=== PATIENT | male | born 1965 | race Caucasian/White ===

== ENCOUNTER 2017-08-14 07:24 | Observation (INO) | payer MEDICARE ==
[2017-08-14 08:04] LABS: #Basophils 0.1 thou/uL (0.0-0.2); #Eosinphils 0.3 thou/uL (0.0-0.7); #Lymphocytes 2.8 thou/uL (1.20-3.40); #Monocytes 0.7 thou/uL (0.11-0.59); %Basophils 0.9 % (0.0-1.0); %Eosinophils 3.4 % (0.0-10.0); %Lymphocytes 31.3 % (21.0-51.0); %Monocytes 7.6 % (0.0-10.0); Hematocrit 43.8 % (42.0-52.0); Mean Platelet Volume 7.6 fL (7.4-10.4); Red Blood Cell (RBC) Count 4.37 mill/uL (4.70-6.10); White Blood Cell (WBC) Count 8.8 thou/uL (4.8-10.8)
--- NOTE | 2017-08-14 08:06 | RAD ---
PORTABLE UPRIGHT FRONTAL CHEST RADIOGRAPH: Date: 08-14-17 Comparison: 08-19-16 History: Chest pain. FINDINGS: Cervical spine hardware is present. No pneumothorax, pleural fluid, focal consolidation or alveolar edema. Heart and mediastinal contours are stable. IMPRESSION: No acute findings. POS: [facility]
[2017-08-14 08:22] LABS: Bilirubin Negative (Negative); Blood, Urine Negative (Negative); Glucose, Urine (Dipstick) Negative (Negative); Ketone, Urine Negative (Negative); Nitrite Negative (Negative); Protein, Urine (Dipstick) Negative (Neg-Trace); Urobilinogen 0.2 mg/dL (0.2-1.0)
[2017-08-14 08:24] LABS: ALT (SGPT) 24 U/L (8-55); AST (SGOT) 25 U/L (5-34); Alkaline Phosphatase 119 U/L (40-150); Anion Gap 13 mmol/L (10-20); BUN (Urea Nitrogen) 11 mg/dL (8.4-25.7); Bilirubin, Total 0.5 mg/dL (0.2-1.2); CK (CPK) 165 U/L (30-200); Calc. Creatinine Clearance 0 mL/min (70-130); Calcium 8.9 mg/dL (7.8-10.44); Carbon Dioxide 22 mmol/L (22-29); Chloride 101 mmol/L (98-107); Estimated GFR-MDRD 79; Globulin 3.2 g/dL (2.4-3.5); Lipase 12 U/L (8-78); Protein, Total 6.7 g/dL (6.0-8.3)
[2017-08-14 08:28] LABS: Troponin I Less than 0.010 ng/mL (< 0.028)
[2017-08-14] MEDS ORDERED: Ondansetron HCl/PF 4 MG/2 ML Vial IVP PRN ×2 (10:03→11:33)
[2017-08-14] MEDS ORDERED: Ondansetron ODT 4 MG TAB PO PRN ×2 (10:03→11:33)
[2017-08-14 10:19] VITALS: TEMP 97.7
[2017-08-14 10:20] VITALS: BMI 32.9
[2017-08-14] MEDS ORDERED: Calcium Carbonate 500 MG ChewTAB PO PRN (11:33)
[2017-08-14] MEDS ORDERED: Acetaminophen 325 MG TAB PO PRN (11:33)
[2017-08-14] MEDS ORDERED: Nitroglycerin 0.4 MG TAB (25 Tab Bottle) PO PRN (11:33)
[2017-08-14] MEDS ORDERED: Senokot 8.6 MG TAB PO PRN (11:33)
[2017-08-14] MEDS ORDERED: cloNIDine 0.1 MG TAB PO PRN (11:33)
[2017-08-14] MEDS ORDERED: ALPRAZolam 1 MG TAB PO PRN (11:37)
[2017-08-14] MEDS ORDERED: HYDROcodone/Acetaminophen 10/325 mg Tablet PO PRN (11:37)
[2017-08-14] MEDS ORDERED: busPIRone HCl 10 MG TAB PO SCH (12:00)
[2017-08-14 12:51] VITALS: BP 168/105
[2017-08-14 12:51] LABS: Troponin I Less than 0.010 ng/mL (< 0.028)
[2017-08-14 14:44] LABS: Troponin I Less than 0.010 ng/mL (< 0.028)
[2017-08-14] MEDS ORDERED: cloNIDine 0.1 MG TAB PO SCH (15:00)
--- NOTE | 2017-08-14 17:19 | SS ---
FOLLOWUP: With primary care physician, Dr. Morocho in 1 week. ALLERGIES: The patient is allergic to PENICILLIN. DISCHARGE MEDICATIONS: Are same as admission medication with addition of aspirin 325 mg daily and s ublingual nitroglycerin as needed. Other home medications were resumed including Xanax as needed, Lipitor 10 mg daily, Cymbalta 90 mg d aily, gabapentin 1200 mg at bedtime, [place] as needed, hydrocodone bitartrate 120 mg daily, buspirone 5 mg b.i.d., clonidine 0.1 mg three times daily, and Benadryl as needed. INPATIENT CONSULTANTS: None. CHIEF COMPLAINT: Chest discomfort. HISTORY OF PRESENT ILLNESS: Patient is a 52-year-old male with hypertension, hyperlipidemia, severe anxiety and claustrophobia presented to the hospital with chest discomfort that started at 5:00 a.m . He was awake at that time. The pain was substernal, radiating to his left arm and back. It was pressure-like, burning in nature and moderate in intensity without any aggravating or relieving fact or. He felt lightheaded. However, denies any syncope or palpitations. No recent immobilization or travel. No nausea, vomiting or heartburn. He denies any cough, shortness of breath, orthopnea or leg swelling. In the emergency room, his initial vital signs showed temperature 98.2, respirations 14, pulse 78, a nd blood pressure of 111/90 with O2 saturation 96% on room air. His pain resolved after nitroglycer in. PAST MEDICAL HISTORY: 1. Chronic low back pain. 2. Hypertension. 3. Hyperlipidemia. 4. Anxiety disorder. 5. History of renal calculi. PAST SURGICAL HISTORY: 1. Cholecystectomy. 2. Multiple back surgeries. 3. Cervical C4-C7 fusion. ALLERGIES: PENICILLIN. CURRENT HOME MEDICATION: As discussed above. SOCIAL HISTORY: He is a former smoker. Denies any current use of smoking, alcohol or drug use. 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 FAMILY HISTORY: Positive for father with coronary artery bypass grafting. REVIEW OF SYSTEMS: The following complete review of systems was negative, unless otherwise mentione d in the HPI or below: Constitutional: Weight loss or gain, ability to conduct usual activities. Skin: Rash, itching. Eyes: Double vision, pain. ENT/Mouth: Nose bleeding, neck stiffness, pain, tenderness. Cardiovascular: Palpitations, dyspnea on exertion, orthopnea. Respiratory: Shortness of breath, wheezing, cough, hemoptysis, fever or night sweats. Gastrointestinal: Poor appetite, abdominal pain, heartburn, nausea, vomiting, constipation, or diar yanique. Genitourinary: Urgency, frequency, dysuria, nocturia. Musculoskeletal: Pain, swelling. Neurologic/Psychiatric: Anxiety, depression. Allergy/Immunologic: Skin rash, bleeding tendency. PHYSICAL EXAMINATION: VITAL SIGNS: As discussed above. GENERAL: A 52-year-old male in no apparent distress. Denies any chest discomfort at this time. HEENT: Head, atraumatic, normocephalic. Sclerae are anicteric. Moist mucous membranes. No oral l esion. NECK: Supple, no JVD, no carotid bruit. LUNGS: Clear to auscultation bilaterally. HEART: S1 and S2 present. Regular rate and rhythm. No murmurs, rubs or gallops are appreciated. ABDOMEN: Soft, nontender, bowel sounds present. No rebound or guarding. No costovertebral angle t enderness. EXTREMITIES: No edema or calf tenderness. Homans sign was negative. NEUROLOGIC: Grossly nonfocal, moves all four extremities. PSYCHIATRIC: Alert, awake, and oriented x3. SKIN: Warm and dry. LYMPH NODES: No palpable lymph nodes in the neck. PERIPHERAL VASCULAR: Radial pulses palpable bilaterally. MUSCULOSKELETAL: No joint swelling or tenderness. LABORATORY DATA AND X-RAY FINDINGS: 1. CBC showed WBC 8.8, hemoglobin 14.6, hematocrit 43.8, and platelet of 220. Chemistries showed s odium 131, potassium 4.6, chloride 101, bicarbonate 22, BUN 11, creatinine 1. 2. Cardiac enzymes were normal. Urinalysis was negative for WBC bacteria. 3. Chest x-ray by my review was negative for infiltrate. 4. EKG by my review showed normal sinus rhythm without significant ST-T wave changes IMPRESSION AND PLAN: 1. Chest discomfort. His serial cardiac enzymes were normal. Patient was sent down for the stress test. However, he was not able to complete a stress test due to extreme claustrophobia. He reques chris stress test to be done as outpatient. I called Dr. Potter's office and scheduled appointment in next [address] Jeff Potter. Aspirin along with sublingual nitroglycerin as needed was added to his home regimen. He was advised to come to the emergency room for any new episode of chest pain in the time being. 2. Hyperlipidemia. Statins were continued. 3. Chronic pain syndrome on chronic narcotics. 4. Severe anxiety with claustrophobia. Home medications were resumed. 5. Obesity with a body mass index 32.9. 6. PENICILLIN allergy. 7. Former smoker. 8. Hypertension. 9. Plan of care was discussed with the patient. He stated understanding.
[2017-08-14] MEDS ORDERED: Docusate 100 MG CAP PO SCH (21:00)
[2017-08-14] MEDS ORDERED: Enoxaparin Sodium 40 MG/0.4 ML SYRINGE SC SCH (21:00)
[2017-08-14] MEDS ORDERED: Gabapentin 400 MG CAP PO SCH (21:00)
[2017-08-14] MEDS ORDERED: Famotidine 20 MG TAB PO SCH (21:00)
[2017-08-15] MEDS ORDERED: busPIRone HCl 10 MG TAB PO SCH (09:00)
[2017-08-15] MEDS ORDERED: Atorvastatin Calcium 10 MG TAB PO SCH (09:00)
[2017-08-15] MEDS ORDERED: Aspirin 325 MG TAB PO SCH (09:00)
== END 2017-08-14 16:15 | disposition home or self-care (01) ==
LOC: ERS 07:24 → 2SW 10:13
PROVIDERS: ADMIT Internal Medicine; ATTEND Internal Medicine
DX: R07.2 Precordial pain (principal); E78.5 Hyperlipidemia, unspecified; G89.4 Chronic pain syndrome; F40.240 Claustrophobia; E66.9 Obesity, unspecified; I10 Essential (primary) hypertension; Z79.82 Long term (current) use of aspirin; Z79.891 Long term (current) use of opiate analgesic; Z79.899 Other long term (current) drug therapy; Z68.32 Body mass index [BMI] 32.0-32.9, adult; Z88.0 Allergy status to penicillin; Z98.1 Arthrodesis status; Z90.49 Acquired absence of other specified parts of digestive tract; Z98.890 Other specified postprocedural states; Z87.891 Personal history of nicotine dependence; Z87.442 Personal history of urinary calculi
CPT/HCPCS: 71010; 78452; 80053; 81003; 82550; 82553; 83690; 84484 ×2; 85025; 93005; 94760 ×2; 99285; A9500; 36415; 36416

== ENCOUNTER 2017-09-06 06:03 | Emergency (ER) | payer MEDICARE ==
[2017-09-06 06:47] LABS: #Basophils 0.1 thou/uL (0.0-0.2); #Eosinphils 0.2 thou/uL (0.0-0.7); #Monocytes 0.6 thou/uL (0.11-0.59); #Neutrophils 4.7 thou/uL (1.40-6.50); %Basophils 1.3 % (0.0-1.0); %Eosinophils 2.8 % (0.0-10.0); %Lymphocytes 34.8 % (21.0-51.0); %Monocytes 6.4 % (0.0-10.0); Hematocrit 43.2 % (42.0-52.0); Mean Platelet Volume 7.6 fL (7.4-10.4); Red Blood Cell (RBC) Count 4.17 mill/uL (4.70-6.10); White Blood Cell (WBC) Count 8.6 thou/uL (4.8-10.8)
[2017-09-06 06:56] LABS: ALT (SGPT) 28 U/L (8-55); AST (SGOT) 22 U/L (5-34); Alkaline Phosphatase 125 U/L (40-150); Anion Gap 12 mmol/L (10-20); BUN (Urea Nitrogen) 8 mg/dL (8.4-25.7); Bilirubin, Total 0.4 mg/dL (0.2-1.2); CK (CPK) 97 U/L (30-200); Calc. Creatinine Clearance 0 mL/min (70-130); Calcium 8.8 mg/dL (7.8-10.44); Carbon Dioxide 25 mmol/L (22-29); Chloride 100 mmol/L (98-107); Estimated GFR-MDRD 71; Globulin 2.7 g/dL (2.4-3.5); Lipase 12 U/L (8-78); Protein, Total 6.4 g/dL (6.0-8.3)
[2017-09-06] MEDS ORDERED: Lidocaine 1% (PF) 30 ML VIAL ONE (07:09)
[2017-09-06 07:38] LABS: Bilirubin Negative (Negative); Blood, Urine Negative (Negative); Glucose, Urine (Dipstick) Negative (Negative); Ketone, Urine Negative (Negative); Nitrite Negative (Negative); Protein, Urine (Dipstick) Negative (Neg-Trace); Urobilinogen 0.2 mg/dL (0.2-1.0)
== END 2017-09-06 08:10 | disposition home or self-care (01) ==
LOC: ERS 06:03
DX: L02.211 Cutaneous abscess of abdominal wall (principal); L03.311 Cellulitis of abdominal wall; I10 Essential (primary) hypertension; E78.5 Hyperlipidemia, unspecified; F32.9 Major depressive disorder, single episode, unspecified; F41.9 Anxiety disorder, unspecified; F17.210 Nicotine dependence, cigarettes, uncomplicated; Z79.899 Other long term (current) drug therapy
CPT/HCPCS: 10060; 36415; 80053; 81003; 82550; 83690; 85025; 99406; J2001

== ENCOUNTER 2017-09-07 07:55 | Observation (INO) | payer MEDICARE ==
[2017-09-07 08:49] LABS: #Basophils 0.1 thou/uL (0.0-0.2); #Eosinphils 0.2 thou/uL (0.0-0.7); #Lymphocytes 2.3 thou/uL (1.20-3.40); #Monocytes 0.5 thou/uL (0.11-0.59); #Neutrophils 3.9 thou/uL (1.40-6.50); %Basophils 1.3 % (0.0-1.0); %Eosinophils 3.3 % (0.0-10.0); %Lymphocytes 32.5 % (21.0-51.0); %Monocytes 7.4 % (0.0-10.0); Hematocrit 41.7 % (42.0-52.0); Mean Platelet Volume 7.4 fL (7.4-10.4); Red Blood Cell (RBC) Count 4.05 mill/uL (4.70-6.10); White Blood Cell (WBC) Count 7.1 thou/uL (4.8-10.8)
[2017-09-07 08:54] LABS: PTT 28.2 SEC (22.9-36.1); Prothrombin Time 12.7 SEC (12.0-14.7)
[2017-09-07 09:10] LABS: ALT (SGPT) 36 U/L (8-55); AST (SGOT) 38 U/L (5-34); Alkaline Phosphatase 133 U/L (40-150); Anion Gap 9 mmol/L (10-20); BUN (Urea Nitrogen) 7 mg/dL (8.4-25.7); Bilirubin, Total 0.6 mg/dL (0.2-1.2); CK (CPK) 115 U/L (30-200); Calc. Creatinine Clearance 0 mL/min (70-130); Calcium 8.6 mg/dL (7.8-10.44); Carbon Dioxide 29 mmol/L (22-29); Chloride 98 mmol/L (98-107); Estimated GFR-MDRD 82; Globulin 2.8 g/dL (2.4-3.5); Protein, Total 6.5 g/dL (6.0-8.3)
[2017-09-07 09:15] LABS: Troponin I Less than 0.010 ng/mL (< 0.028)
--- NOTE | 2017-09-07 09:18 | RAD ---
EXAM: ONE VIEW CHEST: HISTORY: Chest pain. COMPARISON: 08/14/17. FINDINGS: Normal cardiac silhouette. Pulmonary vessels and hilum are normal. Costophrenic angles are clear. No consolidation or mass. Lung volumes are diminished likely due to poor inspiratory effort. No pne umothorax or osseous abnormalities. Cervical fusion hardware is noted. IMPRESSION: Diminished lung volumes. No acute cardiopulmonary process. POS: [facility]
--- NOTE | 2017-09-07 12:46 | HP ---
CHIEF COMPLAINT: Chest pain. HISTORY OF PRESENT ILLNESS: This is a 52-year-old pleasant gentleman who came into the hospital yest erday for a small abscess 1 cm x 0.7 cm just on his pubic area, possibly secondary to a Staph infecti on. It was aspirated and sent home with some clindamycin. Today in the morning, he got up at 5:00 a .m. and felt as though there was some more secretions left and he tried to stick himself with a pin t o drain the pus. Because he was unsuccessfully he felt very stressed and then he started experiencin g sharp, heavy retrosternal chest pain which radiated up to the neck. The patient also felt slight s hortness of breath, but denies any diaphoresis. The patient states his pain improved after taking 3 nitroglycerins. He denies any fever, chills, nausea or vomiting. The patient reports headache withi n the last month. The patient has had a stress test which was not able to be completed as the patien t got anxious and Dr. Potter was called from the ER who recommended we admit the patient for observat ion. The patient's chest pain is relieved by nitroglycerin and not worse by anything else. The ovidio ent will be admitted for evaluation and treatment of this. PAST MEDICAL HISTORY: Chronic low back pain, hypertension, hyperlipidemia, anxiety disorder, history of renal calculi. PAST SURGICAL HISTORY: Cholecystectomy, multiple back surgeries, cervical C4-C7 fusion surgery. ALLERGIES: PENICILLIN. CURRENT HOME MEDICATIONS: Please see MAR. SOCIAL HISTORY: He still smokes. Denies any alcohol or recreational drug use. 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 FAMILY HISTORY: Positive for father with coronary artery bypass grafting. REVIEW OF SYSTEMS: Significant for chest pain, otherwise no fever, no chills, no headache, no appeti te changes. No cough, no diarrhea, dysuria or polyuria. No memory or mood changes noted. PHYSICAL EXAMINATION: VITAL SIGNS: Blood pressure 145/95, pulse is 97, respirations 18, temperature 98. GENERAL: The patient is lying in bed in no apparent distress. HEENT: Atraumatic and normocephalic. Pupils equally round, react to light. Extraocular movements i ntact. Mucous membranes moist. NECK: Supple. No JVD. CHEST: Breath sounds. There are no rales or rhonchi. HEART: S1, S2, no murmurs, rubs or gallops. ABDOMEN: Soft, obese. EXTREMITIES: No cyanosis, clubbing, edema. Distal pulses present. NEUROLOGIC: Alert, awake, oriented. No cranial deficits. No sensorimotor deficits. SKIN: The skin over the pubic area shows a small opening with no drainage, no redness is seen as wel l. LABORATORY DATA: WBC count is 7.1, hemoglobin is 14, INR 0.9. BNP is 10. Troponin is negative. Po tassium is 4. Sodium is 132, creatinine is 0.9. ASSESSMENT AND PLAN: 1. Chest pain, rule out acute coronary syndrome. Dr. Potter has been consulted. We will put him on chest pain protocol and do the need for. 2. Hyponatremia. We will give him normal saline at 60 mL an hour. 3. Obesity. He has been counseled. 4. Tobacco use, he has been counseled. 5. Chronic low back pain. We will continue home medications. 6. Hyperlipidemia, stable. 7. Hypertension. We will monitor throughout his hospital stay. 8. A small abdominal wall abscess, status post drainage yesterday on the , we will put him on Ba ctrim-DS p.o. b.i.d. and warm compresses. 9. Sequential compression devices for deep venous thrombosis prophylaxis. I will work with Dr. Potter in further caring for the patient.
[2017-09-07] MEDS ORDERED: Acetaminophen 325 MG TAB PO PRN (12:50)
[2017-09-07] MEDS ORDERED: Sodium Chloride 0.9% 1,000 ML IV SCH (12:57)
[2017-09-07] MEDS ORDERED: Calcium Carbonate 500 MG ChewTAB PO PRN (12:57)
[2017-09-07] MEDS ORDERED: Lorazepam 1 MG TAB PO PRN (12:57)
[2017-09-07] MEDS ORDERED: hydrALAZINE 20 MG/ML VIAL SLOW IVP PRN (12:57)
[2017-09-07] MEDS ORDERED: Nitroglycerin 0.4 MG TAB (25 Tab Bottle) PO PRN (12:57)
[2017-09-07] MEDS ORDERED: HYDROcodone/Acetaminophen 5/325 mg Tablet PO PRN (12:57)
[2017-09-07 13:47] LABS: Troponin I Less than 0.010 ng/mL (< 0.028)
[2017-09-07 13:53] VITALS: BMI 33.0
[2017-09-07 16:03] VITALS: BP 121/71; TEMP 98.4
[2017-09-07 16:36] LABS: Troponin I Less than 0.010 ng/mL (< 0.028)
--- NOTE | 2017-09-07 18:25 | CON ---
DATE OF CONSULTATION: 09/07/2017 INDICATION FOR CONSULTATION: This is a 52-year-old patient with a history of chest pain. This gentleman was on his way to the hospital today where he had abdominal abscesses and some discomfort. He had it drained yesterday, but was having more discomfort. He was on his way to the hospital, (His father was driving him as he does not drive due to anxiety) and on the way to the hospital, he developed chest pain which he describes as being very sharp stabbing type pain with shooting pains up to the neck. After being seen in the emergency room, the cardiac enzymes are negative. He was admitted to the hospital for observation. Since being in the hospital, he has had his third set of cardiac enzymes which are negative. His EKG is unremarkable. He did have one episode of chest pain on the telemetry floor, which he described as 10/10 with shooting pains to the neck. This is a sharp stabbing pain, but there were no EKG changes noted on the monitor and he remains stable at this time. He does state that the pain is relieved by nitroglycerin. Unfortunately, he still continues to smoke and may be having some vasospasm, but there were no EKG changes to confirm that he was having ischemic changes. At this time, he remains relatively stable. He has no pain. He has had no further chest pain since his last episode and was given nitroglycerin for relief. PAST MEDICAL HISTORY: Significant for abnormal stress test in the office. He had a very small area on the inferior wall suggesting possible ischemia which was a low risk finding, this was recently performed by Dr. Potter on 2016. His ejection fraction at that time was unremarkable. PAST MEDICAL HISTORY: Significant for anxiety disorder. He has a history of hypertension, panic attacks, history of gastroesophageal reflux disease. He had a cholecystectomy, he has had lumbar diskectomy, he has had a spinal fusion , he has had a kyphoplasty performed, I believe, in the disk areas. He quit back in 2013 and had severe anxiety attack and saw the psychiatrist, he is continued to smoke as he became apparently suicidal. SOCIAL HISTORY: He continues to smoke. MEDICATIONS: Prior to admission included Hysingla ER 120 mg q.24 hours, atorvastatin 10 mg a day, duloxetine 30 mg daily, gabapentin 600 mg t.i.d., alprazolam 1 mg half tablet to one tablet as needed, Paroxetine ER 37.5 mg daily , hydrocodone/acetaminophen one tablet three times a day as needed, hydroxyzine HCL 25 mg q.p.m., Buspirone 10 mg 3 tablets in the morning and 2 in the evening , clonidine 0.1 mg q.i.d., Lisinopril 5 mg daily. ALLERGIES: He is allergic to PENICILLIN. REVIEW OF SYSTEMS: A 12-point review of systems is essentially unremarkable except what was noted in the history of present illness. PHYSICAL EXAMINATION: GENERAL: Reveals a well-developed, well-nourished gentleman who is in no acute distress. He is alert and oriented. He denies any chest pain at this time. VITAL SIGNS: His blood pressure is 121/71, earlier was 165/98, heart rate is 73 and regular. He is afebrile, respiratory rate is 18. HEENT: Reveals the head to be normocephalic and atraumatic. Carotid pulses are present. There were no bruits. No JVD. The thyroid is not enlarged. Oral mucosa was pink and moist. CHEST: Clear to auscultation, no rales, rhonchi or wheezing. CARDIOVASCULAR: Exam reveals a regular rate and rhythm, normal S1, S2. There is no S3, S4 noted. No significant murmurs, heaves, thrills, bruits or rubs. ABDOMEN: Soft and nontender. Positive bowel sounds are present. EXTREMITIES: He does have a small area which was a small incision where he underwent excision already with what appears to be an infected with hair follicle with small abscess that was drained. It does not appear to be hardened or draining at this time. EXTREMITIES: Show no clubbing, cyanosis or edema. Pedal pulses are present. NEUROLOGIC: He appears to be intact with normal strength and tone. SKIN: Warm and dry. LABORATORY DATA: EKG shows a normal sinus rhythm, no acute changes. Cardiac enzymes are negative. Creatinine 0.97, potassium 4.0. Hemoglobin is 14. IMPRESSION: 1. A 52-year-old gentleman with chest pain with a small area of a recently noted on a stress test. The PET scan at the office which showed a small area of reversible ischemia which was not felt to be significant and he was to be continued his medications. There are no EKG changes and enzymes are negative. His pain was atypical with sharp, stabbing, radiating pain, does not appear to be cardiac at this time. He did not have any associated symptoms with the pain. At this time, he most likely is stable for discharge. He can follow with Dr. Potter next week in the office. If he continues to have episodes of chest discomfort, he may need eventually undergo cardiac catheterization. 2. Anxiety and depression. He will be continued his present medications. 3. Tobacco abuse. At this time, he was advised to at least to try to decrease his tobacco intake and he may be having some vasospasm, but there were no EKG changes to indicate this. 4. Hypertension. This is under reasonable control at this time. 5. History of abdominal wall abscess. He may need further evaluation and treatment. He is on Septra at this time for this abscess. He will continue the antibiotics. From my perspective, at this time, the patient is stable for discharge, at least from a cardiac standpoint. RAMIRO
[2017-09-07] MEDS ORDERED: Docusate 100 MG CAP PO SCH (21:00)
[2017-09-07] MEDS ORDERED: Sulfameth/Trimethoprim DS 800-160mg TAB PO SCH (21:00)
[2017-09-07] MEDS ORDERED: busPIRone HCl 5 MG TAB PO SCH (21:00)
[2017-09-07] MEDS ORDERED: cloNIDine 0.1 MG TAB PO SCH (21:00)
[2017-09-07] MEDS ORDERED: Gabapentin 400 MG CAP PO SCH (21:00)
[2017-09-07] MEDS ORDERED: Metoprolol Tartrate 25 MG TAB PO SCH (21:00)
[2017-09-07] MEDS ORDERED: Famotidine 20 MG TAB PO SCH (21:00)
--- NOTE | 2017-09-07 22:14 | DIS ---
DATE OF ADMISSION: 09/07/2017 DATE OF DISCHARGE: 09/07/2017 DIAGNOSES: Chest pain, possibly secondary to stable angina to be discharged with outpatient followup with Dr. Potter for further workup on sublingual nitro. Hyponatremia, obesity, tobacco use, chronic low back pain, hyperlipidemia, hypertension, small abdominal abscess on the suprapubic area stable t o be discharged on Bactrim. DISCHARGE MEDICATIONS: Include all home medications plus Bactrim 2 tablets p.o. b.i.d. for 10 days. CONSULTANTS ON THE CASE: Leatha Nicholas M.D. BRIEF HOSPITAL COURSE: A 52-year-old pleasant gentleman who was apparently in his usual state of [facility], came into the hospital with chest pain. Please refer to my H and P for further details. The evangelist tipton was evaluated by Dr. Nicholas since the EKG findings were not there and troponins were negative. Aris Nicholas said that he could be discharged with outpatient followup with Dr. Potter. He is right now m edically stable to be discharged with outpatient followup. Total time for this discharge took 35 minutes. He is asked to come back to the emergency room in [place] symptoms recur.
[2017-09-08] MEDS ORDERED: Aspirin 325 MG TAB PO SCH (09:00)
[2017-09-08] MEDS ORDERED: DULoxetine 30 MG CAP PO SCH (09:00)
--- NOTE | 2017-09-29 15:30 | EKG ---
Test Reason : CP INTERMITTENT Blood Pressure : / mmHG Vent. Rate : 087 BPM Atrial Rate : 087 BPM P-R Int : 156 ms QRS Dur : 100 ms QT Int : 382 ms P-R-T Axes : 076 -17 000 degrees QTc Int : 459 ms Normal sinus rhythm Normal ECG Confirmed by TIMUR CHUN D.O. ([id number]), photo editor JESUS AMOR ([id number]) on 09/29/2017 3:30:21 PM Referred By: Confirmed By:TIMUR CHUN D.O.
== END 2017-09-07 17:38 | disposition home or self-care (01) ==
LOC: ERS 07:55 → 2SW 11:53
PROVIDERS: ADMIT Internal Medicine; ATTEND Internal Medicine
DX: R07.9 Chest pain, unspecified (principal); E87.1 Hypo-osmolality and hyponatremia; E66.9 Obesity, unspecified; F17.200 Nicotine dependence, unspecified, uncomplicated; M54.5 Low back pain; G89.29 Other chronic pain; E78.5 Hyperlipidemia, unspecified; I10 Essential (primary) hypertension; K21.9 Gastro-esophageal reflux disease without esophagitis; F41.8 Other specified anxiety disorders; Z68.33 Body mass index [BMI] 33.0-33.9, adult; Z79.2 Long term (current) use of antibiotics; Z79.82 Long term (current) use of aspirin; Z79.899 Other long term (current) drug therapy; Z88.0 Allergy status to penicillin; Z98.1 Arthrodesis status; Z90.49 Acquired absence of other specified parts of digestive tract; Z98.890 Other specified postprocedural states; Z87.442 Personal history of urinary calculi; Z82.49 Family history of ischemic heart disease and other diseases of the circulatory system
CPT/HCPCS: 36415; 71010; 80053; 82550; 82553; 83880; 84484; 85025; 85610; 85730; 93005; 94760; 99406

== ENCOUNTER 2017-09-12 14:52 | Observation (INO) | payer MEDICARE ==
[2017-09-12 15:28] LABS: #Eosinphils 0.1 thou/uL (0.0-0.7); #Monocytes 0.5 thou/uL (0.11-0.59); #Neutrophils 10.3 thou/uL (1.40-6.50); %Basophils 0.3 % (0.0-1.0); %Lymphocytes 8.5 % (21.0-51.0); %Monocytes 4.3 % (0.0-10.0); Hematocrit 50.9 % (42.0-52.0); Mean Platelet Volume 7.2 fL (7.4-10.4); Red Blood Cell (RBC) Count 5.01 mill/uL (4.70-6.10); White Blood Cell (WBC) Count 11.9 thou/uL (4.8-10.8)
[2017-09-12] MEDS ORDERED: Nitroglycerin 2% Ointment 1 INCH/1 GM Packet ONE (15:34)
[2017-09-12] MEDS ORDERED: Morphine 4 MG/ML VIAL ONE (15:34)
--- NOTE | 2017-09-12 15:38 | RAD ---
EXAM: CHEST ONE VIEW 09/12/17 HISTORY: Bodyaches. Nausea, vomiting. Diarrhea. Chest wall pain. COMPARISON: 09/07/17. FINDINGS: Portable upright chest demonstrates a normal cardiac silhouette. Pulmonary vessels and hilum are norm al. No consolidation or mass. No pneumothorax or osseous abnormality. Cervical fusion hardware is not ed. IMPRESSION: No acute cardiopulmonary process. POS: [facility]
[2017-09-12 15:46] LABS: Lactic Acid - Sepsis 2.7 mmol/L (0.5-2.2)
[2017-09-12 15:51] LABS: ALT (SGPT) 54 U/L (8-55); AST (SGOT) 57 U/L (5-34); Alkaline Phosphatase 152 U/L (40-150); Anion Gap 14 mmol/L (10-20); BUN (Urea Nitrogen) 9 mg/dL (8.4-25.7); Bilirubin, Total 0.7 mg/dL (0.2-1.2); CK (CPK) 115 U/L (30-200); Calc. Creatinine Clearance 0 mL/min (70-130); Calcium 9.3 mg/dL (7.8-10.44); Carbon Dioxide 24 mmol/L (22-29); Chloride 98 mmol/L (98-107); Estimated GFR-MDRD 66; Globulin 3.2 g/dL (2.4-3.5); Protein, Total 7.3 g/dL (6.0-8.3)
[2017-09-12 15:54] LABS: Troponin I Less than 0.010 ng/mL (< 0.028)
[2017-09-12] MEDS ORDERED: ISOVUE-370 76%-LOCM 1 ML ONE (16:26)
[2017-09-12 16:39] LABS: Bilirubin Negative (Negative); Blood, Urine Negative (Negative); Glucose, Urine (Dipstick) Negative (Negative); Ketone, Urine Negative (Negative); Nitrite Negative (Negative); Protein, Urine (Dipstick) Negative (Neg-Trace)
--- NOTE | 2017-09-12 16:48 | CT ---
EXAM: CT ANGIOGRAM OF THE CHEST 09/12/17 HISTORY: Nausea. Vomiting. Pain upon inspiration. Chest pain. COMPARISON: None. CORRELATION: Chest CT 08/20/16. TECHNIQUE: CT angiogram of the chest is performed in the axial plane. Oblique and coronal three dimensional refo rmatted images are submitted for interpretation. FINDINGS: There is no mediastinal mass, lymphadenopathy, hematoma. Heart size is within normal limits. No signi ficant pericardial fluid. The thoracic aorta and upper abdominal aorta have a normal caliber. No malachi aortic fat stranding. Trachea and central bronchi are patent. Minimal dependent atelectatic changes. No mass. No consolida tion. No pneumothorax. Limited evaluation of the pulmonary arterial system due to poor timing of cont rast bolus. Centrally, there is no evidence of a filling defect to suggest pulmonary artery embolism. Evaluation of the lobar, segment and subsegmental arteries are limited by timing of bolus. There is atrophy of the visualized pancreas. Mild hypoattenuation of the liver due to hepatic steatos is. Gallbladder is surgically absent. IMPRESSION: 1. Limited evaluation of the pulmonary arterial system due to poor timing of contrast bolus. No evidence of a central pulmonary artery embolism. Evaluation of the lobar, segmental and subsegmental arteries is limited. 2. Mild pancreatic atrophy. 3. Hepatic steatosis of the liver. POS: [facility]
[2017-09-12] MEDS ORDERED: Acetaminophen 500 MG TAB ONE (17:27)
[2017-09-12 19:00] VITALS: BMI 32.4
[2017-09-12 19:05] LABS: Troponin I 0.012 ng/mL (< 0.028)
[2017-09-12] MEDS ORDERED: Ondansetron HCl/PF 4 MG/2 ML Vial IVP PRN (19:37)
[2017-09-12] MEDS ORDERED: Ondansetron ODT 4 MG TAB SL PRN (19:37)
[2017-09-12] MEDS ORDERED: Lorazepam 2 MG/ML VIAL SLOW IVP PRN (19:38)
[2017-09-12 21:51] LABS: Troponin I 0.014 ng/mL (< 0.028)
[2017-09-12] MEDS ORDERED: Sodium Chloride 0.9% 1,000 ML IV SCH (22:46)
[2017-09-12] MEDS ORDERED: Senokot 8.6 MG TAB PO PRN (22:46)
[2017-09-12] MEDS ORDERED: Guaifenesin DM 100-10/5 ML UDCUP PO PRN (22:46)
[2017-09-12] MEDS ORDERED: Acetaminophen 325 MG TAB PO PRN (22:46)
[2017-09-12] MEDS ORDERED: ALPRAZolam 1 MG TAB PO PRN (22:46)
[2017-09-12] MEDS ORDERED: Nitroglycerin 0.4 MG TAB (25 Tab Bottle) PO PRN (22:46)
[2017-09-12] MEDS ORDERED: cloNIDine 0.1 MG TAB PO SCH (23:15)
[2017-09-12] MEDS ORDERED: Famotidine 20 MG TAB PO SCH (23:15)
[2017-09-12] MEDS ORDERED: Gabapentin 400 MG CAP PO SCH (23:15)
[2017-09-12] MEDS ORDERED: Metoprolol Tartrate 25 MG TAB PO SCH (23:15)
[2017-09-12] MEDS ORDERED: clonazePAM 1 MG TAB PO SCH (23:15)
[2017-09-12] MEDS: HYDROcodone/Acetaminophen 10/325 mg Tablet PO PRN (23:15)
[2017-09-12] MEDS ORDERED: busPIRone HCl 10 MG TAB PO SCH (23:15)
--- NOTE | 2017-09-13 | CT ---
CT ABDOMEN AND PELVIS WITHOUT CONTRAST: 09/12/17 Multiple tomograms obtained through the abdomen and pelvis without IV enhancement. HISTORY: Intractable nausea and vomiting. Upper abdominal pain. Patient is post CT angio chest earlier today. FINDINGS: The lung bases are clear. The liver, spleen and pancreas appear unremarkable. The stomach and duodenum unremarkable. Adrenal glands normal. Contrast opacification of the renal collecting structures is noted. There is some contrast opacificat ion of the ureters and contrast opacification of the bladder. There is no evidence of ureteral dilat ation or obstruction. Ureteral calculi cannot be excluded because of the presence of contrast within the ureters; however, there is no secondary evidence of ureteral calculus. Small bowel loops appear n ormal caliber. The appendix appears normal. Colon is unremarkable. Aorta is normal caliber. Some mild mesenteric haziness in the root of the mesentery which is nonspecific. No free fluid in the abdomen or pelvis. Postoperative changes in the lumbar spine. IMPRESSION: No evidence of acute process. POS: [facility]
--- NOTE | 2017-09-13 03:47 | HP ---
REASON FOR ADMISSION: Chest pain. HISTORY OF PRESENT ILLNESS: The patient gives history of having body aches, which started around 4:30 in the morning. He felt sick and thought he was coming down with the flu. Around 10 in the morning, he started to have nauseating feeling and soon started to throw up. He has had bilious vomiting, but no blood in it. He took hydrocodone, thinking that his body aches would go away, but threw up the same. Around 1:00 p.m., he started to have continous vomiting again and developed chest pain, which was retrosternal. He thought that this is related to anxiety, stress, and panic attacks. He tried to take two of nitroglycerin which he threw up again. Currently, has no chest pain. No complaints of palpitations, PND, or orthopnea at present. He is comfortable in his room in 231 at present. No complaints of cough or expectoration. PAST MEDICAL/SURGICAL HISTORY: Hypertension, anxiety disorder, recent stress test done in Dr. Potter's office on the with a PET scan. This was a small area of inferior wall ischemia, but was found to be low risk finding. GERD, cholecystectomy, lumbar diskectomy with fusion, history of renal calculi. CURRENT MEDICATIONS: The patient is on clonidine 0.1 mg 3 times daily, [place] p.r.n. for pain, gabapentin 1200 mg p.o. at bedtime, Hysingla extended release 120 mg daily, duloxetine 90 mg daily, alprazolam 1 mg daily, buspirone 5 mg twice daily, atorvastatin 10 mg daily, lisinopril daily, aspirin 325 mg daily. PERSONAL HISTORY: He continues to smoke one pack a day. Denies alcohol or substance abuse. FAMILY HISTORY: Father has had history of coronary artery disease. Mother at the age of 77 years. REVIEW OF SYSTEMS: The following complete review of systems was negative, unless otherwise mentioned in the HPI or below: Constitutional: Weight loss or gain, ability to conduct usual activities. Skin: Rash, itching. Eyes: Double vision, pain. ENT/Mouth: Nose bleeding, neck stiffness, pain, tenderness. Cardiovascular: Palpitations, dyspnea on exertion, orthopnea. Respiratory: Shortness of breath, wheezing, cough, hemoptysis, fever or night sweats. Gastrointestinal: Poor appetite, abdominal pain, heartburn, nausea, vomiting, constipation, or diarrhea. Genitourinary: Urgency, frequency, dysuria, nocturia. Musculoskeletal: Pain, swelling. Neurologic/Psychiatric: Anxiety, depression. Allergy/Immunologic: Skin rash, bleeding tendency. PHYSICAL EXAMINATION: GENERAL: The patient is a 52-year-old male who is currently not in any acute distress. VITAL SIGNS: Blood pressure 146/84, pulse 100 per minute, respiratory rate 20 per minute, temperature 98.2 degrees Fahrenheit, saturating 94% on room air. NECK: Supple, no elevated JVD. HEENT: Eyes, extraocular muscles intact. Pupils reacting to light. Oral cavity mucous membranes are moist. No exudates or congestion. CARDIOVASCULAR SYSTEM: S1, S2 heard. Irregular rhythm. RESPIRATORY SYSTEM: Air entry 2+ bilateral. No rales or rhonchi. ABDOMEN: Soft, bowel sounds heard. No tenderness, rigidity, or guarding. EXTREMITIES: No peripheral edema or calf tenderness. VASCULAR SYSTEM: Peripheral pulses 2+ bilateral, no ischemic ulcerations or gangrene. CENTRAL NERVOUS SYSTEM: No gross focal deficits seen. The patient is alert, awake, oriented x3. PSYCHIATRIC SYSTEM: The patient's mood is euthymic. No hallucinations or delusions. LABORATORY AND X-RAY FINDINGS: CT of the abdomen and pelvis without contrast done showed no acute process. CT angio chest done showed no evidence of PE in the central pulmonary artery. Mild pancreatic atrophy was incidentally seen with hepatic steatosis. UA is negative for any urinary tract infection. Two sets of troponin are negative. BUN 9, creatinine 1.1, glucose 132, AST 57, ALT 54, alkaline phosphatase 152. White count of 11, H&H 17 and 50, platelet count 240 with 85% neutrophils. EKG done shows sinus tachycardia at 133 beats per minute. CLINICAL IMPRESSION AND PLAN: The patient has had a recent PET scan stress test in Dr. Potter's office and was found to be low risk for coronary artery disease. His two sets of troponin are negative at present. The patient started out his symptoms with nausea, vomiting, and finally ending with chest pain. It is unclear if he had food poisoning or stomach flu. He has had a recent hospitalization here for chest pain. He was evaluated by Dr. Nicholas during his recent observation stay. We will continue all his home medications including anxiety medications. He will be on full dose aspirin for now. The patient can be safely discharged this morning and he will be asked to follow up with Dr. Potter in his office for possible coronary angiogram on an elective basis in view of recurrent episodes of chest pain. We will also gently hydrate him in view of intractable nausea, vomiting, which is clearing up at present. If he is able to keep food down this morning, he can be safely discharged home. Please note I have seen and examined the patient on 09/12/2017. RAMIRO
[2017-09-13] MEDS: HYDROcodone/Acetaminophen 10/325 mg Tablet PO PRN (04:09)
[2017-09-13 04:29] LABS: #Eosinphils 0.1 thou/uL (0.0-0.7); #Lymphocytes 1.4 thou/uL (1.20-3.40); #Monocytes 0.3 thou/uL (0.11-0.59); %Basophils 0.3 % (0.0-1.0); %Eosinophils 0.8 % (0.0-10.0); %Lymphocytes 20.1 % (21.0-51.0); %Monocytes 4.6 % (0.0-10.0); Hematocrit 42.5 % (42.0-52.0); Mean Platelet Volume 7.5 fL (7.4-10.4); Red Blood Cell (RBC) Count 4.16 mill/uL (4.70-6.10); White Blood Cell (WBC) Count 6.7 thou/uL (4.8-10.8)
[2017-09-13 04:48] LABS: Anion Gap 11 mmol/L (10-20); BUN (Urea Nitrogen) 9 mg/dL (8.4-25.7); Calc. Creatinine Clearance 160 mL/min (70-130); Calcium 8.3 mg/dL (7.8-10.44); Carbon Dioxide 22 mmol/L (22-29); Chloride 102 mmol/L (98-107); Estimated GFR-MDRD Greater than 90
[2017-09-13] MEDS ORDERED: clonazePAM 0.5 MG TAB PO SCH (07:30)
[2017-09-13 08:07] VITALS: BP 138/80; TEMP 98.9
[2017-09-13] MEDS ORDERED: busPIRone HCl 10 MG TAB PO SCH (09:00)
[2017-09-13] MEDS ORDERED: Famotidine 20 MG TAB PO SCH (09:00)
[2017-09-13] MEDS ORDERED: cloNIDine 0.1 MG TAB PO SCH (09:00)
[2017-09-13] MEDS ORDERED: [UNRECOGNIZED DRUG - OTHER] PO SCH (09:00)
[2017-09-13] MEDS ORDERED: Aspirin 325 MG TAB PO SCH (09:00)
[2017-09-13] MEDS ORDERED: Enoxaparin Sodium 40 MG/0.4 ML SYRINGE SC SCH (09:00)
[2017-09-13] MEDS ORDERED: Metoprolol Tartrate 25 MG TAB PO SCH (09:00)
[2017-09-13] MEDS ORDERED: Atorvastatin Calcium 10 MG TAB PO SCH (09:00)
--- NOTE | 2017-09-13 13:07 | DIS ---
PRIMARY CARE PHYSICIAN: Dr. Breanne Morocho. PRIMARY BID ANALYST: Dr. Devon Potter. DATE OF ADMISSION: 09/12/2017 DATE OF DISCHARGE: 09/13/2017 DISCHARGE DIAGNOSES: 1. Noncardiac chest pain. 2. Chronic back pain. 3. Hypertension. 4. Hyperlipidemia. 5. Gastroesophageal reflux disease. 6. Anxiety disorder. CONSULTATIONS: None. PROCEDURES: None. HISTORY AND PHYSICAL: Mr. Casas is a 52-year-old gentleman who presented to the emergency depart ment with complaining of chest pain last evening. He is followed by Dr. Devon Potter regularly an d had a recent stress test lately in the office that was unremarkable. He states this was about 2 we eks ago. Due to his history, we inability to keep down nitroglycerin because he kept throwing up. He was admi tted overnight. HOSPITAL COURSE: The patient was seen and examined by Dr. Holt, the patient was placed on tele metry. Given gentle hydration and observed overnight. Serial cardiac biomarkers were done that were negative. Morning labs shows white blood cell count to return to normal. Hemoglobin stable and gigi mistries were normal. The patient was having only back pain at this point. The chest pain resolved. He had no further darnell sea, vomiting was asking to be discharged. PHYSICAL EXAMINATION: The patient was seen and examined on the day of discharge. Discharge plan and disposition were discussed with the patient and his brother [id number] at the bedside. DISCHARGE MEDICATIONS: 1. Xanax 1 mg p.o. daily per history. 2. Aspirin 325 mg daily. 3. Lipitor 10 mg daily. 4. Buspirone 5 mg b.i.d. 5. Klonopin 0.5 mg p.o. before meals and 1 mg p.o. at bedtime. 6. Clonidine 0.1 mg p.o. t.i.d. 7. Diphenhydramine 25 mg as needed. 8. Cymbalta 90 mg daily. 9. Gabapentin 1200 mg p.o. at bedtime. 10. Hysingla 120 mg q.24 once a day. 11. Hydrocodone/acetaminophen per home dosing, it is 10/325. 12. Nitrostat 0.4 mg sublingual p.r.n. chest pain. 13. Bactrim-DS 1 b.i.d. as the patient had been on prior to admission, was then encouraged to comple te whatever course was started. FOLLOWUP APPOINTMENTS: 1. Primary care physician, Dr. Morocho in a week. 2. Dr. Potter per his previous clinic schedule. DISCHARGE DIET: Heart healthy. DISCHARGE ACTIVITY: Per cardiopulmonary limits. The patient was instructed to return to emergency department or call Dr. Potter's office if he has an y further chest pain.
[2017-09-13] MEDS ORDERED: clonazePAM 1 MG TAB PO SCH (21:00)
[2017-09-13] MEDS ORDERED: Gabapentin 400 MG CAP PO SCH (21:00)
== END 2017-09-13 11:03 | disposition home or self-care (01) ==
LOC: ERS 14:52 → 2SW 18:50
PROVIDERS: ADMIT Internal Medicine; ATTEND Internal Medicine
DX: R07.89 Other chest pain (principal); G89.29 Other chronic pain; I10 Essential (primary) hypertension; E78.5 Hyperlipidemia, unspecified; K21.9 Gastro-esophageal reflux disease without esophagitis; F41.9 Anxiety disorder, unspecified; F17.210 Nicotine dependence, cigarettes, uncomplicated; Z88.0 Allergy status to penicillin; Z79.82 Long term (current) use of aspirin; Z79.899 Other long term (current) drug therapy; Z82.49 Family history of ischemic heart disease and other diseases of the circulatory system
CPT/HCPCS: 71010; 71275; 74176; 80048; 80053; 81003; 82550; 82553; 83605; 84484 ×2; 85025 ×2; 87040; 93005; 94760; 96361 ×2; 96374; 99285; G0378; 36415; J2270

== ENCOUNTER 2019-08-05 11:51 | Outpatient (CLI) | payer MEDICARE ==
--- NOTE | 2019-08-05 12:47 | RAD ---
Frontal and lateral imaging of the thoracic spine: 08/05/2019 COMPARISON: 12/26/2016 History: Chronic lumbar spine pain FINDINGS: There is a new mild anterior wedge compression fracture of the T6 vertebral body with appro ximately 30% loss of vertebral body height anteriorly. There is multilevel mild thoracic spine disc space narrowing. There is an incompletely imaged cervical spine anterior discectomy and fusion hardwa re noted. IMPRESSION: New anterior wedge compression fracture of the T6 vertebral body.
== END 2019-08-05 11:52 | disposition home or self-care (01) ==
LOC: BICRAD 11:51
PROVIDERS: ATTEND Internal Medicine
DX: M54.6 Pain in thoracic spine (principal); S22.050A Wedge compression fracture of T5-T6 vertebra, initial encounter for closed fracture
CPT/HCPCS: 72072

== ENCOUNTER 2019-10-25 20:26 | Emergency (ER) | payer MEDICARE ==
[2019-10-25] MEDS ORDERED: HYDROcodone/Acetaminophen 10/325 mg Tablet ONE (20:57)
[2019-10-25] MEDS ORDERED: Adacel (T-DAP) 0.5 ML SYRINGE ONE (20:57)
--- NOTE | 2019-10-25 21:30 | RAD ---
XR Wrist 3 Rt View STANDARD HISTORY: Trauma to wrist. COMPARISON: None. FINDINGS: There are no signs of fracture or dislocation. IMPRESSION: No evidence of fracture.
[2019-10-25] MEDS ORDERED: Lidocaine 1% w/Epinephrine 1:100K 20 ML VIAL ONE (21:32)
[2019-10-25] MEDS ORDERED: Bacitracin 1 PK ONE (22:14)
== END 2019-10-25 22:18 | disposition home or self-care (01) ==
LOC: ERS 20:26
DX: S61.511A Laceration without foreign body of right wrist, initial encounter (principal); E78.5 Hyperlipidemia, unspecified; I10 Essential (primary) hypertension; F41.0 Panic disorder [episodic paroxysmal anxiety]; F17.210 Nicotine dependence, cigarettes, uncomplicated; F32.9 Major depressive disorder, single episode, unspecified; Z23 Encounter for immunization; Z71.6 Tobacco abuse counseling; Z79.82 Long term (current) use of aspirin; Z79.899 Other long term (current) drug therapy; W20.8XXA Other cause of strike by thrown, projected or falling object, initial encounter; Y92.009 Unspecified place in unspecified non-institutional (private) residence as the place of occurrence of the external cause
CPT/HCPCS: 12002; 90471; 90715; 99406

== ENCOUNTER 2020-08-08 09:05 | Inpatient (IN) | payer MEDICARE, OTHER ==
--- NOTE | 2020-08-08 09:57 | CT ---
Exam: Head CT without contrast HISTORY: Slurred speech. Weakness. COMPARISON: none FINDINGS: Hemorrhage: No intraparenchymal hemorrhage or extra-axial hematoma. Brain parenchyma: Cortical lainez-white matter differentiation is preserved. No mass effect or midline shift. Basilar cisterns are patent. Ventricular system: Ventricles and sulci are patent and symmetric. Calvarium: Intact. Sinuses and mastoid air cells: Adequate aeration. IMPRESSION: No acute intracranial process.
[2020-08-08 10:05] LABS: PTT 30.7 sec (22.9-36.1); Prothrombin Time 13.8 sec (12.0-14.7)
[2020-08-08 10:16] LABS: Bilirubin Negative (Negative); Blood, Urine Large (Negative); Glucose, Urine (Dipstick) Negative (Negative); Ketone, Urine Negative (Negative); Leukocyte Negative (Negative); Nitrite Negative (Negative); Protein, Urine (Dipstick) 100 mg/dL (Neg-Trace); Specific Gravity, Urine 1.015 (1.005-1.030); Urobilinogen 0.2 mg/dL (Less than 2)
[2020-08-08 10:19] LABS: Clarity Hazy (Clear)
[2020-08-08 10:21] LABS: Bacteria/HPF None Seen HPF (None Seen); RBC/HPF 0-3 HPF (0-3); Squamous Epithelial None Seen HPF (0-3); WBC/HPF 0-3 HPF (0-3)
[2020-08-08 10:29] LABS: Amphetamine Not Detected (NotDetected); Barbiturates Screen Not Detected (NotDetected); Benzodiazepine Screen Detected (NotDetected); Cocaine Metabolite Screen Not Detected (NotDetected); Medtox Control Line Valid? VALID (VALID); Medtox Reader # READER 1; Methadone Not Detected (NotDetected); Methamphetamine Not Detected (NotDetected); Opiate Screen Not Detected (NotDetected); Oxycodone Screen Not Detected (NotDetected); Phencyclidine (PCP) Not Detected (NotDetected); THC/Cannabinoid Screen Not Detected (NotDetected); Tricyclic Screen Not Detected (NotDetected)
[2020-08-08 10:52] LABS: #Basophils 0.1 thou/uL (0.0-0.2); #Eosinphils 0.9 thou/uL (0.0-0.7); #Monocytes 0.7 thou/uL (0.11-0.59); #Neutrophils 9.8 thou/uL (1.40-6.50); %Basophils 0.7 % (0.0-1.0); %Eosinophils 5.3 % (0.0-10.0); %Lymphocytes 34.2 % (21.0-51.0); %Monocytes 4.2 % (0.0-10.0); %Neutrophils 55.7 % (42.0-75.0); Hemoglobin 12.5 g/dL (14.0-18.0); Mean Corpuscular HGB CONC 36.1 g/dL (32.0-36.0); Mean Corpuscular Hemoglobin 36.8 pg (27.0-31.0); Mean Platelet Volume 8.1 fL (7.4-10.4); Platelet Count 142 thou/uL (130-400); RBC Distribution Width 13.4 % (11.5-14.5); Red Blood Cell (RBC) Count 3.41 mill/uL (4.70-6.10); White Blood Cell (WBC) Count 17.5 thou/uL (4.8-10.8)
[2020-08-08 10:54] LABS: ALT (SGPT) 321 U/L (8-55); AST (SGOT) 767 U/L (5-34); Albumin 2.8 g/dL (3.5-5.0); Alkaline Phosphatase 553 U/L (40-110); Anion Gap 23 mmol/L (10-20); BUN (Urea Nitrogen) 88 mg/dL (8.4-25.7); Bilirubin, Total 0.7 mg/dL (0.2-1.2); Calc. Creatinine Clearance 0 mL/min (70-130); Calcium 7.5 mg/dL (7.8-10.44); Carbon Dioxide 10 mmol/L (22-29); Chloride 94 mmol/L (98-107); Estimated GFR-MDRD 4; Globulin 3.1 g/dL (2.4-3.5); Glucose 86 mg/dL (70-105); Potassium 6.2 mmol/L (3.5-5.1); Protein, Total 5.9 g/dL (6.0-8.3); Sodium 121 mmol/L (136-145)
[2020-08-08 11:00] LABS: Acetaminophen Less than 6.0 mcg/mL (10.0-30.0); Alcohol Less than 10 mg/dL (Less than 10); Salicylate Less than 8.0 mg/dL (15.0-30.0)
[2020-08-08] MEDS ORDERED: INSULIN REGULAR IN 0.9 % NACL 100 UNIT/100 ML BAG ONE (11:54)
[2020-08-08] MEDS ORDERED: Calcium Chloride 1 GM/10 ML Abboject SYRINGE ONE (11:54)
[2020-08-08] MEDS ORDERED: Dextrose 50% Abboject 50 ML SYRINGE ONE (11:54)
[2020-08-08] MEDS ORDERED: Albuterol Sulfate 2.5 mg/0.5 ml Neb ONE (12:20)
[2020-08-08 13:12] LABS: Creatinine, Urine 52.38 mg/dL (63-166); Sodium, Urine 34 mmol/L (Not Available); Urea Nitrogen, Random Urine 186 mg/dl
[2020-08-08] MEDS ORDERED: Sodium Bicarbonate 150 MEQ in Dextrose 5% in Water 1,000 ML IV SCH (13:45)
--- NOTE | 2020-08-08 13:57 | RAD ---
Exam: Chest one view HISTORY:Weakness. Comparison: 09/12/2017 FINDINGS: Cardiac silhouette: Normal Aorta: Unremarkable Pulmonary vessels: Normal Costophrenic angles: Clear LUNGS: No masses or consolidation. Pneumothorax: None Osseous abnormalities: Redemonstration of cervical fusion hardware. No acute osseous abnormalities. IMPRESSION: No acute cardiopulmonary process.
[2020-08-08 14:26] LABS: Anion Gap 18 mmol/L (10-20); BUN (Urea Nitrogen) 84 mg/dL (8.4-25.7); Calc. Creatinine Clearance 0 mL/min (70-130); Calcium 8.2 mg/dL (7.8-10.44); Carbon Dioxide 14 mmol/L (22-29); Chloride 95 mmol/L (98-107); Estimated GFR-MDRD 4; Glucose 75 mg/dL (70-105); Potassium 5.3 mmol/L (3.5-5.1); Sodium 122 mmol/L (136-145)
[2020-08-08 14:48] LABS: HBCM Index 0.06 S/CO (0-0.79); HBSAg Index 0.14 S/CO (0-0.99); Hep A IgM AB Non-Reactive (NonReactive); Hep A IgM S/CO 0.14 S/CO (0-0.79); Hep B Surf Ag Non-Reactive S/CO (NonReactive); Hep C IgG Ab Non-Reactive (NonReactive); Hep C Index 0.14 S/CO (0-0.79); Hepatitis B Core IgM Abs Non-Reactive (NonReactive)
[2020-08-08] MEDS ORDERED: Ondansetron PF 4 MG/2 ML Vial SLOW IVP PRN (16:52)
[2020-08-08] MEDS ORDERED: clonazePAM 0.5 MG TAB PO SCH (17:00)
[2020-08-08] MEDS ORDERED: Sodium Chloride 0.9% 1,000 ML IV SCH (17:00)
[2020-08-08 19:21] LABS: Anion Gap 19 mmol/L (10-20); BUN (Urea Nitrogen) 86 mg/dL (8.4-25.7); Calc. Creatinine Clearance 10 mL/min (70-130); Calcium 7.7 mg/dL (7.8-10.44); Carbon Dioxide 14 mmol/L (22-29); Chloride 95 mmol/L (98-107); Estimated GFR-MDRD 4; Glucose 113 mg/dL (70-105); Sodium 122 mmol/L (136-145)
--- NOTE | 2020-08-08 19:21 | ULT ---
RENAL ULTRASOUND: History: Acute kidney insufficiency. Comparison: None FINDINGS: Bilaterally no hydronephrosis. Left and right kidney have a normal cortical echo texture. Right kidne y measures 11.0 x 5.9 x 6.9 cm. Left kidney measures 9.9 x 5.8 x 6.1 cm. Bladder is not seen. Patient has a Astudillo catheter. IMPRESSION: No hydronephrosis. POS: PPP
[2020-08-08 19:41] LABS: CK (CPK) Greater than 40000 U/L (30-200)
[2020-08-08] MEDS ORDERED: Insulin Regular 300 UNITS/3 ML VIAL IVP SCH (19:44)
[2020-08-08] MEDS ORDERED: Dextrose 50% Abboject 50 ML SYRINGE SLOW IVP SCH (19:44)
[2020-08-08] MEDS ORDERED: Bisacodyl 10 MG SUPP PR SCH (19:45)
[2020-08-08] MEDS ORDERED: Gabapentin 100 MG CAP PO SCH (21:00)
[2020-08-08] MEDS ORDERED: Gabapentin 400 MG CAP PO SCH (21:00)
[2020-08-08] MEDS: Acetaminophen 325 MG TAB PO PRN (21:31)
[2020-08-08] MEDS: cloNIDine 0.1 MG TAB PO SCH (21:31)
[2020-08-08] MEDS: clonazePAM 0.5 MG TAB PO SCH (21:31)
[2020-08-08] MEDS: Sodium Bicarbonate 150 MEQ in Dextrose 5% in Water 1,000 ML IV SCH (22:07)
--- NOTE | 2020-08-08 22:22 | CON ---
DATE OF CONSULTATION: 08/08/2020 SERVICE: Nephrology. REASON FOR CONSULTATION: Acute renal failure and hyperkalemia. REQUESTING PHYSICIAN/PROVIDER: Ashu Choi. CHIEF COMPLAINT: Generalized weakness and extremity twitching. HISTORY OF PRESENT ILLNESS: A 55-year-old male with known history of anxiety and depression, on several psychotropic medications as well as hypertension, brought in due to generalized weakness associated with gait instability, involuntary twitching of the extremities associated with multiple falls. The patient is on several psychotropic medications including BuSpar, Suboxone, Neurontin, Cymbalta, and Crestor. He reportedly developed worsening weakness as well as involuntary twitching of the lower extremities, upper extremities as well as dysarthria and occasional biting of the tongue. Symptoms progressively got worse, such that he has fell about 30 times in the last 3 to 4 weeks. He also grew more weak such that he was unable to get up from lying position. He also reported decreased urine output in the last several days. He was brought in and was found to have elevated creatinine, BUN and potassium, hence Nephrology consult. The patient reportedly was told that his liver numbers were bad about 3 to 4 weeks ago when his saw the primary care doctor and was told the problem was related to prior use of alcohol. There is no history of nausea, vomiting, chest pain, shortness of breath. The patient admitted to intermittent chest pain, but denied fever or chills. He also reported constipation with no bowel movement in the last 1 week. He was treated with IVF for dehydration and rhabdomyolysis, asa well as Dextrose/insulin, calcium gluconate, albuterol nebulizer for hyperkalemia PAST MEDICAL HISTORY: 1. Anxiety with depression. 2. Hypertension. 3. Dyslipidemia. 4. Gastroesophageal reflux disease. 5. Chronic back pain. PAST SURGICAL HISTORY: 1. Cholecystectomy. 2. Chronic back pain. 3. Spine surgery. 4. Cervical fusion and laminectomy. FAMILY HISTORY: Significant for coronary artery disease. SOCIAL HISTORY: The patient lives with brother. He is a current everyday smoker smoking about a pack a day for more than 25 years. The patient also used to drink heavily, but has been sober since about 2000. He denied recreational drug use. ALLERGIES: PENICILLIN. CURRENT HOME MEDICATIONS: Are as follows: 1. Clonidine 0.1 mg b.i.d. 2. Gabapentin 600 mg t.i.d. 3. Cymbalta 120 mg once daily. 4. Xanax 1 mg one daily. 5. Buspirone 5 mg t.i.d. 6. Entresto 24/26 mg once daily in the morning. 7. Levothyroxine 25 mcg p.o. daily. 8. Crestor 40 mg p.o. daily. 9. Lansoprazole 50 mg daily. 10. Buprenorphine 8 mg sublingual tablet daily. 11. Sublingual nitroglycerin p.r.n. REVIEW OF SYSTEMS: A 12-point review of system performed was negative other than pertinent positives and negatives included in the history of present illness. PHYSICAL EXAMINATION: VITAL SIGNS: Current vitals showed temperature 98.3, pulse 106, respiratory rate 20, SpO2 of 97% on room air, blood pressure is 162/87. GENERAL: On presentation to the ER, initial vitals showed temperature of 98.8, pulse 106, respiratory rate 15, blood pressure 155/109, SpO2 99% on room air. GENERAL: Obese, middle-aged male, in no obvious distress. Afebrile. Anicteric. Acyanotic. HEENT: Normocephalic, atraumatic. Oral mucosa is moist. NECK: Supple with no JVD. CARDIOVASCULAR: Regular rhythm and rate, but tachycardic. Normal heart sounds 1 and 2. RESPIRATORY: Good air entry bilaterally with no crackle or rhonchi or use of accessory muscles. GASTROINTESTINAL: Obese, soft, nontender, nondistended with normal bowel sounds. EXTREMITIES: Grossly normal looking. Scattered bruises and abrasions through scripts of the extremities especially both elbows noted. No edema appreciated. NEUROLOGIC: Conscious and alert, oriented x3. Cranial nerves 2 through 12 are grossly intact. Flapping tremor as well as involuntary twitching movement of the extremities especially with intention noted. Dysarthria also is noted. Cranial nerves 2 through 12 are grossly intact. The patient moves all extremities with some intentional tremors or twitching. Gait was not tested. DIAGNOSTIC DATA: CBC showed WBC count of 17.5, hemoglobin of 12.5, MCV of 102.0, platelets of 142. Coagulation panel showed PT 13.8, INR 1.0, PTT 30.7. Chemistry on presentation showed a sodium of 121, potassium 6.2, chloride 94, CO2 10, anion gap 23, BUN 88, creatinine 12.81, calcium 7.5, total bilirubin 0.7, AST 767, ALT 321, alkaline phosphatase 553, total protein 5.9, albumin 2.8. Lactic acid is 0.8. Ammonia level is 36. CK is greater than 40,000 while troponin is less than 0.010. Urinalysis showed yellow hazy urine with pH of 6.0 specific gravity of 1.015, positive protein, negative glucose, ketone, nitrite, bilirubin, and leukocyte esterase. Blood is large, however microscopy showed 0 to 3 rbc and 0 to 3 wbc with 1 amorphous crystal. Urine drug screen was only positive for benzodiazepine. Salicylate was less than 8, acetaminophen less than 6 and plasma alcohol less than 10. Acute hepatitis panel was nonreactive. Review of medical record showed that the patient had creatinine of 1.28 on June 16, 2020. ECG showed sinus tachycardia with no peaked T waves. Chest x-ray showed no acute cardiopulmonary process. Cervical fusion hardware again is noted. CT scan of the brain showed preserved cortical lainez white matter differentiation with no mass effect, midline shift or acute intracranial process. ASSESSMENT: 1. Hyperkalemia. 2. Acute renal failure. 3. Metabolic acidosis. 4. Hyponatremia. 5. Hypocalcemia. 6. Rhabdomyolysis. 7. Presume serotonin syndrome. 8. Involuntary movement/twitching. 9. Gait instability with frequent falls. 10. Physical deconditioning. 11. History of nephrolithiasis. DISCUSSION: The patient on several psychotropic medication for a long time including Cymbalta, buspirone, Neurontin and Suboxone presented with gait instability, twitching, dysarthria, as well as severe rhabdomyolysis and acute renal failure. Serotonin syndrome seems likely given the patient is on the above said medications. Serotonin syndrome, frequent falls and crestor use as well as dehydration all contributed to rhabdomyolysis. This seems to have been going on for some time and patient now has little or no urine output. PLAN: 1. We will treat hyperkalemia with dextrose, albuterol, insulin, and also start the patient on bicarb infusion. I had ordered a dose of Kayexalate while the patient was in the ER, but for unclear reason, this was not given. Repeat BMP 3 hours later showed significant improvement from 6.2 to 5.3. However, repeat BMP at 0018 hours showed the potassium of 6.0. 2. Of note, EKG showed no evidence of cardiac toxicity. We will go ahead and treat the patient further with dextrose and insulin as well as Kayexalate. We will start sodium bicarbonate infusion at 250 mL/hour. 3. We will also give a dose of Dulcolax suppository as the patient is constipated. 4. We will also get urine electrolytes as well as renal ultrasound to rule out obstructive uropathy in view of prior history of nephrolithiasis. We will monitor the patient closely. 5. We will also restart clonidine to prevent rebound hypertension. 6. We will hold all psychotropic medications except Suboxone. 7. We will recheck renal function tests and CK in the morning and if there is no significant improvement, we will consider starting dialytic therapy. 8. Further treatment to follow depending on hospital course. 9. The patient is critically ill with guarded prognosis. Critical care time spent on this patient was more than 65 minutes. Job ID: [id number] MTDD
--- NOTE | 2020-08-08 23:47 | HP ---
CHIEF COMPLAINT ON ADMISSION: Rhabdomyolysis, renal failure, dehydration, and leukocytosis. HISTORY OF PRESENT ILLNESS: The patient is a 55-year-old male, chronically impaired, who for several days has seemed weaker than usual, had not been drinking his fluids and when his weakness became so great, he finally came to the emergency room for further evaluation. Denies chest pain. He has had a cough, but it has been productive of some likely phlegm, but denies fever, chills; just specific overall weakness, and in the emergency room, his BUN was found to be 84, his creatinine was elevated at 12.3, potassium was up to 5.3, his CK was greater than 40,000, and his white count was 17.5. Dr. Reina was contacted for admission. The web methods developer, Dr. Willoughby has already been contacted and has begun to hydrate the patient and follow him from a renal standpoint. PAST MEDICAL HISTORY: Last significant hospitalization 08/2019 for severe sepsis with empyema and acute renal insufficiency. His past medical history includes aforementioned empyema requiring surgical drainage. 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 He has chronic renal failure, sees Dr. Hebert usually for that. He has metabolic encephalopathy in the past. He has been a [id number] diabetic in the past, but this has recently been treated with diet. He has a history of hypertension, hyperlipidemia, and chronic back pain. He is noncompliant with most of his medical care. He has chronic insomnia. He has been switched from narcotics to Suboxone for opioid dependency. PAST SURGICAL HISTORY: Includes the thoracotomy, previous admission for the empyema, back surgery, and hernia repair. SOCIAL HISTORY: Positive for smoking. He continues to smoke. Negative for alcohol or illicit drug use. He lives alone at home with Home Health seeing him, refusing to go into a half-way. ALLERGIES: HE HAS NO KNOWN DRUG ALLERGIES. CURRENT MEDICATIONS: On admission include, 1. Aspirin 325 daily. 2. Plavix 75 daily. 3. Renvela 600 mg t.i.d. 4. Gabapentin 1200 mg at bedtime. 5. Atorvastatin 10 mg at bedtime. 6. Folic acid 1 mg daily. 7. Tamsulosin 0.4 mg daily. 8. Hyoscyamine p.r.n. stomach cramps. 9. He has been taking clonazepam 0.5 mg p.r.n. anxiety. Attempts were made to switch him to Buspar. 10. He is on duloxetine 90 mg daily. REVIEW OF SYSTEMS: CONSTITUTIONAL: Admits to weakness, fatigue, lethargy, and recent cough. HEENT: Denies drainage from eyes, ears, nose, or throat. NECK: Supple. CHEST: Has admitted cough, but no trouble with breathing. CARDIOVASCULAR: Denies chest pain or palpitations. GI: Denies nausea, vomiting, or diarrhea, but he has been anorexic and not drinking much. : Has chronic indwelling catheter, but denies blood in urine or stool. MUSCULOSKELETAL: Has generalized aches and pains in all his major muscle groups and symmetrical wasting is noted. SKIN: Shows poor turgor. No acute rashes or lesions. NEUROLOGIC: The patient is alert, oriented, and lethargic. Cranial nerves are intact. Unable to test gait and cerebellar function at this time. Sensory exam is grossly intact. LABORATORY DATA: The lab work thus far on admission shows WBCs at 17.5, hemoglobin 12.5, hematocrit 37.7 with platelets at 142. The sodium is 122, potassium 5.3, chloride 95, CO2 of 14, BUN 84, creatinine 12.3 with a glucose of 75. CK-MB with greater than 40,000. TSH at 4.39. UA shows large blood, 1+ amorphous crystals with high urine creatinine. Urine drug screen positive for benzodiazepines. Chest x-ray shows no acute disease. CT of the brain shows no acute intracranial process. ASSESSMENT: Thus far, 1. Rhabdomyolysis. 2. Acute renal failure. 3. Dehydration. 4. Hyponatremia. 5. Hyperkalemia. 6. Leukocytosis. Etiology is not yet determined, may be due to margination. PLAN: Plan will be bicarb drip, IV fluid resuscitation, and placement of sodium as well as lowering of his potassium. Also, we will serially re-evaluate him and reassess his BUN and creatinine function after replacement of hydration and subsequently improve such. He will require telemetry for now and close monitoring. Renal consultation has already been obtained with Dr. Willoughby and he will direct Renal Services. We are going to monitor him for the need for antibiotics. We will take blood and urine cultures for now. Job ID: [id number] [facility]
[2020-08-09 04:39] LABS: #Basophils 0.1 thou/uL (0.0-0.2); #Eosinphils 0.5 thou/uL (0.0-0.7); #Lymphocytes 5.9 thou/uL (1.20-3.40); #Neutrophils 10.6 thou/uL (1.40-6.50); %Basophils 0.6 % (0.0-1.0); %Eosinophils 2.8 % (0.0-10.0); %Lymphocytes 32.6 % (21.0-51.0); %Monocytes 5.4 % (0.0-10.0); %Neutrophils 58.7 % (42.0-75.0); Hemoglobin 11.5 g/dL (14.0-18.0); Mean Corpuscular HGB CONC 34.9 g/dL (32.0-36.0); Mean Corpuscular Hemoglobin 35.5 pg (27.0-31.0); Mean Platelet Volume 7.9 fL (7.4-10.4); Platelet Count 158 thou/uL (130-400); RBC Distribution Width 13.5 % (11.5-14.5); Red Blood Cell (RBC) Count 3.25 mill/uL (4.70-6.10)
[2020-08-09 04:46] LABS: Hemoglobin A1c 5.7 % (4.0-6.0)
[2020-08-09] MEDS: Sodium Bicarbonate 150 MEQ in Dextrose 5% in Water 1,000 ML IV SCH ×3 (05:04→23:25)
[2020-08-09 05:05] LABS: Anion Gap 18 mmol/L (10-20); BUN (Urea Nitrogen) 85 mg/dL (8.4-25.7); Calc. Creatinine Clearance 10 mL/min (70-130); Calcium 7.7 mg/dL (7.8-10.44); Carbon Dioxide 18 mmol/L (22-29); Chloride 91 mmol/L (98-107); Estimated GFR-MDRD 4; Glucose 84 mg/dL (70-105); Potassium 5.3 mmol/L (3.5-5.1); Sodium 122 mmol/L (136-145)
[2020-08-09 05:35] LABS: CK (CPK) Greater than 40000 U/L (30-200)
[2020-08-09] MEDS: Levothyroxine Sodium 25 MCG TAB PO SCH (05:38)
[2020-08-09] MEDS ORDERED: cloNIDine 0.2mg/24 Hour PATCH TD SCH (09:00)
[2020-08-09] MEDS ORDERED: DULoxetine 30 MG CAP PO SCH (09:00)
--- NOTE | 2020-08-09 10:01 | RAD ---
Chest one view HISTORY: Hypoxia. COMPARISON: 08/08/2020. FINDINGS: Cardiac silhouette is magnified by projection. Pulmonary vasculature accentuated by shallow inspiration. Mediastinum is midline with postoperative changes of the cervical spine partially visualized. Elevation of the right hemidiaphragm has been present on previous years' exams. No lobar consolidation or evidence of pneumothorax. IMPRESSION : No active cardiopulmonary abnormalities are demonstrated.
[2020-08-09] MEDS: cloNIDine 0.1 MG TAB PO SCH ×3 (10:27→21:50)
[2020-08-09] MEDS: clonazePAM 0.5 MG TAB PO SCH ×2 (10:34→21:50)
[2020-08-09 11:03] LABS: SARS-CoV-2 MS2 Positive; SARS-CoV-2 N Gene Negative; SARS-CoV-2 S Gene Negative; SARS-CoV-2 by NAA Not Detected (NotDetected); SARS-CoV-2 orf1ab Negative
[2020-08-09] MEDS: Buprenorphine 8mg/Naloxone 2mg per 1 FILM SL SCH (12:18)
--- NOTE | 2020-08-09 15:41 | PDOC.NEPPN ---
- Subjective Encounter Date: 08/09/20 Subjective: Seen in follow up for MARGUERITE and hyperkalemia. Still having twitching and gait instabiliy by dysarthria is improved. No nausea or vomiting.Denied SOB or cough. - Objective Vital Signs & Weight: Vital Signs (12 hours) Temp Pulse Resp BP BP BP Pulse Ox 08/09/20 12:12 97.6 F 95 18 158/87 H 99 08/09/20 10:27 142/87 H 08/09/20 07:46 97.8 F 103 H 20 173/100 H 97 08/09/20 04:54 97.9 F 100 174/85 H 92 L Weight Admit Weight 230 lb Weight 230 lb I&O: 08/08/20 08/09/20 08/10/20 06:59 06:59 06:59 Intake Total 3600 360 Output Total 225 Balance 3375 360 Result Diagrams: 08/09/20 04:20 08/09/20 04:20 Nephrology ROS - Medication Medications: Active Medications Generic Name Dose Route Start Last Admin Trade Name Freq PRN Reason Stop Dose Admin Acetaminophen 650 mg 08/08/20 16:51 08/08/20 21:31 Acetaminophen 325 Mg Tab PO 650 mg Q4H PRN Administration Headache/Fever>100 or Pain Buprenorphine/Naloxone 1 film 08/09/20 09:00 08/09/20 12:18 Buprenorphine 8mg/Naloxone 2mg Per 1 Film SL 1 film DAILY WESLEY Administration Clonazepam 0.5 mg 08/08/20 21:00 08/09/20 10:34 Clonazepam 0.5 Mg Tab PO 0.5 mg BID WESLEY Administration Clonidine 0.1 mg 08/08/20 21:00 08/09/20 10:27 Clonidine 0.1 Mg Tab PO 0.1 mg TID WESLEY Administration Clonidine 0.2 mg 08/09/20 09:00 08/09/20 12:18 Clonidine 0.2mg/24 Hour Patch TD 0.2 mg [id number] WESLEY Administration Sodium Bicarbonate 150 meq/ 1,150 mls @ 250 mls/hr 08/08/20 13:45 08/09/20 12:28 Dextrose/Water IV 1,150 mls INF WESLEY Administration Levothyroxine Sodium 25 mcg 08/09/20 06:00 08/09/20 05:38 Levothyroxine Sodium 25 Mcg Tab PO 25 mcg 0600 WESLEY Administration - Exam Eye: anicteric sclera ENT: normocephalic atraumatic, moist mucosa Neck: symmetric, no JVD Respiratory: no wheezes, no rales, no ronchi, normal chest expansion Cardiovascular: RRR Gastrointestinal: soft, non-tender, non-distended, normal bowel sounds Extremities: no edema Neurological: CN's grossly intact, no focal deficits Neurological - other findings: ywiching /flapping tremor noted. Musculoskeletal - other findings: Sctter scrapes, bruises and ecchymoisis noted PSYCH: A&O x 3 Nephrology Results - Labs Result Diagrams: 08/09/20 04:20 08/09/20 04:20 Lab results: WBC 18.0 thou/uL (4.8-10.8) H 08/09/20 04:20 Hgb 11.5 g/dL (14.0-18.0) L 08/09/20 04:20 Hct 33.0 % (42.0-52.0) L 08/09/20 04:20 MCV 102.0 fL (78.0-98.0) H 08/09/20 04:20 Plt Count 158 thou/uL (130-400) 08/09/20 04:20 Neutrophils % 58.7 % (42.0-75.0) 08/09/20 04:20 Sodium 122 mmol/L (136-145) L 08/09/20 04:20 Potassium 5.3 mmol/L (3.5-5.1) H 08/09/20 04:20 Chloride 91 mmol/L (98-107) L 08/09/20 04:20 Carbon Dioxide 18 mmol/L (22-29) L 08/09/20 04:20 BUN 85 mg/dL (8.4-25.7) H 08/09/20 04:20 Creatinine 12.32 mg/dL (0.7-1.3) H 08/09/20 04:20 Glucose 84 mg/dL (70-105) 08/09/20 04:20 Lactic Acid 0.8 mmol/L (0.5-2.2) 08/08/20 11:13 Calcium 7.7 mg/dL (7.8-10.44) L 08/09/20 04:20 Total Bilirubin 0.7 mg/dL (0.2-1.2) 08/08/20 09:39 AST 767 U/L (5-34) H 08/08/20 09:39 ALT 321 U/L (8-55) H 08/08/20 09:39 Alkaline Phosphatase 553 U/L (40-110) H 08/08/20 09:39 Ammonia 36 umol/L (18-72) 08/08/20 09:39 Creatine Kinase Greater than 78172 U/L (30-200) H 08/09/20 04:20 Troponin I Less than 0.010 ng/mL (< 0.028) 08/08/20 09:39 Serum Total Protein 5.9 g/dL (6.0-8.3) L 08/08/20 09:39 Albumin 2.8 g/dL (3.5-5.0) L 08/08/20 09:39 Urine Ketones Negative mg/dL (Negative) 08/08/20 09:55 Urine Blood Large (Negative) A 08/08/20 09:55 Urine Nitrite Negative (Negative) 08/08/20 09:55 Ur Leukocyte Esterase Negative (Negative) 08/08/20 09:55 Urine RBC 0-3 HPF (0-3) 08/08/20 09:55 Urine WBC 0-3 HPF (0-3) 08/08/20 09:55 Ur Squamous Epith Cells None Seen HPF (0-3) 08/08/20 09:55 Urine Bacteria None Seen HPF (None Seen) 08/08/20 09:55 Sodium 122 mmol/L (136-145) L 08/09/20 04:20 Potassium 5.3 mmol/L (3.5-5.1) H 08/09/20 04:20 Chloride 91 mmol/L (98-107) L 08/09/20 04:20 Carbon Dioxide 18 mmol/L (22-29) L 08/09/20 04:20 Anion Gap 18 mmol/L (10-20) 08/09/20 04:20 BUN 85 mg/dL (8.4-25.7) H 08/09/20 04:20 Creatinine 12.32 mg/dL (0.7-1.3) H 08/09/20 04:20 Glucose 84 mg/dL (70-105) 08/09/20 04:20 Calcium 7.7 mg/dL (7.8-10.44) L 08/09/20 04:20 Albumin 2.8 g/dL (3.5-5.0) L 08/08/20 09:39 Nephrology AP PN - Plan ASSESSMENT: Hyperkalemia. Acute renal failure. ATN from severe rhabdomyolysis is a concern. Metabolic acidosis. Hyponatremia. Hypocalcemia. Rhabdomyolysis.CK is still more than [id number] Presumed serotonin syndrome. Dehydration Involuntary movement/twitching. Gait instability with frequent falls. Physical deconditioning. History of nephrolithiasis. HTN PLAN Continue sodium bicarbonate infusion due to persistent acidosis and dehydration. CK also is more than [id number] Repeak kayexalate if repeat K is high. Follow CK and renal function Fall precaution Adjust clonidine to get adequate BP control. Addition of another antihypertensive is contemplated. Continue to hold psychotropc medications. Avoid nephrotoxic agents. Discussed dilaytic therapy with patient and brother. No indication at this point. Monitor intake and output.
[2020-08-09 17:19] LABS: Anion Gap 23 mmol/L (10-20); BUN (Urea Nitrogen) 83 mg/dL (8.4-25.7); Calc. Creatinine Clearance 10 mL/min (70-130); Calcium 7.4 mg/dL (7.8-10.44); Carbon Dioxide 17 mmol/L (22-29); Chloride 90 mmol/L (98-107); Estimated GFR-MDRD 4; Glucose 130 mg/dL (70-105); Potassium 5.5 mmol/L (3.5-5.1); Sodium 124 mmol/L (136-145)
[2020-08-09 18:28] LABS: CK (CPK) Greater than 40000 U/L (30-200)
[2020-08-09] MEDS: Acetaminophen 325 MG TAB PO PRN (21:50)
[2020-08-10] MEDS: Sodium Bicarbonate 150 MEQ in Dextrose 5% in Water 1,000 ML IV SCH (04:44)
[2020-08-10] MEDS: Acetaminophen 325 MG TAB PO PRN (04:53)
[2020-08-10] MEDS: Levothyroxine Sodium 25 MCG TAB PO SCH (04:54)
[2020-08-10 05:00] LABS: Band 2 % (5-11); Eosinophils 3 % (0-10); Hemoglobin 10.9 g/dL (14.0-18.0); Lymphocytes 48 % (21-51); MDiff Complete? YES; Mean Corpuscular HGB CONC 35.4 g/dL (32.0-36.0); Mean Corpuscular Hemoglobin 36.3 pg (27.0-31.0); Mean Platelet Volume 7.7 fL (7.4-10.4); Monocytes 3 % (0-10); Neutrophil 44 % (42-75); Platelet Count 165 thou/uL (130-400); Platelet Morphology Comment Appears Adequate; RBC Distribution Width 13.6 % (11.5-14.5); White Blood Cell (WBC) Count 16.2 thou/uL (4.8-10.8)
[2020-08-10 05:09] LABS: ALT (SGPT) 305 U/L (8-55); AST (SGOT) 656 U/L (5-34); Albumin 2.3 g/dL (3.5-5.0); Alkaline Phosphatase 400 U/L (40-110); Anion Gap 21 mmol/L (10-20); BUN (Urea Nitrogen) 82 mg/dL (8.4-25.7); Bilirubin, Total 0.6 mg/dL (0.2-1.2); Calc. Creatinine Clearance 10 mL/min (70-130); Calcium 7.1 mg/dL (7.8-10.44); Carbon Dioxide 23 mmol/L (22-29); Chloride 84 mmol/L (98-107); Estimated GFR-MDRD 4; Globulin 2.6 g/dL (2.4-3.5); Glucose 130 mg/dL (70-105); Potassium 4.1 mmol/L (3.5-5.1); Protein, Total 4.9 g/dL (6.0-8.3); Sodium 124 mmol/L (136-145)
[2020-08-10 06:05] LABS: CK (CPK) Greater than 40000 U/L (30-200)
[2020-08-10] MEDS: Sodium Bicarbonate 50 MEQ in Sodium Chloride 0.45% 1,000 ML IV SCH ×2 (08:25→21:41)
[2020-08-10] MEDS: cloNIDine 0.1 MG TAB PO SCH ×3 (08:25→21:41)
[2020-08-10] MEDS: clonazePAM 0.5 MG TAB PO SCH (08:25)
[2020-08-10] MEDS ORDERED: Amlodipine 5 MG TAB PO SCH ×2 (09:00→17:15)
[2020-08-10] MEDS: Buprenorphine 8mg/Naloxone 2mg per 1 FILM SL SCH (09:32)
[2020-08-10 10:04] LABS: Iron 48 ug/dL (65-175); Iron Binding Capacity, Total 158 mcg/dL (261-462)
--- NOTE | 2020-08-10 13:03 | ULT ---
EXAM: Vein mapping for dialysis access HISTORY: End-stage renal disease. TECHNIQUE: Multiplanar grayscale and color Doppler images were obtained in a bilateral upper extremit y venous ultrasound. Spectral analysis of the Doppler waveforms of the vessels were performed. FINDINGS: The bilateral internal jugular veins and subclavian veins are patent without evidence of th rombus. Right brachial artery 4.2 mm Right radial artery 2.5 mm Right ulnar artery 1.4 mm Left brachial artery 5.5 mm Left radial artery 2.3 mm Left ulnar artery 2.6 mm RIGHT CEPHALIC VEIN in millimeters Not visualized -- Shoulder Not visualized -- Upper arm Not visualized -- Mid upper arm 1.6-- Just proximal to the elbow 1.3 -- Just distal to the elbow 0.7 -- Forearm 0.3 -- Wrist RIGHT BASILIC VEIN in millimeters 7.2 -- Shoulder 5.5 -- Upper arm 1.7 -- Mid upper arm 1.6 -- Just proximal to the elbow 2.4 -- Just distal to the elbow 0.5 -- Forearm Not visualized -- Wrist LEFT CEPHALIC VEIN in millimeters 2.1 -- Shoulder 1.9 -- Upper arm 1.5 -- Mid upper arm 1.8 -- Just proximal to the elbow 1.2 -- Just distal to the elbow 1.5 -- Forearm 1.3 -- Wrist LEFT BASILIC VEIN in millimeters 4.0 -- Shoulder 3.8 -- Upper arm 2.4 -- Mid upper arm 2.8 -- Just proximal to the elbow 1.1 -- Just distal to the elbow 1.2 -- Forearm 1.1 -- Wrist IMPRESSION: Vein mapping for dialysis access as above
--- NOTE | 2020-08-10 17:14 | PDOC.NEPPN ---
- Subjective Encounter Date: 08/10/20 Subjective: Seen in follow up for acute renal failure and rhabdomyolysis.Still having intermittent twitching though improved. Urine output remained poor. - Objective Vital Signs & Weight: Vital Signs (12 hours) Temp Pulse Resp BP Pulse Ox 08/10/20 15:19 97.9 F 96 18 180/105 H 96 08/10/20 13:01 97.7 F 103 H 18 178/109 H 96 08/10/20 08:20 97.7 F 96 17 185/94 H 97 Weight Admit Weight 230 lb Weight 230 lb I&O: 08/09/20 08/10/20 08/11/20 06:59 06:59 06:59 Intake Total 3600 3245 Output Total 225 300 Balance 3375 2945 Result Diagrams: 08/10/20 04:23 08/10/20 04:23 Additional Labs: Accuchecks 08/10/20 09:22 POC Glucose 118 H Nephrology ROS - Medication Medications: Active Medications Generic Name Dose Route Start Last Admin Trade Name Freq PRN Reason Stop Dose Admin Acetaminophen 650 mg 08/08/20 16:51 08/10/20 04:53 Acetaminophen 325 Mg Tab PO 650 mg Q4H PRN Administration Headache/Fever>100 or Pain Amlodipine Besylate 5 mg 08/10/20 09:00 08/10/20 09:33 Amlodipine 5 Mg Tab PO 5 mg DAILY WESLEY Administration Buprenorphine/Naloxone 1 film 08/09/20 09:00 08/10/20 09:32 Buprenorphine 8mg/Naloxone 2mg Per 1 Film SL Not Given DAILY WESLYE Clonidine 0.1 mg 08/08/20 21:00 08/10/20 15:21 Clonidine 0.1 Mg Tab PO 0.1 mg TID WESLEY Administration Clonidine 0.2 mg 08/09/20 09:00 08/09/20 12:18 Clonidine 0.2mg/24 Hour Patch TD 0.2 mg Q7DAYS WESLEY Administration Sodium Bicarbonate 50 meq/ 1,050 mls @ 250 mls/hr 08/10/20 06:00 08/10/20 08:25 Sodium Chloride IV 1,050 mls INF WESLEY Administration Levothyroxine Sodium 25 mcg 08/09/20 06:00 08/10/20 04:54 Levothyroxine Sodium 25 Mcg Tab PO 25 mcg 0600 WESLEY Administration - Exam General Appearance: awake alert General - other findings: obese Eye: anicteric sclera ENT: normocephalic atraumatic, moist mucosa Neck: symmetric, no JVD Respiratory: CTAB Cardiovascular: RRR Gastrointestinal: soft, non-tender, non-distended, normal bowel sounds Extremities - other findings: trace bilateral leg edema Neurological: CN's grossly intact, no focal deficits Neurological - other findings: flapping tremor noted PSYCH: A&O x 3 Nephrology Results - Labs Result Diagrams: 08/10/20 04:23 08/10/20 04:23 Lab results: WBC 16.2 thou/uL (4.8-10.8) H 08/10/20 04:23 Hgb 10.9 g/dL (14.0-18.0) L 08/10/20 04:23 Hct 30.8 % (42.0-52.0) L 08/10/20 04:23 MCV 103.0 fL (78.0-98.0) H 08/10/20 04:23 Plt Count 165 thou/uL (130-400) 08/10/20 04:23 Neutrophils % 58.7 % (42.0-75.0) 08/09/20 04:20 Band Neuts % (Manual) 2 % (5-11) L 08/10/20 04:23 Sodium 124 mmol/L (136-145) L 08/10/20 04:23 Potassium 4.1 mmol/L (3.5-5.1) 08/10/20 04:23 Chloride 84 mmol/L (98-107) L 08/10/20 04:23 Carbon Dioxide 23 mmol/L (22-29) 08/10/20 04:23 BUN 82 mg/dL (8.4-25.7) H 08/10/20 04:23 Creatinine 12.17 mg/dL (0.7-1.3) H 08/10/20 04:23 Glucose 130 mg/dL (70-105) H 08/10/20 04:23 Lactic Acid 0.8 mmol/L (0.5-2.2) 08/08/20 11:13 Calcium 7.1 mg/dL (7.8-10.44) L 08/10/20 04:23 Total Bilirubin 0.6 mg/dL (0.2-1.2) 08/10/20 04:23 AST 656 U/L (5-34) H 08/10/20 04:23 ALT 305 U/L (8-55) H 08/10/20 04:23 Alkaline Phosphatase 400 U/L (40-110) H 08/10/20 04:23 Ammonia 36 umol/L (18-72) 08/08/20 09:39 Creatine Kinase Greater than 05958 U/L (30-200) H 08/10/20 04:23 Creatine Kinase Greater than 02075 U/L (30-200) H 08/10/20 04:23 Troponin I Less than 0.010 ng/mL (< 0.028) 08/08/20 09:39 Serum Total Protein 4.9 g/dL (6.0-8.3) L 08/10/20 04:23 Albumin 2.3 g/dL (3.5-5.0) L 08/10/20 04:23 Urine Ketones Negative mg/dL (Negative) 08/08/20 09:55 Urine Blood Large (Negative) A 08/08/20 09:55 Urine Nitrite Negative (Negative) 08/08/20 09:55 Ur Leukocyte Esterase Negative (Negative) 08/08/20 09:55 Urine RBC 0-3 HPF (0-3) 08/08/20 09:55 Urine WBC 0-3 HPF (0-3) 08/08/20 09:55 Ur Squamous Epith Cells None Seen HPF (0-3) 08/08/20 09:55 Urine Bacteria None Seen HPF (None Seen) 08/08/20 09:55 Sodium 124 mmol/L (136-145) L 08/10/20 04:23 Potassium 4.1 mmol/L (3.5-5.1) 08/10/20 04:23 Chloride 84 mmol/L (98-107) L 08/10/20 04:23 Carbon Dioxide 23 mmol/L (22-29) 08/10/20 04:23 Anion Gap 21 mmol/L (10-20) H 08/10/20 04:23 BUN 82 mg/dL (8.4-25.7) H 08/10/20 04:23 Creatinine 12.17 mg/dL (0.7-1.3) H 08/10/20 04:23 Glucose 130 mg/dL (70-105) H 08/10/20 04:23 Calcium 7.1 mg/dL (7.8-10.44) L 08/10/20 04:23 Albumin 2.3 g/dL (3.5-5.0) L 08/10/20 04:23 Nephrology AP PN - Plan ASSESSMENT: Acute renal failure. ATN from severe rhabdomyolysis most likely. Hyperkalemia. Resolved Metabolic acidosis. Improved Hyponatremia. Hypocalcemia. Rhabdomyolysis.[place] still more [place] [id number] Presumed serotonin syndrome. Dehydration. Resolved. Involuntary movement/twitching. 2/2 neuromuscular hyperactivity 2/2 serotonin syndrome. Uremic encephalopathy may be contributory. Gait instability with frequent falls. Physical deconditioning. History of nephrolithiasis. HTN PLAN Continue IVF with bicarb containing fluid at 250 cc/hr. Start diuretic therapy to avoid fluid overload. Follow CK and renal function Fall precaution Get HD access. HD to start tomorrow if no significant improvement in renal function and CK level. Add amlodipine to clonidine to get adequate BP control.. Continue to hold psychotropc medications. Avoid nephrotoxic agents. Discussed dilaytic therapy with patient. Patient is in agreement with proceeding with HD if no sign of recovery as yet. Monitor intake and output.
[2020-08-10] MEDS ORDERED: Furosemide 100 MG/10 ML VIAL SLOW IVP SCH (17:15)
[2020-08-10 17:58] LABS: Anion Gap 20 mmol/L (10-20); BUN (Urea Nitrogen) 83 mg/dL (8.4-25.7); Calc. Creatinine Clearance 10 mL/min (70-130); Calcium 7.2 mg/dL (7.8-10.44); Carbon Dioxide 27 mmol/L (22-29); Chloride 81 mmol/L (98-107); Estimated GFR-MDRD 4; Glucose 107 mg/dL (70-105); Potassium 4.1 mmol/L (3.5-5.1); Sodium 124 mmol/L (136-145)
[2020-08-10 18:29] LABS: CK (CPK) Greater than 40000 U/L (30-200)
--- NOTE | 2020-08-10 20:32 | CON ---
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 He has not been able to work and has been on disability for anxiety for a number years. The patient was admitted for rhabdomyolysis with a highly elevated CK-MB. He has acute renal failure, his renal function was normal a few months ago. Dr. Willoughby, Nephrology has asked me to see him regarding placement of hemodialysis catheter. The patient had breakfast this morning. His COVID test is negative on 08/08. Sodium 124, carbon dioxide 23, creatinine 12, BUN 82, GFR 4. Transaminases, elevated alkaline phosphatase, bilirubin is normal. White count 16, hemoglobin 10.9. Creatine kinase greater than 40,000. The patient has IV in his foot. ALLERGIES: PENICILLIN. SOCIAL HISTORY: Tobacco, half pack a day. Alcohol, socially. MEDICATIONS AT HOME: 1. Clonidine. 2. Valsartan. 3. Rosuvastatin. 4. Xanax. 5. Cymbalta. 6. Nitroglycerin. 7. Lansoprazole. The patient is followed by Dr. Rashaun Reina, seen by Dr. Willoughby. PAST SURGICAL HISTORY: Thoracotomy, empyema, back surgery, hernia repair. PAST MEDICAL HISTORY: Anxiety, TIA, prior CVA, mobile in a wheelchair, chronic kidney disease, followed by Dr. Hebert, [id number] diabetes mellitus, hypertension, hyperlipidemia, chronic back pain. MEDICATIONS: 1. Aspirin. 2. Plavix. 3. Renvela. 4. Gabapentin. 5. Atorvastatin. 6. Folic acid. 7. Flomax. 8. Hyoscyamine. 9. Duloxetine. heart rate 103, blood pressure 170/109. HEAD EARS, EYES, NOSE, AND THROAT: Unremarkable. LUNGS: Clear to auscultation. CARDIAC: Regular rate and rhythm without murmur or gallop. ABDOMEN: Obese, soft. No hernias. EXTREMITIES: Unremarkable. ASSESSMENT AND PLAN: 1. Rhabdomyolysis, acute renal failure. Plan placement of a hemodialysis Trialysis catheter, initiate dialysis prior to IV access. Save veins for future fistula . Plan placement of cuffed tunneled hemodialysis catheter, central line later in the week. 2. COVID negative. 3. Anxiety. 4. Diabetes mellitus. 5. Hypertension. 6. Chronic back pain. Job ID: [id number]
[2020-08-11] MEDS: Sodium Bicarbonate 50 MEQ in Sodium Chloride 0.45% 1,000 ML IV SCH (04:42)
[2020-08-11] MEDS: Levothyroxine Sodium 25 MCG TAB PO SCH (05:54)
[2020-08-11] MEDS: Labetalol 100 MG TAB PO SCH ×3 (05:56→21:02)
[2020-08-11] MEDS ORDERED: Sodium Bicarbonate 50 MEQ in Sodium Chloride 0.45% 1,000 ML IV SCH (07:05)
--- NOTE | 2020-08-11 07:07 | PDOC.NEPPN ---
- Subjective Encounter Date: 08/11/20 Encounter Time: 07:07 Subjective: Seen in follow up for acute renal failure and rhabdomyolysis. Pulled out Trialysis catheter. Admitted to some mental fogginess and confusion. No nausea or vomiting. Wants to go home. - Objective Vital Signs & Weight: Vital Signs (12 hours) Temp Pulse Resp BP Pulse Ox 08/11/20 05:56 96 08/11/20 04:00 97.8 F 96 18 181/91 H 96 08/10/20 20:00 97 08/10/20 19:14 98.7 F 97 171/99 H 97 Weight Admit Weight 230 lb Weight 230 lb I&O: 08/10/20 08/11/20 08/12/20 06:59 06:59 06:59 Intake Total 3245 2280 Output Total 300 250 Balance 2945 2030 Result Diagrams: 08/11/20 13:21 08/11/20 13:21 Additional Labs: Accuchecks 08/10/20 09:22 POC Glucose 118 H Nephrology ROS - Medication Medications: Active Medications Generic Name Dose Route Start Last Admin Trade Name Freq PRN Reason Stop Dose Admin Acetaminophen 650 mg 08/08/20 16:51 08/10/20 04:53 Acetaminophen 325 Mg Tab PO 650 mg Q4H PRN Administration Headache/Fever>100 or Pain Buprenorphine/Naloxone 1 film 08/09/20 09:00 08/10/20 09:32 Buprenorphine 8mg/Naloxone 2mg Per 1 Film SL Not Given DAILY WESLEY Clonidine 0.2 mg 08/09/20 09:00 08/09/20 12:18 Clonidine 0.2mg/24 Hour Patch TD 0.2 mg Q7DAYS WESLEY Administration Labetalol HCl 50 mg 08/11/20 06:00 08/11/20 05:56 Labetalol 100 Mg Tab PO 50 mg Q8HR WESLEY Administration Levothyroxine Sodium 25 mcg 08/09/20 06:00 08/11/20 05:54 Levothyroxine Sodium 25 Mcg Tab PO 25 mcg 0600 WESLEY Administration - Exam General Appearance: awake alert Eye: anicteric sclera ENT: normocephalic atraumatic, moist mucosa Neck: symmetric Respiratory - other findings: fair air entry with some transmitted sound Cardiovascular: RRR Gastrointestinal: soft, non-distended, normal bowel sounds Extremities - other findings: edema of the extremities noted Neurological: CN's grossly intact Neurological - other findings: Awake. Oriented x 2 at least. memory lapses noted. Flapping tremor noted Nephrology Results - Labs Result Diagrams: 08/11/20 13:21 08/11/20 13:21 Lab results: WBC 16.2 thou/uL (4.8-10.8) H 08/10/20 04:23 Hgb 10.9 g/dL (14.0-18.0) L 08/10/20 04:23 Hct 30.8 % (42.0-52.0) L 08/10/20 04:23 MCV 103.0 fL (78.0-98.0) H 08/10/20 04:23 Plt Count 165 thou/uL (130-400) 08/10/20 04:23 Neutrophils % 58.7 % (42.0-75.0) 08/09/20 04:20 Band Neuts % (Manual) 2 % (5-11) L 08/10/20 04:23 Sodium 124 mmol/L (136-145) L 08/10/20 17:27 Potassium 4.1 mmol/L (3.5-5.1) 08/10/20 17:27 Chloride 81 mmol/L (98-107) L 08/10/20 17:27 Carbon Dioxide 27 mmol/L (22-29) 08/10/20 17:27 BUN 83 mg/dL (8.4-25.7) H 08/10/20 17:27 Creatinine 11.98 mg/dL (0.7-1.3) H 08/10/20 17:27 Glucose 107 mg/dL (70-105) H 08/10/20 17:27 Lactic Acid 0.8 mmol/L (0.5-2.2) 08/08/20 11:13 Calcium 7.2 mg/dL (7.8-10.44) L 08/10/20 17:27 Total Bilirubin 0.6 mg/dL (0.2-1.2) 08/10/20 04:23 AST 656 U/L (5-34) H 08/10/20 04:23 ALT 305 U/L (8-55) H 08/10/20 04:23 Alkaline Phosphatase 400 U/L (40-110) H 08/10/20 04:23 Ammonia 36 umol/L (18-72) 08/08/20 09:39 Creatine Kinase Greater [place] 21303 U/L (30-200) H 08/10/20 17:27 Troponin I Less than 0.010 ng/mL (< 0.028) 08/08/20 09:39 Serum Total Protein 4.9 g/dL (6.0-8.3) L 08/10/20 04:23 Albumin 2.3 g/dL (3.5-5.0) L 08/10/20 04:23 Urine Ketones Negative mg/dL (Negative) 08/08/20 09:55 Urine Blood Large (Negative) A 08/08/20 09:55 Urine Nitrite Negative (Negative) 08/08/20 09:55 Ur Leukocyte Esterase Negative (Negative) 08/08/20 09:55 Urine RBC 0-3 HPF (0-3) 08/08/20 09:55 Urine WBC 0-3 HPF (0-3) 08/08/20 09:55 Ur Squamous Epith Cells None Seen HPF (0-3) 08/08/20 09:55 Urine Bacteria None Seen HPF (None Seen) 08/08/20 09:55 Sodium 124 mmol/L (136-145) L 08/10/20 17:27 Potassium 4.1 mmol/L (3.5-5.1) 08/10/20 17:27 Chloride 81 mmol/L (98-107) L 08/10/20 17:27 Carbon Dioxide 27 mmol/L (22-29) 08/10/20 17:27 Anion Gap 20 mmol/L (10-20) 08/10/20 17:27 BUN 83 mg/dL (8.4-25.7) H 08/10/20 17:27 Creatinine 11.98 mg/dL (0.7-1.3) H 08/10/20 17:27 Glucose 107 mg/dL (70-105) H 08/10/20 17:27 Calcium 7.2 mg/dL (7.8-10.44) L 08/10/20 17:27 Albumin 2.3 g/dL (3.5-5.0) L 08/10/20 04:23 Nephrology AP PN - Plan ASSESSMENT: Acute renal failure. ATN from severe rhabdomyolysis most likely. No imprvement as yet. Oliguric Acute encephalopathy: Due to serotonin syndrome. Uremic enecephalopathy seem to be contributory Hyperkalemia. Resolved Metabolic acidosis. Improved Hyponatremia. Hypocalcemia. Rhabdomyolysis Presumed serotonin syndrome. Dehydration. Resolved. Involuntary movement/twitching. 2/2 neuromuscular hyperactivity 2/2 serotonin syndrome. Uremic encephalopathy may be contributory. Gait instability with frequent falls. Physical deconditioning. History of nephrolithiasis. Accelerated HTN: Due to crystalloid therapy and volume overload Volume overload. Remained oliguric despite IV lasix dose. Discussed Dialysis with patient. He is in agreement to start. Spoke with patient's brother who also is in agreement PLAN We will start HD once access can be obtained. Will keep patient NPO. Will contact surgery for TDC placement. Decrease IVF from 250 to 50 cc/hr as patient is will be NPO Will stop after TDC placement Follow CK and renal function Fall precaution Substitute amlodipine with nifedipine, Start labetalol 50 q8h. Adjust dose to get adequate BP control Continue to hold psychotropc medications. Avoid nephrotoxic agents. Monitor intake and output.
[2020-08-11] MEDS: NIFEdipine XL 60 MG TAB PO SCH (08:13)
[2020-08-11] MEDS: Acetaminophen 325 MG TAB PO PRN (08:14)
[2020-08-11] MEDS: Buprenorphine 8mg/Naloxone 2mg per 1 FILM SL SCH (09:00)
[2020-08-11] MEDS ORDERED: Heparin 10,000 UNITS/ 10 ML VIAL ONE (09:10)
[2020-08-11] MEDS ORDERED: Bupivacaine HCl 0.5%/Epinephrine 1:200,000/PF 30 ml Vial ONE (09:10)
[2020-08-11] MEDS ORDERED: Sodium Chloride 0.9% 20 ML ONE (09:11)
[2020-08-11] MEDS ORDERED: Lidocaine 2% PF 5 ML VIAL ONE (09:11)
[2020-08-11] MEDS ORDERED: Fentanyl 100 MCG/2 ML VIAL ONE (09:13)
[2020-08-11] MEDS ORDERED: PROPOFOL 40 ML ONE (09:13)
[2020-08-11] MEDS ORDERED: PROPOFOL 200 MG/20 ML VIAL ONE (09:30)
[2020-08-11] MEDS ORDERED: traMADol HCl 50 MG TAB PO PRN ×2 (09:45→12:31)
[2020-08-11] MEDS ORDERED: Midazolam HCl 2 mg/2 ml Vial ONE (09:47)
[2020-08-11] MEDS ORDERED: Promethazine HCl 25 MG/ML VIAL IM PRN (10:25)
[2020-08-11] MEDS ORDERED: Promethazine HCl 25 MG/ML VIAL SLOW IVP PRN (10:25)
[2020-08-11] MEDS ORDERED: Ondansetron HCl/PF 4 MG/2 ML Vial IVP PRN (10:25)
--- NOTE | 2020-08-11 10:51 | OP ---
DATE OF PROCEDURE: 08/11/2020 PREOPERATIVE DIAGNOSES: 1. Acute renal failure. 2. Rhabdomyolysis. POSTOPERATIVE DIAGNOSES: 1. Acute renal failure. 2. Rhabdomyolysis. PROCEDURES PERFORMED: Right IJ cuffed tunneled hemodialysis catheter, precurved AngioDynamics. Left IJ central line. ANESTHESIA: TIVA, local of 0.5% Marcaine with epinephrine 30 mL mixed with 2% Xylocaine. Of note, fluoroscopy and ultrasound used for placement. DESCRIPTION OF PROCEDURE: The patient was taken to the operating room, where under intravenous sedation, neck and chest prepared with ChloraPrep and draped in routine fashion. Local anesthetic was infiltrated into the skin and subcutaneous tissue about the operative site. Both internal jugular veins were cannulated with trocar catheter. J-wire was threaded. Ultrasound was used. Skin site enlarged sharply, stab incision was made over the right chest. Seldinger technique used to place a triple-lumen catheter, left IJ, secured with 2-0 Prolene suture, each port aspirated blood, flushed with saline solution. Precurved AngioDynamics cuffed tunneled hemodialysis catheter placed, tunneled between the 2 incisions, placed the fabric cuff beneath the skin exit site over the right chest and catheter secured with 2 interrupted sutures of 2-0 Prolene. Small and medium size dilators placed over the J-wire into the internal jugular vein. Dilator and Peel-Away sheath placed over the J-wire into the superior vena cava. Dilator and J-wire were removed. Catheter placed with Peel-Away sheath. Peel-Away sheath removed. Platysma was approximated with 4-0 Monocryl, skin with subdermal 4-0 Monocryl, and [place] glue applied. Each port aspirated blood, flushed with saline solution. Heparinized saline solution, 1000 units of heparin per mL, indicating volume of the port. Final fluoroscopic images revealed good line placement. Job ID: [id number]
--- NOTE | 2020-08-11 11:08 | RAD ---
Exam: Chest one view HISTORY:Status post central line placement. Comparison: 08/09/2020 FINDINGS: Cardiac silhouette:Normal Lines and tubes: Interval placement of a right-sided HemoSplit dialysis catheter and left-sided inter nal jugular central venous catheter. Both catheters terminate in the expected region of the right atrium. Aorta: Unremarkable Pulmonary vessels: Normal Costophrenic angles: Clear LUNGS: Diminished lung volumes, likely due to a poor inspiratory effort. There is associated atelecta sis. Definite consolidation or mass is not appreciated. Pneumothorax: None Osseous abnormalities: Redemonstration of a cervical fusion plate. IMPRESSION: 1. Vascular catheters as above. 2. No pneumothorax.
[2020-08-11 13:54] LABS: #Basophils 0.2 thou/uL (0.0-0.2); #Eosinphils 0.1 thou/uL (0.0-0.7); #Lymphocytes 5.7 thou/uL (1.20-3.40); #Monocytes 1.1 thou/uL (0.11-0.59); %Eosinophils 0.5 % (0.0-10.0); %Monocytes 5.6 % (0.0-10.0); %Neutrophils 62.9 % (42.0-75.0); Hemoglobin 10.6 g/dL (14.0-18.0); Mean Corpuscular HGB CONC 34.3 g/dL (32.0-36.0); Mean Corpuscular Hemoglobin 35.5 pg (27.0-31.0); Mean Platelet Volume 7.5 fL (7.4-10.4); Platelet Count 200 thou/uL (130-400); RBC Distribution Width 13.5 % (11.5-14.5); Red Blood Cell (RBC) Count 2.99 mill/uL (4.70-6.10)
[2020-08-11 14:17] LABS: ALT (SGPT) 272 U/L (8-55); AST (SGOT) 492 U/L (5-34); Albumin 2.5 g/dL (3.5-5.0); Alkaline Phosphatase 339 U/L (40-110); Anion Gap 18 mmol/L (10-20); BUN (Urea Nitrogen) 80 mg/dL (8.4-25.7); Bilirubin, Total 0.6 mg/dL (0.2-1.2); Calc. Creatinine Clearance 11 mL/min (70-130); Calcium 6.8 mg/dL (7.8-10.44); Carbon Dioxide 28 mmol/L (22-29); Chloride 82 mmol/L (98-107); Estimated GFR-MDRD 5; Globulin 2.4 g/dL (2.4-3.5); Glucose 108 mg/dL (70-105); Potassium 4.1 mmol/L (3.5-5.1); Protein, Total 4.9 g/dL (6.0-8.3); Sodium 124 mmol/L (136-145)
[2020-08-11 15:37] LABS: CK (CPK) 33833 U/L (30-200)
[2020-08-12 05:32] LABS: Anion Gap 21 mmol/L (10-20); BUN (Urea Nitrogen) 65 mg/dL (8.4-25.7); Calc. Creatinine Clearance 13 mL/min (70-130); Calcium 7.5 mg/dL (7.8-10.44); Carbon Dioxide 26 mmol/L (22-29); Chloride 86 mmol/L (98-107); Estimated GFR-MDRD 6; Glucose 108 mg/dL (70-105); Potassium 3.8 mmol/L (3.5-5.1); Sodium 129 mmol/L (136-145)
[2020-08-12] MEDS: Labetalol 100 MG TAB PO SCH ×3 (05:45→21:04)
[2020-08-12] MEDS: Levothyroxine Sodium 25 MCG TAB PO SCH (05:46)
[2020-08-12 06:19] LABS: Band 7 % (5-11); Hemoglobin 9.9 g/dL (14.0-18.0); Lymphocytes 29 % (21-51); MDiff Complete? YES; Mean Corpuscular HGB CONC 33.9 g/dL (32.0-36.0); Mean Corpuscular Hemoglobin 35.2 pg (27.0-31.0); Mean Platelet Volume 7.1 fL (7.4-10.4); Monocytes 6 % (0-10); Neutrophil 58 % (42-75); Platelet Count 202 thou/uL (130-400); Platelet Morphology Comment Appears Adequate; RBC Distribution Width 13.7 % (11.5-14.5); White Blood Cell (WBC) Count 19.6 thou/uL (4.8-10.8)
[2020-08-12] MEDS: Nicotine 14 MG PATCH TOP SCH (08:57)
--- NOTE | 2020-08-12 09:03 | PDOC.NEPPN ---
- Subjective Encounter Date: 08/12/20 Encounter Time: 09:01 Subjective: Seen in follow up [facility] and rhabdomyolysis associated with encephalopathy and requiring HD. Tolerated HD well yesterday. In restrained this morning to prevent pulling out lines. No nausea or vomiting. - Objective Vital Signs & Weight: Vital Signs (12 hours) Temp Pulse Resp BP BP Pulse Ox 08/12/20 07:20 97.9 F 83 18 132/72 92 L 08/12/20 05:45 90 140/74 08/12/20 03:21 98.3 F 90 18 131/70 96 08/11/20 23:12 85 18 134/76 08/11/20 21:02 86 134/80 Weight Admit Weight 230 lb Weight 251 lb 3.2 oz I&O: 08/11/20 08/12/20 08/13/20 06:59 06:59 06:59 Intake Total 5520 1245 Output Total 600 1750 Balance 4920 -505 Result Diagrams: 08/12/20 05:30 08/12/20 04:50 Nephrology ROS - Medication Medications: Active Medications Generic Name Dose Route Start Last Admin Trade Name Yfn PRN Reason Stop Dose Admin Buprenorphine/Naloxone 1 film 08/09/20 09:00 08/11/20 09:00 Buprenorphine 8mg/Naloxone 2mg Per 1 Film SL 1 film DAILY WESLEY Administration Clonidine 0.2 mg 08/09/20 09:00 08/09/20 12:18 Clonidine 0.2mg/24 Hour Patch TD 0.2 mg Q7DAYS WESLEY Administration Labetalol HCl 50 mg 08/11/20 06:00 08/12/20 05:45 Labetalol 100 Mg Tab PO 50 mg Q8HR WESLEY Administration Levothyroxine Sodium 25 mcg 08/09/20 06:00 08/12/20 05:46 Levothyroxine Sodium 25 Mcg Tab PO 25 mcg 0600 WESLEY Administration Nifedipine 60 mg 08/11/20 09:00 08/11/20 08:13 Nifedipine Xl 60 Mg Tab PO 60 mg DAILY WESLEY Administration - Exam General Appearance: awake alert Eye: anicteric sclera ENT: normocephalic atraumatic, moist mucosa Neck: supple, symmetric, no JVD Respiratory - other findings: fair air entry with some transmitted sound Cardiovascular: RRR Gastrointestinal: soft, non-tender, non-distended, normal bowel sounds Gastrointestinal - other findings: Astudillo catheter in place Extremities - other findings: trace to mild edema of the extremities Neurological: CN's grossly intact, no focal deficits Neurological - other findings: Awake and oriented x3. Some confusion noted. Tremor + Nephrology Results - Labs Result Diagrams: 08/12/20 05:30 08/12/20 04:50 Lab results: WBC 19.6 thou/uL (4.8-10.8) H 08/12/20 05:30 Hgb 9.9 g/dL (14.0-18.0) L 08/12/20 05:30 Hct 29.1 % (42.0-52.0) L 08/12/20 05:30 MCV 104.0 fL (78.0-98.0) H 08/12/20 05:30 Plt Count 202 thou/uL (130-400) 08/12/20 05:30 Neutrophils % 62.9 % (42.0-75.0) 08/11/20 13:21 Band Neuts % (Manual) 7 % (5-11) 08/12/20 05:30 Sodium 129 mmol/L (136-145) L 08/12/20 04:50 Potassium 3.8 mmol/L (3.5-5.1) 08/12/20 04:50 Chloride 86 mmol/L (98-107) L 08/12/20 04:50 Carbon Dioxide 26 mmol/L (22-29) 08/12/20 04:50 BUN 65 mg/dL (8.4-25.7) H 08/12/20 04:50 Creatinine 9.61 mg/dL (0.7-1.3) H 08/12/20 04:50 Glucose 108 mg/dL (70-105) H 08/12/20 04:50 Lactic Acid 0.8 mmol/L (0.5-2.2) 08/08/20 11:13 Calcium 7.5 mg/dL (7.8-10.44) L 08/12/20 04:50 Total Bilirubin 0.6 mg/dL (0.2-1.2) 08/11/20 13:21 AST 492 U/L (5-34) H 08/11/20 13:21 ALT 272 U/L (8-55) H 08/11/20 13:21 Alkaline Phosphatase 339 U/L (40-110) H 08/11/20 13:21 Ammonia 36 umol/L (18-72) 08/08/20 09:39 Creatine Kinase 98194 U/L (30-200) H 08/12/20 04:50 Troponin I Less than 0.010 ng/mL (< 0.028) 08/08/20 09:39 Serum Total Protein 4.9 g/dL (6.0-8.3) L 08/11/20 13:21 Albumin 2.5 g/dL (3.5-5.0) L 08/11/20 13:21 Urine Ketones Negative mg/dL (Negative) 08/08/20 09:55 Urine Blood Large (Negative) A 08/08/20 09:55 Urine Nitrite Negative (Negative) 08/08/20 09:55 Ur Leukocyte Esterase Negative (Negative) 08/08/20 09:55 Urine RBC 0-3 HPF (0-3) 08/08/20 09:55 Urine WBC 0-3 HPF (0-3) 08/08/20 09:55 Ur Squamous Epith Cells None Seen HPF (0-3) 08/08/20 09:55 Urine Bacteria None Seen HPF (None Seen) 08/08/20 09:55 Sodium 129 mmol/L (136-145) L 08/12/20 04:50 Potassium 3.8 mmol/L (3.5-5.1) 08/12/20 04:50 Chloride 86 mmol/L (98-107) L 08/12/20 04:50 Carbon Dioxide 26 mmol/L (22-29) 08/12/20 04:50 Anion Gap 21 mmol/L (10-20) H 08/12/20 04:50 BUN 65 mg/dL (8.4-25.7) H 08/12/20 04:50 Creatinine 9.61 mg/dL (0.7-1.3) H 08/12/20 04:50 Glucose 108 mg/dL (70-105) H 08/12/20 04:50 Calcium 7.5 mg/dL (7.8-10.44) L 08/12/20 04:50 Albumin 2.5 g/dL (3.5-5.0) L 08/11/20 13:21 Nephrology AP PN - Plan ASSESSMENT: Acute renal failure. ATN from severe rhabdomyolysis Acute encephalopathy: Due to serotonin syndrome and or Uremic enecephalopathy. ? Withdrawal effect Hyperkalemia. Resolved Metabolic acidosis. Improved Hyponatremia. Hypocalcemia. Rhabdomyolysis: CK level is trending down Presumed serotonin syndrome. Dehydration. Resolved. Involuntary movement/twitching. 2/2 neuromuscular hyperactivity 2/2 serotonin syndrome. Uremic encephalopathy may be contributory. Gait instability with frequent falls. Physical deconditioning. History of nephrolithiasis. HTN: Due to crystalloid therapy and volume overload. Control is better Volume overload. Improved with HD and discontinuation of IVF Vitamin D deficiency Secondary hyperparathyroidism PLAN For HD today for 3 hrs Continue current antihypertensive Start Vit D supplementation Follow CK and renal function Fall precaution. Use [place] instead Continue to hold psychotropc medications. Avoid nephrotoxic agents. Monitor intake and output.
[2020-08-12] MEDS ORDERED: Ergocalciferol 1.25 MG(50,000 UNITS) CAP PO SCH (09:15)
--- NOTE | 2020-08-12 09:21 | OP ---
DATE OF PROCEDURE: 08/10/2020 PREOPERATIVE DIAGNOSIS: Acute renal failure. POSTOPERATIVE DIAGNOSES: 1. Acute renal failure. 2. Rhabdomyolysis. PROCEDURE PERFORMED: Right femoral vein Trialysis catheter. ANESTHESIA: 1% Xylocaine. DESCRIPTION OF PROCEDURE: With the patient at bedside in his room, his right groin was clipped of hair, prepared with ChloraPrep and draped in routine fashion. 1% Xylocaine was infiltrated in the skin and subcutaneous tissue about the operative site. Trocar catheter cannulated the femoral vein, J-wire threaded, trocar catheter removed, skin enlarged sharply. Small and medium size dilators placed with J-wire into the femoral vein and removed. The distal port of the Trialysis catheter placed with the J-wire into the femoral vein and secured with 3-0 nylon suture. Sterile dressing applied. The J-wire was removed, each port aspirated blood, flushed with heparinized saline solution. Patient tolerated the procedure well. Job ID: [id number]
[2020-08-12] MEDS: NIFEdipine XL 60 MG TAB PO SCH (12:47)
[2020-08-12] MEDS: Buprenorphine 8mg/Naloxone 2mg per 1 FILM SL SCH (12:47)
[2020-08-12] MEDS ORDERED: Heparin 10,000 UNITS/ 10 ML VIAL ONE (14:40)
[2020-08-12] MEDS: Acetaminophen 500 MG TAB PO PRN (21:11)
[2020-08-13] MEDS: Levothyroxine Sodium 25 MCG TAB PO SCH (05:42)
[2020-08-13] MEDS: Labetalol 100 MG TAB PO SCH ×3 (05:42→21:41)
[2020-08-13] MEDS: Buprenorphine 8mg/Naloxone 2mg per 1 FILM SL SCH (08:36)
[2020-08-13] MEDS: Nicotine 14 MG PATCH TOP SCH (08:37)
[2020-08-13 08:45] LABS: Mean Corpuscular HGB CONC 33.2 g/dL (32.0-36.0); Mean Corpuscular Hemoglobin 35.8 pg (27.0-31.0); Mean Platelet Volume 6.8 fL (7.4-10.4); Platelet Count 220 thou/uL (130-400); RBC Distribution Width 13.6 % (11.5-14.5); Red Blood Cell (RBC) Count 2.78 mill/uL (4.70-6.10); White Blood Cell (WBC) Count 21.1 thou/uL (4.8-10.8)
[2020-08-13 08:53] LABS: ALT (SGPT) 241 U/L (8-55); AST (SGOT) 253 U/L (5-34); Albumin 2.7 g/dL (3.5-5.0); Alkaline Phosphatase 325 U/L (40-110); Anion Gap 20 mmol/L (10-20); BUN (Urea Nitrogen) 42 mg/dL (8.4-25.7); Bilirubin, Total 0.8 mg/dL (0.2-1.2); Calc. Creatinine Clearance 19 mL/min (70-130); Carbon Dioxide 23 mmol/L (22-29); Chloride 95 mmol/L (98-107); Estimated GFR-MDRD 8; Globulin 2.4 g/dL (2.4-3.5); Glucose 107 mg/dL (70-105); Potassium 3.7 mmol/L (3.5-5.1); Protein, Total 5.1 g/dL (6.0-8.3); Sodium 134 mmol/L (136-145)
[2020-08-13 08:57] LABS: Phosphorus 4.4 mg/dL (2.3-4.7)
[2020-08-13 09:23] LABS: CK (CPK) 9875 U/L (30-200)
[2020-08-13 10:20] LABS: Band 2 % (5-11); Lymphocytes 29 % (21-51); MDiff Complete? YES; Monocytes 8 % (0-10); Neutrophil 61 % (42-75); Polychromasia SLIGHT = 2-3 cells (100X) (0-2/hpf)
--- NOTE | 2020-08-13 10:22 | PDOC.NEPPN ---
- Subjective Encounter Date: 08/13/20 Encounter Time: 08:32 Subjective: Seen in follow for acute renal failure requiring HD. Still confused and pulling on lines. Pulled out Left IJ TLC. No nausea or vomiting. - Objective Vital Signs & Weight: Vital Signs (12 hours) Temp Pulse Resp BP BP BP Pulse Ox 08/13/20 07:50 98.7 F 85 18 134/76 98 08/13/20 05:42 92 137/73 08/13/20 04:00 97.2 F L 96 15 125/70 99 08/13/20 00:00 98.4 F 75 Weight Admit Weight 230 lb Weight 245 lb 9.519 oz I&O: 08/12/20 08/13/20 08/14/20 06:59 06:59 06:59 Intake Total 1245 360 Output Total 1750 425 Balance -505 -65 Result Diagrams: 08/13/20 08:17 08/13/20 08:17 Nephrology ROS - Medication Medications: Active Medications Generic Name Dose Route Start Last Admin Trade Name Freq PRN Reason Stop Dose Admin Acetaminophen 1,000 mg 08/11/20 09:45 08/12/20 21:11 Acetaminophen 500 Mg Tab PO 1,000 mg Q6H PRN Administration Moderate to Severe Pain (6-10) Buprenorphine/Naloxone 1 film 08/09/20 09:00 08/13/20 08:36 Buprenorphine 8mg/Naloxone 2mg Per 1 Film SL 1 film DAILY WESLEY Administration Labetalol HCl 50 mg 08/11/20 06:00 08/13/20 05:42 Labetalol 100 Mg Tab PO 50 mg Q8HR WESLEY Administration Levothyroxine Sodium 25 mcg 08/09/20 06:00 08/13/20 05:42 Levothyroxine Sodium 25 Mcg Tab PO 25 mcg 0600 WESLEY Administration Nicotine 14 mg 08/12/20 09:00 08/13/20 08:37 Nicotine 14 Mg Patch TOP 14 mg Q24HR WESLEY Administration Nifedipine 60 mg 08/11/20 09:00 08/12/20 12:47 Nifedipine Xl 60 Mg Tab PO 60 mg DAILY WESLEY Administration Sodium Chloride 10 ml 08/12/20 21:00 08/13/20 08:37 Flush - Normal Saline 10 Ml Syringe IVF 10 ml Q12HR WESLEY Administration - Exam General Appearance: awake alert General - other findings: obese ENT: normocephalic atraumatic Neck: symmetric, no JVD Respiratory: no wheezes, no ronchi, normal chest expansion Respiratory - other findings: fair air entry with some transmitted sound Cardiovascular: RRR Gastrointestinal: soft, non-tender, non-distended, normal bowel sounds Extremities - other findings: Edema of the extremities noted Skin - other findings: Left medial erythematous rash with some blisters noted Neurological: CN's grossly intact, no focal deficits Neurological - other findings: Awake and alert. Oriented x 3. Some confusion and memeory lapses noted Nephrology Results - Labs Result Diagrams: 08/13/20 08:17 08/13/20 08:17 Lab results: WBC 21.1 thou/uL (4.8-10.8) H 08/13/20 08:17 Hgb 10.0 g/dL (14.0-18.0) L 08/13/20 08:17 Hct 30.0 % (42.0-52.0) L 08/13/20 08:17 MCV 108.0 fL (78.0-98.0) H 08/13/20 08:17 Plt Count 220 thou/uL (130-400) 08/13/20 08:17 Neutrophils % 62.9 % (42.0-75.0) 08/11/20 13:21 Band Neuts % (Manual) 2 % (5-11) L 08/13/20 08:17 Sodium 134 mmol/L (136-145) L 08/13/20 08:17 Potassium 3.7 mmol/L (3.5-5.1) 08/13/20 08:17 Chloride 95 mmol/L (98-107) L 08/13/20 08:17 Carbon Dioxide 23 mmol/L (22-29) 08/13/20 08:17 BUN 42 mg/dL (8.4-25.7) H 08/13/20 08:17 Creatinine 7.09 mg/dL (0.7-1.3) H 08/13/20 08:17 Glucose 107 mg/dL (70-105) H 08/13/20 08:17 Lactic Acid 0.8 mmol/L (0.5-2.2) 08/08/20 11:13 Calcium 8.0 mg/dL (7.8-10.44) 08/13/20 08:17 Total Bilirubin 0.8 mg/dL (0.2-1.2) 08/13/20 08:17 AST 253 U/L (5-34) H 08/13/20 08:17 ALT 241 U/L (8-55) H 08/13/20 08:17 Alkaline Phosphatase 325 U/L (40-110) H 08/13/20 08:17 Ammonia 36 umol/L (18-72) 08/08/20 09:39 Creatine Kinase 9875 U/L (30-200) H 08/13/20 08:17 Troponin I Less than 0.010 ng/mL (< 0.028) 08/08/20 09:39 Serum Total Protein 5.1 g/dL (6.0-8.3) L 08/13/20 08:17 Albumin 2.7 g/dL (3.5-5.0) L 08/13/20 08:17 Urine Ketones Negative mg/dL (Negative) 08/08/20 09:55 Urine Blood Large (Negative) A 08/08/20 09:55 Urine Nitrite Negative (Negative) 08/08/20 09:55 Ur Leukocyte Esterase Negative (Negative) 08/08/20 09:55 Urine RBC 0-3 HPF (0-3) 08/08/20 09:55 Urine WBC 0-3 HPF (0-3) 08/08/20 09:55 Ur Squamous Epith Cells None Seen HPF (0-3) 08/08/20 09:55 Urine Bacteria None Seen HPF (None Seen) 08/08/20 09:55 Sodium 134 mmol/L (136-145) L 08/13/20 08:17 Potassium 3.7 mmol/L (3.5-5.1) 08/13/20 08:17 Chloride 95 mmol/L (98-107) L 08/13/20 08:17 Carbon Dioxide 23 mmol/L (22-29) 08/13/20 08:17 Anion Gap 20 mmol/L (-20) 08/13/20 08:17 BUN 42 mg/dL (8.4-25.7) H 08/13/20 08:17 Creatinine 7.09 mg/dL (0.7-1.3) H 08/13/20 08:17 Glucose 107 mg/dL (70-105) H 08/13/20 08:17 Calcium 8.0 mg/dL (7.8-10.44) 08/13/20 08:17 Phosphorus 4.4 mg/dL (2.3-4.7) 08/13/20 08:17 Albumin 2.7 g/dL (3.5-5.0) L 08/13/20 08:17 Nephrology AP PN - Plan ASSESSMENT: Acute renal failure. ATN from severe rhabdomyolysis Acute encephalopathy: Due to serotonin syndrome and or Uremic enecephalopathy. insight is improving Hyperkalemia. Resolved Metabolic acidosis. Improved Hyponatremia. Hypocalcemia. Rhabdomyolysis: CK level is trending down Presumed serotonin syndrome. Dehydration. Resolved. Involuntary movement/twitching. 2/2 neuromuscular hyperactivity 2/2 serotonin syndrome. Uremic encephalopathy may be contributory. Gait instability with frequent falls. Physical deconditioning. History of nephrolithiasis. HTN: Due to crystalloid therapy and volume overload. Control is better Volume overload. Improved with HD and discontinuation of IVF Vitamin D deficiency Secondary hyperparathyroidism PLAN For HD today for 4 hrs with UF as tolerated Continue nifedipine and labtalol and dc clonidine patch to prevent hypotension Continue Vit D supplementation Follow CK and renal function Fall precaution. Use Mittens instead Continue to hold psychotropc medications. Avoid nephrotoxic agents. Monitor intake and output.
--- NOTE | 2020-08-13 10:25 | PDOC.BPN ---
- Brief Progress Note Encounter Date: 08/13/20 Encounter Time: 10:22 Seen during Hemodialysis. More appropriate. Still requiring restraints Tolerating HD well. Crit line and hemodynamics evaluated. Still with generalized edema. Will increase UF goal to 3500 with a view to increasing further if suggested by CRIT line Monitor vitals closely
[2020-08-13] MEDS: NIFEdipine XL 60 MG TAB PO SCH (13:50)
[2020-08-13] MEDS ORDERED: Heparin 10,000 UNITS/ 10 ML VIAL ONE (14:32)
[2020-08-13] MEDS: Lorazepam 0.5 MG TAB PO PRN (15:31)
[2020-08-14] MEDS: Lorazepam 0.5 MG TAB PO PRN ×4 (02:47→21:58)
[2020-08-14 05:05] LABS: Anion Gap 19 mmol/L (10-20); BUN (Urea Nitrogen) 26 mg/dL (8.4-25.7); Calc. Creatinine Clearance 27 mL/min (70-130); Calcium 8.4 mg/dL (7.8-10.44); Carbon Dioxide 23 mmol/L (22-29); Chloride 98 mmol/L (98-107); Estimated GFR-MDRD 12; Glucose 105 mg/dL (70-105); Potassium 3.8 mmol/L (3.5-5.1); Sodium 136 mmol/L (136-145)
[2020-08-14 05:12] LABS: Band 4 % (5-11); Hemoglobin 11.2 g/dL (14.0-18.0); Lymphocytes 24 % (21-51); MDiff Complete? YES; Mean Corpuscular HGB CONC 33.2 g/dL (32.0-36.0); Mean Corpuscular Hemoglobin 36.2 pg (27.0-31.0); Mean Platelet Volume 7.3 fL (7.4-10.4); Monocytes 4 % (0-10); Neutrophil 68 % (42-75); Platelet Count 192 thou/uL (130-400); RBC Distribution Width 13.8 % (11.5-14.5); White Blood Cell (WBC) Count 24.6 thou/uL (4.8-10.8)
[2020-08-14 05:18] LABS: CK (CPK) 5848 U/L (30-200)
[2020-08-14] MEDS: Labetalol 100 MG TAB PO SCH ×3 (06:31→21:58)
[2020-08-14] MEDS: Levothyroxine Sodium 25 MCG TAB PO SCH (06:31)
[2020-08-14] MEDS: Buprenorphine 8mg/Naloxone 2mg per 1 FILM SL SCH ×2 (09:58→10:27)
[2020-08-14] MEDS: NIFEdipine XL 60 MG TAB PO SCH (09:58)
[2020-08-14] MEDS: Nicotine 14 MG PATCH TOP SCH (09:59)
--- NOTE | 2020-08-14 10:29 | PDOC.NEPPN ---
- Subjective Encounter Date: 08/14/20 Encounter Time: 10:27 Subjective: Seen in follow up for ARF requiring HD. Last Hd was on 08/13/2020. No new problem. still confused. - Objective Vital Signs & Weight: Vital Signs (12 hours) Temp Pulse Resp BP BP Pulse Ox 08/14/20 09:58 87 128/62 08/14/20 08:00 98.8 F 87 16 128/62 97 08/14/20 04:00 98.3 F 80 18 143/74 H 93 L Weight Admit Weight 230 lb Weight 245 lb 9.519 oz I&O: 08/13/20 08/14/20 08/15/20 06:59 06:59 06:59 Intake Total 360 390 Output Total 425 325 Balance -65 65 Result Diagrams: 08/14/20 04:35 08/14/20 04:35 Nephrology ROS - Medication Medications: Active Medications Generic Name Dose Route Start Last Admin Trade Name Freq PRN Reason Stop Dose Admin Acetaminophen 1,000 mg 08/11/20 09:45 08/12/20 21:11 Acetaminophen 500 Mg Tab PO 1,000 mg Q6H PRN Administration Moderate to Severe Pain (6-10) Buprenorphine/Naloxone 1 film 08/09/20 09:00 08/13/20 08:36 Buprenorphine 8mg/Naloxone 2mg Per 1 Film SL 1 film DAILY WESLEY Administration Labetalol HCl 100 mg 08/13/20 22:00 08/14/20 06:31 Labetalol 100 Mg Tab PO 100 mg Q8HR WESLEY Administration Levothyroxine Sodium 25 mcg 08/09/20 06:00 08/14/20 06:31 Levothyroxine Sodium 25 Mcg Tab PO 25 mcg 0600 WESLEY Administration Lorazepam 0.25 mg 08/12/20 11:51 08/14/20 02:47 Lorazepam 0.5 Mg Tab PO 0.25 mg Q4H PRN Administration Anxiety Nicotine 14 mg 08/12/20 09:00 08/14/20 09:59 Nicotine 14 Mg Patch TOP 14 mg Q24HR WESLEY Administration Nifedipine 60 mg 08/11/20 09:00 08/14/20 09:58 Nifedipine Xl 60 Mg Tab PO 60 mg DAILY WESLEY Administration Sodium Chloride 10 ml 08/12/20 21:00 08/14/20 10:00 Flush - Normal Saline 10 Ml Syringe IVF 10 ml Q12HR WESLEY Administration - Exam General Appearance: awake alert Eye: anicteric sclera ENT: normocephalic atraumatic, moist mucosa Neck: supple, no JVD Respiratory: no ronchi, normal chest expansion Respiratory - other findings: fair air entry bilaterally Cardiovascular: RRR Gastrointestinal: soft, non-tender, non-distended, normal bowel sounds Extremities - other findings: mild edema of the extremities Neurological: CN's grossly intact, no focal deficits Neurological - other findings: Tremor+ alert and oriented at least to person and place. Some confusion. Nephrology Results - Labs Result Diagrams: 08/14/20 04:35 08/14/20 04:35 Lab results: WBC 24.6 thou/uL (4.8-10.8) H 08/14/20 04:35 Hgb 11.2 g/dL (14.0-18.0) L 08/14/20 04:35 Hct 33.7 % (42.0-52.0) L 08/14/20 04:35 MCV 109.0 fL (78.0-98.0) H 08/14/20 04:35 Plt Count 192 thou/uL (130-400) 08/14/20 04:35 Neutrophils % 62.9 % (42.0-75.0) 08/11/20 13:21 Band Neuts % (Manual) 4 % (5-11) L 08/14/20 04:35 Sodium 136 mmol/L (136-145) 08/14/20 04:35 Potassium 3.8 mmol/L (3.5-5.1) 08/14/20 04:35 Chloride 98 mmol/L (98-107) 08/14/20 04:35 Carbon Dioxide 23 mmol/L (22-29) 08/14/20 04:35 BUN 26 mg/dL (8.4-25.7) H 08/14/20 04:35 Creatinine 4.89 mg/dL (0.7-1.3) H 08/14/20 04:35 Glucose 105 mg/dL (70-105) 08/14/20 04:35 Lactic Acid 0.8 mmol/L (0.5-2.2) 08/08/20 11:13 Calcium 8.4 mg/dL (7.8-10.44) 08/14/20 04:35 Total Bilirubin 0.8 mg/dL (0.2-1.2) 08/13/20 08:17 AST 253 U/L (5-34) H 08/13/20 08:17 ALT 241 U/L (8-55) H 08/13/20 08:17 Alkaline Phosphatase 325 U/L (40-110) H 08/13/20 08:17 Ammonia 36 umol/L (18-72) 08/08/20 09:39 Creatine Kinase 5848 U/L (30-200) H 08/14/20 04:35 Troponin I Less than 0.010 ng/mL (< 0.028) 08/08/20 09:39 Serum Total Protein 5.1 g/dL (6.0-8.3) L 08/13/20 08:17 Albumin 2.7 g/dL (3.5-5.0) L 08/13/20 08:17 Urine Ketones Negative mg/dL (Negative) 08/08/20 09:55 Urine Blood Large (Negative) A 08/08/20 09:55 Urine Nitrite Negative (Negative) 08/08/20 09:55 Ur Leukocyte Esterase Negative (Negative) 08/08/20 09:55 Urine RBC 0-3 HPF (0-3) 08/08/20 09:55 Urine WBC 0-3 HPF (0-3) 08/08/20 09:55 Ur Squamous Epith Cells None Seen HPF (0-3) 08/08/20 09:55 Urine Bacteria None Seen HPF (None Seen) 08/08/20 09:55 Sodium 136 mmol/L (136-145) 08/14/20 04:35 Potassium 3.8 mmol/L (3.5-5.1) 08/14/20 04:35 Chloride 98 mmol/L (98-107) 08/14/20 04:35 Carbon Dioxide 23 mmol/L (22-29) 08/14/20 04:35 Anion Gap 19 mmol/L (-20) 08/14/20 04:35 BUN 26 mg/dL (8.4-25.7) H 08/14/20 04:35 Creatinine 4.89 mg/dL (0.7-1.3) H 08/14/20 04:35 Glucose 105 mg/dL (70-105) 08/14/20 04:35 Calcium 8.4 mg/dL (7.8-10.44) 08/14/20 04:35 Phosphorus 4.4 mg/dL (2.3-4.7) 08/13/20 08:17 Albumin 2.7 g/dL (3.5-5.0) L 08/13/20 08:17 Nephrology AP PN - Plan ASSESSMENT: Acute renal failure. ATN from severe rhabdomyolysis Acute encephalopathy: Due to serotonin syndrome/NMS and or Uremic enecephalopathy. insight is improving Hyperkalemia. Resolved Metabolic acidosis. Improved Hyponatremia. Hypocalcemia. Rhabdomyolysis: 2/2 serotonoin syndrome/NMS and recurrent falls. CK level is trending down Presumed serotonin syndrome vs NMS. Dehydration. Resolved. Involuntary movement/twitching. 2/2 neuromuscular hyperactivity 2/2 serotonin syndrome. Uremic encephalopathy may be contributory. Gait instability with frequent falls. Physical deconditioning. History of nephrolithiasis. HTN: Due to crystalloid therapy and volume overload. Control is better Volume overload. Improved with HD and discontinuation of IVF Vitamin D deficiency Secondary hyperparathyroidism PLAN No HD today as volume status and metabolic profile are acceptable. Start cyproheptadine. Continue current antihypertensives Continue Vit D supplementation Follow CK and renal function Fall precaution. Continue to hold psychotropc medications. Avoid nephrotoxic agents. Monitor intake and output. Care plan discussed with patient and brother at the bedside.
[2020-08-14] MEDS ORDERED: Cyproheptadine 4 MG TAB PO SCH (10:30)
[2020-08-14] MEDS ORDERED: BUPRENORPHINE 8 MG SL SCH (11:15)
[2020-08-14] MEDS: Cyproheptadine 4 MG TAB PO SCH ×2 (16:06→21:58)
[2020-08-14] MEDS ORDERED: Labetalol 100 MG TAB PO SCH (16:45)
--- NOTE | 2020-08-14 16:45 | RAD ---
CHEST TWO VIEWS: 08/14/20 HISTORY: Elevated white count. The heart size is within normal limits. A right sided Hemosplit catheter is present. Postop changes o f the cervical spine are seen. Lungs show some mild chronic change. IMPRESSION: No active intrathoracic disease. POS: OFF
[2020-08-15 04:48] LABS: Anion Gap 19 mmol/L (10-20); BUN (Urea Nitrogen) 36 mg/dL (8.4-25.7); CK (CPK) 2895 U/L (30-200); Calc. Creatinine Clearance 22 mL/min (70-130); Calcium 8.2 mg/dL (7.8-10.44); Carbon Dioxide 23 mmol/L (22-29); Chloride 100 mmol/L (98-107); Estimated GFR-MDRD 10; Glucose 98 mg/dL (70-105); Potassium 3.7 mmol/L (3.5-5.1); Sodium 138 mmol/L (136-145)
[2020-08-15] MEDS: Levothyroxine Sodium 25 MCG TAB PO SCH (05:06)
[2020-08-15] MEDS: Cyproheptadine 4 MG TAB PO SCH (05:06)
[2020-08-15] MEDS: Lorazepam 0.5 MG TAB PO PRN (05:06)
[2020-08-15] MEDS: Labetalol 100 MG TAB PO SCH ×3 (05:06→21:18)
[2020-08-15 06:41] LABS: Hemoglobin 10.1 g/dL (14.0-18.0); Mean Corpuscular Hemoglobin 35.2 pg (27.0-31.0); Mean Platelet Volume 6.9 fL (7.4-10.4); Platelet Count 257 thou/uL (130-400); RBC Distribution Width 13.5 % (11.5-14.5); Red Blood Cell (RBC) Count 2.87 mill/uL (4.70-6.10); White Blood Cell (WBC) Count 22.9 thou/uL (4.8-10.8)
[2020-08-15 06:42] LABS: Band 9 % (5-11); Eosinophils 1 % (0-10); Lymphocytes 17 % (21-51); MDiff Complete? YES; Monocytes 6 % (0-10); Neutrophil 67 % (42-75)
[2020-08-15] MEDS: NIFEdipine XL 60 MG TAB PO SCH (09:12)
[2020-08-15] MEDS: Nicotine 14 MG PATCH TOP SCH (09:12)
[2020-08-15] MEDS: BUPRENORPHINE 8 MG SL SCH ×2 (09:13→13:13)
--- NOTE | 2020-08-15 11:50 | PDOC.NEPPN ---
- Subjective Encounter Date: 08/15/20 Encounter Time: 11:49 Subjective: Seen in follow up for ARF requiring HD. Drowsy today. - Objective Vital Signs & Weight: Vital Signs (12 hours) Temp Pulse Resp BP BP BP Pulse Ox 08/15/20 09:12 85 128/71 08/15/20 07:49 97.6 F 85 15 128/71 95 08/15/20 05:06 89 08/15/20 03:55 98.5 F 89 14 119/66 95 Weight Admit Weight 230 lb Weight 238 lb 1.588 oz I&O: 08/14/20 08/15/20 08/16/20 06:59 06:59 06:59 Intake Total 390 690 100 Output Total 325 380 Balance 65 310 100 Result Diagrams: 08/15/20 04:11 08/15/20 04:11 Additional Labs: Accuchecks 08/14/20 20:14 POC Glucose 102 H Nephrology ROS - Medication Medications: Active Medications Generic Name Dose Route Start Last Admin Trade Name Freq PRN Reason Stop Dose Admin Acetaminophen 1,000 mg 08/11/20 09:45 08/12/20 21:11 Acetaminophen 500 Mg Tab PO 1,000 mg Q6H PRN Administration Moderate to Severe Pain (6-10) Cyproheptadine HCl 4 mg 08/14/20 14:00 08/15/20 05:06 Cyproheptadine 4 Mg Tab PO 4 mg Q8HR WESLEY Administration Labetalol HCl 50 mg 08/14/20 22:00 08/15/20 05:06 Labetalol 100 Mg Tab PO 50 mg Q8HR W[facility]LEY Administration Levothyroxine Sodium 25 mcg 08/09/20 06:00 08/15/20 05:06 Levothyroxine Sodium 25 Mcg Tab PO 25 mcg 0600 WESLEY Administration Lorazepam 0.25 mg 08/12/20 11:51 08/15/20 05:06 Lorazepam 0.5 Mg Tab PO 0.25 mg Q4H PRN Administration Anxiety Nicotine 14 mg 08/12/20 09:00 08/15/20 09:12 Nicotine 14 Mg Patch TOP 14 mg Q24HR WESLEY Administration Nifedipine 60 mg 08/11/20 09:00 08/15/20 09:12 Nifedipine Xl 60 Mg Tab PO 60 mg DAILY WESLEY Administration Buprenorphine 8 Mg 0 each 08/15/20 09:00 08/15/20 09:13 Tab SL Not Given DAILY WESLEY Sodium Chloride 10 ml 08/12/20 21:00 08/15/20 09:13 Flush - Normal Saline 10 Ml Syringe IVF 10 ml Q12HR WESLEY Administration - Exam General - other findings: drowsy Eye: anicteric sclera ENT: normocephalic atraumatic, moist mucosa Neck: symmetric, no JVD Respiratory - other findings: fair air entry bilaterally with some transmitted sound Cardiovascular: RRR Gastrointestinal: soft, non-tender, non-distended, normal bowel sounds Extremities: no cyanosis, no clubbing Extremities - other findings: bilateral extremity edema noted Neurological: CN's grossly intact Neurological - other findings: drowsy. oriented x 3. moving all limbs. tremor + Nephrology Results - Labs Result Diagrams: 08/15/20 04:11 08/15/20 04:11 Lab results: WBC 22.9 thou/uL (4.8-10.8) H 08/15/20 04:11 Hgb 10.1 g/dL (14.0-18.0) L 08/15/20 04:11 Hct 30.6 % (42.0-52.0) L 08/15/20 04:11 MCV 106.0 fL (78.0-98.0) H 08/15/20 04:11 Plt Count 257 thou/uL (130-400) 08/15/20 04:11 Neutrophils % 62.9 % (42.0-75.0) 08/11/20 13:21 Band Neuts % (Manual) 9 % (5-11) 08/15/20 04:11 ESR Westergren 78 mm/hr (Less than 20) H 08/15/20 04:11 Sodium 138 mmol/L (136-145) 08/15/20 04:11 Potassium 3.7 mmol/L (3.5-5.1) 08/15/20 04:11 Chloride 100 mmol/L (98-107) 08/15/20 04:11 Carbon Dioxide 23 mmol/L (22-29) 08/15/20 04:11 BUN 36 mg/dL (8.4-25.7) H 08/15/20 04:11 Creatinine 6.04 mg/dL (0.7-1.3) H 08/15/20 04:11 Glucose 98 mg/dL (70-105) 08/15/20 04:11 Lactic Acid 0.8 mmol/L (0.5-2.2) 08/08/20 11:13 Calcium 8.2 mg/dL (7.8-10.44) 08/15/20 04:11 Total Bilirubin 0.8 mg/dL (0.2-1.2) 08/13/20 08:17 AST 253 U/L (5-34) H 08/13/20 08:17 ALT 241 U/L (8-55) H 08/13/20 08:17 Alkaline Phosphatase 325 U/L (40-110) H 08/13/20 08:17 Ammonia 36 umol/L (18-72) 08/08/20 09:39 Creatine Kinase 2895 U/L (30-200) H 08/15/20 04:11 Troponin I Less than 0.010 ng/mL (< 0.028) 08/08/20 09:39 C-Reactive Protein 4.06 mg/dL (= or < 0.5) H 08/15/20 04:11 Serum Total Protein 5.1 g/dL (6.0-8.3) L 08/13/20 08:17 Albumin 2.7 g/dL (3.5-5.0) L 08/13/20 08:17 Urine Ketones Negative mg/dL (Negative) 08/08/20 09:55 Urine Blood Large (Negative) A 08/08/20 09:55 Urine Nitrite Negative (Negative) 08/08/20 09:55 Ur Leukocyte Esterase Negative (Negative) 08/08/20 09:55 Urine RBC 0-3 HPF (0-3) 08/08/20 09:55 Urine WBC 0-3 HPF (0-3) 08/08/20 09:55 Ur Squamous Epith Cells None Seen HPF (0-3) 08/08/20 09:55 Urine Bacteria None Seen HPF (None Seen) 08/08/20 09:55 Sodium 138 mmol/L (136-145) 08/15/20 04:11 Potassium 3.7 mmol/L (3.5-5.1) 08/15/20 04:11 Chloride 100 mmol/L (98-107) 08/15/20 04:11 Carbon Dioxide 23 mmol/L (22-29) 08/15/20 04:11 Anion Gap 19 mmol/L (10-20) 08/15/20 04:11 BUN 36 mg/dL (8.4-25.7) H 08/15/20 04:11 Creatinine 6.04 mg/dL (0.7-1.3) H 08/15/20 04:11 Glucose 98 mg/dL (70-105) 08/15/20 04:11 Calcium 8.2 mg/dL (7.8-10.44) 08/15/20 04:11 Phosphorus 4.4 mg/dL (2.3-4.7) 08/13/20 08:17 Albumin 2.7 g/dL (3.5-5.0) L 08/13/20 08:17 Nephrology AP PN - Plan ASSESSMENT: Acute renal failure. ATN from severe rhabdomyolysis Acute encephalopathy: Due to serotonin syndrome/NMS and or Uremic enecephalopathy. drowsiness most likely due to cyproheptadine and ativan Hyperkalemia. Resolved Metabolic acidosis. Improved Hyponatremia. Hypocalcemia. Rhabdomyolysis: 2/2 serotonoin syndrome/NMS and recurrent falls. CK level is trending down Presumed serotonin syndrome vs NMS. Dehydration. Resolved. Involuntary movement/twitching. 2/2 neuromuscular hyperactivity 2/2 serotonin syndrome. Uremic encephalopathy may be contributory. Gait instability with frequent falls. Physical deconditioning. History of nephrolithiasis. HTN: Due to crystalloid therapy and volume overload. Control is better Volume overload. Improved with HD and discontinuation of IVF Vitamin D deficiency Secondary hyperparathyroidism Leucocytosis: ? occult infection. Acute encephalopathy: Multifactorial. Uremia +/- SS/NMS +/- withdrawal effect of psychotropics +/- ativan/cypropheptadine. ? occult brain pathology or sepsis PLAN Get ESR and CRP. Get urinalysis. Await urine culture and MRI. Hold ativan and cyproheptadine. Agree with decreased dose buprenorphine. For HD tomorrow. Continue current antihypertensives Continue Vit D supplementation Follow CK and renal function Continue to hold psychotropc medications. Avoid nephrotoxic agents. Monitor intake and output. start nepro tid.
[2020-08-15] MEDS ORDERED: Buprenorphine HCl 2 MG SL TAB PO SCH (12:15)
[2020-08-15 15:01] LABS: Bilirubin Negative (Negative); Blood, Urine 3+ (Negative); Clarity Clear (Clear); Glucose, Urine (Dipstick) Normal (Negative); Ketone, Urine 10 mg/dL (Negative); Leukocyte 250 Leu/uL (Negative); Nitrite Negative (Negative); Protein, Urine (Dipstick) 100 mg/dL (Neg-Trace); RBC/HPF 0-3 HPF (0-3); Squamous Epithelial None Seen HPF (0-3); Urobilinogen Normal mg/dL (Less than 2); WBC/HPF 0-3 HPF (0-3)
[2020-08-15 15:02] LABS: Bacteria/HPF 1+ HPF (None Seen)
[2020-08-16 04:21] LABS: #Basophils 0.1 thou/uL (0.0-0.2); #Eosinphils 0.3 thou/uL (0.0-0.7); #Lymphocytes 5.2 thou/uL (1.20-3.40); #Monocytes 1.5 thou/uL (0.11-0.59); #Neutrophils 16.4 thou/uL (1.40-6.50); %Basophils 0.4 % (0.0-1.0); %Eosinophils 1.2 % (0.0-10.0); %Lymphocytes 22.2 % (21.0-51.0); %Monocytes 6.4 % (0.0-10.0); %Neutrophils 69.8 % (42.0-75.0); Hemoglobin 10.8 g/dL (14.0-18.0); Mean Corpuscular HGB CONC 33.4 g/dL (32.0-36.0); Mean Platelet Volume 7.5 fL (7.4-10.4); Platelet Count 252 thou/uL (130-400); RBC Distribution Width 13.6 % (11.5-14.5); White Blood Cell (WBC) Count 23.5 thou/uL (4.8-10.8)
[2020-08-16 04:36] LABS: ALT (SGPT) 145 U/L (8-55); AST (SGOT) 84 U/L (5-34); Albumin 3.1 g/dL (3.5-5.0); Alkaline Phosphatase 281 U/L (40-110); Anion Gap 22 mmol/L (10-20); BUN (Urea Nitrogen) 45 mg/dL (8.4-25.7); Bilirubin, Total 0.8 mg/dL (0.2-1.2); CK (CPK) 1404 U/L (30-200); Calc. Creatinine Clearance 18 mL/min (70-130); Calcium 8.4 mg/dL (7.8-10.44); Carbon Dioxide 21 mmol/L (22-29); Chloride 100 mmol/L (98-107); Estimated GFR-MDRD 8; Globulin 2.5 g/dL (2.4-3.5); Glucose 97 mg/dL (70-105); Potassium 3.8 mmol/L (3.5-5.1); Protein, Total 5.6 g/dL (6.0-8.3); Sodium 139 mmol/L (136-145)
[2020-08-16] MEDS: Levothyroxine Sodium 25 MCG TAB PO SCH (05:22)
[2020-08-16] MEDS: Labetalol 100 MG TAB PO SCH ×3 (05:22→21:04)
[2020-08-16] MEDS: NIFEdipine XL 60 MG TAB PO SCH (09:25)
[2020-08-16] MEDS: Nicotine 14 MG PATCH TOP SCH (09:26)
[2020-08-16] MEDS: BUPRENORPHINE 8 MG SL SCH (10:15)
[2020-08-16] MEDS ORDERED: Cyproheptadine 4 MG TAB PO SCH (10:45)
[2020-08-16] MEDS ORDERED: Lorazepam 2 MG/ML VIAL SLOW IVP SCH ×2 (10:45→18:45)
[2020-08-16] MEDS ORDERED: Lorazepam 0.5 MG TAB PO PRN (10:48)
[2020-08-16] MEDS: Cyproheptadine 4 MG TAB PO SCH ×2 (13:13→21:05)
--- NOTE | 2020-08-16 13:44 | PDOC.NEPPN ---
- Subjective Encounter Date: 08/16/20 Subjective: Seen in follow up for ARF requring HD. Patient had to be returned to his room from dialysis room due to agitation and confusion. Ativan and cyproheptadine were held yesterday due to excessive sleepiness. - Objective Vital Signs & Weight: Vital Signs (12 hours) Temp Pulse Resp BP BP BP Pulse Ox 08/16/20 12:21 97.9 F 91 16 123/80 96 08/16/20 09:25 95 153/85 H 08/16/20 07:48 98.6 F 95 15 153/85 H 97 08/16/20 05:22 89 08/16/20 03:27 98.9 F 89 15 139/84 96 Weight Admit Weight 230 lb Weight 236 lb 5.369 oz I&O: 08/15/20 08/16/20 08/17/20 06:59 06:59 06:59 Intake Total 690 540 Output Total 380 950 Balance 310 -410 Result Diagrams: 08/16/20 04:06 08/16/20 04:06 Nephrology ROS - Medication Medications: Active Medications Generic Name Dose Route Start Last Admin Trade Name Freq PRN Reason Stop Dose Admin Acetaminophen 1,000 mg 08/11/20 09:45 08/12/20 21:11 Acetaminophen 500 Mg Tab PO 1,000 mg Q6H PRN Administration Moderate to Severe Pain (6-10) Cyproheptadine HCl 2 mg 08/16/20 14:00 08/16/20 13:13 Cyproheptadine 4 Mg Tab PO 2 mg Q8HR WESLEY Administration Labetalol HCl 50 mg 08/14/20 22:00 08/16/20 05:22 Labetalol 100 Mg Tab PO 50 mg Q8HR WESLEY Administration Levothyroxine Sodium 25 mcg 08/09/20 06:00 08/16/20 05:22 Levothyroxine Sodium 25 Mcg Tab PO 25 mcg 0600 WESLEY Administration Nicotine 14 mg 08/12/20 09:00 08/16/20 09:26 Nicotine 14 Mg Patch TOP 14 mg Q24HR WESLEY Administration Nifedipine 60 mg 08/11/20 09:00 08/16/20 09:25 Nifedipine Xl 60 Mg Tab PO 60 mg DAILY WESLEY Administration Buprenorphine 8 Mg 0 each 08/15/20 09:00 08/16/20 10:15 Tab SL 1 each DAILY WESLEY Administration Sodium Chloride 10 ml 08/12/20 21:00 08/16/20 10:16 Flush - Normal Saline 10 Ml Syringe IVF 10 ml Q12HR WESLEY Administration - Exam General - other findings: awake but confused Eye: anicteric sclera ENT: normocephalic atraumatic Neck: symmetric, no JVD Respiratory - other findings: fair air entry bilaterally Cardiovascular: RRR Gastrointestinal: soft, non-distended, normal bowel sounds Extremities - other findings: edema of the extremities noted Neurological - other findings: awake but confused. agitated and moving upperlimb randomly Nephrology Results - Labs Result Diagrams: 08/16/20 04:06 08/16/20 04:06 Lab results: WBC 23.5 thou/uL (4.8-10.8) H 08/16/20 04:06 Hgb 10.8 g/dL (14.0-18.0) L 08/16/20 04:06 Hct 32.4 % (42.0-52.0) L 08/16/20 04:06 MCV 108.0 fL (78.0-98.0) H 08/16/20 04:06 Plt Count 252 thou/uL (130-400) 08/16/20 04:06 Neutrophils % 69.8 % (42.0-75.0) 08/16/20 04:06 Band Neuts % (Manual) 9 % (5-11) 08/15/20 04:11 ESR Westergren 68 mm/hr (Less than 20) H 08/16/20 04:06 Sodium 139 mmol/L (136-145) 08/16/20 04:06 Potassium 3.8 mmol/L (3.5-5.1) 08/16/20 04:06 Chloride 100 mmol/L (98-107) 08/16/20 04:06 Carbon Dioxide 21 mmol/L (22-29) L 08/16/20 04:06 BUN 45 mg/dL (8.4-25.7) H 08/16/20 04:06 Creatinine 6.97 mg/dL (0.7-1.3) H 08/16/20 04:06 Glucose 97 mg/dL (70-105) 08/16/20 04:06 Lactic Acid 0.8 mmol/L (0.5-2.2) 08/08/20 11:13 Calcium 8.4 mg/dL (7.8-10.44) 08/16/20 04:06 Total Bilirubin 0.8 mg/dL (0.2-1.2) 08/16/20 04:06 AST 84 U/L (5-34) H 08/16/20 04:06 ALT 145 U/L (8-55) H 08/16/20 04:06 Alkaline Phosphatase 281 U/L (40-110) H 08/16/20 04:06 Ammonia 36 umol/L (18-72) 08/08/20 09:39 Creatine Kinase 1404 U/L (30-200) H 08/16/20 04:06 Troponin I Less than 0.010 ng/mL (< 0.028) 08/08/20 09:39 C-Reactive Protein 4.44 mg/dL (= or < 0.5) H 08/16/20 04:06 Serum Total Protein 5.6 g/dL (6.0-8.3) L 08/16/20 04:06 Albumin 3.1 g/dL (3.5-5.0) L 08/16/20 04:06 Urine Ketones 10 mg/dL (Negative) A 08/14/20 17:55 Urine Blood 3+ (Negative) A 08/14/20 17:55 Urine Nitrite Negative (Negative) 08/14/20 17:55 Ur Leukocyte Esterase 250 Mine/uL (Negative) A 08/14/20 17:55 Urine RBC 0-3 HPF (0-3) 08/14/20 17:55 Urine WBC 0-3 HPF (0-3) 08/14/20 17:55 Ur Squamous Epith Cells None Seen HPF (0-3) 08/14/20 17:55 Urine Bacteria 1+ HPF (None Seen) A 08/14/20 17:55 Sodium 139 mmol/L (136-145) 08/16/20 04:06 Potassium 3.8 mmol/L (3.5-5.1) 08/16/20 04:06 Chloride 100 mmol/L (98-107) 08/16/20 04:06 Carbon Dioxide 21 mmol/L (22-29) L 08/16/20 04:06 Anion Gap 22 mmol/L (10-20) H 08/16/20 04:06 BUN 45 mg/dL (8.4-25.7) H 08/16/20 04:06 Creatinine 6.97 mg/dL (0.7-1.3) H 08/16/20 04:06 Glucose 97 mg/dL (70-105) 08/16/20 04:06 Calcium 8.4 mg/dL (7.8-10.44) 08/16/20 04:06 Phosphorus 4.4 mg/dL (2.3-4.7) 08/13/20 08:17 Albumin 3.1 g/dL (3.5-5.0) L 08/16/20 04:06 Nephrology AP PN - Plan ASSESSMENT: Acute renal failure. ATN from severe rhabdomyolysis. Now on Hd Acute encephalopathy: Multifactorial. Uremia +/- SS/NMS +/- withdrawal effect of psychotropics. ? occult brain pathology or sepsis Hyperkalemia. Resolved Metabolic acidosis. Improved Hyponatremia. Hypocalcemia. Rhabdomyolysis: 2/2 serotonoin syndrome/NMS and recurrent falls. CK level is trending down Presumed serotonin syndrome vs NMS. Dehydration. Resolved. Involuntary movement/twitching. 2/2 neuromuscular hyperactivity 2/2 serotonin syndrome. Uremic encephalopathy may be contributory. Gait instability with frequent falls. Physical deconditioning. History of nephrolithiasis. HTN:. Control is better Volume overload. Improved with HD Vitamin D deficiency Secondary hyperparathyroidism Leucocytosis: ? occult infection. PLAN Give 0.25 mg of ativan IV stat. Restart cyproheptadine at a lower dose of 2 mg tid. Also restart oral prn ativam but less frequently. For Hd once calmer. See HD order. Continue current antihypertensives Continue Vit D supplementation Follow CK and renal function Avoid nephrotoxic agents. Monitor intake and output. Awaiting MRI brain.
[2020-08-16] MEDS: Lorazepam 0.5 MG TAB PO SCH (21:05)
[2020-08-17 04:25] LABS: Anion Gap 21 mmol/L (10-20); BUN (Urea Nitrogen) 26 mg/dL (8.4-25.7); CK (CPK) 632 U/L (30-200); Calc. Creatinine Clearance 29 mL/min (70-130); Calcium 8.8 mg/dL (7.8-10.44); Carbon Dioxide 23 mmol/L (22-29); Chloride 100 mmol/L (98-107); Estimated GFR-MDRD 14; Glucose 81 mg/dL (70-105); Potassium 3.6 mmol/L (3.5-5.1); Sodium 140 mmol/L (136-145)
[2020-08-17] MEDS: Levothyroxine Sodium 25 MCG TAB PO SCH (05:15)
[2020-08-17] MEDS: Cyproheptadine 4 MG TAB PO SCH ×4 (05:15→20:28)
[2020-08-17] MEDS: Labetalol 100 MG TAB PO SCH ×3 (05:15→23:21)
[2020-08-17 05:51] LABS: Band 6 % (5-11); Eosinophils 1 % (0-10); Hemoglobin 10.5 g/dL (14.0-18.0); Lymphocytes 13 % (21-51); MDiff Complete? YES; Mean Corpuscular HGB CONC 32.7 g/dL (32.0-36.0); Mean Platelet Volume 7.6 fL (7.4-10.4); Monocytes 7 % (0-10); Neutrophil 73 % (42-75); Platelet Count 212 thou/uL (130-400); RBC Distribution Width 13.4 % (11.5-14.5); White Blood Cell (WBC) Count 23.1 thou/uL (4.8-10.8)
[2020-08-17] MEDS: Lorazepam 0.5 MG TAB PO SCH ×4 (06:25→20:28)
[2020-08-17] MEDS: Nicotine 14 MG PATCH TOP SCH (08:32)
--- NOTE | 2020-08-17 08:48 | RAD ---
EXAM: Single view of the chest HISTORY: Altered mental status COMPARISON: 08/11/2020 FINDINGS: Single view of the chest shows an enlarged but stable cardiomediastinal silhouette. The di alysis catheter is unchanged in position. There is stable elevation the right hemidiaphragm. There is no evidence of consolidation, mass, or pleural effusion. Hardware is seen in the cervical spine. IMPRESSION: No evidence of acute cardiopulmonary disease
[2020-08-17] MEDS ORDERED: Acetaminophen 650 MG Suppository PR PRN (09:03)
[2020-08-17] MEDS: NIFEdipine XL 60 MG TAB PO SCH (09:08)
[2020-08-17] MEDS: BUPRENORPHINE 8 MG SL SCH (09:09)
[2020-08-17] MEDS: Sodium Chloride 0.9% 1,000 ML IV SCH ×2 (09:19→20:27)
[2020-08-17] MEDS: cefTRIAXone\\ROCEPHIN 2 GM in Sodium Chloride 0.9% 100 ML IVPB SCH (09:20)
--- NOTE | 2020-08-17 09:21 | PDOC.NEPPN ---
- Subjective Encounter Date: 08/17/20 Encounter Time: 09:20 Subjective: Still confused and agitated with intermittent involuntary movements. Last HD was yesterday. - Objective Vital Signs & Weight: Vital Signs (12 hours) Temp Pulse Resp BP Pulse Ox 08/17/20 07:34 99.1 F 87 16 180/96 H 100 08/17/20 05:15 99 08/17/20 04:00 99.7 F H 99 18 167/88 H 96 Weight Admit Weight 230 lb Weight 225 lb 8.526 oz I&O: 08/16/20 08/17/20 08/18/20 06:59 06:59 06:59 Intake Total 540 300 Output Total 950 750 Balance -410 -450 Result Diagrams: 08/17/20 03:22 08/17/20 03:22 Nephrology ROS - Medication Medications: Active Medications Generic Name Dose Route Start Last Admin Trade Name Freq PRN Reason Stop Dose Admin Acetaminophen 1,000 mg 08/11/20 09:45 08/12/20 21:11 Acetaminophen 500 Mg Tab PO 1,000 mg Q6H PRN Administration Moderate to Severe Pain (6-10) Cyproheptadine HCl 2 mg 08/16/20 14:00 08/17/20 05:15 Cyproheptadine 4 Mg Tab PO 2 mg Q8HR WESLEY Administration Labetalol HCl 50 mg 08/14/20 22:00 08/17/20 05:15 Labetalol 100 Mg Tab PO 50 mg Q8HR WESLEY Administration Levothyroxine Sodium 25 mcg 08/09/20 06:00 08/17/20 05:15 Levothyroxine Sodium 25 Mcg Tab PO 25 mcg 0600 WESLEY Administration Lorazepam 0.25 mg 08/16/20 22:00 08/17/20 06:25 Lorazepam 0.5 Mg Tab PO Not Given Q8HR WESLEY Nicotine 14 mg 08/12/20 09:00 08/17/20 08:32 Nicotine 14 Mg Patch TOP Not Given Q24HR WESLEY Nifedipine 60 mg 08/11/20 09:00 08/17/20 09:08 Nifedipine Xl 60 Mg Tab PO 60 mg DAILY WESLEY Administration Buprenorphine 8 Mg 0 each 08/15/20 09:00 08/17/20 09:09 Tab SL 1 each DAILY WESLEY Administration Sodium Chloride 10 ml 08/12/20 21:00 08/17/20 09:09 Flush - Normal Saline 10 Ml Syringe IVF 10 ml Q12HR WESLEY Administration - Exam General - other findings: sleepy but arousable. Eye: anicteric sclera ENT: normocephalic atraumatic Neck: symmetric, no JVD Respiratory - other findings: fair air entry bilaterally Cardiovascular: RRR Gastrointestinal: soft, non-tender, non-distended, normal bowel sounds Extremities: no cyanosis Extremities - other findings: trace to mild edema of the legs Neurological: CN's grossly intact, no focal deficits Neurological - other findings: involuntary movements noted Psychiatric - other findings: Oriented to person alone. confused Nephrology Results - Labs Result Diagrams: 08/17/20 03:22 08/17/20 03:22 Lab results: WBC 23.1 thou/uL (4.8-10.8) H 08/17/20 03:22 Hgb 10.5 g/dL (14.0-18.0) L 08/17/20 03:22 Hct 32.1 % (42.0-52.0) L 08/17/20 03:22 MCV 107.0 fL (78.0-98.0) H 08/17/20 03:22 Plt Count 212 thou/uL (130-400) 08/17/20 03:22 Neutrophils % 69.8 % (42.0-75.0) 08/16/20 04:06 Band Neuts % (Manual) 6 % (5-11) 08/17/20 03:22 ESR Westergren 68 mm/hr (Less than 20) H 08/16/20 04:06 Sodium 140 mmol/L (136-145) 08/17/20 03:22 Potassium 3.6 mmol/L (3.5-5.1) 08/17/20 03:22 Chloride 100 mmol/L (98-107) 08/17/20 03:22 Carbon Dioxide 23 mmol/L (22-29) 08/17/20 03:22 BUN 26 mg/dL (8.4-25.7) H 08/17/20 03:22 Creatinine 4.47 mg/dL (0.7-1.3) H 08/17/20 03:22 Glucose 81 mg/dL (70-105) 08/17/20 03:22 Lactic Acid 0.8 mmol/L (0.5-2.2) 08/08/20 11:13 Calcium 8.8 mg/dL (7.8-10.44) 08/17/20 03:22 Total Bilirubin 0.8 mg/dL (0.2-1.2) 08/16/20 04:06 AST 84 U/L (5-34) H 08/16/20 04:06 ALT 145 U/L (8-55) H 08/16/20 04:06 Alkaline Phosphatase 281 U/L (40-110) H 08/16/20 04:06 Ammonia 36 umol/L (18-72) 08/08/20 09:39 Creatine Kinase 632 U/L (30-200) H 08/17/20 03:22 Troponin I Less than 0.010 ng/mL (< 0.028) 08/08/20 09:39 C-Reactive Protein 4.44 mg/dL (= or < 0.5) H 08/16/20 04:06 Serum Total Protein 5.6 g/dL (6.0-8.3) L 08/16/20 04:06 Albumin 3.1 g/dL (3.5-5.0) L 08/16/20 04:06 Urine Ketones 10 mg/dL (Negative) A 08/14/20 17:55 Urine Blood 3+ (Negative) A 08/14/20 17:55 Urine Nitrite Negative (Negative) 08/14/20 17:55 Ur Leukocyte Esterase 250 Mine/uL (Negative) A 08/14/20 17:55 Urine RBC 0-3 HPF (0-3) 08/14/20 17:55 Urine WBC 0-3 HPF (0-3) 08/14/20 17:55 Ur Squamous Epith Cells None Seen HPF (0-3) 08/14/20 17:55 Urine Bacteria 1+ HPF (None Seen) A 08/14/20 17:55 Sodium 140 mmol/L (136-145) 08/17/20 03:22 Potassium 3.6 mmol/L (3.5-5.1) 08/17/20 03:22 Chloride 100 mmol/L (98-107) 08/17/20 03:22 Carbon Dioxide 23 mmol/L (22-29) 08/17/20 03:22 Anion Gap 21 mmol/L (10-20) H 08/17/20 03:22 BUN 26 mg/dL (8.4-25.7) H 08/17/20 03:22 Creatinine 4.47 mg/dL (0.7-1.3) H 08/17/20 03:22 Glucose 81 mg/dL (70-105) 08/17/20 03:22 Calcium 8.8 mg/dL (7.8-10.44) 08/17/20 03:22 Phosphorus 4.4 mg/dL (2.3-4.7) 08/13/20 08:17 Albumin 3.1 g/dL (3.5-5.0) L 08/16/20 04:06 Nephrology AP PN - Plan ASSESSMENT: Persistent encephalopathy: Etiology inclear. Multifactorial. Uremia +/- SS/NMS +/- withdrawal effect of psychotropics. ? occult brain pathology or sepsis Acute renal failure. ATN from severe rhabdomyolysis. Now on Hd Hyperkalemia. Resolved Metabolic acidosis. Improved Hyponatremia. Hypocalcemia. Rhabdomyolysis: 2/2 serotonoin syndrome/NMS and recurrent falls. CK level is trending down Presumed serotonin syndrome vs NMS. Dehydration. Resolved. Involuntary movement/twitching. 2/2 neuromuscular hyperactivity 2/2 serotonin syndrome. Uremic encephalopathy contribution is unlikely with persistence despite HD and improved metabolic profile.. Gait instability with frequent falls. Physical deconditioning. History of nephrolithiasis. HTN:. Control is better Volume overload. Improved with HD Vitamin D deficiency Secondary hyperparathyroidism Leucocytosis: ? occult infection. PLAN No need for HD today. Will plan on HD tomorrow Continue ativan and cyproheptadine Get MRI as ordered. Get repeat cultures as ordered Continue current antihypertensives Continue Vit D supplementation Follow CK and renal function Avoid nephrotoxic agents. Monitor intake and output.
[2020-08-17] MEDS ORDERED: Vancomycin 1 GM in Premix Bag 1 BAG IVPB SCH (11:00)
[2020-08-17] MEDS: cloNIDine 0.1 MG TAB PO PRN ×2 (11:35→15:37)
[2020-08-17 12:12] LABS: Clarity Turbid (Clear)
[2020-08-17 12:14] LABS: Leukocyte Large (Negative); Nitrite Negative (Negative); Specific Gravity, Urine 1.015 (1.002-1.036); pH, Urine 8.5 (5.0-9.0)
[2020-08-17 12:15] LABS: Bilirubin Negative (Negative); Blood, Urine Large (Negative); Glucose, Urine (Dipstick) Negative (Negative); Ketone, Urine Negative (Negative); Protein, Urine (Dipstick) 300 mg/dL (Neg-Trace); Urobilinogen 0.2 mg/dL (Less than 2)
[2020-08-17 12:16] LABS: Bacteria/HPF 3+ HPF (None Seen); RBC/HPF Greater than 50 HPF (0-3); Squamous Epithelial 0-3 HPF (0-3); WBC/HPF Greater Than 50 HPF (0-3)
[2020-08-17 12:17] LABS: Urine Culture Reflex Yes Yes
--- NOTE | 2020-08-17 13:03 | CON ---
NEUROLOGY CONSULTATION DATE OF CONSULTATION: 08/17/2020 REASON FOR CONSULTATION: Altered mental status. HISTORY OF PRESENT ILLNESS: Mr. Casas is a 55-year-old male with history significant for TIA in May, history of prior CVA with residual weakness. wheelchair bound, chronic renal failure followed by Dr. Hebert, insulin-dependent diabetes mellitus, hypertension, hyperlipidemia, chronic back pain, history of medication noncompliance, opioid dependency.empyema, back surgery, hernia repair, was admitted on 08/10/2020 with rhabdomyolysis, renal failure, dehydration and leukocytosis. Nephrology has been on board since then and Neurology is consulted now for altered mental status. History is obtained from review of the medical records since the patient is extremely altered, is unable to provide the history. REVIEW OF SYSTEMS: Unobtainable due to the patient's mental status. PAST MEDICAL HISTORY: TIA in May, history of prior CVA with residual weakness. He is wheelchair bound. Chronic renal failure followed by Dr. Hebert, insulin-dependent diabetes mellitus, hypertension, hyperlipidemia, chronic back pain, history of medication noncompliance, opioid dependency. PAST SURGICAL HISTORY: Thoracotomy, empyema, back surgery, hernia repair. SOCIAL HISTORY: The patient is a smoker. He denies alcohol or illegal drug use. He lives alone at home with home health. ALLERGIES: NO KNOWN DRUG ALLERGIES. HOME MEDICATIONS: Aspirin, Plavix, Renvela, gabapentin, atorvastatin, folic acid, tamsulosin, hyoscyamine, clonazepam, duloxetine. Vital Signs & Weight: Vital Signs (12 hours) Temp Pulse Resp BP Pulse Ox 08/17/20 07:34 99.1 F 87 16 180/96 H 100 08/17/20 05:15 99 08/17/20 04:00 99.7 F H 99 18 167/88 H 96 Weight Admit Weight 230 lb Weight 225 lb 8.526 oz I&O: 08/16/20 08/17/20 08/18/20 06:59 06:59 06:59 Intake Total 540 300 Output Total 950 750 Balance -410 -450 Active Medications Generic Name Dose Route Start Last Admin Trade Name Freq PRN Reason Stop Dose Admin Acetaminophen 1,000 mg 08/11/20 09:45 08/12/20 21:11 Acetaminophen 500 Mg Tab PO 1,000 mg Q6H PRN Administration Moderate to Severe Pain (6-10) Cyproheptadine HCl 2 mg 08/16/20 14:00 08/17/20 05:15 Cyproheptadine 4 Mg Tab PO 2 mg Q8HR WESLEY Administration Labetalol HCl 50 mg 08/14/20 22:00 08/17/20 05:15 Labetalol 100 Mg Tab PO 50 mg Q8HR WESLEY Administration Levothyroxine Sodium 25 mcg 08/09/20 06:00 08/17/20 05:15 Levothyroxine Sodium 25 Mcg Tab PO 25 mcg 0600 WESLEY Administration Lorazepam 0.25 mg 08/16/20 22:00 08/17/20 06:25 Lorazepam 0.5 Mg Tab PO Not Given Q8HR WESLEY Nicotine 14 mg 08/12/20 09:00 08/17/20 08:32 Nicotine 14 Mg Patch TOP Not Given Q24HR WESLEY Nifedipine 60 mg 08/11/20 09:00 08/17/20 09:08 Nifedipine Xl 60 Mg Tab PO 60 mg DAILY WESLEY Administration Buprenorphine 8 Mg 0 each 08/15/20 09:00 08/17/20 09:09 Tab SL 1 each DAILY WESLEY Administration Sodium Chloride 10 ml 08/12/20 21:00 08/17/20 09:09 Flush - Normal Saline 10 Ml Syringe IVF 10 ml Q12HR WESLEY Administration PHYSICAL EXAMINATION: General - other findings: sleepy but arousable. Eye: anicteric sclera ENT: normocephalic atraumatic Neck: symmetric, no JVD Respiratory - other findings: fair air entry bilaterally Cardiovascular: RRR Gastrointestinal: soft, non-tender, non-distended, normal bowel sounds Extremities: no cyanosis Extremities - other findings: trace to mild edema of the legs Neurological: Mental status; the patient is awake, but is pleasantly confused. He does not follow commands or maintain any eye contact. Motor, muscle tone and bulk are normal. Moving all 4 extremities. He did not cooperate with strength testing. He does have intermittently involuntary movements. Cranial nerves; pupils round and reactive to light. Face symmetric. Tongue midline. Moves neck in both direction. Sensory, withdraws to nailbed pressure bilaterally. Cerebellar, did not cooperate with the testing. Gait deferred due to patient's safety reason. DATA REVIEWED: WBC 23.1 thou/uL (4.8-10.8) H 08/17/20 03:22 Hgb 10.5 g/dL (14.0-18.0) L 08/17/20 03:22 Hct 32.1 % (42.0-52.0) L 08/17/20 03:22 MCV 107.0 fL (78.0-98.0) H 08/17/20 03:22 Plt Count 212 thou/uL (130-400) 08/17/20 03:22 Neutrophils % 69.8 % (42.0-75.0) 08/16/20 04:06 Band Neuts % (Manual) 6 % (5-11) 08/17/20 03:22 ESR Westergren 68 mm/hr (Less than 20) H 08/16/20 04:06 Sodium 140 mmol/L (136-145) 08/17/20 03:22 Potassium 3.6 mmol/L (3.5-5.1) 08/17/20 03:22 Chloride 100 mmol/L (98-107) 08/17/20 03:22 Carbon Dioxide 23 mmol/L (22-29) 08/17/20 03:22 BUN 26 mg/dL (8.4-25.7) H 08/17/20 03:22 Creatinine 4.47 mg/dL (0.7-1.3) H 08/17/20 03:22 Glucose 81 mg/dL (70-105) 08/17/20 03:22 Lactic Acid 0.8 mmol/L (0.5-2.2) 08/08/20 11:13 Calcium 8.8 mg/dL (7.8-10.44) 08/17/20 03:22 Total Bilirubin 0.8 mg/dL (0.2-1.2) 08/16/20 04:06 AST 84 U/L (5-34) H 08/16/20 04:06 ALT 145 U/L (8-55) H 08/16/20 04:06 Alkaline Phosphatase 281 U/L (40-110) H 08/16/20 04:06 Ammonia 36 umol/L (18-72) 08/08/20 09:39 Creatine Kinase 632 U/L (30-200) H 08/17/20 03:22 Troponin I Less than 0.010 ng/mL (< 0.028) 08/08/20 09:39 C-Reactive Protein 4.44 mg/dL (= or < 0.5) H 08/16/20 04:06 Serum Total Protein 5.6 g/dL (6.0-8.3) L 08/16/20 04:06 Albumin 3.1 g/dL (3.5-5.0) L 08/16/20 04:06 Urine Ketones 10 mg/dL (Negative) A 08/14/20 17:55 Urine Blood 3+ (Negative) A 08/14/20 17:55 Urine Nitrite Negative (Negative) 08/14/20 17:55 Ur Leukocyte Esterase 250 Mine/uL (Negative) A 08/14/20 17:55 Urine RBC 0-3 HPF (0-3) 08/14/20 17:55 Urine WBC 0-3 HPF (0-3) 08/14/20 17:55 Ur Squamous Epith Cells None Seen HPF (0-3) 08/14/20 17:55 Urine Bacteria 1+ HPF (None Seen) A 08/14/20 17:55 Sodium 140 mmol/L (136-145) 08/17/20 03:22 Potassium 3.6 mmol/L (3.5-5.1) 08/17/20 03:22 Chloride 100 mmol/L (98-107) 08/17/20 03:22 Carbon Dioxide 23 mmol/L (22-29) 08/17/20 03:22 Anion Gap 21 mmol/L (10-20) H 08/17/20 03:22 BUN 26 mg/dL (8.4-25.7) H 08/17/20 03:22 Creatinine 4.47 mg/dL (0.7-1.3) H 08/17/20 03:22 Glucose 81 mg/dL (70-105) 08/17/20 03:22 Calcium 8.8 mg/dL (7.8-10.44) 08/17/20 03:22 Phosphorus 4.4 mg/dL (2.3-4.7) 08/13/20 08:17 Albumin 3.1 g/dL (3.5-5.0) L 08/16/20 04:06 ASSESSMENT AND PLAN: Mr. Guillermo Astudillo Yessenia is consulted for altered mental status and involuntary movements and twitching. Altered mental status seems to be multifactorial secondary to metabolic etiology versus withdrawal effects from psychotropics versus serotonin syndrome. However, renal myoclonus can also not be excluded. The intracranial pathology seems less likely but still on the differential. MRI of the brain to rule out acute intracranial process. EEG to rule out seizures and cortical irritability is negative for seizure activity. Neuro checks every 2 hours. Continue home medications. Continue medical management per primary team and Nephrology. PT/OT/Speech. We will continue to follow. Thank you for the consult. Job ID: [id number] [facility] CENTERAris
--- NOTE | 2020-08-17 14:05 | PDOC.EEG ---
Neurology EEG Report - Report Report: This EEG was performed using 24 channel [employer] video digital EEG machine with 24 disc electrodes. It was then extended to hours 4 minutes of inpatient video EEG recording digital analysis of the EEG was done for Ney and seizure detection which revealed no abnormalities. Background: The posterior background rhythm is 7-7.5 Hz. Photic stimulation: No response seen with photic stimulation. Hyperventilation: Not performed. Sleep: No stage change was observed. EEG diagnosis: Generalized irregular theta activity seen throughout the recording. Non sustained posterior background rhythm. Clinical interpretation: This EEG is consistent with mild to moderate generalized nonspecific cerebral dysfunction.
--- NOTE | 2020-08-17 15:20 | RAD ---
Exam: Lumbar puncture with fluoroscopic guidance HISTORY: Altered mental status COMPARISON: none FINDINGS: 2 views of lumbar spine demonstrate 5 lumbar type vertebra. There are bilateral transpedicu lar screws at L4, L5 and S1. There does appear to be perihardware lucency involving bilateral S1 screws and the left L4 screw. L4-L5 and L5-S1 disc prosthesis Successful lumbar puncture. Total of 9 cc of clear CSF was collected. TECHNIQUE: Consent obtained to perform a lumbar puncture with fluoroscopic guidance. Patient's back w as evaluated. The L1-L2 level was deemed appropriate. Skin was prepped and draped in a sterile fashion. 1% lidocaine, buffered with sodium bicarbonate was used for local anesthesia. Under fluorosc opic guidance, 22-gauge spinal needles advanced into the CSF space. Prompt flow of clear CSF to the hub of the needle. Via a short tubing catheter, total of 9 cc of clear CSF was collected. No immediat e or postprocedural complications IMPRESSION: Successful lumbar puncture.
[2020-08-17] MEDS ORDERED: Labetalol 100 MG TAB PO SCH (15:45)
[2020-08-17] MEDS ORDERED: Labetalol HCl 100 MG/20 ML VIAL SLOW IVP PRN (15:51)
[2020-08-17 15:52] LABS: CSF, Glucose 65 mg/dl (40-70); CSF, Protein 24 mg/dL (15-40)
[2020-08-17] MEDS ORDERED: Lorazepam 2 MG/ML VIAL SLOW IVP SCH (16:00)
[2020-08-17 16:24] LABS: Color Of CSF Supernatant COLORLESS (Colorless); Unspun CSF Color COLORLESS (Colorless)
[2020-08-17 16:25] LABS: Tube # 1
[2020-08-18 04:52] LABS: Hemoglobin 10.1 g/dL (14.0-18.0); Mean Corpuscular HGB CONC 33.4 g/dL (32.0-36.0); Mean Corpuscular Hemoglobin 35.8 pg (27.0-31.0); Mean Platelet Volume 7.3 fL (7.4-10.4); Platelet Count 200 thou/uL (130-400); RBC Distribution Width 13.3 % (11.5-14.5); Red Blood Cell (RBC) Count 2.81 mill/uL (4.70-6.10); White Blood Cell (WBC) Count 19.5 thou/uL (4.8-10.8)
[2020-08-18 05:22] LABS: ALT (SGPT) 84 U/L (8-55); AST (SGOT) 37 U/L (5-34); Albumin 3.1 g/dL (3.5-5.0); Alkaline Phosphatase 255 U/L (40-110); Anion Gap 19 mmol/L (10-20); BUN (Urea Nitrogen) 41 mg/dL (8.4-25.7); Bilirubin, Total 0.6 mg/dL (0.2-1.2); CK (CPK) 261 U/L (30-200); Calc. Creatinine Clearance 22 mL/min (70-130); Calcium 8.6 mg/dL (7.8-10.44); Carbon Dioxide 21 mmol/L (22-29); Chloride 103 mmol/L (98-107); Estimated GFR-MDRD 10; Globulin 2.6 g/dL (2.4-3.5); Glucose 97 mg/dL (70-105); Potassium 3.4 mmol/L (3.5-5.1); Protein, Total 5.7 g/dL (6.0-8.3); Sodium 140 mmol/L (136-145)
[2020-08-18] MEDS: Cyproheptadine 4 MG TAB PO SCH ×3 (06:16→21:38)
[2020-08-18] MEDS: Levothyroxine Sodium 25 MCG TAB PO SCH (06:16)
[2020-08-18] MEDS: Lorazepam 0.5 MG TAB PO SCH ×3 (06:17→21:38)
[2020-08-18] MEDS: Sodium Chloride 0.9% 1,000 ML IV SCH ×2 (07:20→12:25)
[2020-08-18] MEDS: Labetalol 100 MG TAB PO SCH ×2 (08:00→17:56)
[2020-08-18] MEDS ORDERED: Heparin 10,000 UNITS/ 10 ML VIAL ONE (08:55)
[2020-08-18] MEDS: BUPRENORPHINE 8 MG SL SCH (09:00)
[2020-08-18] MEDS: NIFEdipine XL 60 MG TAB PO SCH (09:00)
[2020-08-18] MEDS ORDERED: Vancomycin HCl 1 GM in Admixture Fee 1 EACH IVPB SCH (10:00)
--- NOTE | 2020-08-18 10:23 | PDOC.NEPPN ---
- Subjective Encounter Date: 08/18/20 Encounter Time: 10:21 Subjective: Seen and examined during hemodialysis. Still disoriented. - Objective Vital Signs & Weight: Vital Signs (12 hours) Temp Pulse Resp BP BP Pulse Ox 08/18/20 07:11 98.7 F 92 16 138/91 H 100 08/18/20 04:00 98.1 F 83 20 137/73 100 08/17/20 23:21 96 08/17/20 23:19 173/89 H Weight Admit Weight 230 lb Weight 227 lb 8.273 oz I&O: 08/17/20 08/18/20 08/19/20 06:59 06:59 06:59 Intake Total 300 500 Output Total 750 925 Balance -450 -425 Result Diagrams: 08/18/20 04:34 08/18/20 04:34 Nephrology ROS - Medication Medications: Active Medications Generic Name Dose Route Start Last Admin Trade Name Freq PRN Reason Stop Dose Admin Acetaminophen 1,000 mg 08/11/20 09:45 08/12/20 21:11 Acetaminophen 500 Mg Tab PO 1,000 mg Q6H PRN Administration Moderate to Severe Pain (6-10) Clonidine 0.1 mg 08/11/20 05:42 08/17/20 11:35 Clonidine 0.1 Mg Tab PO 0.1 mg Q4H PRN Administration Hypertension Cyproheptadine HCl 2 mg 08/16/20 14:00 08/18/20 06:16 Cyproheptadine 4 Mg Tab PO Not Given Q8HR WESLEY Ceftriaxone Sodium 2 gm/ 100 mls @ 200 mls/hr 08/17/20 10:00 08/17/20 09:20 Sodium Chloride IVPB 100 mls Q24HR WESLEY Administration Labetalol HCl 100 mg 08/17/20 23:59 08/17/20 23:21 Labetalol 100 Mg Tab PO Not Given 0800,1600,2359 WESLEY Labetalol HCl 10 mg 08/17/20 15:51 08/17/20 16:20 Labetalol Hcl 100 Mg/20 Ml Vial SLOW IVP 10 mg Q4H PRN Administration SBP Greater Than 180 Levothyroxine Sodium 25 mcg 08/09/20 06:00 08/18/20 06:16 Levothyroxine Sodium 25 Mcg Tab PO Not Given 0600 WESLEY Lorazepam 0.25 mg 08/16/20 22:00 08/18/20 06:17 Lorazepam 0.5 Mg Tab PO Not Given Q8HR WESLEY Nicotine 14 mg 08/12/20 09:00 08/17/20 08:32 Nicotine 14 Mg Patch TOP Not Given Q24HR WESLEY Nifedipine 60 mg 08/11/20 09:00 08/17/20 09:08 Nifedipine Xl 60 Mg Tab PO 60 mg DAILY WESLEY Administration Buprenorphine 8 Mg 0 each 08/15/20 09:00 08/17/20 09:09 Tab SL 1 each DAILY WESLEY Administration Sodium Chloride 10 ml 08/12/20 21:00 08/17/20 20:28 Flush - Normal Saline 10 Ml Syringe IVF 10 ml Q12HR WESLEY Administration - Exam General - other findings: awake. Eye: anicteric sclera ENT: normocephalic atraumatic, moist mucosa Neck: supple, symmetric Respiratory: no rales, no ronchi, normal chest expansion, no tachypnea Cardiovascular: RRR Gastrointestinal: soft, non-tender, non-distended, normal bowel sounds Extremities - other findings: mild edema Neurological: CN's grossly intact, no focal deficits Neurological - other findings: oriented to person at least. talking spontaneously but mostly nonsennse Nephrology Results - Labs Result Diagrams: 08/18/20 04:34 08/18/20 04:34 Lab results: WBC 19.5 thou/uL (4.8-10.8) H 08/18/20 04:34 Hgb 10.1 g/dL (14.0-18.0) L 08/18/20 04:34 Hct 30.2 % (42.0-52.0) L 08/18/20 04:34 MCV 107.0 fL (78.0-98.0) H 08/18/20 04:34 Plt Count 200 thou/uL (130-400) 08/18/20 04:34 Neutrophils % 69.8 % (42.0-75.0) 08/16/20 04:06 Band Neuts % (Manual) 6 % (5-11) 08/17/20 03:22 ESR Westergren 68 mm/hr (Less than 20) H 08/16/20 04:06 Sodium 140 mmol/L (136-145) 08/18/20 04:34 Potassium 3.4 mmol/L (3.5-5.1) L 08/18/20 04:34 Chloride 103 mmol/L (98-107) 08/18/20 04:34 Carbon Dioxide 21 mmol/L (22-29) L 08/18/20 04:34 BUN 41 mg/dL (8.4-25.7) H 08/18/20 04:34 Creatinine 5.72 mg/dL (0.7-1.3) H 08/18/20 04:34 Glucose 97 mg/dL (70-105) 08/18/20 04:34 Lactic Acid 0.8 mmol/L (0.5-2.2) 08/08/20 11:13 Calcium 8.6 mg/dL (7.8-10.44) 08/18/20 04:34 Total Bilirubin 0.6 mg/dL (0.2-1.2) 08/18/20 04:34 AST 37 U/L (5-34) H 08/18/20 04:34 ALT 84 U/L (8-55) H 08/18/20 04:34 Alkaline Phosphatase 255 U/L (40-110) H 08/18/20 04:34 Ammonia 36 umol/L (18-72) 08/08/20 09:39 Creatine Kinase 261 U/L (30-200) H 08/18/20 04:34 Troponin I Less than 0.010 ng/mL (< 0.028) 08/08/20 09:39 C-Reactive Protein 4.44 mg/dL (= or < 0.5) H 08/16/20 04:06 Serum Total Protein 5.7 g/dL (6.0-8.3) L 08/18/20 04:34 Albumin 3.1 g/dL (3.5-5.0) L 08/18/20 04:34 Urine Ketones Negative mg/dL (Negative) 08/17/20 11:30 Urine Blood Large (Negative) A 08/17/20 11:30 Urine Nitrite Negative (Negative) 08/17/20 11:30 Ur Leukocyte Esterase Large (Negative) H 08/17/20 11:30 Urine RBC Greater than 50 HPF (0-3) A 08/17/20 11:30 Urine WBC Greater Than 50 HPF (0-3) A 08/17/20 11:30 Ur Squamous Epith Cells 0-3 HPF (0-3) 08/17/20 11:30 Urine Bacteria 3+ HPF (None Seen) A 08/17/20 11:30 Sodium 140 mmol/L (136-145) 08/18/20 04:34 Potassium 3.4 mmol/L (3.5-5.1) L 08/18/20 04:34 Chloride 103 mmol/L (98-107) 08/18/20 04:34 Carbon Dioxide 21 mmol/L (22-29) L 08/18/20 04:34 Anion Gap 19 mmol/L (-20) 08/18/20 04:34 BUN 41 mg/dL (8.4-25.7) H 08/18/20 04:34 Creatinine 5.72 mg/dL (0.7-1.3) H 08/18/20 04:34 Glucose 97 mg/dL (70-105) 08/18/20 04:34 Calcium 8.6 mg/dL (7.8-10.44) 08/18/20 04:34 Phosphorus 4.4 mg/dL (2.3-4.7) 08/13/20 08:17 Albumin 3.1 g/dL (3.5-5.0) L 08/18/20 04:34 Nephrology AP PN - Plan ASSESSMENT: Persistent encephalopathy: Etiology inclear. Multifactorial. Uremia +/- SS/NMS +/- withdrawal effect of psychotropics +/- UTI. ? occult brain pathology Acute renal failure. ATN from severe rhabdomyolysis. Now on Hd Hyperkalemia. Resolved Metabolic acidosis. Improved Hyponatremia. Hypocalcemia. Rhabdomyolysis: 2/2 serotonoin syndrome/NMS and recurrent falls. CK level is trending down Presumed serotonin syndrome vs NMS. Dehydration. Resolved. Involuntary movement/twitching. 2/2 neuromuscular hyperactivity 2/2 serotonin syndrome. Uremic encephalopathy contribution is unlikely with persistence despite HD and improved metabolic profile.. Gait instability with frequent falls. Physical deconditioning. History of nephrolithiasis. HTN:. Control is better Volume overload. Improved with HD Vitamin D deficiency Secondary hyperparathyroidism Leucocytosis: ? UTI. trending with antibiotic. Presumed sepsis. Now on antibiotics PLAN Continue HD MWF for now with UF as tolerated. Continue ativan and cyproheptadine DC buprenorphine Still awaiting MRI as ordered. Continue current antihypertensives Continue Vit D supplementation Follow CK and renal function Avoid nephrotoxic agents. Monitor intake and output. Antibiotics as per primary attending. Renally dose all.
[2020-08-18] MEDS: cefTRIAXone\\ROCEPHIN 2 GM in Sodium Chloride 0.9% 100 ML IVPB SCH (12:24)
[2020-08-18] MEDS: Nicotine 14 MG PATCH TOP SCH (12:25)
[2020-08-18 14:17] LABS: Vancomycin, Trough 9.1 ug/mL
[2020-08-18] MEDS ORDERED: Vancomycin HCl 1.25 GM in Sodium Chloride 0.9% 250 ML 250 ML IVPB SCH (14:30)
[2020-08-18] MEDS ORDERED: HOLD VANCOMYCIN FOR LEVEL >20 FS SCH (14:30)
[2020-08-18] MEDS ORDERED: Vancomycin 1 GM in Premix Bag 1 BAG IVPB SCH (14:30)
[2020-08-18] MEDS ORDERED: Vancomycin HCl 1.5 GM in Sodium Chloride 0.9% 250 ML 300 ML IVPB SCH (14:30)
[2020-08-18] MEDS ORDERED: Vancomycin HCl 750 MG in Sodium Chloride 0.9% 250 ML 250 ML IVPB SCH (14:30)
[2020-08-18] MEDS ORDERED: Lorazepam 2 MG/ML VIAL ONE (16:19)
[2020-08-18] MEDS ORDERED: Lorazepam 2 MG/ML VIAL SLOW IVP SCH (16:30)
--- NOTE | 2020-08-18 16:55 | MRI ---
Exam: Brain MRI without contrast HISTORY: Altered mental status. COMPARISON: None Correlation: Noncontrast head CT 08/08/2020 FINDINGS: Calvarial marrow signal intensity: Appropriate T1 signal Gradient echo sequence: There do appear to be age indeterminate bilateral subdural hematomas along th e frontal convexities which have developed since the previous head CT from 08/08/2020. The right-sided subdural measures 0.5 cm. The left-sided subdural measures 0.6 cm. Mild mass effect upon the underlying cerebrum. No midline shift. Basilar are patent. Additionally, there are linear FLAIR hyperintensities along the left and right occipital parietal convexity suggesting small amounts of ac picayune subdural fluid/blood. Brain parenchyma: No mass, mass effect or midline shift. Brain volume, age-appropriate. Cortical lainez-white matter differentiation: Preserved Restricted diffusion: Central arterial flow voids are maintained. Absent restricted diffusion White matter signal intensities:No significant T2 or FLAIR white matter hyperintensities. Sinuses: Adequate aeration of the paranasal sinuses and mastoid air cells. IMPRESSION: 1. Mixed signal extra-axial hematomas. The left and right frontal subdural hematomas are age-indeterm inate. While the small amount of extra-axial blood along the bilateral occipital parietal convexities may be acute. 2. Short-term follow-up head CT and neurosurgical consultation are recommended. Results of study discussed with Dr. Rashaun Reina 08/10/2020 4:51 PM Code CR
[2020-08-19] MEDS: Labetalol 100 MG TAB PO SCH ×4 (00:22→15:03)
[2020-08-19] MEDS ORDERED: Lorazepam 0.5 MG TAB PO SCH (01:00)
[2020-08-19] MEDS: Levothyroxine Sodium 25 MCG TAB PO SCH (05:39)
[2020-08-19] MEDS: Lorazepam 0.5 MG TAB PO SCH (05:39)
[2020-08-19] MEDS: Acetaminophen 500 MG TAB PO PRN (05:39)
[2020-08-19] MEDS: Cyproheptadine 4 MG TAB PO SCH ×3 (05:39→21:11)
[2020-08-19 06:05] LABS: Anion Gap 20 mmol/L (10-20); BUN (Urea Nitrogen) 27 mg/dL (8.4-25.7); Calc. Creatinine Clearance 29 mL/min (70-130); Calcium 8.8 mg/dL (7.8-10.44); Carbon Dioxide 21 mmol/L (22-29); Chloride 104 mmol/L (98-107); Estimated GFR-MDRD 16; Glucose 90 mg/dL (70-105); Potassium 3.5 mmol/L (3.5-5.1); Sodium 141 mmol/L (136-145)
[2020-08-19 07:43] LABS: Band 1 % (5-11); Eosinophils 2 % (0-10); Hemoglobin 9.7 g/dL (14.0-18.0); Lymphocytes 17 % (21-51); MDiff Complete? YES; Macrocytosis SLIGHT = 6-15 cells (100X) (0-5/hpf); Mean Corpuscular HGB CONC 32.3 g/dL (32.0-36.0); Mean Platelet Volume 8.1 fL (7.4-10.4); Monocytes 12 % (0-10); Neutrophil 67 % (42-75); Platelet Count 200 thou/uL (130-400); Platelet Morphology Comment Appears Adequate; RBC Distribution Width 13.3 % (11.5-14.5); Red Blood Cell (RBC) Count 2.76 mill/uL (4.70-6.10); White Blood Cell (WBC) Count 20.2 thou/uL (4.8-10.8)
[2020-08-19] MEDS: Sodium Chloride 0.9% 1,000 ML IV SCH (08:30)
[2020-08-19] MEDS: NIFEdipine XL 60 MG TAB PO SCH ×2 (08:30→11:24)
[2020-08-19] MEDS: Nicotine 14 MG PATCH TOP SCH (08:32)
[2020-08-19] MEDS: Ergocalciferol 1.25 MG(50,000 UNITS) CAP PO SCH (11:24)
[2020-08-19] MEDS: BUPRENORPHINE 8 MG SL SCH (11:25)
[2020-08-19] MEDS: cefTRIAXone\\ROCEPHIN 2 GM in Sodium Chloride 0.9% 100 ML IVPB SCH (11:39)
--- NOTE | 2020-08-19 12:43 | CT ---
Exam: Head CT without contrast HISTORY: Evaluate for hemorrhage. Worsening altered mental status. COMPARISON: 08/08/2020 Correlation: Brain MRI 08/18/2020 FINDINGS: Hemorrhage: Previously identified subdural collection along the left and right occipital parietal con vexities are difficult to appreciate on the current study. There appears to be hypodensity along the left and right frontal subdural space compatible with a is identified indeterminate subdural jeniffer shakila. Brain parenchyma: Cortical lainez-white matter differentiation is preserved. No mass effect or midline shift. Basilar cisterns are patent. Ventricular system: Ventricles and sulci are patent and symmetric. Calvarium: Intact. Sinuses and mastoid air cells: Adequate aeration. IMPRESSION: 1. Redemonstration of previous identified age indeterminate bilateral frontal temporal subdural hemat omas. 2. Previously noted small bilateral occipital parietal acute subdural hematomas are not evident. No e vidence of new intracranial hemorrhage.
--- NOTE | 2020-08-19 14:39 | PDOC.NEUPN ---
- Subjective Encounter Date: 08/19/20 Subjective: Patient is extremely confused and talking constantly her speech does not make sense. Brother at bedside. Follow-up EEG did not reveal any seizure activity. MRI brain reviewed and follow-up head CT which was consistent with bilateral frontal subdural hematoma. - Objective Vital Signs & Weight: Vital Signs (12 hours) Temp Pulse Resp BP BP Pulse Ox 08/19/20 11:24 108 H 08/19/20 08:00 100 08/19/20 07:23 97.9 F 108 H 16 154/91 H 100 08/19/20 05:39 99.7 F H 08/19/20 05:31 99.7 F H 73 16 157/82 H 99 Weight Admit Weight 230 lb Weight 219 lb 5.759 oz I&O: 08/18/20 08/19/20 08/20/20 06:59 06:59 06:59 Intake Total 500 610 Output Total 925 300 Balance -425 310 Result Diagrams: 08/19/20 05:28 08/19/20 05:28 Radiology Reviewed by me: Yes EKG Reviewed by me: Yes ROS - Review of Systems ROS unobtainable: due to mental status - Medication Medications: Active Medications Generic Name Dose Route Start Last Admin Trade Name Freq PRN Reason Stop Dose Admin Acetaminophen 1,000 mg 08/11/20 09:45 08/19/20 05:39 Acetaminophen 500 Mg Tab PO 1,000 mg Q6H PRN Administration Moderate to Severe Pain (6-10) Clonidine 0.1 mg 08/11/20 05:42 08/17/20 11:35 Clonidine 0.1 Mg Tab PO 0.1 mg Q4H PRN Administration Hypertension Cyproheptadine HCl 2 mg 08/16/20 14:00 08/19/20 05:39 Cyproheptadine 4 Mg Tab PO 2 mg Q8HR WESLEY Administration Ergocalciferol 1.25 mg 08/19/20 09:00 08/19/20 11:24 Ergocalciferol 1.25 Mg(50,000 Units) Cap PO Not Given Q7DAYS WESLEY Ceftriaxone Sodium 2 gm/ 100 mls @ 200 mls/hr 08/17/20 10:00 08/19/20 11:39 Sodium Chloride IVPB 100 mls Q24HR WESLEY Administration Sodium Chloride 1,000 mls @ 20 mls/hr 08/18/20 07:20 08/19/20 08:30 Normal Saline 0.9% IV Not Given .Q24H WESLEY Labetalol HCl 100 mg 08/17/20 23:59 08/19/20 11:24 Labetalol 100 Mg Tab PO Not Given 0800,1600,2359 WESLEY Labetalol HCl 10 mg 08/17/20 15:51 08/17/20 16:20 Labetalol Hcl 100 Mg/20 Ml Vial SLOW IVP 10 mg Q4H PRN Administration SBP Greater Than 180 Levothyroxine Sodium 25 mcg 08/09/20 06:00 08/19/20 05:39 Levothyroxine Sodium 25 Mcg Tab PO 25 mcg 0600 WESLEY Administration Nicotine 14 mg 08/12/20 09:00 08/19/20 08:32 Nicotine 14 Mg Patch TOP 14 mg Q24HR WESLEY Administration Nifedipine 60 mg 08/11/20 09:00 08/19/20 11:24 Nifedipine Xl 60 Mg Tab PO Not Given DAILY [facility] Buprenorphine 8 Mg 0 each 08/15/20 09:00 08/19/20 11:25 Tab SL Not Given DAILY [facility] Sodium Chloride 10 ml 08/12/20 21:00 08/19/20 08:31 Flush - Normal Saline 10 Ml Syringe IVF Not Given Q12HR WESLEY - Exam General Appearance: ill appearing Eye: PERRL ENT: normocephalic atraumatic Neck: supple Respiratory: CTAB Cardiovascular: RRR Gastrointestinal: soft Extremities: no cyanosis Skin: normal turgor Neurological: no focal deficits, no new deficit Musculoskeletal: no muscle wasting PSYCH: not oriented Results - Labs Result Diagrams: 08/19/20 05:28 08/19/20 05:28 Lab results: WBC 20.2 thou/uL (4.8-10.8) H 08/19/20 05:28 Hgb 9.7 g/dL (14.0-18.0) L 08/19/20 05:28 Hct 29.9 % (42.0-52.0) L 08/19/20 05:28 MCV 108.0 fL (78.0-98.0) H 08/19/20 05:28 Plt Count 200 thou/uL (130-400) 08/19/20 05:28 Neutrophils % 69.8 % (42.0-75.0) 08/16/20 04:06 Band Neuts % (Manual) 1 % (5-11) L 08/19/20 05:28 ESR Westergren 68 mm/hr (Less than 20) H 08/16/20 04:06 Sodium 141 mmol/L (136-145) 08/19/20 05:28 Potassium 3.5 mmol/L (3.5-5.1) 08/19/20 05:28 Chloride 104 mmol/L (98-107) 08/19/20 05:28 Carbon Dioxide 21 mmol/L (22-29) L 08/19/20 05:28 BUN 27 mg/dL (8.4-25.7) H 08/19/20 05:28 Creatinine 4.05 mg/dL (0.7-1.3) H 08/19/20 05:28 Glucose 90 mg/dL (70-105) 08/19/20 05:28 Lactic Acid 0.8 mmol/L (0.5-2.2) 08/08/20 11:13 Calcium 8.8 mg/dL (7.8-10.44) 08/19/20 05:28 Total Bilirubin 0.6 mg/dL (0.2-1.2) 08/18/20 04:34 AST 37 U/L (5-34) H 08/18/20 04:34 ALT 84 U/L (8-55) H 08/18/20 04:34 Alkaline Phosphatase 255 U/L (40-110) H 08/18/20 04:34 Ammonia 36 umol/L (18-72) 08/08/20 09:39 Creatine Kinase 261 U/L (30-200) H 08/18/20 04:34 Troponin I Less than 0.010 ng/mL (< 0.028) 08/08/20 09:39 C-Reactive Protein 4.44 mg/dL (= or < 0.5) H 08/16/20 04:06 Serum Total Protein 5.7 g/dL (6.0-8.3) L 08/18/20 04:34 Albumin 3.1 g/dL (3.5-5.0) L 08/18/20 04:34 Urine Ketones Negative mg/dL (Negative) 08/17/20 11:30 Urine Blood Large (Negative) A 08/17/20 11:30 Urine Nitrite Negative (Negative) 08/17/20 11:30 Ur Leukocyte Esterase Large (Negative) H 08/17/20 11:30 Urine RBC Greater than 50 HPF (0-3) A 08/17/20 11:30 Urine WBC Greater Than 50 HPF (0-3) A 08/17/20 11:30 Ur Squamous Epith Cells 0-3 HPF (0-3) 08/17/20 11:30 Urine Bacteria 3+ HPF (None Seen) A 08/17/20 11:30 - Radiology Interpretation MRI - head Status: image reviewed by me, report reviewed by me Additional Comment: MRI brain showed left and right frontal subdural hematomas which are age- indeterminate and also acute blood in the occipital and parietal convexities. Head CT reviewed which showed stable changes as described above PN A/P - Plan Daily Plan: plan discussed w/ family, PT/OT, speech therapy, DVT proph w/SCDs Mr. Mccauley is a 55-year-old male with history significant for end-stage renal disease on hemodialysis presented with altered mental status. Altered mental status seems to be multifactorial secondary to infectious and metabolic etiology. Intracranial process is also likely in the setting of age- indeterminate left and right subdural hematomas and evidence of acute hematoma in the occipital and parietal region which can cause confusion and increase likelihood of seizures. MRI of the brain reviewed which was consistent with acute and chronic intracranial process. Subdural hematomas. Consider neurosurgery input. EEG reviewed which was consistent with moderate slowing but no seizure activity. The patient is at increased risk of seizures secondary to subdural hematoma so consider starting Keppra 500 mg IV every 12 Observe seizure precautions. Ativan 2 mg IV for seizure greater than 2 minutes. Neurochecks every 4 hours. Avoid antiplatelets and anticoagulants due to recent bleed. n.p.o. till cleared by speech. Continue medical management per primary team , nephrology and surgery PT/OT when stable. DVT prophylaxis. Plan discussed in detail with the patient family member and also with the nursing staff.
--- NOTE | 2020-08-19 14:46 | PDOC.EEG ---
Neurology EEG Report - Report Report: This EEG was performed using 24 channel [employer] video digital EEG machine with 24 disc electrodes. It was then extended to 2 hours 4 minutes of inpatient video EEG recording digital analysis of the EEG was done for Ney and seizure detection which revealed no abnormalities. Background: The posterior background rhythm is 6.5 to 7.5 Hz. Minimal reactivity seen with eye opening and closure Photic stimulation: No response seen with photic stimulation. Hyperventilation: Not performed. Sleep: No stage change was observed. EEG diagnosis: Generalized irregular theta activity seen throughout the recording. Non sustained posterior background rhythm. Clinical interpretation: This EEG is consistent with mild to moderate generalized nonspecific cerebral dysfunction.
--- NOTE | 2020-08-19 19:19 | CON ---
DATE OF CONSULTATION: 08/19/2020 REASON FOR CONSULTATION: Bilateral subdural hematomas noted on MRI of the brain. HISTORY OF PRESENT ILLNESS: This is a 55-year-old gentleman, brought in by EMS for evaluation of generalized weakness on August 08. It is also reported that he had lower extremity weakness affecting his gait, making him unstable and unable to ambulate. There is a prior history of alcoholism and opiate dependency. When I visited him, his brother was at bedside. The patient was extremely confused and talking constantly, but not making sense. He was moving all extremities and was in no apparent distress. Brain MRI report indicated bilateral subdural hematomas. He also received a lumbar puncture 2 days prior to the brain CT. REVIEW OF SYSTEMS: Noncontributory due to altered mental status. MEDICATIONS: 1. Acetaminophen 1000 mg. 2. Clonidine 0.1 mg. 3. Cyproheptadine 2 mg. 4. Ergocalciferol 1.25 mg. 5. Ceftriaxone. 6. Labetalol. 7. Levothyroxine 25 mcg. 8. Nicotine 14 mg patch. 9. . 10. Nifedipine 60 mg. 11. Buprenorphine 8 mg. 12. Gabapentin 300 mg. 13. Duloxetine 30 mg. 14. Alprazolam 1 mg. 15. Buspirone 10 mg. 16. Entresto 24/26 mg. 17. Rosuvastatin 40 mg. 18. Lansoprazole 15 mg. ALLERGIES: PENICILLIN. PAST MEDICAL HISTORY: 1. Hypertension. 2. Chronic back pain. 3. Hyperlipidemia. PAST SURGICAL HISTORY: 1. Lower back surgery with spinal fusion. 2. Cholecystectomy. 3. Cervical fusion with cervical laminectomy. PSYCHIATRIC HISTORY: 1. Depression. 2. Anxiety. 3. Panic attacks. 4. Opiate dependency. 5. Alcohol dependency. The patient is currently being treated as outpatient. SOCIAL HISTORY: Smokes cigarettes, 1 pack since the age of 20. Alcohol use per brother drinks 3 Wine Coolers a day. Denies illicit drug use. FAMILY HISTORY: Cardiac disease, coronary artery disease with both his mother and father. VITAL SIGNS: BP , pulse 98, temperature 98.9. PHYSICAL EXAMINATION: HEENT: Pupils are equal. Extraocular movements are intact. NECK: Soft, supple. No masses are noted. Range of motion is intact and nonpainful. NEUROLOGICAL: Confused. Cranial nerves grossly intact. EXTREMITIES: Free active range of motion on all extremities. No focal motor weakness. No new deficits. PSYCH: Not oriented. IMAGING DATA: CT of the brain showed partial resolution of the bilateral frontal temporal subdural hematomas. ASSESSMENT: 1. Bilateral frontal temporal subdural hematomas. 2. Altered mental status. 3. Ataxia PLAN: Question if lumbar puncture caused the subdural hematomas. Repeat CT of brain tomorrow morning. If scan shows improvement or no change, then we will transfer care to Medicine Service. Supportive care. No intracranial surgery at this time. We will have him follow up in 3 to 4 weeks in our clinic and repeat scan prior to the visit. Job ID: [id number] MTDD
--- NOTE | 2020-08-19 20:32 | RAD ---
PORTABLE CHEST: 08/19/20 HISTORY: Assess NG tube placement. FINDINGS/IMPRESSION: NG tube appears to pass through the EG junction with tip overlying the left upper quadrant. Central line is unchanged. Lungs are poorly evaluated due to poor inspiration but show no significant change from 08/17/20. POS: AGW
[2020-08-19] MEDS ORDERED: Non-Formulary Item 1 EACH (Alprazolam [Xanax Xr] 0.5 MG Tab.Er.24h) PO SCH (21:00)
[2020-08-19] MEDS ORDERED: ALPRAZolam 0.5 MG TAB PO PRN (21:27)
[2020-08-19] MEDS: ALPRAZolam 0.5 MG TAB PO SCH (21:48)
[2020-08-20] MEDS: Labetalol 100 MG TAB PO SCH ×4 (01:00→23:49)
[2020-08-20] MEDS: Cyproheptadine 4 MG TAB PO SCH ×3 (05:36→20:33)
[2020-08-20] MEDS: Levothyroxine Sodium 25 MCG TAB PO SCH (05:36)
[2020-08-20 06:17] LABS: #Basophils 0.2 thou/uL (0.0-0.2); #Eosinphils 0.2 thou/uL (0.0-0.7); #Lymphocytes 5.2 thou/uL (1.20-3.40); #Monocytes 1.4 thou/uL (0.11-0.59); #Neutrophils 11.7 thou/uL (1.40-6.50); %Basophils 0.9 % (0.0-1.0); %Eosinophils 1.1 % (0.0-10.0); %Lymphocytes 27.6 % (21.0-51.0); %Monocytes 7.7 % (0.0-10.0); %Neutrophils 62.7 % (42.0-75.0); Hemoglobin 9.5 g/dL (14.0-18.0); Mean Corpuscular HGB CONC 32.9 g/dL (32.0-36.0); Mean Corpuscular Hemoglobin 35.4 pg (27.0-31.0); Mean Platelet Volume 8.2 fL (7.4-10.4); Platelet Count 193 thou/uL (130-400); RBC Distribution Width 13.2 % (11.5-14.5); Red Blood Cell (RBC) Count 2.68 mill/uL (4.70-6.10); White Blood Cell (WBC) Count 18.6 thou/uL (4.8-10.8)
[2020-08-20 06:42] LABS: Anion Gap 21 mmol/L (10-20); BUN (Urea Nitrogen) 38 mg/dL (8.4-25.7); Calc. Creatinine Clearance 10 mL/min (70-130); Calcium 8.7 mg/dL (7.8-10.44); Carbon Dioxide 21 mmol/L (22-29); Chloride 105 mmol/L (98-107); Estimated GFR-MDRD 11; Glucose 84 mg/dL (70-105); Potassium 3.3 mmol/L (3.5-5.1); Sodium 144 mmol/L (136-145)
--- NOTE | 2020-08-20 06:57 | PRG ---
DATE OF SERVICE: I personally interviewed and examined the patient, agreed with documentation of [place] Ramirez PA-C dated 08/19/2020. Briefly, Guillermo Casas is a 55-year-old gentleman, who has been in the hospital since the of this month with rhabdomyolysis, renal failure, dehydration, leukocytosis, and altered mental status. During his workup, aspirin and Plavix have been stopped. However, he has been put on dialysis and dialysis involves the use of heparin. It also affects the platelet function. It is with this history that he was sent for a lumbar puncture earlier in the week. The day following lumbar puncture, an MRI scan of the brain showed bilateral subdural hematomas from brain sag related to the lumbar puncture, most likely. Follow up CT scans showed slightly less prominent subdural blood on one has been done this morning as well. No events have been reported overnight. Among the electronically recorded vital signs, the maximum temperature I see is 99.7 degrees Fahrenheit. Blood pressures are elevated in the 150s to 170s. On examination, Mr. Casas opens his eyes to voice. He is intermittently following commands. He has difficulty keeping his gaze in one direction as it slowly lowers and then resets. This looks like upward nystagmus. All four extremities are moving purposefully. I have reviewed this morning CT head. There is still some subdural space over the frontal lobes, it is less over the occipital lobes. Some of the spaces filled with a mixture of CSF and blood products, but is quite thin. The amount of blood is very low. It seems improved from yesterday. I do not plan any neurosurgical intervention during this hospitalization. The brain sagging related to the lumbar puncture is a common phenomenon. At this time, it involves a small amount of bleeding that seems to be resolving on its own. A followup scan can be obtained in about a month and we can call with the results. Job ID: [id number] [facility]
--- NOTE | 2020-08-20 08:18 | CT ---
PRELIMINARY REPORT/[facility]/EMERGENCY AFTER HOURS PROCEDURE: EXAM: CT Head Without Intravenous Contrast. CLINICAL HISTORY: F/U SDH; PT ALSO FELL FROM BED (UNWITNESSED) TECHNIQUE: Axial computed tomography images of the head/brain without intravenous contrast. COMPARISON: CT\SR - CT BRAIN WO CON - 08/19/2020 12:24 PM CDT FINDINGS: BRAIN: Bilateral intermediate density subdural fluid collections along bilateral superior frontal con vexities measuring up to 4 mm in thickness and not significantly changed from exam one day prior. The re is no mass-effect, or midline shift. VENTRICLES: No hydrocephalus. ORBITS: The orbits are unremarkable. SINUSES AND MASTOIDS: The paranasal sinuses and mastoid air cells are clear. SOFT TISSUES: No significant facial or scalp soft tissue swelling evident. No radiopaque foreign body is seen. BONES: No acute skull fracture. MISCELLANEOUS: A nasopharyngeal catheter is seen. IMPRESSION: Unchanged bilateral subdural hematomas with subacute appearance. No significant mass-eff ect and no herniation. No new or increased intracranial hemorrhage. ELECTRONICALLY SIGNED BY: Isidro Ospina M.D. Aug 20, 2020 3:50:54 AM CDT FINAL REPORT EMERGENT AFTER HOURS CT OF THE BRAIN WITHOUT CONTRAST: COMPARISON: 08/19/20 and MRI of brain 08/18/2020. HISTORY: Followup subdural hematomas. FINDINGS/IMPRESSION: I agree with the findings and impression given in the preliminary report per [facility] physici an. There are stable bilateral extraaxial subdural fluid collections in the bilateral frontal convex ities. POS: EAA
[2020-08-20] MEDS: Sodium Chloride 0.9% 1,000 ML IV SCH (08:50)
[2020-08-20] MEDS: NIFEdipine XL 60 MG TAB PO SCH (08:52)
[2020-08-20] MEDS: Nicotine 14 MG PATCH TOP SCH (08:52)
[2020-08-20] MEDS: BUPRENORPHINE 8 MG SL SCH (10:54)
[2020-08-20] MEDS: Bisoprolol Fumarate/HCTZ 10 mg/6.25 mg Tablet PER TUBE SCH (10:54)
[2020-08-20] MEDS: cefTRIAXone\\ROCEPHIN 2 GM in Sodium Chloride 0.9% 100 ML IVPB SCH (10:54)
--- NOTE | 2020-08-20 13:23 | PRG ---
DATE OF SERVICE: 08/19/2020 SUBJECTIVE: The patient is seen and examined today. Seems to be very sleepy, but arousable and according to the family member in the room, seems to be . Otherwise, noted with following vital signs. OBJECTIVE: VITAL SIGNS: Afebrile, temperature 99.4, pulse 101, respiratory rate of 16, O2 saturations of 99%, blood pressure 172/93. HEENT: Unremarkable. CARDIOVASCULAR: First and second heart sounds were heard. RESPIRATORY: Clear to auscultation. DIGESTIVE: Benign abdomen with positive bowel sounds. EXTREMITIES: No peripheral edema. SKIN: No new gross rash. LYMPHATICS: No peripheral lymphadenopathy. LABORATORY INVESTIGATION: Showed a white count of 20,000, hemoglobin 9.7. Chemistry showed a BUN of 27 with a creatinine of 4.05, potassium 3.5. IMPRESSION: 1. Some malaise/encephalopathy possibly multifactorial including, but not limited to medications and metabolic encephalopathy. 2. Acute kidney injury in the context of rhabdomyolysis. 3. Hypokalemia, seems to have resolved. 4. Rhabdomyolysis. PLAN: 1. The patient to continue with current schedule of dialysis on Sunday, Sunday, Sunday. 2. Discontinue daytime anxiolytic medication and revert Xanax back to at bedtime. 3. Renally dose all medications. 4. Further management to be dependent on the clinical course. Job ID: [id number]
--- NOTE | 2020-08-20 18:04 | PRG ---
DATE OF SERVICE: 08/20/2020 SUBJECTIVE: The patient was seen and examined with no new complaint. Noted with the following vital signs. OBJECTIVE: VITAL SIGNS: Afebrile, temperature 99.1, pulse 98, respiratory rate 16, O2 saturations of 96%, blood pressure 137/78. HEENT: Unremarkable. CARDIOVASCULAR SYSTEM: First and second heart sounds were heard. RESPIRATORY SYSTEM: Clear to auscultation. DIGESTIVE SYSTEM: Revealed a benign abdomen. Positive bowel sounds. EXTREMITIES: No peripheral edema. SKIN: No new gross rash. ASSESSMENT: 1. Acute kidney injury in the context of rhabdomyolysis. 2. Mental status change. PLAN: 1. In accordance with the patient's schedule of Sunday, Sunday, and Sunday, the patient will be dialyzed today. 2. Further management to be dependent on the clinical course. Job ID: [id number]
[2020-08-20] MEDS: ALPRAZolam 0.5 MG TAB PO SCH (20:34)
[2020-08-20] MEDS: Acetaminophen 500 MG TAB PO PRN (21:13)
[2020-08-21] MEDS: Cyproheptadine 4 MG TAB PO SCH ×3 (05:49→21:19)
[2020-08-21] MEDS: Sodium Chloride 0.9% 1,000 ML IV SCH (05:49)
[2020-08-21] MEDS: Levothyroxine Sodium 25 MCG TAB PO SCH (05:49)
[2020-08-21] MEDS: Acetaminophen 500 MG TAB PO PRN (05:51)
[2020-08-21 06:54] LABS: Band 6 % (5-11); Eosinophils 1 % (0-10); Hemoglobin 10.5 g/dL (14.0-18.0); Lymphocytes 24 % (21-51); MDiff Complete? YES; Mean Corpuscular Hemoglobin 34.8 pg (27.0-31.0); Mean Platelet Volume 8.6 fL (7.4-10.4); Monocytes 7 % (0-10); Neutrophil 61 % (42-75); Platelet Count 185 thou/uL (130-400); Platelet Morphology Comment Appears Adequate; RBC Distribution Width 13.2 % (11.5-14.5); Reactive Lymphocytes 1 % (0-10); Red Blood Cell (RBC) Count 3.01 mill/uL (4.70-6.10); White Blood Cell (WBC) Count 20.2 thou/uL (4.8-10.8)
[2020-08-21 07:14] LABS: Anion Gap 17 mmol/L (10-20); BUN (Urea Nitrogen) 26 mg/dL (8.4-25.7); Calc. Creatinine Clearance 29 mL/min (70-130); Calcium 9.3 mg/dL (7.8-10.44); Carbon Dioxide 27 mmol/L (22-29); Chloride 101 mmol/L (98-107); Estimated GFR-MDRD 16; Glucose 123 mg/dL (70-105); Sodium 142 mmol/L (136-145)
[2020-08-21 07:28] LABS: Potassium 2.8 mmol/L (3.5-5.1)
[2020-08-21] MEDS: Labetalol 100 MG TAB PO SCH ×3 (09:37→23:34)
[2020-08-21] MEDS: Bisoprolol Fumarate/HCTZ 10 mg/6.25 mg Tablet PER TUBE SCH (09:38)
[2020-08-21] MEDS: NIFEdipine XL 60 MG TAB PO SCH (09:39)
[2020-08-21] MEDS: cefTRIAXone\\ROCEPHIN 2 GM in Sodium Chloride 0.9% 100 ML IVPB SCH (09:43)
[2020-08-21] MEDS: Nicotine 14 MG PATCH TOP SCH (09:43)
[2020-08-21] MEDS: BUPRENORPHINE 8 MG SL SCH ×2 (09:44→10:50)
[2020-08-21] MEDS: cloNIDine 0.1 MG TAB PO PRN (09:51)
[2020-08-21] MEDS ORDERED: Sodium Bicarbonate Tab 325 MG TAB PER TUBE PRN (11:00)
[2020-08-21] MEDS ORDERED: Pancrelipase DR 12,000 1 CAP FS PRN (11:00)
[2020-08-21] MEDS: cloNIDine 0.2mg/24 Hour PATCH TD SCH (13:03)
[2020-08-21] MEDS: ALPRAZolam 0.5 MG TAB PO SCH (20:42)
[2020-08-22] MEDS: Levothyroxine Sodium 25 MCG TAB PO SCH (06:33)
[2020-08-22] MEDS: Cyproheptadine 4 MG TAB PO SCH ×3 (06:33→23:44)
[2020-08-22 06:46] LABS: #Basophils 0.2 thou/uL (0.0-0.2); #Eosinphils 0.2 thou/uL (0.0-0.7); #Lymphocytes 5.4 thou/uL (1.20-3.40); #Monocytes 1.5 thou/uL (0.11-0.59); #Neutrophils 12.8 thou/uL (1.40-6.50); %Lymphocytes 26.7 % (21.0-51.0); %Monocytes 7.3 % (0.0-10.0); %Neutrophils 63.9 % (42.0-75.0); Mean Corpuscular HGB CONC 32.7 g/dL (32.0-36.0); Mean Corpuscular Hemoglobin 35.3 pg (27.0-31.0); Mean Platelet Volume 9.1 fL (7.4-10.4); Platelet Count 192 thou/uL (130-400); RBC Distribution Width 13.3 % (11.5-14.5); Red Blood Cell (RBC) Count 2.83 mill/uL (4.70-6.10)
[2020-08-22 07:12] LABS: Anion Gap 18 mmol/L (10-20); BUN (Urea Nitrogen) 39 mg/dL (8.4-25.7); Calc. Creatinine Clearance 22 mL/min (70-130); Calcium 9.3 mg/dL (7.8-10.44); Carbon Dioxide 23 mmol/L (22-29); Chloride 105 mmol/L (98-107); Estimated GFR-MDRD 11; Glucose 108 mg/dL (70-105); Potassium 3.3 mmol/L (3.5-5.1); Sodium 143 mmol/L (136-145)
--- NOTE | 2020-08-22 11:00 | PDOC.NEPPN ---
- Subjective Encounter Date: 08/22/20 Subjective: Seen in follow up for ARF requiring HD. Still altered. Last HD was on 07/21/2020. - Objective Vital Signs & Weight: Vital Signs (12 hours) Temp Pulse Resp BP Pulse Ox 08/22/20 07:37 98.6 F 75 20 159/90 H 98 08/22/20 00:00 97.6 F 74 18 108/79 96 Weight Admit Weight 230 lb Weight 211 lb 10.3 oz I&O: 08/21/20 08/22/20 08/23/20 07:59 06:59 06:59 Intake Total Output Total Balance Result Diagrams: 08/22/20 05:51 08/22/20 05:51 Nephrology ROS - Medication Medications: Active Medications Generic Name Dose Route Start Last Admin Trade Name Freq PRN Reason Stop Dose Admin Acetaminophen 1,000 mg 08/11/20 09:45 08/21/20 05:51 Acetaminophen 500 Mg Tab PO 1,000 mg Q6H PRN Administration Moderate to Severe Pain (6-10) Alprazolam 0.5 mg 08/19/20 21:00 08/21/20 20:42 Alprazolam 0.5 Mg Tab PO 0.5 mg HS WESLEY Administration Clonidine 0.1 mg 08/11/20 05:42 08/21/20 09:51 Clonidine 0.1 Mg Tab PO 0.1 mg Q4H PRN Administration Hypertension Clonidine 0.2 mg 08/21/20 12:00 08/21/20 13:03 Clonidine 0.2mg/24 Hour Patch TD 0.2 mg Q7D WESLEY Administration Cyproheptadine HCl 2 mg 08/16/20 14:00 08/22/20 06:33 Cyproheptadine 4 Mg Tab PO Not Given Q8HR WESLEY Ergocalciferol 1.25 mg 08/19/20 09:00 08/19/20 11:24 Ergocalciferol 1.25 Mg(50,000 Units) Cap PO Not Given Q7DAYS WESLEY Ceftriaxone Sodium 2 gm/ 100 mls @ 200 mls/hr 08/17/20 10:00 08/21/20 09:43 Sodium Chloride IVPB 100 mls Q24HR WESLEY Administration Sodium Chloride 1,000 mls @ 20 mls/hr 08/18/20 07:20 08/21/20 05:49 Normal Saline 0.9% IV 1,000 mls .Q24H WESLEY Administration Levetiracetam 500 mg/ Device 100 mls @ 200 mls/hr 08/20/20 17:00 08/22/20 05:35 IVPB 100 mls 0500,1700 WESLEY Administration Labetalol HCl 100 mg 08/17/20 23:59 08/21/20 23:34 Labetalol 100 Mg Tab PO Not Given 0800,1600,2359 WESLEY Labetalol HCl 10 mg 08/17/20 15:51 08/17/20 16:20 Labetalol Hcl 100 Mg/20 Ml Vial SLOW IVP 10 mg Q4H PRN Administration SBP Greater Than 180 Levothyroxine Sodium 25 mcg 08/09/20 06:00 08/22/20 06:33 Levothyroxine Sodium 25 Mcg Tab PO Not Given 0600 WESLEY Nicotine 14 mg 08/12/20 09:00 08/21/20 09:43 Nicotine 14 Mg Patch TOP 14 mg Q24HR WESLEY Administration Potassium Chloride 20 meq 08/21/20 09:00 08/21/20 20:42 Potassium Chloride 20 Meq Packet PER TUBE 20 meq TID WESLEY Administration Sodium Chloride 10 ml 08/12/20 21:00 08/21/20 20:43 Flush - Normal Saline 10 Ml Syringe IVF Not Given Q12HR WESLEY - Exam General - other findings: Awake. No distress Eye: anicteric sclera ENT: normocephalic atraumatic ENT - other findings: NG tube in place Respiratory: no wheezes, no ronchi, normal chest expansion, no tachypnea Cardiovascular: RRR Gastrointestinal: soft, non-distended, normal bowel sounds Extremities: no cyanosis, no edema Neurological: CN's grossly intact, no focal deficits Neurological - other findings: Awake but confused Nephrology Results - Labs Result Diagrams: 08/22/20 05:51 08/22/20 05:51 Lab results: WBC 20.0 thou/uL (4.8-10.8) H 08/22/20 05:51 Hgb 10.0 g/dL (14.0-18.0) L 08/22/20 05:51 Hct 30.5 % (42.0-52.0) L 08/22/20 05:51 MCV 108.0 fL (78.0-98.0) H 08/22/20 05:51 Plt Count 192 thou/uL (130-400) 08/22/20 05:51 Neutrophils % 63.9 % (42.0-75.0) 08/22/20 05:51 Band Neuts % (Manual) 6 % (5-11) 08/21/20 05:57 ESR Westergren 68 mm/hr (Less than 20) H 08/16/20 04:06 Sodium 143 mmol/L (136-145) 08/22/20 05:51 Potassium 3.3 mmol/L (3.5-5.1) L 08/22/20 05:51 Chloride 105 mmol/L (98-107) 08/22/20 05:51 Carbon Dioxide 23 mmol/L (22-29) 08/22/20 05:51 BUN 39 mg/dL (8.4-25.7) H 08/22/20 05:51 Creatinine 5.31 mg/dL (0.7-1.3) H 08/22/20 05:51 Glucose 108 mg/dL (70-105) H 08/22/20 05:51 Lactic Acid 0.8 mmol/L (0.5-2.2) 08/08/20 11:13 Calcium 9.3 mg/dL (7.8-10.44) 08/22/20 05:51 Total Bilirubin 0.6 mg/dL (0.2-1.2) 08/18/20 04:34 AST 37 U/L (5-34) H 08/18/20 04:34 ALT 84 U/L (8-55) H 08/18/20 04:34 Alkaline Phosphatase 255 U/L (40-110) H 08/18/20 04:34 Ammonia 36 umol/L (18-72) 08/08/20 09:39 Creatine Kinase 261 U/L (30-200) H 08/18/20 04:34 Troponin I Less than 0.010 ng/mL (< 0.028) 08/08/20 09:39 C-Reactive Protein 4.44 mg/dL (= or < 0.5) H 08/16/20 04:06 Serum Total Protein 5.7 g/dL (6.0-8.3) L 08/18/20 04:34 Albumin 3.1 g/dL (3.5-5.0) L 08/18/20 04:34 Urine Ketones Negative mg/dL (Negative) 08/17/20 11:30 Urine Blood Large (Negative) A 08/17/20 11:30 Urine Nitrite Negative (Negative) 08/17/20 11:30 Ur Leukocyte Esterase Large (Negative) H 08/17/20 11:30 Urine RBC Greater than 50 HPF (0-3) A 08/17/20 11:30 Urine WBC Greater Than 50 HPF (0-3) A 08/17/20 11:30 Ur Squamous Epith Cells 0-3 HPF (0-3) 08/17/20 11:30 Urine Bacteria 3+ HPF (None Seen) A 08/17/20 11:30 Sodium 143 mmol/L (136-145) 08/22/20 05:51 Potassium 3.3 mmol/L (3.5-5.1) L 08/22/20 05:51 Chloride 105 mmol/L (98-107) 08/22/20 05:51 Carbon Dioxide 23 mmol/L (22-29) 08/22/20 05:51 Anion Gap 18 mmol/L (-) 08/22/20 05:51 BUN 39 mg/dL (8.4-25.7) H 08/22/20 05:51 Creatinine 5.31 mg/dL (0.7-1.3) H 08/22/20 05:51 Glucose 108 mg/dL (70-105) H 08/22/20 05:51 Calcium 9.3 mg/dL (7.8-10.44) 08/22/20 05:51 Phosphorus 4.4 mg/dL (2.3-4.7) 08/13/20 08:17 Albumin 3.1 g/dL (3.5-5.0) L 08/18/20 04:34 Nephrology AP PN - Plan ASSESSMENT: Persistent encephalopathy: Etiology inclear. Acute renal failure. ATN from severe rhabdomyolysis. Now on Hd Last HD on 08/20/2020 Hyperkalemia. Resolved. Now hypokalemic Metabolic acidosis. Improved Hyponatremia. Resolved Hypocalcemia. 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 Resolved. Presumed serotonin syndrome vs NMS. Dehydration. Resolved. Involuntary movement/twitching. 2/2 neuromuscular hyperactivity 2/2 serotonin syndrome. Gait instability with frequent falls. Physical deconditioning. History of nephrolithiasis. HTN:. Control is better. Volume overload. Improved with HD Vitamin D deficiency Secondary hyperparathyroidism PLAN Continue HD MWF For HD tomorrow. Continue potassium supplementation. Get serum magnesium and phosporus. DC nifedipine as BP is soft and patient now also is on tube feeding. Will change to amlodipine if BP appreciates. Continue labetalol and clonidine. Continue cyproheptadine Avoid nephrotoxic agents. Monitor intake and output.
--- NOTE | 2020-08-22 11:17 | RAD ---
KUB: 08/22/2020 COMPARISON: None HISTORY: Evaluate nasogastric tube placement FINDINGS: The pelvis is not imaged on this exam. The lack of upright imaging limits assessment for fr ee intraperitoneal air and small bowel obstruction. A nasogastric tube extends into the left upper quadrant. Motion artifact limits assessment of the abdomen. Clips in the right upper quadrant suggest prior cholecystectomy. IMPRESSION: Technically limited exam demonstrating a nasogastric tube extending into the left upper q uadrant, likely within the gastric body.
[2020-08-22] MEDS: Labetalol 100 MG TAB PO SCH ×3 (12:01→23:44)
[2020-08-22] MEDS: Nicotine 14 MG PATCH TOP SCH (12:03)
[2020-08-22] MEDS: cefTRIAXone\\ROCEPHIN 2 GM in Sodium Chloride 0.9% 100 ML IVPB SCH (12:03)
[2020-08-22] MEDS: BUPRENORPHINE 8 MG SL SCH (12:35)
[2020-08-22] MEDS: Bisoprolol Fumarate/HCTZ 10 mg/6.25 mg Tablet PER TUBE SCH (12:36)
--- NOTE | 2020-08-22 13:51 | RAD ---
PORTABLE CHEST: Date: 08-22-2020 PROVIDED CLINICAL HISTORY: Evidence for aspiration Comparison: 08-19-2020 FINDINGS: The lungs are hypoinflated, limiting evaluation. Right IJ dialysis catheter and enteric catheter are again seen in similar positions. No focal consolidation, pleural fluid or pneumothorax apparent. IMPRESSION: No evidence for acute cardiopulmonary process. POS: DEEPA
[2020-08-22] MEDS: Sodium Chloride 0.9% 1,000 ML IV SCH (18:05)
[2020-08-22] MEDS: ALPRAZolam 0.5 MG TAB PO SCH (20:04)
[2020-08-23] MEDS: Levothyroxine Sodium 25 MCG TAB PO SCH (06:05)
[2020-08-23] MEDS: Cyproheptadine 4 MG TAB PO SCH ×3 (06:05→21:27)
[2020-08-23 06:09] LABS: #Basophils 0.2 thou/uL (0.0-0.2); #Eosinphils 0.2 thou/uL (0.0-0.7); #Lymphocytes 5.6 thou/uL (1.20-3.40); #Monocytes 1.2 thou/uL (0.11-0.59); %Eosinophils 1.1 % (0.0-10.0); %Lymphocytes 32.6 % (21.0-51.0); %Monocytes 7.2 % (0.0-10.0); %Neutrophils 58.1 % (42.0-75.0); Hemoglobin 9.5 g/dL (14.0-18.0); Mean Corpuscular HGB CONC 32.9 g/dL (32.0-36.0); Mean Corpuscular Hemoglobin 35.1 pg (27.0-31.0); Mean Platelet Volume 9.4 fL (7.4-10.4); Platelet Count 184 thou/uL (130-400); RBC Distribution Width 13.3 % (11.5-14.5); White Blood Cell (WBC) Count 17.2 thou/uL (4.8-10.8)
[2020-08-23 06:29] LABS: Albumin 3.3 g/dL (3.5-5.0); Anion Gap 18 mmol/L (10-20); BUN (Urea Nitrogen) 48 mg/dL (8.4-25.7); BUN/Creatinine Ratio 7.99; Calc. Creatinine Clearance 19 mL/min (70-130); Calcium 8.9 mg/dL (7.8-10.44); Carbon Dioxide 22 mmol/L (22-29); Chloride 106 mmol/L (98-107); Estimated GFR-MDRD 10; Glucose 105 mg/dL (70-105); Phosphorus 4.4 mg/dL (2.3-4.7); Potassium 3.7 mmol/L (3.5-5.1); Sodium 142 mmol/L (136-145)
[2020-08-23] MEDS: Sodium Chloride 0.9% 1,000 ML IV SCH (07:30)
[2020-08-23] MEDS ORDERED: Lorazepam 2 MG/ML VIAL SLOW IVP SCH (10:00)
[2020-08-23] MEDS ORDERED: Heparin 10,000 UNITS/ 10 ML VIAL ONE (11:41)
--- NOTE | 2020-08-23 13:21 | CT ---
Exam: Sinus CT without contrast HISTORY: Patient is altered. Altered mental status. Comparison none FINDINGS: There is adequate aeration of the paranasal sinuses and mastoid air cells. Note is made of a nasogast avery tube via the right nasal passage. Zygomatic arches are intact. Visualized upper cervical spine is intact. Visualized maxilla and mandib le are also intact. 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 Narrowing of the right ostiomeatal complex. How ever, bilateral ostiomeatal complexes are patent. Intact nasal septum is midline. Incidental osteoma involving the left superior ethmoid air cells. Visualized aerodigestive tract is patent. IMPRESSION: No significant sinus opacification.
--- NOTE | 2020-08-23 13:23 | CT ---
Exam: Head CT without contrast HISTORY: Altered mental status. Follow-up subdural hematoma. COMPARISON: 08/20/2020 FINDINGS: Hemorrhage: No intraparenchymal hemorrhage or new extra-axial hematoma. Resolving bifrontal subdural hematomas. Brain parenchyma: Cortical lainez-white matter differentiation is preserved. No mass effect or midline shift. Basilar cisterns are patent. Ventricular system: Ventricles and sulci are patent and symmetric. Calvarium: Intact. Sinuses and mastoid air cells: Adequate aeration. IMPRESSION: 1. Resolving subdural hematomas. 2. No significant interval change. No acute intracranial process.
[2020-08-23] MEDS: Labetalol 100 MG TAB PO SCH ×3 (13:38→23:17)
[2020-08-23] MEDS: Nicotine 14 MG PATCH TOP SCH (13:38)
[2020-08-23] MEDS: cefTRIAXone\\ROCEPHIN 2 GM in Sodium Chloride 0.9% 100 ML IVPB SCH (13:39)
[2020-08-23 15:12] VITALS: BMI 29.5
--- NOTE | 2020-08-23 15:57 | PDOC.NEPPN ---
- Subjective Encounter Date: 08/23/20 Subjective: Seen in follow up for ARF requiring HD. No new problem. For HD today. Still with some confusion. - Objective Vital Signs & Weight: Vital Signs (12 hours) Temp Pulse Resp BP Pulse Ox 08/23/20 13:25 98.5 F 79 18 150/100 H 93 L 08/23/20 07:26 100 08/23/20 07:10 98.2 F 87 18 142/90 H 100 Weight Admit Weight 230 lb Weight 211 lb 10.3 oz I&O: 08/22/20 08/23/20 08/24/20 06:59 06:59 06:59 Intake Total 1540 Output Total 1185 Balance 355 Result Diagrams: 08/23/20 05:18 08/23/20 05:18 Nephrology ROS - Medication Medications: Active Medications Generic Name Dose Route Start Last Admin Trade Name Freq PRN Reason Stop Dose Admin Acetaminophen 1,000 mg 08/11/20 09:45 08/21/20 05:51 Acetaminophen 500 Mg Tab PO 1,000 mg Q6H PRN Administration Moderate to Severe Pain (6-10) Alprazolam 0.5 mg 08/19/20 21:00 08/22/20 20:04 Alprazolam 0.5 Mg Tab PO 0.5 mg HS WESLEY Administration Clonidine 0.1 mg 08/11/20 05:42 08/21/20 09:51 Clonidine 0.1 Mg Tab PO 0.1 mg Q4H PRN Administration Hypertension Clonidine 0.2 mg 08/21/20 12:00 08/21/20 13:03 Clonidine 0.2mg/24 Hour Patch TD 0.2 mg Q7D W[facility] Administration Cyproheptadine HCl 2 mg 08/16/20 14:00 08/23/20 13:39 Cyproheptadine 4 Mg Tab PO 2 mg Q8HR W[facility]LEY Administration Ergocalciferol 1.25 mg 08/19/20 09:00 08/19/20 11:24 Ergocalciferol 1.25 Mg(50,000 Units) Cap PO Not Given Q7DAYS W[facility] Ceftriaxone Sodium 2 gm/ 100 mls @ 200 mls/hr 08/17/20 10:00 08/23/20 13:39 Sodium Chloride IVPB 100 mls Q24HR W[facility] Administration Sodium Chloride 1,000 mls @ 20 mls/hr 08/18/20 07:20 08/23/20 07:30 Normal Saline 0.9% IV Not Given .Q24H W[facility] Levetiracetam 500 mg/ Device 100 mls @ 200 mls/hr 08/20/20 17:00 08/23/20 05:00 IVPB 100 mls 0500,1700 W[facility] Administration Labetalol HCl 100 mg 08/17/20 23:59 08/23/20 13:38 Labetalol 100 Mg Tab PO 100 mg 0800,1600,2359 W[facility] Administration Labetalol HCl 10 mg 08/17/20 15:51 08/17/20 16:20 Labetalol Hcl 100 Mg/20 Ml Vial SLOW IVP 10 mg Q4H PRN Administration SBP Greater Than 180 Levothyroxine Sodium 25 mcg 08/09/20 06:00 08/23/20 06:05 Levothyroxine Sodium 25 Mcg Tab PO 25 mcg 0600 W[facility] Administration Nicotine 14 mg 08/12/20 09:00 08/23/20 13:38 Nicotine 14 Mg Patch TOP 14 mg Q24HR W[facility] Administration Buprenorphine 8 Mg 0.25 each 08/22/20 09:00 08/22/20 12:35 Tab SL Not Given DAILY W[facility] Potassium Chloride 20 meq 08/21/20 09:00 08/23/20 13:38 Potassium Chloride 20 Meq Packet PER TUBE 20 meq TID W[facility] Administration Sodium Chloride 10 ml 08/12/20 21:00 08/23/20 13:39 Flush - Normal Saline 10 Ml Syringe IVF 10 ml Q12HR [facility] Administration - Exam General Appearance: awake alert Eye: anicteric sclera ENT: normocephalic atraumatic ENT - other findings: NG tube in place Respiratory - other findings: fair air entry bilaterally Cardiovascular: RRR Gastrointestinal: soft, non-tender, non-distended, normal bowel sounds Extremities: no cyanosis, no edema Neurological: CN's grossly intact Neurological - other findings: moving all limbs. Restraints noted. Awake. Oriented x 2 at least. Nephrology Results - Labs Result Diagrams: 08/23/20 05:18 08/23/20 05:18 Lab results: WBC 17.2 thou/uL (4.8-10.8) H 08/23/20 05:18 Hgb 9.5 g/dL (14.0-18.0) L 08/23/20 05:18 Hct 28.7 % (42.0-52.0) L 08/23/20 05:18 MCV 107.0 fL (78.0-98.0) H 08/23/20 05:18 Plt Count 184 thou/uL (130-400) 08/23/20 05:18 Neutrophils % 58.1 % (42.0-75.0) 08/23/20 05:18 Band Neuts % (Manual) 6 % (5-11) 08/21/20 05:57 ESR Westergren 68 mm/hr (Less than 20) H 08/16/20 04:06 Sodium 142 mmol/L (136-145) 08/23/20 05:18 Potassium 3.7 mmol/L (3.5-5.1) 08/23/20 05:18 Chloride 106 mmol/L (98-107) 08/23/20 05:18 Carbon Dioxide 22 mmol/L (22-29) 08/23/20 05:18 BUN 48 mg/dL (8.4-25.7) H 08/23/20 05:18 Creatinine 6.01 mg/dL (0.7-1.3) H 08/23/20 05:18 Glucose 105 mg/dL (70-105) 08/23/20 05:18 Lactic Acid 0.8 mmol/L (0.5-2.2) 08/08/20 11:13 Calcium 8.9 mg/dL (7.8-10.44) 08/23/20 05:18 Total Bilirubin 0.6 mg/dL (0.2-1.2) 08/18/20 04:34 AST 37 U/L (5-34) H 08/18/20 04:34 ALT 84 U/L (8-55) H 08/18/20 04:34 Alkaline Phosphatase 255 U/L (40-110) H 08/18/20 04:34 Ammonia 36 umol/L (18-72) 08/08/20 09:39 Creatine Kinase 261 U/L (30-200) H 08/18/20 04:34 Troponin I Less than 0.010 ng/mL (< 0.028) 08/08/20 09:39 C-Reactive Protein 4.44 mg/dL (= or < 0.5) H 08/16/20 04:06 Serum Total Protein 5.7 g/dL (6.0-8.3) L 08/18/20 04:34 Albumin 3.3 g/dL (3.5-5.0) L 08/23/20 05:18 Urine Ketones Negative mg/dL (Negative) 08/17/20 11:30 Urine Blood Large (Negative) A 08/17/20 11:30 Urine Nitrite Negative (Negative) 08/17/20 11:30 Ur Leukocyte Esterase Large (Negative) H 08/17/20 11:30 Urine RBC Greater than 50 HPF (0-3) A 08/17/20 11:30 Urine WBC Greater Than 50 HPF (0-3) A 08/17/20 11:30 Ur Squamous Epith Cells 0-3 HPF (0-3) 08/17/20 11:30 Urine Bacteria 3+ HPF (None Seen) A 08/17/20 11:30 Sodium 142 mmol/L (136-145) 08/23/20 05:18 Potassium 3.7 mmol/L (3.5-5.1) 08/23/20 05:18 Chloride 106 mmol/L (98-107) 08/23/20 05:18 Carbon Dioxide 22 mmol/L (22-29) 08/23/20 05:18 Anion Gap 18 mmol/L (-) 08/23/20 05:18 BUN 48 mg/dL (8.4-25.7) H 08/23/20 05:18 Creatinine 6.01 mg/dL (0.7-1.3) H 08/23/20 05:18 Glucose 105 mg/dL (70-105) 08/23/20 05:18 Calcium 8.9 mg/dL (7.8-10.44) 08/23/20 05:18 Phosphorus 4.4 mg/dL (2.3-4.7) 08/23/20 05:18 Magnesium 2.0 mg/dL (1.6-2.6) 08/23/20 05:18 Albumin 3.3 g/dL (3.5-5.0) L 08/23/20 05:18 Nephrology AP PN - Plan Daily Plan: old records reviewed/req ASSESSMENT: Persistent encephalopathy: Etiology inclear. Seem to be multifactorial. Acute renal failure. ATN from severe rhabdomyolysis. Now on Hd Last HD on 08/20/2020 Hyperkalemia. Resolved. Now hypokalemic Metabolic acidosis. Improved Hyponatremia. Resolved Hypocalcemia. 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 Resolved. Presumed serotonin syndrome vs NMS. Dehydration. Resolved. Involuntary movement/twitching. 2/2 neuromuscular hyperactivity 2/2 serotonin syndrome. Gait instability with frequent falls. Physical deconditioning. History of nephrolithiasis. HTN:. Control is acceptable Volume overload. Improved with HD Vitamin D deficiency Secondary hyperparathyroidism E coli UTi Subural hemorrhage PLAN For HD today in line with MWF schedule while awaiting renal recovery. Continue labetalol and clonidine. Continue cyproheptadine Avoid nephrotoxic agents. Monitor intake and output.
[2020-08-23] MEDS: BUPRENORPHINE 8 MG SL SCH (17:39)
[2020-08-23] MEDS: ALPRAZolam 0.5 MG TAB PO SCH (21:26)
[2020-08-24 05:41] LABS: #Basophils 0.2 thou/uL (0.0-0.2); #Eosinphils 0.3 thou/uL (0.0-0.7); #Lymphocytes 5.3 thou/uL (1.20-3.40); #Monocytes 1.4 thou/uL (0.11-0.59); #Neutrophils 9.3 thou/uL (1.40-6.50); %Basophils 1.2 % (0.0-1.0); %Eosinophils 1.8 % (0.0-10.0); %Monocytes 8.7 % (0.0-10.0); %Neutrophils 56.3 % (42.0-75.0); Hemoglobin 9.5 g/dL (14.0-18.0); Mean Corpuscular HGB CONC 32.4 g/dL (32.0-36.0); Mean Corpuscular Hemoglobin 34.7 pg (27.0-31.0); Mean Platelet Volume 8.9 fL (7.4-10.4); Platelet Count 185 thou/uL (130-400); RBC Distribution Width 13.2 % (11.5-14.5); Red Blood Cell (RBC) Count 2.74 mill/uL (4.70-6.10); White Blood Cell (WBC) Count 16.5 thou/uL (4.8-10.8)
[2020-08-24 05:55] LABS: Anion Gap 18 mmol/L (10-20); BUN (Urea Nitrogen) 27 mg/dL (8.4-25.7); Calc. Creatinine Clearance 31 mL/min (70-130); Calcium 8.9 mg/dL (7.8-10.44); Carbon Dioxide 24 mmol/L (22-29); Chloride 103 mmol/L (98-107); Estimated GFR-MDRD 17; Glucose 105 mg/dL (70-105); Potassium 3.6 mmol/L (3.5-5.1); Sodium 141 mmol/L (136-145)
[2020-08-24] MEDS: Cyproheptadine 4 MG TAB PO SCH (06:03)
[2020-08-24] MEDS: Levothyroxine Sodium 25 MCG TAB PO SCH (06:03)
[2020-08-24] MEDS: Sodium Chloride 0.9% 1,000 ML IV SCH (06:03)
[2020-08-24] MEDS: Labetalol 100 MG TAB PO SCH ×2 (09:25→16:11)
[2020-08-24] MEDS: BUPRENORPHINE 8 MG SL SCH (09:44)
[2020-08-24] MEDS: cefTRIAXone\\ROCEPHIN 2 GM in Sodium Chloride 0.9% 100 ML IVPB SCH (10:55)
[2020-08-24] MEDS: Nicotine 14 MG PATCH TOP SCH (10:55)
--- NOTE | 2020-08-24 12:14 | PDOC.NEPPN ---
- Subjective Encounter Date: 08/24/20 Subjective: Seen in follow up for ARF requiring HD. Still rambling but answers some questions appropriately. - Objective Vital Signs & Weight: Vital Signs (12 hours) Temp Pulse Resp BP BP Pulse Ox 08/24/20 08:00 97.9 F 84 18 132/87 100 08/24/20 04:00 98.3 F 93 20 120/81 98 Weight Admit Weight 230 lb Weight 211 lb 10.3 oz I&O: 08/23/20 08/24/20 08/25/20 06:59 06:59 06:59 Intake Total 1540 1260 Output Total 1185 350 Balance 355 910 Result Diagrams: 08/24/20 05:17 08/24/20 05:17 Nephrology ROS - Medication Medications: Active Medications Generic Name Dose Route Start Last Admin Trade Name Freq PRN Reason Stop Dose Admin Acetaminophen 1,000 mg 08/11/20 09:45 08/21/20 05:51 Acetaminophen 500 Mg Tab PO 1,000 mg Q6H PRN Administration Moderate to Severe Pain (6-10) Alprazolam 0.5 mg 08/19/20 21:00 08/23/20 21:26 Alprazolam 0.5 Mg Tab PO 0.5 mg HS W[facility] Administration Clonidine 0.1 mg 08/11/20 05:42 08/21/20 09:51 Clonidine 0.1 Mg Tab PO 0.1 mg Q4H PRN Administration Hypertension Clonidine 0.2 mg 08/21/20 12:00 08/21/20 13:03 Clonidine 0.2mg/24 Hour Patch TD 0.2 mg Q7D [facility] Administration Ergocalciferol 1.25 mg 08/19/20 09:00 08/19/20 11:24 Ergocalciferol 1.25 Mg(50,000 Units) Cap PO Not Given Q7DAYS [facility] Ceftriaxone Sodium 2 gm/ 100 mls @ 200 mls/hr 08/17/20 10:00 08/24/20 10:55 Sodium Chloride IVPB 100 mls Q24HR [facility] Administration Sodium Chloride 1,000 mls @ 20 mls/hr 08/18/20 07:20 08/24/20 06:03 Normal Saline 0.9% IV 1,000 mls .Q24H [facility] Administration Levetiracetam 500 mg/ Device 100 mls @ 200 mls/hr 10/30/20 17:00 08/24/20 06:00 IVPB 100 mls 0500,1700 W[facility] Administration Labetalol HCl 100 mg 08/17/20 23:59 08/24/20 09:25 Labetalol 100 Mg Tab PO 100 mg 0800,1600,2359 W[facility] Administration Labetalol HCl 10 mg 08/17/20 15:51 08/17/20 16:20 Labetalol Hcl 100 Mg/20 Ml Vial SLOW IVP 10 mg Q4H PRN Administration SBP Greater Than 180 Levothyroxine Sodium 25 mcg 08/09/20 06:00 08/24/20 06:03 Levothyroxine Sodium 25 Mcg Tab PO 25 mcg 0600 [facility] Administration Nicotine 14 mg 08/12/20 09:00 08/24/20 10:55 Nicotine 14 Mg Patch TOP 14 mg Q24HR [facility] Administration Buprenorphine 8 Mg 0.25 each 08/22/20 09:00 08/24/20 09:44 Tab SL 0.25 each DAILY [facility] Administration Potassium Chloride 20 meq 08/21/20 09:00 08/24/20 09:20 Potassium Chloride 20 Meq Packet PER TUBE 20 meq TID [facility] Administration Sodium Chloride 10 ml 08/12/20 21:00 08/24/20 09:26 Flush - Normal Saline 10 Ml Syringe IVF 10 ml Q12HR [facility] Administration - Exam General Appearance: awake alert Eye: anicteric sclera ENT: normocephalic atraumatic, moist mucosa Neck: symmetric, no JVD Respiratory: no wheezes, no rales, no ronchi, normal chest expansion, no tachypnea Cardiovascular: RRR Gastrointestinal: soft, non-tender, non-distended, normal bowel sounds Extremities: no cyanosis, no edema Extremities - other findings: restraints noted Neurological: CN's grossly intact, no focal deficits Neurological - other findings: alert and oriented x 2 at least. answeres some questions appropriately. Nephrology Results - Labs Result Diagrams: 08/24/20 05:17 08/24/20 05:17 Lab results: WBC 16.5 thou/uL (4.8-10.8) H 08/24/20 05:17 Hgb 9.5 g/dL (14.0-18.0) L 08/24/20 05:17 Hct 29.4 % (42.0-52.0) L 08/24/20 05:17 MCV 107.0 fL (78.0-98.0) H 08/24/20 05:17 Plt Count 185 thou/uL (130-400) 08/24/20 05:17 Neutrophils % 56.3 % (42.0-75.0) 08/24/20 05:17 Band Neuts % (Manual) 6 % (5-11) 08/21/20 05:57 ESR Westergren 68 mm/hr (Less than 20) H 08/16/20 04:06 Sodium 141 mmol/L (136-145) 08/24/20 05:17 Potassium 3.6 mmol/L (3.5-5.1) 08/24/20 05:17 Chloride 103 mmol/L (98-107) 08/24/20 05:17 Carbon Dioxide 24 mmol/L (22-29) 08/24/20 05:17 BUN 27 mg/dL (8.4-25.7) H 08/24/20 05:17 Creatinine 3.75 mg/dL (0.7-1.3) H 08/24/20 05:17 Glucose 105 mg/dL (70-105) 08/24/20 05:17 Lactic Acid 0.8 mmol/L (0.5-2.2) 08/08/20 11:13 Calcium 8.9 mg/dL (7.8-10.44) 08/24/20 05:17 Total Bilirubin 0.6 mg/dL (0.2-1.2) 08/18/20 04:34 AST 37 U/L (5-34) H 08/18/20 04:34 ALT 84 U/L (8-55) H 08/18/20 04:34 Alkaline Phosphatase 255 U/L (40-110) H 08/18/20 04:34 Ammonia 36 umol/L (18-72) 08/08/20 09:39 Creatine Kinase 261 U/L (30-200) H 08/18/20 04:34 Troponin I Less than 0.010 ng/mL (< 0.028) 08/08/20 09:39 C-Reactive Protein 4.44 mg/dL (= or < 0.5) H 08/16/20 04:06 Serum Total Protein 5.7 g/dL (6.0-8.3) L 08/18/20 04:34 Albumin 3.3 g/dL (3.5-5.0) L 08/23/20 05:18 Urine Ketones Negative mg/dL (Negative) 08/17/20 11:30 Urine Blood Large (Negative) A 08/17/20 11:30 Urine Nitrite Negative (Negative) 08/17/20 11:30 Ur Leukocyte Esterase Large (Negative) H 08/17/20 11:30 Urine RBC Greater than 50 HPF (0-3) A 08/17/20 11:30 Urine WBC Greater Than 50 HPF (0-3) A 08/17/20 11:30 Ur Squamous Epith Cells 0-3 HPF (0-3) 08/17/20 11:30 Urine Bacteria 3+ HPF (None Seen) A 08/17/20 11:30 Sodium 141 mmol/L (136-145) 08/24/20 05:17 Potassium 3.6 mmol/L (3.5-5.1) 08/24/20 05:17 Chloride 103 mmol/L (98-107) 08/24/20 05:17 Carbon Dioxide 24 mmol/L (22-29) 08/24/20 05:17 Anion Gap 18 mmol/L (-) 08/24/20 05:17 BUN 27 mg/dL (8.4-25.7) H 08/24/20 05:17 Creatinine 3.75 mg/dL (0.7-1.3) H 08/24/20 05:17 Glucose 105 mg/dL (70-105) 08/24/20 05:17 Calcium 8.9 mg/dL (7.8-10.44) 08/24/20 05:17 Phosphorus 4.4 mg/dL (2.3-4.7) 08/23/20 05:18 Magnesium 2.0 mg/dL (1.6-2.6) 08/23/20 05:18 Albumin 3.3 g/dL (3.5-5.0) L 08/23/20 05:18 Nephrology AP PN - Plan ASSESSMENT: Persistent encephalopathy: Etiology inclear. Seem to be multifactorial. toxic/metabolic and subdural hemorrhage. Acute renal failure. ATN from severe rhabdomyolysis. Now on Hd Last HD on 08/22/2020 Hyperkalemia. Resolved. Metabolic acidosis. Improved Hyponatremia. Resolved Hypocalcemia. 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 Resolved. Presumed serotonin syndrome. Dehydration. Resolved. Involuntary movement/twitching. 2/2 neuromuscular hyperactivity 2/2 serotonin syndrome. Gait instability with frequent falls. Physical deconditioning. History of nephrolithiasis. HTN:. Control is acceptable Volume overload. Improved with HD Vitamin D deficiency Secondary hyperparathyroidism E coli UTi Subural hemorrhage PLAN Dc cyproheptadine. Consider seroquel. HD according to MWF schedule Monitor renal function and urine output. Continue labetalol and clonidine. Avoid nephrotoxic agents. Monitor intake and output.
[2020-08-24] MEDS: ALPRAZolam 0.5 MG TAB PO SCH (21:17)
[2020-08-25] MEDS: Labetalol 100 MG TAB PO SCH ×3 (00:38→18:02)
[2020-08-25] MEDS: Levothyroxine Sodium 25 MCG TAB PO SCH (05:59)
[2020-08-25] MEDS: Sodium Chloride 0.9% 1,000 ML IV SCH (06:09)
[2020-08-25 06:14] LABS: Anion Gap 17 mmol/L (10-20); BUN (Urea Nitrogen) 38 mg/dL (8.4-25.7); Calc. Creatinine Clearance 24 mL/min (70-130); Calcium 9.3 mg/dL (7.8-10.44); Carbon Dioxide 24 mmol/L (22-29); Chloride 104 mmol/L (98-107); Estimated GFR-MDRD 13; Glucose 95 mg/dL (70-105); Potassium 3.8 mmol/L (3.5-5.1); Sodium 141 mmol/L (136-145)
[2020-08-25 06:22] LABS: Band 1 % (5-11); Eosinophils 4 % (0-10); Hemoglobin 9.5 g/dL (14.0-18.0); Lymphocytes 32 % (21-51); MDiff Complete? YES; Mean Corpuscular HGB CONC 32.9 g/dL (32.0-36.0); Mean Corpuscular Hemoglobin 35.4 pg (27.0-31.0); Mean Platelet Volume 9.4 fL (7.4-10.4); Monocytes 6 % (0-10); Neutrophil 57 % (42-75); Platelet Count 200 thou/uL (130-400); Platelet Morphology Comment Appears Adequate; RBC Distribution Width 12.9 % (11.5-14.5); Red Blood Cell (RBC) Count 2.67 mill/uL (4.70-6.10); White Blood Cell (WBC) Count 15.3 thou/uL (4.8-10.8)
[2020-08-25] MEDS ORDERED: Heparin 10,000 UNITS/ 10 ML VIAL ONE (10:16)
--- NOTE | 2020-08-25 13:50 | PDOC.NEPPN ---
- Subjective Encounter Date: 08/25/20 Subjective: Seen in follow follow up for ARF requiring HD. No new problem. Still rambling. - Objective Vital Signs & Weight: Vital Signs (12 hours) Temp Pulse Resp BP Pulse Ox 08/25/20 13:05 89 08/25/20 12:00 98.2 F 75 16 136/74 97 08/25/20 08:00 98.1 F 89 16 125/74 96 08/25/20 04:54 97.7 F 87 20 151/89 H 100 Weight Admit Weight 230 lb Weight 211 lb 10.3 oz I&O: 08/24/20 08/25/20 08/26/20 06:59 06:59 06:59 Intake Total 1260 1600 Output Total 350 200 Balance 910 1400 Result Diagrams: 08/25/20 05:06 08/25/20 05:06 Nephrology ROS - Medication Medications: Active Medications Generic Name Dose Route Start Last Admin Trade Name Freq PRN Reason Stop Dose Admin Acetaminophen 1,000 mg 08/11/20 09:45 08/21/20 05:51 Acetaminophen 500 Mg Tab PO 1,000 mg Q6H PRN Administration Moderate to Severe Pain (6-10) Alprazolam 0.5 mg 08/19/20 21:00 08/24/20 21:17 Alprazolam 0.5 Mg Tab PO 0.5 mg HS [facility] Administration Clonidine 0.1 mg 08/11/20 05:42 08/21/20 09:51 Clonidine 0.1 Mg Tab PO 0.1 mg Q4H PRN Administration Hypertension Clonidine 0.2 mg 08/21/20 12:00 08/21/20 13:03 Clonidine 0.2mg/24 Hour Patch TD 0.2 mg Q7D [facility] Administration Ergocalciferol 1.25 mg 08/19/20 09:00 08/19/20 11:24 Ergocalciferol 1.25 Mg(50,000 Units) Cap PO Not Given Q7DAYS [facility] Ceftriaxone Sodium 2 gm/ 100 mls @ 200 mls/hr 08/17/20 10:00 08/24/20 10:55 Sodium Chloride IVPB 100 mls Q24HR [facility] Administration Sodium Chloride 1,000 mls @ 20 mls/hr 08/18/20 07:20 08/25/20 06:09 Normal Saline 0.9% IV 1,000 mls .Q24H [facility] Administration Levetiracetam 500 mg/ Device 100 mls @ 200 mls/hr 08/20/20 17:00 08/25/20 05:58 IVPB 100 mls 0500,1700 [facility] Administration Labetalol HCl 100 mg 08/17/20 23:59 08/25/20 13:05 Labetalol 100 Mg Tab PO Not Given 0800,1600,2359 [facility] Labetalol HCl 10 mg 08/17/20 15:51 08/17/20 16:20 Labetalol Hcl 100 Mg/20 Ml Vial SLOW IVP 10 mg Q4H PRN Administration SBP Greater Than 180 Levothyroxine Sodium 25 mcg 08/09/20 06:00 08/25/20 05:59 Levothyroxine Sodium 25 Mcg Tab PO 25 mcg 0600 [facility] Administration Nicotine 14 mg 08/12/20 09:00 08/24/20 10:55 Nicotine 14 Mg Patch TOP 14 mg Q24HR [facility] Administration Buprenorphine 8 Mg 0.25 each 08/22/20 09:00 08/24/20 09:44 Tab SL 0.25 each DAILY [facility] Administration Potassium Chloride 20 meq 08/21/20 09:00 08/25/20 13:05 Potassium Chloride 20 Meq Packet PER TUBE Not Given TID W[facility] Sodium Chloride 10 ml 08/12/20 21:00 08/25/20 13:05 Flush - Normal Saline 10 Ml Syringe IVF Not Given Q12HR [facility] - Exam General Appearance: awake alert Eye: anicteric sclera ENT: normocephalic atraumatic Respiratory: no wheezes, no rales, no ronchi, normal chest expansion Cardiovascular: RRR Gastrointestinal: soft, non-tender, non-distended, normal bowel sounds Extremities: no cyanosis, no edema Neurological: CN's grossly intact, no focal deficits Neurological - other findings: Awake. oriented x2. Nephrology Results - Labs Result Diagrams: 08/25/20 05:06 08/25/20 05:06 Lab results: WBC 15.3 thou/uL (4.8-10.8) H 08/25/20 05:06 Hgb 9.5 g/dL (14.0-18.0) L 08/25/20 05:06 Hct 28.7 % (42.0-52.0) L 08/25/20 05:06 MCV 107.0 fL (78.0-98.0) H 08/25/20 05:06 Plt Count 200 thou/uL (130-400) 08/25/20 05:06 Neutrophils % 56.3 % (42.0-75.0) 08/24/20 05:17 Band Neuts % (Manual) 1 % (5-11) L 08/25/20 05:06 ESR Westergren 68 mm/hr (Less than 20) H 08/16/20 04:06 Sodium 141 mmol/L (136-145) 08/25/20 05:06 Potassium 3.8 mmol/L (3.5-5.1) 08/25/20 05:06 Chloride 104 mmol/L (98-107) 08/25/20 05:06 Carbon Dioxide 24 mmol/L (22-29) 08/25/20 05:06 BUN 38 mg/dL (8.4-25.7) H 08/25/20 05:06 Creatinine 4.79 mg/dL (0.7-1.3) H 08/25/20 05:06 Glucose 95 mg/dL (70-105) 08/25/20 05:06 Lactic Acid 0.8 mmol/L (0.5-2.2) 08/08/20 11:13 Calcium 9.3 mg/dL (7.8-10.44) 08/25/20 05:06 Total Bilirubin 0.6 mg/dL (0.2-1.2) 08/18/20 04:34 AST 37 U/L (5-34) H 08/18/20 04:34 ALT 84 U/L (8-55) H 08/18/20 04:34 Alkaline Phosphatase 255 U/L (40-110) H 08/18/20 04:34 Ammonia 36 umol/L (18-72) 08/08/20 09:39 Creatine Kinase 261 U/L (30-200) H 08/18/20 04:34 Troponin I Less than 0.010 ng/mL (< 0.028) 08/08/20 09:39 C-Reactive Protein 4.44 mg/dL (= or < 0.5) H 08/16/20 04:06 Serum Total Protein 5.7 g/dL (6.0-8.3) L 08/18/20 04:34 Albumin 3.3 g/dL (3.5-5.0) L 08/23/20 05:18 Urine Ketones Negative mg/dL (Negative) 08/17/20 11:30 Urine Blood Large (Negative) A 08/17/20 11:30 Urine Nitrite Negative (Negative) 08/17/20 11:30 Ur Leukocyte Esterase Large (Negative) H 08/17/20 11:30 Urine RBC Greater than 50 HPF (0-3) A 08/17/20 11:30 Urine WBC Greater Than 50 HPF (0-3) A 08/17/20 11:30 Ur Squamous Epith Cells 0-3 HPF (0-3) 08/17/20 11:30 Urine Bacteria 3+ HPF (None Seen) A 08/17/20 11:30 Sodium 141 mmol/L (136-145) 08/25/20 05:06 Potassium 3.8 mmol/L (3.5-5.1) 08/25/20 05:06 Chloride 104 mmol/L (98-107) 08/25/20 05:06 Carbon Dioxide 24 mmol/L (22-29) 08/25/20 05:06 Anion Gap 17 mmol/L (-) 08/25/20 05:06 BUN 38 mg/dL (8.4-25.7) H 08/25/20 05:06 Creatinine 4.79 mg/dL (0.7-1.3) H 08/25/20 05:06 Glucose 95 mg/dL (70-105) 08/25/20 05:06 Calcium 9.3 mg/dL (7.8-10.44) 08/25/20 05:06 Phosphorus 4.4 mg/dL (2.3-4.7) 08/23/20 05:18 Magnesium 2.0 mg/dL (1.6-2.6) 08/23/20 05:18 Albumin 3.3 g/dL (3.5-5.0) L 08/23/20 05:18 Nephrology AP PN - Plan ASSESSMENT: Persistent encephalopathy: Etiology inclear. Seem to be multifactorial. toxic/metabolic and subdural hemorrhage. Acute renal failure. ATN from severe rhabdomyolysis. Now on Hd Last HD on 08/22/2020 Hyperkalemia. Resolved. Metabolic acidosis. Improved Hyponatremia. Resolved Hypocalcemia. 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 Resolved. Presumed serotonin syndrome. Dehydration. Resolved. Involuntary movement/twitching. 2/2 neuromuscular hyperactivity 2/2 serotonin syndrome. Improved. Physical deconditioning. History of nephrolithiasis. HTN:. Control is acceptable Volume overload. Resolved. Vitamin D deficiency Secondary hyperparathyroidism E coli UTi Subural hemorrhage PLAN HD today. See EMR for order Agree with seroquel. Monitor renal function and urine output. Continue labetalol and clonidine. Avoid nephrotoxic agents. Monitor intake and output.
[2020-08-25] MEDS: BUPRENORPHINE 8 MG SL SCH (14:25)
[2020-08-25] MEDS: cefTRIAXone\\ROCEPHIN 2 GM in Sodium Chloride 0.9% 100 ML IVPB SCH (14:26)
[2020-08-25] MEDS: Nicotine 14 MG PATCH TOP SCH (14:27)
[2020-08-25] MEDS: ALPRAZolam 0.5 MG TAB PO SCH (20:12)
[2020-08-26] MEDS: Labetalol 100 MG TAB PO SCH ×4 (00:18→23:08)
[2020-08-26] MEDS: Levothyroxine Sodium 25 MCG TAB PO SCH (04:37)
[2020-08-26] MEDS: Sodium Chloride 0.9% 1,000 ML IV SCH (04:40)
[2020-08-26 05:52] LABS: Anion Gap 23 mmol/L (10-20); BUN (Urea Nitrogen) 25 mg/dL (8.4-25.7); Calc. Creatinine Clearance 32 mL/min (70-130); Calcium 9.1 mg/dL (7.8-10.44); Carbon Dioxide 15 mmol/L (22-29); Chloride 105 mmol/L (98-107); Estimated GFR-MDRD 18; Glucose 86 mg/dL (70-105); Potassium 4.7 mmol/L (3.5-5.1); Sodium 138 mmol/L (136-145)
[2020-08-26 06:05] LABS: Eosinophils 2 % (0-10); Hemoglobin 10.5 g/dL (14.0-18.0); Hypochromia SLIGHT = 6-15 cells (100X) (0-5/hpf); Lymphocytes 13 % (21-51); MDiff Complete? YES; Macrocytosis SLIGHT = 6-15 cells (100X) (0-5/hpf); Mean Corpuscular HGB CONC 30.6 g/dL (32.0-36.0); Mean Corpuscular Hemoglobin 33.8 pg (27.0-31.0); Mean Platelet Volume 10.1 fL (7.4-10.4); Monocytes 11 % (0-10); Neutrophil 74 % (42-75); Platelet Count 128 thou/uL (130-400); Platelet Morphology Comment Appears Decreased; RBC Distribution Width 13.1 % (11.5-14.5); Red Blood Cell (RBC) Count 3.11 mill/uL (4.70-6.10); White Blood Cell (WBC) Count 17.8 thou/uL (4.8-10.8)
[2020-08-26] MEDS: Ergocalciferol 1.25 MG(50,000 UNITS) CAP PO SCH (08:51)
[2020-08-26] MEDS: Nicotine 14 MG PATCH TOP SCH (08:54)
[2020-08-26] MEDS: BUPRENORPHINE 8 MG SL SCH (08:54)
[2020-08-26] MEDS: cefTRIAXone\\ROCEPHIN 2 GM in Sodium Chloride 0.9% 100 ML IVPB SCH (09:00)
--- NOTE | 2020-08-26 13:32 | PDOC.NEPPN ---
- Subjective Encounter Date: 08/26/20 Subjective: No new problem. Calmer but still rambling. - Objective Vital Signs & Weight: Vital Signs (12 hours) Temp Pulse Resp BP Pulse Ox 08/26/20 08:47 101 H 08/26/20 08:13 98.7 F 101 H 20 147/89 H 96 08/26/20 08:00 98.7 F 101 H 16 147/89 H 97 Weight Admit Weight 230 lb Weight 211 lb 10.3 oz I&O: 08/25/20 08/26/20 08/27/20 06:59 06:59 06:59 Intake Total 1600 750 Output Total 200 Balance 1400 750 Result Diagrams: 08/26/20 05:19 08/26/20 05:19 Nephrology ROS - Medication Medications: Active Medications Generic Name Dose Route Start Last Admin Trade Name Freq PRN Reason Stop Dose Admin Acetaminophen 1,000 mg 08/11/20 09:45 08/21/20 05:51 Acetaminophen 500 Mg Tab PO 1,000 mg Q6H PRN Administration Moderate to Severe Pain (6-10) Alprazolam 0.5 mg 08/19/20 21:00 08/25/20 20:12 Alprazolam 0.5 Mg Tab PO 0.5 mg HS WESLEY Administration Clonidine 0.1 mg 08/11/20 05:42 08/21/20 09:51 Clonidine 0.1 Mg Tab PO 0.1 mg Q4H PRN Administration Hypertension Clonidine 0.2 mg 08/21/20 12:00 08/21/20 13:03 Clonidine 0.2mg/24 Hour Patch TD 0.2 mg Q7D W[facility]LEY Administration Ergocalciferol 1.25 mg 08/19/20 09:00 08/26/20 08:51 Ergocalciferol 1.25 Mg(50,000 Units) Cap PO 1.25 mg Q7DAYS W[facility]LEY Administration Ceftriaxone Sodium 2 gm/ 100 mls @ 200 mls/hr 08/17/20 10:00 08/26/20 09:00 Sodium Chloride IVPB 100 mls Q24HR W[facility]LEY Administration Sodium Chloride 1,000 mls @ 20 mls/hr 08/18/20 07:20 08/26/20 04:40 Normal Saline 0.9% IV Not Given .Q24H W[facility]LEY Levetiracetam 500 mg/ Device 100 mls @ 200 mls/hr 10/30/20 17:00 08/26/20 04:36 IVPB 100 mls 0500,1700 WESLEY Administration Labetalol HCl 100 mg 08/17/20 23:59 08/26/20 08:47 Labetalol 100 Mg Tab PO 100 mg 0800,1600,2359 WESLEY Administration Labetalol HCl 10 mg 08/17/20 15:51 08/17/20 16:20 Labetalol Hcl 100 Mg/20 Ml Vial SLOW IVP 10 mg Q4H PRN Administration SBP Greater Than 180 Levothyroxine Sodium 25 mcg 08/09/20 06:00 08/26/20 04:37 Levothyroxine Sodium 25 Mcg Tab PO 25 mcg 0600 WESLEY Administration Nicotine 14 mg 08/12/20 09:00 08/26/20 08:54 Nicotine 14 Mg Patch TOP 14 mg Q24HR W[facility]LEY Administration Buprenorphine 8 Mg 0.25 each 08/22/20 09:00 08/26/20 08:54 Tab SL 0.25 each DAILY W[facility]LEY Administration Sodium Chloride 10 ml 08/12/20 21:00 08/26/20 08:58 Flush - Normal Saline 10 Ml Syringe IVF Not Given Q12HR WESLEY - Exam General Appearance: awake alert Eye: anicteric sclera ENT: normocephalic atraumatic, moist mucosa Neck: supple, symmetric, no JVD Respiratory: no wheezes, no rales, no ronchi, normal chest expansion Cardiovascular: RRR Gastrointestinal: soft, non-tender, non-distended, normal bowel sounds Extremities: no cyanosis, no edema Neurological: CN's grossly intact, no focal deficits Neurological - other findings: oriented x2 at least Nephrology Results - Labs Result Diagrams: 08/26/20 05:19 08/26/20 05:19 Lab results: WBC 17.8 thou/uL (4.8-10.8) H 08/26/20 05:19 Hgb 10.5 g/dL (14.0-18.0) L 08/26/20 05:19 Hct 34.3 % (42.0-52.0) L 08/26/20 05:19 MCV 110.0 fL (78.0-98.0) H 08/26/20 05:19 Plt Count 128 thou/uL (130-400) L 08/26/20 05:19 Neutrophils % 56.3 % (42.0-75.0) 08/24/20 05:17 Band Neuts % (Manual) 1 % (5-11) L 08/25/20 05:06 ESR Westergren 68 mm/hr (Less than 20) H 08/16/20 04:06 Sodium 138 mmol/L (136-145) 08/26/20 05:19 Potassium 4.7 mmol/L (3.5-5.1) 08/26/20 05:19 Chloride 105 mmol/L (98-107) 08/26/20 05:19 Carbon Dioxide 15 mmol/L (22-29) L 08/26/20 05:19 BUN 25 mg/dL (8.4-25.7) 08/26/20 05:19 Creatinine 3.63 mg/dL (0.7-1.3) H 08/26/20 05:19 Glucose 86 mg/dL (70-105) 08/26/20 05:19 Lactic Acid 0.8 mmol/L (0.5-2.2) 08/08/20 11:13 Calcium 9.1 mg/dL (7.8-10.44) 08/26/20 05:19 Total Bilirubin 0.6 mg/dL (0.2-1.2) 08/18/20 04:34 AST 37 U/L (5-34) H 08/18/20 04:34 ALT 84 U/L (8-55) H 08/18/20 04:34 Alkaline Phosphatase 255 U/L (40-110) H 08/18/20 04:34 Ammonia 36 umol/L (18-72) 08/08/20 09:39 Creatine Kinase 261 U/L (30-200) H 08/18/20 04:34 Troponin I Less than 0.010 ng/mL (< 0.028) 08/08/20 09:39 C-Reactive Protein 4.44 mg/dL (= or < 0.5) H 08/16/20 04:06 Serum Total Protein 5.7 g/dL (6.0-8.3) L 08/18/20 04:34 Albumin 3.3 g/dL (3.5-5.0) L 08/23/20 05:18 Urine Ketones Negative mg/dL (Negative) 08/17/20 11:30 Urine Blood Large (Negative) A 08/17/20 11:30 Urine Nitrite Negative (Negative) 08/17/20 11:30 Ur Leukocyte Esterase Large (Negative) H 08/17/20 11:30 Urine RBC Greater than 50 HPF (0-3) A 08/17/20 11:30 Urine WBC Greater Than 50 HPF (0-3) A 08/17/20 11:30 Ur Squamous Epith Cells 0-3 HPF (0-3) 08/17/20 11:30 Urine Bacteria 3+ HPF (None Seen) A 08/17/20 11:30 Sodium 138 mmol/L (136-145) 08/26/20 05:19 Potassium 4.7 mmol/L (3.5-5.1) 08/26/20 05:19 Chloride 105 mmol/L (98-107) 08/26/20 05:19 Carbon Dioxide 15 mmol/L (22-29) L 08/26/20 05:19 Anion Gap 23 mmol/L (10-20) H 08/26/20 05:19 BUN 25 mg/dL (8.4-25.7) 08/26/20 05:19 Creatinine 3.63 mg/dL (0.7-1.3) H 08/26/20 05:19 Glucose 86 mg/dL (70-105) 08/26/20 05:19 Calcium 9.1 mg/dL (7.8-10.44) 08/26/20 05:19 Phosphorus 4.4 mg/dL (2.3-4.7) 08/23/20 05:18 Magnesium 2.0 mg/dL (1.6-2.6) 08/23/20 05:18 Albumin 3.3 g/dL (3.5-5.0) L 08/23/20 05:18 Nephrology AP PN - Plan ASSESSMENT: Persistent encephalopathy: Etiology inclear. Seem to be multifactorial. toxic/ metabolic and subdural hemorrhage. Acute renal failure. ATN from severe rhabdomyolysis. Now on Hd Last HD on 08/25/2020 Hyperkalemia. Resolved. Hypokalemia. Requiring supplementation. Metabolic acidosis. Improved Hyponatremia. Resolved Hypocalcemia. 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 Resolved. Presumed serotonin syndrome. Involuntary movement/twitching. 2/2 neuromuscular hyperactivity 2/2 serotonin syndrome. Improved. Physical deconditioning. History of nephrolithiasis. HTN:. Control is acceptable Volume overload. Resolved. Vitamin D deficiency Secondary hyperparathyroidism Subural hemorrhage PLAN Stop potassium supplementation. HD MWF Monitor renal function and urine output. Continue labetalol and clonidine. Avoid nephrotoxic agents. Monitor intake and output.
[2020-08-26] MEDS: ALPRAZolam 0.5 MG TAB PO SCH (21:11)
[2020-08-27] MEDS: Levothyroxine Sodium 25 MCG TAB PO SCH (04:55)
[2020-08-27 07:07] LABS: Hemoglobin 9.5 g/dL (14.0-18.0); Mean Corpuscular HGB CONC 33.5 g/dL (32.0-36.0); Mean Corpuscular Hemoglobin 35.4 pg (27.0-31.0); Mean Platelet Volume 9.6 fL (7.4-10.4); Platelet Count 184 thou/uL (130-400); RBC Distribution Width 12.9 % (11.5-14.5); Red Blood Cell (RBC) Count 2.67 mill/uL (4.70-6.10); White Blood Cell (WBC) Count 16.2 thou/uL (4.8-10.8)
[2020-08-27 07:18] LABS: Anion Gap 19 mmol/L (10-20); BUN (Urea Nitrogen) 34 mg/dL (8.4-25.7); Calc. Creatinine Clearance 24 mL/min (70-130); Calcium 9.2 mg/dL (7.8-10.44); Carbon Dioxide 20 mmol/L (22-29); Chloride 103 mmol/L (98-107); Estimated GFR-MDRD 13; Glucose 90 mg/dL (70-105); Potassium 3.7 mmol/L (3.5-5.1); Sodium 138 mmol/L (136-145)
[2020-08-27] MEDS: Labetalol 100 MG TAB PO SCH ×3 (08:29→20:49)
[2020-08-27] MEDS: Sodium Chloride 0.9% 1,000 ML IV SCH (08:30)
[2020-08-27] MEDS: BUPRENORPHINE 8 MG SL SCH (08:31)
[2020-08-27] MEDS: Nicotine 14 MG PATCH TOP SCH (08:33)
[2020-08-27] MEDS: cefTRIAXone\\ROCEPHIN 2 GM in Sodium Chloride 0.9% 100 ML IVPB SCH (08:33)
[2020-08-27 10:03] LABS: Eosinophils 3 % (0-10); Hypochromia SLIGHT = 6-15 cells (100X) (0-5/hpf); Lymphocytes 26 % (21-51); MDiff Complete? YES; Metamyelocyte 1 % (0-0); Monocytes 4 % (0-10); Neutrophil 66 % (42-75); Platelet Morphology Comment Appears Adequate
--- NOTE | 2020-08-27 10:26 | CT ---
CT HEAD WITHOUT CONTRAST: Date: 08/27/2020 INDICATION: Follow-up subdural hematoma. Comparison made to prior head CT of 08/23/2020, 08/19/2020, and MRI of brain dated 08/18/2020. FINDINGS: The subdural extra-axial hematoma previously described continues to show resolution. There continues to be some very mild mixed density extra-axial fluid along the left frontal lobe, although this is le ss than on 08/23/2020 exam. Minimal extra-axial fluid seen along the right frontal lobe today. No merritt dence of acute hemorrhage. No mass or infarct. IMPRESSION: Continued resolution of the previously described subdural collections. POS: AH
[2020-08-27] MEDS: Acetaminophen 500 MG TAB PO PRN (10:40)
[2020-08-27] MEDS ORDERED: Heparin 10,000 UNITS/ 10 ML VIAL ONE (13:00)
[2020-08-27] MEDS ORDERED: Sterile Water 10 ML VIAL IVP SCH (13:00)
[2020-08-27] MEDS ORDERED: Activase 2 MG VIAL CATH SCH ×3 (13:00→17:00)
--- NOTE | 2020-08-27 14:45 | PDOC.NEPPN ---
- Subjective Encounter Date: 08/27/20 Subjective: Seen in follow for ARF requiring HD. Seen during hemodialysis. - Objective Vital Signs & Weight: Vital Signs (12 hours) Temp Pulse Resp BP BP Pulse Ox 08/27/20 08:29 96 135/88 08/27/20 08:00 95 08/27/20 07:40 98.4 F 96 22 H 135/88 95 Weight Admit Weight 230 lb Weight 211 lb 10.3 oz I&O: 08/26/20 08/27/20 08/28/20 06:59 06:59 06:59 Intake Total 750 740 Balance 750 740 Result Diagrams: 08/27/20 05:56 08/27/20 05:56 Nephrology ROS - Medication Medications: Active Medications Generic Name Dose Route Start Last Admin Trade Name Freq PRN Reason Stop Dose Admin Acetaminophen 1,000 mg 08/11/20 09:45 08/27/20 10:40 Acetaminophen 500 Mg Tab PO 1,000 mg Q6H PRN Administration Moderate to Severe Pain (6-10) Alprazolam 0.5 mg 08/19/20 21:00 08/26/20 21:11 Alprazolam 0.5 Mg Tab PO 0.5 mg HS WESLEY Administration Clonidine 0.1 mg 08/11/20 05:42 08/21/20 09:51 Clonidine 0.1 Mg Tab PO 0.1 mg Q4H PRN Administration Hypertension Clonidine 0.2 mg 08/21/20 12:00 08/21/20 13:03 Clonidine 0.2mg/24 Hour Patch TD 0.2 mg Q7D W[facility] Administration Ergocalciferol 1.25 mg 08/19/20 09:00 08/26/20 08:51 Ergocalciferol 1.25 Mg(50,000 Units) Cap PO 1.25 mg Q7DAYS W[facility] Administration Ceftriaxone Sodium 2 gm/ 100 mls @ 200 mls/hr 08/17/20 10:00 08/27/20 08:33 Sodium Chloride IVPB 100 mls Q24HR W[facility] Administration Sodium Chloride 1,000 mls @ 20 mls/hr 08/18/20 07:20 08/27/20 08:30 Normal Saline 0.9% IV 1,000 mls .Q24H W[facility] Administration Levetiracetam 500 mg/ Device 100 mls @ 200 mls/hr 08/20/20 17:00 08/27/20 04:55 IVPB 100 mls 0500,1700 W[facility] Administration Labetalol HCl 100 mg 08/17/20 23:59 08/27/20 08:29 Labetalol 100 Mg Tab PO 100 mg 0800,1600,2359 W[facility] Administration Labetalol HCl 10 mg 08/17/20 15:51 08/17/20 16:20 Labetalol Hcl 100 Mg/20 Ml Vial SLOW IVP 10 mg Q4H PRN Administration SBP Greater Than 180 Levothyroxine Sodium 25 mcg 08/09/20 06:00 08/27/20 04:55 Levothyroxine Sodium 25 Mcg Tab PO 25 mcg 0600 W[facility] Administration Nicotine 14 mg 08/12/20 09:00 08/27/20 08:33 Nicotine 14 Mg Patch TOP 14 mg Q24HR W[facility] Administration Buprenorphine 8 Mg 0.25 each 08/22/20 09:00 08/27/20 08:31 Tab SL Not Given DAILY W[facility] Quetiapine Fumarate 50 mg 08/26/20 20:00 08/26/20 21:11 Quetiapine Fumarate 100 Mg Tab PO 50 mg 2000 W[facility] Administration Sodium Chloride 10 ml 08/12/20 21:00 08/27/20 08:32 Flush - Normal Saline 10 Ml Syringe IVF Not Given Q12HR [facility] - Exam General Appearance: awake alert Eye: anicteric sclera ENT: normocephalic atraumatic Neck: supple, symmetric, no JVD Respiratory: CTAB Cardiovascular: RRR Gastrointestinal: soft, non-tender, non-distended, normal bowel sounds Extremities: no cyanosis, no edema Neurological: CN's grossly intact, no focal deficits Neurological - other findings: Awake. oriented x 2 at least. Nephrology Results - Labs Result Diagrams: 08/27/20 05:56 08/27/20 05:56 Lab results: WBC 16.2 thou/uL (4.8-10.8) H 08/27/20 05:56 Hgb 9.5 g/dL (14.0-18.0) L 08/27/20 05:56 Hct 28.3 % (42.0-52.0) L 08/27/20 05:56 MCV 106.0 fL (78.0-98.0) H 08/27/20 05:56 Plt Count 184 thou/uL (130-400) 08/27/20 05:56 Neutrophils % 56.3 % (42.0-75.0) 08/24/20 05:17 Band Neuts % (Manual) 1 % (5-11) L 08/25/20 05:06 ESR Westergren 68 mm/hr (Less than 20) H 08/16/20 04:06 Sodium 138 mmol/L (136-145) 08/27/20 05:56 Potassium 3.7 mmol/L (3.5-5.1) 08/27/20 05:56 Chloride 103 mmol/L (98-107) 08/27/20 05:56 Carbon Dioxide 20 mmol/L (22-29) L 08/27/20 05:56 BUN 34 mg/dL (8.4-25.7) H 08/27/20 05:56 Creatinine 4.69 mg/dL (0.7-1.3) H 08/27/20 05:56 Glucose 90 mg/dL (70-105) 08/27/20 05:56 Lactic Acid 0.8 mmol/L (0.5-2.2) 08/08/20 11:13 Calcium 9.2 mg/dL (7.8-10.44) 08/27/20 05:56 Total Bilirubin 0.6 mg/dL (0.2-1.2) 08/18/20 04:34 AST 37 U/L (5-34) H 08/18/20 04:34 ALT 84 U/L (8-55) H 08/18/20 04:34 Alkaline Phosphatase 255 U/L (40-110) H 08/18/20 04:34 Ammonia 36 umol/L (18-72) 08/08/20 09:39 Creatine Kinase 261 U/L (30-200) H 08/18/20 04:34 Troponin I Less than 0.010 ng/mL (< 0.028) 08/08/20 09:39 C-Reactive Protein 4.44 mg/dL (= or < 0.5) H 08/16/20 04:06 Serum Total Protein 5.7 g/dL (6.0-8.3) L 08/18/20 04:34 Albumin 3.3 g/dL (3.5-5.0) L 08/23/20 05:18 Urine Ketones Negative mg/dL (Negative) 08/17/20 11:30 Urine Blood Large (Negative) A 08/17/20 11:30 Urine Nitrite Negative (Negative) 08/17/20 11:30 Ur Leukocyte Esterase Large (Negative) H 08/17/20 11:30 Urine RBC Greater than 50 HPF (0-3) A 08/17/20 11:30 Urine WBC Greater Than 50 HPF (0-3) A 08/17/20 11:30 Ur Squamous Epith Cells 0-3 HPF (0-3) 08/17/20 11:30 Urine Bacteria 3+ HPF (None Seen) A 08/17/20 11:30 Sodium 138 mmol/L (136-145) 08/27/20 05:56 Potassium 3.7 mmol/L (3.5-5.1) 08/27/20 05:56 Chloride 103 mmol/L (98-107) 08/27/20 05:56 Carbon Dioxide 20 mmol/L (22-29) L 08/27/20 05:56 Anion Gap 19 mmol/L (-) 08/27/20 05:56 BUN 34 mg/dL (8.4-25.7) H 08/27/20 05:56 Creatinine 4.69 mg/dL (0.7-1.3) H 08/27/20 05:56 Glucose 90 mg/dL (70-105) 08/27/20 05:56 Calcium 9.2 mg/dL (7.8-10.44) 08/27/20 05:56 Phosphorus 4.4 mg/dL (2.3-4.7) 08/23/20 05:18 Magnesium 2.0 mg/dL (1.6-2.6) 08/23/20 05:18 Albumin 3.3 g/dL (3.5-5.0) L 08/23/20 05:18 Nephrology AP PN - Plan ASSESSMENT: Persistent encephalopathy: Etiology inclear. Seem to be multifactorial. toxic/metabolic and subdural hemorrhage. Less agitated today. Acute renal failure. ATN from severe rhabdomyolysis. Reduced flow noted during HD today suggestive of access malfunction. Hyperkalemia. Resolved. Hypokalemia. Requiring supplementation. Metabolic acidosis. Improved Hyponatremia. Resolved Hypocalcemia. 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 Resolved. Presumed serotonin syndrome. Involuntary movement/twitching. 2/2 neuromuscular hyperactivity 2/2 serotonin syndrome. Improved. Physical deconditioning. History of nephrolithiasis. HTN:. Control is acceptable Volume overload. Resolved. Vitamin D deficiency Secondary hyperparathyroidism Subural hemorrhage PLAN Will do alteplase to TDC overnight Continue HD MWF Monitor renal function and urine output. Continue labetalol and clonidine. Avoid nephrotoxic agents. Monitor intake and output.
[2020-08-27] MEDS: ALPRAZolam 0.5 MG TAB PO SCH (20:08)
[2020-08-28] MEDS: Levothyroxine Sodium 25 MCG TAB PO SCH (04:42)
[2020-08-28 05:59] LABS: Anion Gap 19 mmol/L (10-20); BUN (Urea Nitrogen) 22 mg/dL (8.4-25.7); Calc. Creatinine Clearance 31 mL/min (70-130); Calcium 9.3 mg/dL (7.8-10.44); Carbon Dioxide 22 mmol/L (22-29); Chloride 100 mmol/L (98-107); Estimated GFR-MDRD 17; Glucose 79 mg/dL (70-105); Potassium 3.4 mmol/L (3.5-5.1); Sodium 138 mmol/L (136-145)
[2020-08-28 06:07] LABS: Band 4 % (5-11); Eosinophils 3 % (0-10); Hemoglobin 10.6 g/dL (14.0-18.0); Lymphocytes 32 % (21-51); MDiff Complete? YES; Mean Corpuscular HGB CONC 32.9 g/dL (32.0-36.0); Mean Corpuscular Hemoglobin 35.6 pg (27.0-31.0); Mean Platelet Volume 9.9 fL (7.4-10.4); Monocytes 4 % (0-10); Neutrophil 57 % (42-75); Platelet Count 187 thou/uL (130-400); RBC Distribution Width 13.1 % (11.5-14.5); Red Blood Cell (RBC) Count 2.98 mill/uL (4.70-6.10); White Blood Cell (WBC) Count 18.6 thou/uL (4.8-10.8)
[2020-08-28] MEDS: Lactated Ringer's 1,000 ML IV SCH ×2 (08:14→16:23)
[2020-08-28] MEDS: Nicotine 14 MG PATCH TOP SCH (08:15)
[2020-08-28] MEDS: Labetalol 100 MG TAB PO SCH ×2 (08:15→16:24)
[2020-08-28] MEDS: BUPRENORPHINE 8 MG SL SCH (08:15)
--- NOTE | 2020-08-28 09:42 | PDOC.NEPPN ---
- Subjective Encounter Date: 08/28/20 Subjective: Seen in follow up for ARF requiring HD. Rambling has subsided but still confused and with hallucinations. Last HD yesterday 08/27/2020. - Objective Vital Signs & Weight: Vital Signs (12 hours) Temp Pulse Resp BP Pulse Ox 08/28/20 08:15 101 H 08/28/20 07:26 98.3 F 101 H 20 130/88 99 Weight Admit Weight 230 lb Weight 211 lb 10.3 oz I&O: 08/27/20 08/28/20 08/29/20 06:59 06:59 06:59 Intake Total 740 540 Output Total 3000 Balance 740 -2460 Result Diagrams: 08/28/20 05:09 08/28/20 05:09 Nephrology ROS - Medication Medications: Active Medications Generic Name Dose Route Start Last Admin Trade Name Freq PRN Reason Stop Dose Admin Acetaminophen 1,000 mg 08/11/20 09:45 08/27/20 10:40 Acetaminophen 500 Mg Tab PO 1,000 mg Q6H PRN Administration Moderate to Severe Pain (6-10) Alprazolam 0.5 mg 08/19/20 21:00 08/27/20 20:08 Alprazolam 0.5 Mg Tab PO 0.5 mg HS W[facility]LEY Administration Clonidine 0.1 mg 08/11/20 05:42 08/21/20 09:51 Clonidine 0.1 Mg Tab PO 0.1 mg Q4H PRN Administration Hypertension Clonidine 0.2 mg 08/21/20 12:00 08/21/20 13:03 Clonidine 0.2mg/24 Hour Patch TD 0.2 mg Q7D W[facility] Administration Ergocalciferol 1.25 mg 08/19/20 09:00 08/26/20 08:51 Ergocalciferol 1.25 Mg(50,000 Units) Cap PO 1.25 mg Q7DAYS W[facility] Administration Levetiracetam 500 mg/ Device 100 mls @ 200 mls/hr 08/20/20 17:00 08/28/20 04:42 IVPB 100 mls 0500,1700 W[facility] Administration Lactated Ringer's 1,000 mls @ 100 mls/hr 08/28/20 07:00 08/28/20 08:14 Lactated Ringer's IV 1,000 mls .Q10H W[facility] Administration Labetalol HCl 100 mg 08/17/20 23:59 08/28/20 08:15 Labetalol 100 Mg Tab PO Not Given 0800,1600,2359 W[facility] Labetalol HCl 10 mg 08/17/20 15:51 08/17/20 16:20 Labetalol Hcl 100 Mg/20 Ml Vial SLOW IVP 10 mg Q4H PRN Administration SBP Greater Than 180 Levothyroxine Sodium 25 mcg 08/09/20 06:00 08/28/20 04:42 Levothyroxine Sodium 25 Mcg Tab PO 25 mcg 0600 W[facility] Administration Nicotine 14 mg 08/12/20 09:00 08/28/20 08:15 Nicotine 14 Mg Patch TOP 14 mg Q24HR [facility] Administration Buprenorphine 8 Mg 0.25 each 08/22/20 09:00 08/28/20 08:15 Tab SL Not Given DAILY [facility] Quetiapine Fumarate 50 mg 08/26/20 20:00 08/27/20 20:08 Quetiapine Fumarate 100 Mg Tab PO 50 mg 2000 W[facility] Administration Sodium Chloride 10 ml 08/12/20 21:00 08/28/20 08:16 Flush - Normal Saline 10 Ml Syringe IVF 10 ml Q12HR [facility] Administration - Exam General Appearance: awake alert Eye: PERRL, anicteric sclera ENT: normocephalic atraumatic, dry oral mucosa Neck: supple, symmetric, no JVD Respiratory: no wheezes, no rales, no ronchi, normal chest expansion, no tachypnea Cardiovascular: RRR Heart - other findings: tachycardia Gastrointestinal: soft, non-tender, non-distended, normal bowel sounds Extremities: no cyanosis, no edema Neurological: CN's grossly intact, no focal deficits Neurological - other findings: oriented to person and person. confusion and some hallucinations persists. Nephrology Results - Labs Result Diagrams: 08/28/20 05:09 08/28/20 05:09 Lab results: WBC 18.6 thou/uL (4.8-10.8) H 08/28/20 05:09 Hgb 10.6 g/dL (14.0-18.0) L 08/28/20 05:09 Hct 32.3 % (42.0-52.0) L 08/28/20 05:09 MCV 108.0 fL (78.0-98.0) H 08/28/20 05:09 Plt Count 187 thou/uL (130-400) 08/28/20 05:09 Neutrophils % 56.3 % (42.0-75.0) 08/24/20 05:17 Band Neuts % (Manual) 4 % (5-11) L 08/28/20 05:09 ESR Westergren 68 mm/hr (Less than 20) H 08/16/20 04:06 Sodium 138 mmol/L (136-145) 08/28/20 05:09 Potassium 3.4 mmol/L (3.5-5.1) L 08/28/20 05:09 Chloride 100 mmol/L (98-107) 08/28/20 05:09 Carbon Dioxide 22 mmol/L (22-29) 08/28/20 05:09 BUN 22 mg/dL (8.4-25.7) 08/28/20 05:09 Creatinine 3.66 mg/dL (0.7-1.3) H 08/28/20 05:09 Glucose 79 mg/dL (70-105) 08/28/20 05:09 Lactic Acid 0.8 mmol/L (0.5-2.2) 08/08/20 11:13 Calcium 9.3 mg/dL (7.8-10.44) 08/28/20 05:09 Total Bilirubin 0.6 mg/dL (0.2-1.2) 08/18/20 04:34 AST 37 U/L (5-34) H 08/18/20 04:34 ALT 84 U/L (8-55) H 08/18/20 04:34 Alkaline Phosphatase 255 U/L (40-110) H 08/18/20 04:34 Ammonia 36 umol/L (18-72) 08/08/20 09:39 Creatine Kinase 261 U/L (30-200) H 08/18/20 04:34 Troponin I Less than 0.010 ng/mL (< 0.028) 08/08/20 09:39 C-Reactive Protein 4.44 mg/dL (= or < 0.5) H 08/16/20 04:06 Serum Total Protein 5.7 g/dL (6.0-8.3) L 08/18/20 04:34 Albumin 3.3 g/dL (3.5-5.0) L 08/23/20 05:18 Urine Ketones Negative mg/dL (Negative) 08/17/20 11:30 Urine Blood Large (Negative) A 08/17/20 11:30 Urine Nitrite Negative (Negative) 08/17/20 11:30 Ur Leukocyte Esterase Large (Negative) H 08/17/20 11:30 Urine RBC Greater than 50 HPF (0-3) A 08/17/20 11:30 Urine WBC Greater Than 50 HPF (0-3) A 08/17/20 11:30 Ur Squamous Epith Cells 0-3 HPF (0-3) 08/17/20 11:30 Urine Bacteria 3+ HPF (None Seen) A 08/17/20 11:30 Sodium 138 mmol/L (136-145) 08/28/20 05:09 Potassium 3.4 mmol/L (3.5-5.1) L 08/28/20 05:09 Chloride 100 mmol/L (98-107) 08/28/20 05:09 Carbon Dioxide 22 mmol/L (22-29) 08/28/20 05:09 Anion Gap 19 mmol/L (10-20) 08/28/20 05:09 BUN 22 mg/dL (8.4-25.7) 08/28/20 05:09 Creatinine 3.66 mg/dL (0.7-1.3) H 08/28/20 05:09 Glucose 79 mg/dL (70-105) 08/28/20 05:09 Calcium 9.3 mg/dL (7.8-10.44) 08/28/20 05:09 Phosphorus 4.4 mg/dL (2.3-4.7) 08/23/20 05:18 Magnesium 2.0 mg/dL (1.6-2.6) 08/23/20 05:18 Albumin 3.3 g/dL (3.5-5.0) L 08/23/20 05:18 Nephrology AP PN - Plan ASSESSMENT: Volume depletion Hypokalemia Persistent encephalopathy: Etiology inclear. Seem to be multifactorial. toxic/metabolic and subdural hemorrhage. Acute renal failure. ATN from severe rhabdomyolysis. Reduced flow noted during HD today suggestive of access malfunction. Hyperkalemia. Resolved. Hypokalemia. Requiring supplementation. Metabolic acidosis. Improved Hyponatremia. Resolved Hypocalcemia. 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 Resolved. Presumed serotonin syndrome. Involuntary movement/twitching. 2/2 neuromuscular hyperactivity 2/2 serotonin syndrome. Improved. Physical deconditioning. History of nephrolithiasis. HTN:. Control is acceptable Volume overload. Resolved. Vitamin D deficiency Secondary hyperparathyroidism Subural hemorrhage. Anemia PLAN Start LR at 100 cc/hr No need for HD today. Continue HD MWF Monitor renal function and urine output. Continue labetalol and clonidine. Hold for low BP Avoid nephrotoxic agents. Monitor intake and output. Re evaluate need for restraints and discontinue if not needed Get iron chjemistry
[2020-08-28] MEDS ORDERED: Heparin 10,000 UNITS/ 10 ML VIAL ONE (12:58)
[2020-08-28] MEDS: Nicotine 7 MG PATCH TOP SCH (13:03)
[2020-08-28] MEDS: cloNIDine 0.2mg/24 Hour PATCH TD SCH (13:03)
--- NOTE | 2020-08-28 14:22 | EKG ---
Test Reason : Blood Pressure : / mmHG Vent. Rate : 105 BPM Atrial Rate : 105 BPM P-R Int : 176 ms QRS Dur : 106 ms QT Int : 330 ms P-R-T Axes : 041 -13 021 degrees QTc Int : 436 ms Sinus tachycardia Otherwise normal ECG Confirmed by TIUMR CHUN DO ([id number]), photo editor SHINE KIRKPATRICK ([id number]) on 08/28/2020 2:22:00 PM Referred By: Confirmed By:TIMUR CHUN DO
[2020-08-28] MEDS: busPIRone HCl 10 MG TAB PO SCH (20:13)
[2020-08-29] MEDS: Lactated Ringer's 1,000 ML IV SCH ×2 (00:42→15:48)
[2020-08-29] MEDS: Labetalol 100 MG TAB PO SCH ×3 (00:42→15:57)
[2020-08-29] MEDS: Acetaminophen 500 MG TAB PO PRN ×2 (03:58→21:30)
[2020-08-29] MEDS: Levothyroxine Sodium 25 MCG TAB PO SCH (05:51)
[2020-08-29 06:15] LABS: Albumin 3.4 g/dL (3.5-5.0); Anion Gap 18 mmol/L (10-20); BUN (Urea Nitrogen) 31 mg/dL (8.4-25.7); BUN/Creatinine Ratio 6.57; Calc. Creatinine Clearance 24 mL/min (70-130); Carbon Dioxide 22 mmol/L (22-29); Chloride 102 mmol/L (98-107); Estimated GFR-MDRD 13; Glucose 108 mg/dL (70-105); Phosphorus 4.6 mg/dL (2.3-4.7); Potassium 3.3 mmol/L (3.5-5.1); Sodium 139 mmol/L (136-145)
[2020-08-29 06:17] LABS: Iron 59 ug/dL (65-175); Iron Binding Capacity, Total 191 mcg/dL (261-462)
[2020-08-29] MEDS: busPIRone HCl 10 MG TAB PO SCH ×2 (07:53→21:28)
--- NOTE | 2020-08-29 13:15 | PDOC.NEPPN ---
- Subjective Encounter Date: 08/29/20 Subjective: Seen in [facility] up for ARF requiring HD. Calmer and more appropriate today. Still having loose stools. Oral intake still suboptimal. No fever. - Objective Vital Signs & Weight: Vital Signs (12 hours) Temp Pulse Resp BP BP BP Pulse Ox 08/29/20 08:00 97 08/29/20 07:53 81 132/79 08/29/20 07:25 98.3 F 81 18 132/79 97 08/29/20 03:44 97.8 F 84 18 152/83 H 98 Weight Admit Weight 230 lb Weight 211 lb 10.3 oz I&O: 08/28/20 08/29/20 08/30/20 06:59 06:59 06:59 Intake Total 540 1560 Output Total 3000 Balance -2460 1560 Result Diagrams: 08/28/20 05:09 08/29/20 05:08 Nephrology ROS - Medication Medications: Active Medications Generic Name Dose Route Start Last Admin Trade Name Freq PRN Reason Stop Dose Admin Acetaminophen 1,000 mg 08/11/20 09:45 08/29/20 03:58 Acetaminophen 500 Mg Tab PO 1,000 mg Q6H PRN Administration Moderate to Severe Pain (6-10) Buspirone HCl 10 mg 08/28/20 21:00 08/29/20 07:53 Buspirone Hcl 10 Mg Tab PO 10 mg BID WESLEY Administration Clonidine 0.1 mg 08/11/20 05:42 08/21/20 09:51 Clonidine 0.1 Mg Tab PO 0.1 mg Q4H PRN Administration Hypertension Clonidine 0.2 mg 08/21/20 12:00 08/28/20 13:03 Clonidine 0.2mg/24 Hour Patch TD 0.2 mg Q7D WESLEY Administration Ergocalciferol 1.25 mg 08/19/20 09:00 08/26/20 08:51 Ergocalciferol 1.25 Mg(50,000 Units) Cap PO 1.25 mg Q7DAYS WESLEY Administration Levetiracetam 500 mg/ Device 100 mls @ 200 mls/hr 08/20/20 17:00 08/29/20 05:51 IVPB 100 mls 0500,1700 WESLEY Administration Lactated Ringer's 1,000 mls @ 100 mls/hr 08/28/20 07:00 08/29/20 00:42 Lactated Ringer's IV 1,000 mls .Q10H WESLEY Administration Labetalol HCl 100 mg 08/17/20 23:59 08/29/20 07:53 Labetalol 100 Mg Tab PO 100 mg 0800,1600,2359 WESLEY Administration Labetalol HCl 10 mg 08/17/20 15:51 08/17/20 16:20 Labetalol Hcl 100 Mg/20 Ml Vial SLOW IVP 10 mg Q4H PRN Administration SBP Greater Than 180 Levothyroxine Sodium 25 mcg 08/09/20 06:00 08/29/20 05:51 Levothyroxine Sodium 25 Mcg Tab PO 25 mcg 0600 WESLEY Administration Nicotine 7 mg 08/28/20 12:00 08/28/20 13:03 Nicotine 7 Mg Patch TOP 7 mg Q24HR WESLEY Administration Quetiapine Fumarate 200 mg 08/29/20 09:00 08/29/20 07:53 Quetiapine Fumarate 200 Mg Tab PO 200 mg QAM WESLEY Administration Quetiapine Fumarate 50 mg 08/28/20 21:00 08/28/20 20:13 Quetiapine Fumarate 25 Mg Tab PO 50 mg HS WESLEY Administration Sodium Chloride 10 ml 08/12/20 21:00 08/29/20 07:54 Flush - Normal Saline 10 Ml Syringe IVF Not Given Q12HR WESLEY - Exam General Appearance: awake alert Eye: anicteric sclera ENT: normocephalic atraumatic Neck: supple, symmetric, no JVD Respiratory: CTAB Cardiovascular: RRR Gastrointestinal: soft, non-tender, non-distended, normal bowel sounds Extremities: no cyanosis, no edema Neurological: CN's grossly intact, no focal deficits Neurological - other findings: Awake. oriented x3. some memeory lapses and confusion. Nephrology Results - Labs Result Diagrams: 08/28/20 05:09 08/29/20 05:08 Lab results: WBC 18.6 thou/uL (4.8-10.8) H 08/28/20 05:09 Hgb 10.6 g/dL (14.0-18.0) L 08/28/20 05:09 Hct 32.3 % (42.0-52.0) L 08/28/20 05:09 MCV 108.0 fL (78.0-98.0) H 08/28/20 05:09 Plt Count 187 thou/uL (130-400) 08/28/20 05:09 Neutrophils % 56.3 % (42.0-75.0) 08/24/20 05:17 Band Neuts % (Manual) 4 % (5-11) L 08/28/20 05:09 ESR Westergren 68 mm/hr (Less than 20) H 08/16/20 04:06 Sodium 139 mmol/L (136-145) 08/29/20 05:08 Potassium 3.3 mmol/L (3.5-5.1) L 08/29/20 05:08 Chloride 102 mmol/L (98-107) 08/29/20 05:08 Carbon Dioxide 22 mmol/L (22-29) 08/29/20 05:08 BUN 31 mg/dL (8.4-25.7) H 08/29/20 05:08 Creatinine 4.72 mg/dL (0.7-1.3) H 08/29/20 05:08 Glucose 108 mg/dL (70-105) H 08/29/20 05:08 Lactic Acid 0.8 mmol/L (0.5-2.2) 08/08/20 11:13 Calcium 9.0 mg/dL (7.8-10.44) 08/29/20 05:08 Total Bilirubin 0.6 mg/dL (0.2-1.2) 08/18/20 04:34 AST 37 U/L (5-34) H 08/18/20 04:34 ALT 84 U/L (8-55) H 08/18/20 04:34 Alkaline Phosphatase 255 U/L (40-110) H 08/18/20 04:34 Ammonia 36 umol/L (18-72) 08/08/20 09:39 Creatine Kinase 261 U/L (30-200) H 08/18/20 04:34 Troponin I Less than 0.010 ng/mL (< 0.028) 08/08/20 09:39 C-Reactive Protein 4.44 mg/dL (= or < 0.5) H 08/16/20 04:06 Serum Total Protein 5.7 g/dL (6.0-8.3) L 08/18/20 04:34 Albumin 3.4 g/dL (3.5-5.0) L 08/29/20 05:08 Urine Ketones Negative mg/dL (Negative) 08/17/20 11:30 Urine Blood Large (Negative) A 08/17/20 11:30 Urine Nitrite Negative (Negative) 08/17/20 11:30 Ur Leukocyte Esterase Large (Negative) H 08/17/20 11:30 Urine RBC Greater than 50 HPF (0-3) A 08/17/20 11:30 Urine WBC Greater Than 50 HPF (0-3) A 08/17/20 11:30 Ur Squamous Epith Cells 0-3 HPF (0-3) 08/17/20 11:30 Urine Bacteria 3+ HPF (None Seen) A 08/17/20 11:30 Sodium 139 mmol/L (136-145) 08/29/20 05:08 Potassium 3.3 mmol/L (3.5-5.1) L 08/29/20 05:08 Chloride 102 mmol/L (98-107) 08/29/20 05:08 Carbon Dioxide 22 mmol/L (22-29) 08/29/20 05:08 Anion Gap 18 mmol/L (-) 08/29/20 05:08 BUN 31 mg/dL (8.4-25.7) H 08/29/20 05:08 Creatinine 4.72 mg/dL (0.7-1.3) H 08/29/20 05:08 Glucose 108 mg/dL (70-105) H 08/29/20 05:08 Calcium 9.0 mg/dL (7.8-10.44) 08/29/20 05:08 Phosphorus 4.6 mg/dL (2.3-4.7) 08/29/20 05:08 Magnesium 2.0 mg/dL (1.6-2.6) 08/23/20 05:18 Albumin 3.4 g/dL (3.5-5.0) L 08/29/20 05:08 Nephrology AP PN - Plan ASSESSMENT: Volume depletion. Due to increased GI losses and poor oral intake Hypokalemia Persistent encephalopathy: Etiology inclear. Seem to be multifactorial. toxic/metabolic and subdural hemorrhage. Improving Acute renal failure. ATN from severe rhabdomyolysis. On HD MWF Metabolic acidosis. Improved Hyponatremia. Resolved Hypocalcemia. 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 Resolved. Presumed serotonin syndrome. Involuntary movement/twitching. 2/2 neuromuscular hyperactivity 2/2 serotonin syndrome. Improved. Physical deconditioning. History of nephrolithiasis. HTN:. Control is acceptable Volume overload. Resolved. Vitamin D deficiency Secondary hyperparathyroidism Subural hemorrhage. Anemia Loose stools. Abx associated vs C dif PLAN Continue LR at 100 cc/hr Get C dif toxin assay No need for HD today. Continue HD MWF Continue labetalol and clonidine. Hold for low BP Avoid nephrotoxic agents. Monitor intake and output.
[2020-08-29] MEDS: Nicotine 7 MG PATCH TOP SCH (15:49)
--- NOTE | 2020-08-29 17:32 | CON ---
DATE OF CONSULTATION: 08/29/2020 IMPRESSION: The patient's encephalopathy appears to have cleared. PLAN: Continue supportive measures. HISTORY OF PRESENT ILLNESS: Mr. Casas is a 55-year-old man, who was admitted and found to be in acute renal failure. He was seen by Neurology last week. He had EEG done during his encephalopathy, which showed some diffuse slowing. He has been persistently azotemic and has been receiving dialysis. His vital signs have been fairly stable. He has not run any fever. Urinalysis has been repeated several times since admission and continues to show opaque turbid urine with a large amount of blood, large amount of leukocytes, too numerous to count. His white blood cell count has been persistently elevated between 15,000 and 18,000. At this point, he is without any complaints of headache, nausea, vomiting, dizziness, lateralized weakness or numbness. PHYSICAL EXAMINATION: VITAL SIGNS: Blood pressure 132/79, pulse 80, respirations 18, and temperature 98.3. HEENT: Pupils equal and reactive. Conjunctivae clear. Oropharynx clear. NECK: Supple. EXTREMITIES: No cyanosis. NEUROLOGIC: He was alert and cooperative. His speech was fluent and clear. He was oriented to person, place, and time. There was no focal deficits. He did not have asterixis. Gait was not tested. SUMMARY: This gentleman apparently was encephalopathic, but appears to be doing much better now. I do not have anything to add, it appears that was a toxic metabolic encephalopathy. Job ID: [id number]
[2020-08-30] MEDS: Labetalol 100 MG TAB PO SCH ×4 (00:14→23:09)
[2020-08-30] MEDS: Levothyroxine Sodium 25 MCG TAB PO SCH (05:08)
[2020-08-30] MEDS: Lactated Ringer's 1,000 ML IV SCH ×2 (05:09→08:29)
[2020-08-30 06:26] LABS: Hemoglobin 8.3 g/dL (14.0-18.0); Mean Corpuscular HGB CONC 33.3 g/dL (32.0-36.0); Mean Corpuscular Hemoglobin 35.1 pg (27.0-31.0); Mean Platelet Volume 9.7 fL (7.4-10.4); Platelet Count 198 thou/uL (130-400); RBC Distribution Width 12.8 % (11.5-14.5); Red Blood Cell (RBC) Count 2.37 mill/uL (4.70-6.10); White Blood Cell (WBC) Count 13.2 thou/uL (4.8-10.8)
[2020-08-30 07:26] LABS: Albumin 3.4 g/dL (3.5-5.0); Anion Gap 18 mmol/L (10-20); BUN (Urea Nitrogen) 32 mg/dL (8.4-25.7); BUN/Creatinine Ratio 6.26; Calc. Creatinine Clearance 22 mL/min (70-130); Calcium 8.6 mg/dL (7.8-10.44); Carbon Dioxide 22 mmol/L (22-29); Chloride 105 mmol/L (98-107); Estimated GFR-MDRD 12; Glucose 107 mg/dL (70-105); Phosphorus 4.8 mg/dL (2.3-4.7); Potassium 3.3 mmol/L (3.5-5.1); Sodium 142 mmol/L (136-145)
[2020-08-30] MEDS: busPIRone HCl 10 MG TAB PO SCH ×2 (08:03→20:51)
--- NOTE | 2020-08-30 10:28 | PDOC.NEPPN ---
- Subjective Encounter Date: 08/30/20 Subjective: Seen during HD. Calmer and cooperative. Tolerating treatment well. - Objective Vital Signs & Weight: Vital Signs (12 hours) Temp Pulse Resp BP BP Pulse Ox 08/30/20 08:03 82 142/89 H 08/30/20 07:17 98.5 F 80 20 142/74 H 97 08/30/20 04:00 97.9 F 82 18 142/87 H 99 08/30/20 00:00 97.7 F 82 18 167/89 H 98 Weight Admit Weight 230 lb Weight 211 lb 10.3 oz I&O: 08/29/20 08/30/20 08/31/20 06:59 06:59 06:59 Intake Total 1560 2880 Output Total 150 Balance 1560 2730 Result Diagrams: 08/30/20 05:35 08/30/20 06:41 Nephrology ROS - Medication Medications: Active Medications Generic Name Dose Route Start Last Admin Trade Name Freq PRN Reason Stop Dose Admin Acetaminophen 1,000 mg 08/11/20 09:45 08/29/20 21:30 Acetaminophen 500 Mg Tab PO 1,000 mg Q6H PRN Administration Moderate to Severe Pain (6-10) Buspirone HCl 10 mg 08/28/20 21:00 08/30/20 08:03 Buspirone Hcl 10 Mg Tab PO 10 mg BID WESLEY Administration Clonidine 0.1 mg 08/11/20 05:42 08/21/20 09:51 Clonidine 0.1 Mg Tab PO 0.1 mg Q4H PRN Administration Hypertension Clonidine 0.2 mg 08/21/20 12:00 08/28/20 13:03 Clonidine 0.2mg/24 Hour Patch TD 0.2 mg Q7D WESLEY Administration Ergocalciferol 1.25 mg 08/19/20 09:00 08/26/20 08:51 Ergocalciferol 1.25 Mg(50,000 Units) Cap PO 1.25 mg Q7DAYS WESLEY Administration Levetiracetam 500 mg/ Device 100 mls @ 200 mls/hr 08/20/20 17:00 08/30/20 05:08 IVPB 100 mls 0500,1700 WESLEY Administration Labetalol HCl 100 mg 08/17/20 23:59 08/30/20 08:03 Labetalol 100 Mg Tab PO 100 mg 0800,1600,2359 WESLEY Administration Labetalol HCl 10 mg 08/17/20 15:51 08/17/20 16:20 Labetalol Hcl 100 Mg/20 Ml Vial SLOW IVP 10 mg Q4H PRN Administration SBP Greater Than 180 Levothyroxine Sodium 25 mcg 08/09/20 06:00 08/30/20 05:08 Levothyroxine Sodium 25 Mcg Tab PO 25 mcg 0600 WESLEY Administration Nicotine 7 mg 08/28/20 12:00 08/29/20 15:49 Nicotine 7 Mg Patch TOP 7 mg Q24HR WESLEY Administration Quetiapine Fumarate 200 mg 08/29/20 09:00 08/30/20 08:35 Quetiapine Fumarate 200 Mg Tab PO 200 mg QAM WESLEY Administration Quetiapine Fumarate 50 mg 08/28/20 21:00 08/29/20 21:28 Quetiapine Fumarate 25 Mg Tab PO 50 mg HS WESLEY Administration Sodium Chloride 10 ml 08/12/20 21:00 08/30/20 08:35 Flush - Normal Saline 10 Ml Syringe IVF 10 ml Q12HR WESLEY Administration - Exam General Appearance: awake alert Eye: anicteric sclera ENT: normocephalic atraumatic, moist mucosa Neck: supple, symmetric, no JVD Respiratory: CTAB Cardiovascular: RRR Gastrointestinal: soft, non-tender, non-distended, normal bowel sounds Extremities: no edema Neurological: CN's grossly intact, no focal deficits Neurological - other findings: mild confusion persists Musculoskeletal: generalized weakness PSYCH: A&O x 3 Nephrology Results - Labs Result Diagrams: 08/30/20 05:35 08/30/20 06:41 Lab results: WBC 13.2 thou/uL (4.8-10.8) H 08/30/20 05:35 Hgb 8.3 g/dL (14.0-18.0) L 08/30/20 05:35 Hct 25.0 % (42.0-52.0) L 08/30/20 05:35 MCV 105.0 fL (78.0-98.0) H 08/30/20 05:35 Plt Count 198 thou/uL (130-400) 08/30/20 05:35 Neutrophils % 56.3 % (42.0-75.0) 08/24/20 05:17 Band Neuts % (Manual) 4 % (5-11) L 08/28/20 05:09 ESR Westergren 68 mm/hr (Less than 20) H 08/16/20 04:06 Sodium 142 mmol/L (136-145) 08/30/20 06:41 Potassium 3.3 mmol/L (3.5-5.1) L 08/30/20 06:41 Chloride 105 mmol/L (98-107) 08/30/20 06:41 Carbon Dioxide 22 mmol/L (22-29) 08/30/20 06:41 BUN 32 mg/dL (8.4-25.7) H 08/30/20 06:41 Creatinine 5.11 mg/dL (0.7-1.3) H 08/30/20 06:41 Glucose 107 mg/dL (70-105) H 08/30/20 06:41 Lactic Acid 0.8 mmol/L (0.5-2.2) 08/08/20 11:13 Calcium 8.6 mg/dL (7.8-10.44) 08/30/20 06:41 Total Bilirubin 0.6 mg/dL (0.2-1.2) 08/18/20 04:34 AST 37 U/L (5-34) H 08/18/20 04:34 ALT 84 U/L (8-55) H 08/18/20 04:34 Alkaline Phosphatase 255 U/L (40-110) H 08/18/20 04:34 Ammonia 36 umol/L (18-72) 08/08/20 09:39 Creatine Kinase 261 U/L (30-200) H 08/18/20 04:34 Troponin I Less than 0.010 ng/mL (< 0.028) 08/08/20 09:39 C-Reactive Protein 4.44 mg/dL (= or < 0.5) H 08/16/20 04:06 Serum Total Protein 5.7 g/dL (6.0-8.3) L 08/18/20 04:34 Albumin 3.4 g/dL (3.5-5.0) L 08/30/20 06:41 Urine Ketones Negative mg/dL (Negative) 08/17/20 11:30 Urine Blood Large (Negative) A 08/17/20 11:30 Urine Nitrite Negative (Negative) 08/17/20 11:30 Ur Leukocyte Esterase Large (Negative) H 08/17/20 11:30 Urine RBC Greater than 50 HPF (0-3) A 08/17/20 11:30 Urine WBC Greater Than 50 HPF (0-3) A 08/17/20 11:30 Ur Squamous Epith Cells 0-3 HPF (0-3) 08/17/20 11:30 Urine Bacteria 3+ HPF (None Seen) A 08/17/20 11:30 Sodium 142 mmol/L (136-145) 08/30/20 06:41 Potassium 3.3 mmol/L (3.5-5.1) L 08/30/20 06:41 Chloride 105 mmol/L (98-107) 08/30/20 06:41 Carbon Dioxide 22 mmol/L (22-29) 08/30/20 06:41 Anion Gap 18 mmol/L (-) 08/30/20 06:41 BUN 32 mg/dL (8.4-25.7) H 08/30/20 06:41 Creatinine 5.11 mg/dL (0.7-1.3) H 08/30/20 06:41 Glucose 107 mg/dL (70-105) H 08/30/20 06:41 Calcium 8.6 mg/dL (7.8-10.44) 08/30/20 06:41 Phosphorus 4.8 mg/dL (2.3-4.7) H 08/30/20 06:41 Magnesium 2.0 mg/dL (1.6-2.6) 08/23/20 05:18 Albumin 3.4 g/dL (3.5-5.0) L 08/30/20 06:41 Nephrology AP PN - Plan ASSESSMENT: Volume depletion. Due to increased GI losses and poor oral intake. Improved with IVF Hypokalemia Persistent encephalopathy: Etiology inclear. Seem to be multifactorial. toxic/metabolic and subdural hemorrhage. Improving Acute renal failure. ATN from severe rhabdomyolysis. On HD MWF Metabolic acidosis. Improved Hyponatremia. Resolved Hypocalcemia. 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 Resolved. Presumed serotonin syndrome. Involuntary movement/twitching. 2/2 neuromuscular hyperactivity 2/2 serotonin syndrome. Improved. Physical deconditioning. History of nephrolithiasis. HTN:. Control is acceptable Volume overload. Resolved. Vitamin D deficiency Secondary hyperparathyroidism Subural hemorrhage. Anemia Loose stools. Abx associated vs C dif PLAN Start IV Iron and AMNA Give 20 meq potassium chloride DC LR at 100 cc/hr with improving oral intake Continue HD MWF Continue labetalol and clonidine. Avoid nephrotoxic agents. Monitor intake and output.
[2020-08-30] MEDS ORDERED: Iron Sucrose Complex 200 MG in Sodium Chloride 0.9% 100 ML IVPB SCH (10:30)
[2020-08-30] MEDS ORDERED: Potassium Chloride 20 MEQ TAB PO SCH (10:30)
[2020-08-30] MEDS ORDERED: Epoetin (ESRD) 20,000 UNITS/ML SC SCH (10:30)
[2020-08-30] MEDS ORDERED: Iron, Sodium Ferric Gluconate 250 MG in Sodium Chloride 0.9% 100 ML IVPB SCH (11:00)
[2020-08-30 11:51] LABS: Eosinophils 4 % (0-10); Lymphocytes 25 % (21-51); MDiff Complete? YES; Monocytes 1 % (0-10); Neutrophil 70 % (42-75); Platelet Morphology Comment Appears Adequate; RBC Morphology Normal
[2020-08-30] MEDS: Nicotine 7 MG PATCH TOP SCH (14:34)
[2020-08-30] MEDS: EPOETIN ALFA-EPBX (ESRD) 3,000 UNIT/ML VIAL SC SCH (14:40)
[2020-08-30] MEDS: Acetaminophen 500 MG TAB PO PRN ×2 (14:44→20:54)
--- NOTE | 2020-08-30 17:15 | PDOC.FMACP ---
Advance Care Planning - Problem (1) Palliative care encounter Status: Acute Code(s): Z51.5 - ENCOUNTER FOR PALLIATIVE CARE (2) Chronic kidney disease requiring chronic dialysis Status: Acute Code(s): N18.6 - END STAGE RENAL DISEASE; Z99.2 - DEPENDENCE ON RENAL DIALYSIS (3) Hypertension Status: Acute Code(s): I10 - ESSENTIAL (PRIMARY) HYPERTENSION (4) Anemia in chronic illness Status: Acute Code(s): D63.8 - ANEMIA IN OTHER CHRONIC DISEASES CLASSIFIED ELSEWHERE - Note Participants: patient, palliative care Summary: Palliative Care has introduced Advanced Care Planning. The diagnosis, prognosis and goals of care were discussed with patient brother. Appropriate forms and documentation to accomplish the goals of care were discussed. All questions were answered. Confirmed DNAR status, elected to complete OOHDNAR. [facility] Palliative care addressed. Original and copy given to family, copy placed on chart for medical records. Will follow up to readdress MPOA and Directives if patient cognition continues to improve and he wishes to complete document. Time Spent (mins): 15
[2020-08-30] MEDS: ALPRAZolam 0.5 MG TAB PO PRN (23:09)
[2020-08-31] MEDS: Levothyroxine Sodium 25 MCG TAB PO SCH (05:00)
[2020-08-31 06:17] LABS: #Basophils 0.2 thou/uL (0.0-0.2); #Eosinphils 0.2 thou/uL (0.0-0.7); #Lymphocytes 5.1 thou/uL (1.20-3.40); #Monocytes 0.9 thou/uL (0.11-0.59); #Neutrophils 7.8 thou/uL (1.40-6.50); %Basophils 1.2 % (0.0-1.0); %Eosinophils 1.7 % (0.0-10.0); %Monocytes 6.2 % (0.0-10.0); %Neutrophils 54.8 % (42.0-75.0); Hemoglobin 9.1 g/dL (14.0-18.0); Mean Corpuscular HGB CONC 32.8 g/dL (32.0-36.0); Mean Corpuscular Hemoglobin 34.1 pg (27.0-31.0); Mean Platelet Volume 10.5 fL (7.4-10.4); Platelet Count 185 thou/uL (130-400); RBC Distribution Width 13.1 % (11.5-14.5); Red Blood Cell (RBC) Count 2.68 mill/uL (4.70-6.10); White Blood Cell (WBC) Count 14.2 thou/uL (4.8-10.8)
[2020-08-31 06:44] LABS: Anion Gap 16 mmol/L (10-20); BUN (Urea Nitrogen) 16 mg/dL (8.4-25.7); Calc. Creatinine Clearance 35 mL/min (70-130); Calcium 8.5 mg/dL (7.8-10.44); Carbon Dioxide 23 mmol/L (22-29); Chloride 104 mmol/L (98-107); Estimated GFR-MDRD 20; Glucose 103 mg/dL (70-105); Potassium 3.3 mmol/L (3.5-5.1); Sodium 140 mmol/L (136-145)
[2020-08-31] MEDS ORDERED: Potassium Chloride 20 MEQ TAB PO SCH (07:45)
[2020-08-31] MEDS: busPIRone HCl 10 MG TAB PO SCH ×2 (08:40→20:48)
[2020-08-31] MEDS: Labetalol 100 MG TAB PO SCH ×2 (08:40→16:30)
--- NOTE | 2020-08-31 13:18 | PDOC.NEPPN ---
- Subjective Encounter Date: 08/31/20 Subjective: Nonew probem. More cooperative. Had HD yesterday. Oral intake is improving. - Objective Vital Signs & Weight: Vital Signs (12 hours) Temp Pulse Resp BP BP Pulse Ox 08/31/20 07:59 98.7 F 97 18 146/88 H 97 08/31/20 04:00 98.2 F 85 20 117/80 99 Weight Admit Weight 230 lb Weight 211 lb 10.3 oz I&O: 08/30/20 08/31/20 09/01/20 06:59 06:59 06:59 Intake Total 2880 1410 Output Total 150 Balance 2730 1410 Result Diagrams: 08/31/20 05:25 08/31/20 05:25 Nephrology ROS - Medication Medications: Active Medications Generic Name Dose Route Start Last Admin Trade Name Freq PRN Reason Stop Dose Admin Acetaminophen 1,000 mg 08/11/20 09:45 08/30/20 20:54 Acetaminophen 500 Mg Tab PO 1,000 mg Q6H PRN Administration Moderate to Severe Pain (6-10) Alprazolam 0.5 mg 08/30/20 22:22 08/30/20 23:09 Alprazolam 0.5 Mg Tab PO 0.5 mg HSPRN PRN Administration Anxiety Buspirone HCl 10 mg 08/28/20 21:00 08/31/20 08:40 Buspirone Hcl 10 Mg Tab PO 10 mg BID WESLEY Administration Clonidine 0.1 mg 08/11/20 05:42 08/21/20 09:51 Clonidine 0.1 Mg Tab PO 0.1 mg Q4H PRN Administration Hypertension Clonidine 0.2 mg 08/21/20 12:00 08/28/20 13:03 Clonidine 0.2mg/24 Hour Patch TD 0.2 mg Q7D WESLEY Administration Epoetin Tashi-epbx 5,000 unit 08/30/20 12:00 08/30/20 14:40 Epoetin Tashi-Epbx (Esrd) 3,000 Unit/Ml Vial SC 5,000 unit MoWeFr WESLEY Administration Ergocalciferol 1.25 mg 08/19/20 09:00 08/26/20 08:51 Ergocalciferol 1.25 Mg(50,000 Units) Cap PO 1.25 mg Q7DAYS WESLEY Administration Levetiracetam 500 mg/ Device 100 mls @ 200 mls/hr 08/20/20 17:00 08/31/20 05:00 IVPB 100 mls 0500,1700 WESLEY Administration Labetalol HCl 100 mg 08/17/20 23:59 08/31/20 08:40 Labetalol 100 Mg Tab PO 100 mg 0800,1600,2359 WESLEY Administration Labetalol HCl 10 mg 08/17/20 15:51 08/17/20 16:20 Labetalol Hcl 100 Mg/20 Ml Vial SLOW IVP 10 mg Q4H PRN Administration SBP Greater Than 180 Levothyroxine Sodium 25 mcg 08/09/20 06:00 08/31/20 05:00 Levothyroxine Sodium 25 Mcg Tab PO 25 mcg 0600 WESLEY Administration Nicotine 7 mg 08/28/20 12:00 08/30/20 14:34 Nicotine 7 Mg Patch TOP 7 mg Q24HR WESLEY Administration Quetiapine Fumarate 200 mg 08/29/20 09:00 08/31/20 08:40 Quetiapine Fumarate 200 Mg Tab PO 200 mg QAM WESLEY Administration Quetiapine Fumarate 50 mg 08/28/20 21:00 08/30/20 20:51 Quetiapine Fumarate 25 Mg Tab PO 50 mg HS WESLEY Administration Sodium Chloride 10 ml 08/12/20 21:00 08/31/20 08:40 Flush - Normal Saline 10 Ml Syringe IVF 10 ml Q12HR WESLEY Administration - Exam General Appearance: awake alert Eye: anicteric sclera ENT: normocephalic atraumatic, moist mucosa Neck: symmetric, no JVD Respiratory: CTAB Cardiovascular: RRR Gastrointestinal: soft, non-tender, non-distended, normal bowel sounds Extremities: no cyanosis, no edema Neurological: CN's grossly intact, no focal deficits Neurological - other findings: awake and oriented . some confusion and oc casional tangential speech Musculoskeletal: generalized weakness Nephrology Results - Labs Result Diagrams: 08/31/20 05:25 08/31/20 05:25 Lab results: WBC 14.2 thou/uL (4.8-10.8) H 08/31/20 05:25 Hgb 9.1 g/dL (14.0-18.0) L 08/31/20 05:25 Hct 27.9 % (42.0-52.0) L 08/31/20 05:25 MCV 104.0 fL (78.0-98.0) H 08/31/20 05:25 Plt Count 185 thou/uL (130-400) 08/31/20 05:25 Neutrophils % 54.8 % (42.0-75.0) 08/31/20 05:25 Band Neuts % (Manual) 4 % (5-11) L 08/28/20 05:09 ESR Westergren 68 mm/hr (Less than 20) H 08/16/20 04:06 Sodium 140 mmol/L (136-145) 08/31/20 05:25 Potassium 3.3 mmol/L (3.5-5.1) L 08/31/20 05:25 Chloride 104 mmol/L (98-107) 08/31/20 05:25 Carbon Dioxide 23 mmol/L (22-29) 08/31/20 05:25 BUN 16 mg/dL (8.4-25.7) 08/31/20 05:25 Creatinine 3.31 mg/dL (0.7-1.3) H 08/31/20 05:25 Glucose 103 mg/dL (70-105) 08/31/20 05:25 Lactic Acid 0.8 mmol/L (0.5-2.2) 08/08/20 11:13 Calcium 8.5 mg/dL (7.8-10.44) 08/31/20 05:25 Total Bilirubin 0.6 mg/dL (0.2-1.2) 08/18/20 04:34 AST 37 U/L (5-34) H 08/18/20 04:34 ALT 84 U/L (8-55) H 08/18/20 04:34 Alkaline Phosphatase 255 U/L (40-110) H 08/18/20 04:34 Ammonia 36 umol/L (18-72) 08/08/20 09:39 Creatine Kinase 261 U/L (30-200) H 08/18/20 04:34 Troponin I Less than 0.010 ng/mL (< 0.028) 08/08/20 09:39 C-Reactive Protein 4.44 mg/dL (= or < 0.5) H 08/16/20 04:06 Serum Total Protein 5.7 g/dL (6.0-8.3) L 08/18/20 04:34 Albumin 3.4 g/dL (3.5-5.0) L 08/30/20 06:41 Urine Ketones Negative mg/dL (Negative) 08/17/20 11:30 Urine Blood Large (Negative) A 08/17/20 11:30 Urine Nitrite Negative (Negative) 08/17/20 11:30 Ur Leukocyte Esterase Large (Negative) H 08/17/20 11:30 Urine RBC Greater than 50 HPF (0-3) A 08/17/20 11:30 Urine WBC Greater Than 50 HPF (0-3) A 08/17/20 11:30 Ur Squamous Epith Cells 0-3 HPF (0-3) 08/17/20 11:30 Urine Bacteria 3+ HPF (None Seen) A 08/17/20 11:30 Sodium 140 mmol/L (136-145) 08/31/20 05:25 Potassium 3.3 mmol/L (3.5-5.1) L 08/31/20 05:25 Chloride 104 mmol/L (98-107) 08/31/20 05:25 Carbon Dioxide 23 mmol/L (22-29) 08/31/20 05:25 Anion Gap 16 mmol/L (-20) 08/31/20 05:25 BUN 16 mg/dL (8.4-25.7) 08/31/20 05:25 Creatinine 3.31 mg/dL (0.7-1.3) H 08/31/20 05:25 Glucose 103 mg/dL (70-105) 08/31/20 05:25 Calcium 8.5 mg/dL (7.8-10.44) 08/31/20 05:25 Phosphorus 4.8 mg/dL (2.3-4.7) H 08/30/20 06:41 Magnesium 2.0 mg/dL (1.6-2.6) 08/23/20 05:18 Albumin 3.4 g/dL (3.5-5.0) L 08/30/20 06:41 Nephrology AP PN - Plan ASSESSMENT: Hypokalemia Persistent encephalopathy: Multifactorial. toxic/metabolic and subdural hemorrhage. Improving. Off restarints Acute renal failure. ATN from severe rhabdomyolysis. On HD MWF. No evidence of renal recovery as yet Metabolic acidosis. Improved Hyponatremia. Resolved Hypocalcemia. 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 Resolved. Presumed serotonin syndrome. Involuntary movement/twitching. 2/2 neuromuscular hyperactivity 2/2 serotonin syndrome. Improved. Physical deconditioning. History of nephrolithiasis. HTN:. Control is acceptable Volume overload. Resolved. Vitamin D deficiency Secondary hyperparathyroidism Subural hemorrhage. Anemia Loose stools. Abx associated vs C dif PLAN Replete serum potassium. Continue AMNA Continue HD MWF Continue labetalol and clonidine. Avoid nephrotoxic agents. Monitor intake and output. Will need outpatient HD placement in view of no significant renal recovery
[2020-08-31] MEDS: Nicotine 7 MG PATCH TOP SCH (15:45)
[2020-09-01] MEDS: Labetalol 100 MG TAB PO SCH ×3 (00:49→15:45)
[2020-09-01] MEDS: ALPRAZolam 0.5 MG TAB PO PRN (00:49)
[2020-09-01] MEDS: Levothyroxine Sodium 25 MCG TAB PO SCH (06:20)
[2020-09-01] MEDS: levETIRAcetam 500 MG TAB PO SCH ×2 (06:20→15:44)
[2020-09-01] MEDS: busPIRone HCl 10 MG TAB PO SCH (08:54)
[2020-09-01] MEDS ORDERED: Epoetin (ESRD) 20,000 UNITS/ML SC SCH (09:00)
--- NOTE | 2020-09-01 10:05 | PDOC.NEPPN ---
- Subjective Encounter Date: 09/01/20 Subjective: No new problem. Clinically improved. Discharge to acute rehab planned. - Objective Vital Signs & Weight: Vital Signs (12 hours) Temp Pulse Resp BP BP Pulse Ox 09/01/20 08:30 98 09/01/20 07:56 98.3 F 95 18 131/86 98 09/01/20 00:49 96 123/81 Weight Admit Weight 230 lb Weight 211 lb 10.3 oz I&O: 08/31/20 09/01/20 09/02/20 06:59 06:59 06:59 Intake Total 1410 1500 Output Total 550 Balance 1410 950 Result Diagrams: 08/31/20 05:25 08/31/20 05:25 Nephrology ROS - Medication Medications: Active Medications Generic Name Dose Route Start Last Admin Trade Name Freq PRN Reason Stop Dose Admin Acetaminophen 1,000 mg 08/11/20 09:45 08/30/20 20:54 Acetaminophen 500 Mg Tab PO 1,000 mg Q6H PRN Administration Moderate to Severe Pain (6-10) Alprazolam 0.5 mg 08/30/20 22:22 09/01/20 00:49 Alprazolam 0.5 Mg Tab PO 0.5 mg HSPRN PRN Administration Anxiety Buspirone HCl 10 mg 08/28/20 21:00 09/01/20 08:54 Buspirone Hcl 10 Mg Tab PO 10 mg BID WESLEY Administration Clonidine 0.1 mg 08/11/20 05:42 08/21/20 09:51 Clonidine 0.1 Mg Tab PO 0.1 mg Q4H PRN Administration Hypertension Clonidine 0.2 mg 08/21/20 12:00 08/28/20 13:03 Clonidine 0.2mg/24 Hour Patch TD 0.2 mg Q7D WESLEY Administration Epoetin Tashi-epbx 5,000 unit 08/30/20 12:00 08/30/20 14:40 Epoetin Tashi-Epbx (Esrd) 3,000 Unit/Ml Vial SC 5,000 unit MoWeFr WESLEY Administration Ergocalciferol 1.25 mg 08/19/20 09:00 08/26/20 08:51 Ergocalciferol 1.25 Mg(50,000 Units) Cap PO 1.25 mg Q7DAYS WESLEY Administration Labetalol HCl 100 mg 08/17/20 23:59 09/01/20 00:49 Labetalol 100 Mg Tab PO 100 mg 0800,1600,2359 WESLEY Administration Labetalol HCl 10 mg 08/17/20 15:51 08/17/20 16:20 Labetalol Hcl 100 Mg/20 Ml Vial SLOW IVP 10 mg Q4H PRN Administration SBP Greater Than 180 Levetiracetam 500 mg 09/01/20 05:00 09/01/20 06:20 Levetiracetam 500 Mg Tab PO 500 mg 0500,1700 WESLEY Administration Levothyroxine Sodium 25 mcg 08/09/20 06:00 09/01/20 06:20 Levothyroxine Sodium 25 Mcg Tab PO 25 mcg 0600 WESLEY Administration Nicotine 7 mg 08/28/20 12:00 08/31/20 15:45 Nicotine 7 Mg Patch TOP Not Given Q24HR WESLEY Quetiapine Fumarate 200 mg 08/29/20 09:00 09/01/20 08:54 Quetiapine Fumarate 200 Mg Tab PO 200 mg QAM WESLEY Administration Quetiapine Fumarate 50 mg 08/28/20 21:00 08/31/20 20:48 Quetiapine Fumarate 25 Mg Tab PO 50 mg HS WESLEY Administration Sodium Chloride 10 ml 08/12/20 21:00 09/01/20 08:55 Flush - Normal Saline 10 Ml Syringe IVF Not Given Q12HR WESLEY - Exam General Appearance: awake alert Eye: anicteric sclera ENT: normocephalic atraumatic Neck: supple, no JVD Respiratory: CTAB Cardiovascular: RRR Gastrointestinal: soft, non-tender, non-distended, normal bowel sounds Extremities: no cyanosis, no edema Neurological: CN's grossly intact, no focal deficits PSYCH: A&O x 3 Nephrology Results - Labs Result Diagrams: 08/31/20 05:25 08/31/20 05:25 Lab results: WBC 14.2 thou/uL (4.8-10.8) H 08/31/20 05:25 Hgb 9.1 g/dL (14.0-18.0) L 08/31/20 05:25 Hct 27.9 % (42.0-52.0) L 08/31/20 05:25 MCV 104.0 fL (78.0-98.0) H 08/31/20 05:25 Plt Count 185 thou/uL (130-400) 08/31/20 05:25 Neutrophils % 54.8 % (42.0-75.0) 08/31/20 05:25 Band Neuts % (Manual) 4 % (5-11) L 08/28/20 05:09 ESR Westergren 68 mm/hr (Less than 20) H 08/16/20 04:06 Sodium 140 mmol/L (136-145) 08/31/20 05:25 Potassium 3.3 mmol/L (3.5-5.1) L 08/31/20 05:25 Chloride 104 mmol/L (98-107) 08/31/20 05:25 Carbon Dioxide 23 mmol/L (22-29) 08/31/20 05:25 BUN 16 mg/dL (8.4-25.7) 08/31/20 05:25 Creatinine 3.31 mg/dL (0.7-1.3) H 08/31/20 05:25 Glucose 103 mg/dL (70-105) 08/31/20 05:25 Lactic Acid 0.8 mmol/L (0.5-2.2) 08/08/20 11:13 Calcium 8.5 mg/dL (7.8-10.44) 08/31/20 05:25 Total Bilirubin 0.6 mg/dL (0.2-1.2) 08/18/20 04:34 AST 37 U/L (5-34) H 08/18/20 04:34 ALT 84 U/L (8-55) H 08/18/20 04:34 Alkaline Phosphatase 255 U/L (40-110) H 08/18/20 04:34 Ammonia 36 umol/L (18-72) 08/08/20 09:39 Creatine Kinase 261 U/L (30-200) H 08/18/20 04:34 Troponin I Less than 0.010 ng/mL (< 0.028) 08/08/20 09:39 C-Reactive Protein 4.44 mg/dL (= or < 0.5) H 08/16/20 04:06 Serum Total Protein 5.7 g/dL (6.0-8.3) L 08/18/20 04:34 Albumin 3.4 g/dL (3.5-5.0) L 08/30/20 06:41 Urine Ketones Negative mg/dL (Negative) 08/17/20 11:30 Urine Blood Large (Negative) A 08/17/20 11:30 Urine Nitrite Negative (Negative) 08/17/20 11:30 Ur Leukocyte Esterase Large (Negative) H 08/17/20 11:30 Urine RBC Greater than 50 HPF (0-3) A 08/17/20 11:30 Urine WBC Greater Than 50 HPF (0-3) A 08/17/20 11:30 Ur Squamous Epith Cells 0-3 HPF (0-3) 08/17/20 11:30 Urine Bacteria 3+ HPF (None Seen) A 08/17/20 11:30 Sodium 140 mmol/L (136-145) 08/31/20 05:25 Potassium 3.3 mmol/L (3.5-5.1) L 08/31/20 05:25 Chloride 104 mmol/L (98-107) 08/31/20 05:25 Carbon Dioxide 23 mmol/L (22-29) 08/31/20 05:25 Anion Gap 16 mmol/L (-20) 08/31/20 05:25 BUN 16 mg/dL (8.4-25.7) 08/31/20 05:25 Creatinine 3.31 mg/dL (0.7-1.3) H 08/31/20 05:25 Glucose 103 mg/dL (70-105) 08/31/20 05:25 Calcium 8.5 mg/dL (7.8-10.44) 08/31/20 05:25 Phosphorus 4.8 mg/dL (2.3-4.7) H 08/30/20 06:41 Magnesium 2.0 mg/dL (1.6-2.6) 08/23/20 05:18 Albumin 3.4 g/dL (3.5-5.0) L 08/30/20 06:41 Nephrology AP PN - Plan ASSESSMENT: Acute renal failure. ATN from severe rhabdomyolysis. On HD MWF. No evidence of renal recovery as yet Metabolic acidosis. Improved Hyponatremia. Resolved Hypocalcemia. 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 Resolved. Hypokalemia Presumed serotonin syndrome. Involuntary movement/twitching. 2/2 neuromuscular hyperactivity 2/2 serotonin syndrome. Improved. Physical deconditioning. History of nephrolithiasis. HTN:. Control is acceptable Volume overload. Resolved. Vitamin D deficiency Secondary hyperparathyroidism Acute encephalopathy: Multifactorial. toxic/metabolic and subdural hemorrhage. Improved Subural hemorrhage. Anemia PLAN For HD today. see EMR for HD order Continue AMNA Continue HD MWF Continue labetalol and clonidine. Will consider transitioning patient off clonidine patch now he can take by mouth. Avoid nephrotoxic agents. Monitor intake and output.
[2020-09-01] MEDS ORDERED: Heparin 10,000 UNITS/ 10 ML VIAL ONE (10:32)
[2020-09-01 14:56] VITALS: BP 116/82; TEMP 97.6
[2020-09-01] MEDS: EPOETIN ALFA-EPBX (ESRD) 3,000 UNIT/ML VIAL SC SCH (15:42)
[2020-09-01] MEDS: Nicotine 7 MG PATCH TOP SCH (15:48)
== END 2020-09-01 17:28 | DRG 673 ==
LOC: ERS 09:05 → 2NO 16:54 → T4-B 08-18 19:15
PROVIDERS: ADMIT Specialist; ATTEND Specialist
PROC: 06HY33Z Insertion of Infusion Device into Lower Vein, Percutaneous Approach (ICD-10-PCS; 2020-08-10)
PROC: 5A1D70Z Performance of Urinary Filtration, Intermittent, Less than 6 Hours Per Day (ICD-10-PCS; principal; 2020-08-11)
PROC: 0JH60XZ Insertion of Tunneled Vascular Access Device into Chest Subcutaneous Tissue and Fascia, Open Approach (ICD-10-PCS; 2020-08-11)
PROC: 02HV33Z Insertion of Infusion Device into Superior Vena Cava, Percutaneous Approach (ICD-10-PCS; 2020-08-11)
PROC: 02HV33Z Insertion of Infusion Device into Superior Vena Cava, Percutaneous Approach (ICD-10-PCS; 2020-08-11)
PROC: B518ZZA Fluoroscopy of Superior Vena Cava, Guidance (ICD-10-PCS; 2020-08-11)
PROC: B548ZZA Ultrasonography of Superior Vena Cava, Guidance (ICD-10-PCS; 2020-08-11)
PROC: 009U3ZX Drainage of Spinal Canal, Percutaneous Approach, Diagnostic (ICD-10-PCS; 2020-08-17)
PROC: B01BZZZ Fluoroscopy of Spinal Cord (ICD-10-PCS; 2020-08-17)
PROC: 8E0ZXY6 Isolation (ICD-10-PCS; 2020-08-29)
DX: N17.0 Acute kidney failure with tubular necrosis (principal); I62.01 Nontraumatic acute subdural hemorrhage; G92 Toxic encephalopathy; E87.2 Acidosis; E87.1 Hypo-osmolality and hyponatremia; M62.82 Rhabdomyolysis; N39.0 Urinary tract infection, site not specified; I12.0 Hypertensive chronic kidney disease with stage 5 chronic kidney disease or end stage renal disease; Z51.5 Encounter for palliative care; Z66 Do not resuscitate; Z20.828 Contact with and (suspected) exposure to other viral communicable diseases; N18.6 End stage renal disease; N25.81 Secondary hyperparathyroidism of renal origin; G89.29 Other chronic pain; M54.9 Dorsalgia, unspecified; E78.5 Hyperlipidemia, unspecified; E87.5 Hyperkalemia; F41.9 Anxiety disorder, unspecified; F32.9 Major depressive disorder, single episode, unspecified; K21.9 Gastro-esophageal reflux disease without esophagitis; F17.210 Nicotine dependence, cigarettes, uncomplicated; G25.79 Other drug induced movement disorders; T50.995A Adverse effect of other drugs, medicaments and biological substances, initial encounter; G25.89 Other specified extrapyramidal and movement disorders; R29.6 Repeated falls; E86.0 Dehydration; E87.70 Fluid overload, unspecified; E55.9 Vitamin D deficiency, unspecified; D63.1 Anemia in chronic kidney disease; E11.22 Type 2 diabetes mellitus with diabetic chronic kidney disease; R27.0 Ataxia, unspecified; B96.20 Unspecified Escherichia coli [E. coli] as the cause of diseases classified elsewhere; Z99.3 Dependence on wheelchair; Z88.0 Allergy status to penicillin; Z87.442 Personal history of urinary calculi; Z79.82 Long term (current) use of aspirin; Z79.02 Long term (current) use of antithrombotics/antiplatelets; Z86.73 Personal history of transient ischemic attack (TIA), and cerebral infarction without residual deficits; Z98.1 Arthrodesis status; Z90.49 Acquired absence of other specified parts of digestive tract; Z79.899 Other long term (current) drug therapy; Z79.890 Hormone replacement therapy; Z78.1 Physical restraint status
CPT/HCPCS: 36415; 36416; 51702; 62270; 70450; 70551; 71045; 71046; 74018; 76770; 80048; 80053; 80069; 80074; 80202; 80306; 80307; 81001; 81003; 81015; 82140; 82306; 82550; 82570; 82728; 82945; 83036; 83540; 83550; 83605; 83735; 83930; 83935; 83970; 84100; 84156; 84157; 84300; 84443; 84484; 84540; 85025; 85027; 85610; 85652; 85730; 86140; 86592; 87040; 87070; 87077; 87086; 87149; 87186; 87205; 87324; 87449; 87635; 90935; 93005; 93970; 95712; 95819; 95957; 96365; 96375; C1752; G0257; J0696; J1642; J1644; J1815; J1940; J1953; J2001; J2060; J2250; J2704; J2916; J2997; J3010; J3370; J3490; J7070; J7611; Q5105; U0003

== ENCOUNTER 2020-09-08 12:45 | Inpatient (IN) | payer MEDICARE ==
[2020-09-08 14:44] LABS: Hemoglobin 9.2 g/dL (14.0-18.0); Mean Corpuscular HGB CONC 32.5 g/dL (32.0-36.0); Mean Corpuscular Hemoglobin 33.3 pg (27.0-31.0); Mean Platelet Volume 8.8 fL (7.4-10.4); Platelet Count 124 thou/uL (130-400); RBC Distribution Width 13.3 % (11.5-14.5); Red Blood Cell (RBC) Count 2.77 mill/uL (4.70-6.10); White Blood Cell (WBC) Count 20.3 thou/uL (4.8-10.8)
[2020-09-08 14:58] LABS: Band 2 % (5-11); Eosinophils 3 % (0-10); Lymphocytes 46 % (21-51); MDiff Complete? YES; Monocytes 2 % (0-10); Neutrophil 46 % (42-75); Platelet Morphology Comment Appears Decreased; Polychromasia SLIGHT = 2-3 cells (100X) (0-2/hpf); Reactive Lymphocytes 1 % (0-10)
[2020-09-08 15:02] LABS: ALT (SGPT) 290 U/L (8-55); AST (SGOT) 432 U/L (5-34); Albumin 3.7 g/dL (3.5-5.0); Alkaline Phosphatase 641 U/L (40-110); Anion Gap 21 mmol/L (10-20); BUN (Urea Nitrogen) 31 mg/dL (8.4-25.7); Bilirubin, Total 0.6 mg/dL (0.2-1.2); Calc. Creatinine Clearance 0 mL/min (70-130); Calcium 8.4 mg/dL (7.8-10.44); Carbon Dioxide 21 mmol/L (22-29); Chloride 99 mmol/L (98-107); Estimated GFR-MDRD 8; Globulin 2.3 g/dL (2.4-3.5); Glucose 85 mg/dL (70-105); Potassium 3.8 mmol/L (3.5-5.1); Sodium 137 mmol/L (136-145)
--- NOTE | 2020-09-08 15:04 | RAD ---
CHEST ONE VIEW: 09/08/20 HISTORY: Chest pain. Emergency exam. COMPARISON: Radiograph 08/22/20. FINDINGS: The dialysis catheter projects in the right atrium. No pneumothorax. No effusion. Mild perihilar scar ring. No acute osseous abnormality. IMPRESSION: No acute intrathoracic abnormality. POS: [facility]
[2020-09-08 15:30] LABS: CKMB 8.7 ng/mL (0-6.6)
[2020-09-08] MEDS ORDERED: Acetaminophen 500 MG TAB ONE (17:18)
--- NOTE | 2020-09-08 18:36 | CON ---
DATE OF CONSULTATION: 09/08/2020 SERVICE: Nephrology. REASON FOR CONSULTATION: Renal failure management. REQUESTING PHYSICIAN: Dr. Hugh Mcclain. CHIEF COMPLAINT: Generalized weakness and gait instability. HISTORY OF PRESENT ILLNESS: A 55-year-old male, well known to me from prior hospitalization, presenting with generalized weakness, gait instability, and ill feeling. The patient left inpatient rehab against medical advice on September 05, and subsequently went in, started hospice care, which he revoked earlier today, preferring to proceed with further treatment. The patient was admitted at this hospital for greater part of July and early August due to mental status change, encephalopathy as well as acute renal failure requiring dialysis. He was subsequently discharged to inpatient rehab, from where he left against medical advice. The patient reportedly has been taking his prior to hospital medications since being at home and these included Entresto, Cymbalta, and others. He denied abdominal pain, fever, or headache, but admitted to dizziness and generalized weakness. He also denied nausea or vomiting. He thinks that his appetite is good and is eating well. He however admitted to little or no urine output since going home. He also reported that his blood pressures were low at earlier this morning in 70s systolic when the home health nurse presented to the house. In the ER, blood pressures were soft, ranging from upper 90s and low 100s systolic. PHYSICAL EXAMINATION: GENERAL: Middle-age male, in no obvious distress. Afebrile, anicteric, acyanotic. HEENT: Normocephalic, atraumatic. Oral mucosa is mildly dry. NECK: Supple with no obvious JVD. CARDIOVASCULAR: Regular rhythm and rate with normal heart sounds 1 and 2. RESPIRATORY: Fair air entry bilaterally with no obvious crackle or rhonchi or use of accessory muscles. GI: Full, soft, nontender, nondistended with normal bowel sounds. EXTREMITIES: Grossly normal looking, atraumatic with no obvious edema or erythema. Distal pulses are palpable. PRODUCTION CONTROL ANALYST: Conscious and alert and oriented x3. Cranial nerves 2 through 12 are grossly intact. The patient moves all extremities. PSYCHIATRIC: Has good insight. Still with occasional tangential thought and speech. DIAGNOSTIC DATA: CBC today showed WBC count of 20.3, hemoglobin of 9.2, MCV of 102.0, platelets of 124. CMP showed sodium of 137, potassium 3.8, chloride 99, CO2 of 21, BUN 31, creatinine 7.21, glucose 85, calcium 8.4, total bilirubin 0.4, AST 432, ALT 290, alkaline phosphatase 641, total protein 6.0, albumin 3.7. Cardiac markers showed troponin 0.085, CK-MB 6.7, CK 169. BNP is 17.7. Chest x-ray showed dialysis catheter projecting into the right atrium with no pneumothorax, effusion, or osseous abnormality. ASSESSMENT: 1. Acute renal failure: This is due to rhabdomyolysis. Some contribution from volume contraction cannot be ruled out. The patient has been on dialysis with last treatment being on September 03, 2020, before he subsequently left inpatient rehab against medical advice. The patient is currently anuric. 2. History of hypertension: Blood pressure is currently soft. 3. Leukocytosis: The patient recently was treated with urinary tract infection. Etiology remained unclear. 4. Presumed volume contraction. 5. Bipolar disorder with possible psychosis. 6. Anemia in renal insufficiency. 7. Abnormal liver function test with transaminitis: Etiology is unclear. Most likely related to psychotropic medications and volume depletion. PLAN: 1. We will start IV fluid therapy with normal saline. We will also get a bladder scan to rule out urinary retention and confirm anuria. We will also get urinalysis if possible. 2. We will plan on dialyzing the patient tomorrow morning. We will also consult the social services manager and Case Management to help with outpatient dialysis set up. Avoid nephrotoxic agents including HAMLET eusebia. Hold all antihypertensive therapy at this point. Further treatment to follow depending on hospital course and review of other diagnostic tests. Job ID: [id number]
[2020-09-08] MEDS ORDERED: Acetaminophen 325 MG TAB PO PRN (20:00)
[2020-09-08] MEDS ORDERED: Ondansetron PF 4 MG/2 ML Vial IVP PRN (20:00)
[2020-09-08] MEDS ORDERED: Ondansetron ODT 4 MG TAB SL PRN (20:00)
[2020-09-08] MEDS ORDERED: ALPRAZolam 0.5 MG TAB PO PRN (20:15)
[2020-09-08] MEDS: Rosuvastatin 20 MG TAB PO SCH (20:20)
[2020-09-08] MEDS: busPIRone HCl 10 MG TAB PO SCH (20:20)
[2020-09-08] MEDS: Sodium Chloride 0.9% 1,000 ML IV SCH (20:24)
[2020-09-08] MEDS ORDERED: Gabapentin 300 MG CAP PO SCH (21:00)
[2020-09-08] MEDS: Lacosamide 50 mg Tablet PO SCH (21:14)
[2020-09-08] MEDS: Nicotine 7 MG PATCH TD SCH (21:45)
[2020-09-08 22:15] VITALS: BMI 29.4
[2020-09-09] MEDS: Levothyroxine Sodium 25 MCG TAB PO SCH (05:27)
[2020-09-09] MEDS: Sodium Chloride 0.9% 1,000 ML IV SCH ×3 (05:32→22:30)
[2020-09-09 06:11] LABS: Albumin 2.8 g/dL (3.5-5.0); Anion Gap 17 mmol/L (10-20); BUN (Urea Nitrogen) 31 mg/dL (8.4-25.7); Calc. Creatinine Clearance 16 mL/min (70-130); Calcium 7.7 mg/dL (7.8-10.44); Carbon Dioxide 20 mmol/L (22-29); Chloride 106 mmol/L (98-107); Estimated GFR-MDRD 8; Glucose 94 mg/dL (70-105); Phosphorus 6.1 mg/dL (2.3-4.7); Potassium 3.9 mmol/L (3.5-5.1); Sodium 139 mmol/L (136-145)
--- NOTE | 2020-09-09 07:14 | HP ---
CHIEF COMPLAINT: For observation with acute kidney injury. HISTORY OF PRESENT ILLNESS: The patient is a 55-year-old male, who had recently been hospitalized and discharged to a rehab facility, at which point, he left AMA and did that on the basis of going to [facility]. He then decided he wanted to live and canceled his hospice, but had no arrangements made for dialysis. Therefore, he came to the emergency room, needed to be dialyzed. PAST MEDICAL HISTORY: Most recent hospitalization less than 1 month ago on 08/08/2020, and he was admitted for acute renal failure due to rhabdomyolysis with dehydration. The patient had a prolonged hospital course. His other medical problems include recurrent sepsis with empyema, multiple episodes of acute renal insufficiency, TIAs/CVA as reason for him to be wheelchair bound, but he is now getting up and ambulating, metabolic encephalopathy, [id number] diabetes, mainly controlled with diet, hypertension, hyperlipidemia, chronic back pain. He has since been weaned off his pain medicines. He is noncompliant with most of his medical care. He has chronic insomnia and has been on an outpatient treatment program with Suboxone for opioid dependency, but he got weaned off that on his last hospitalization. PAST SURGICAL HISTORY: Includes thoracotomy for empyema, back surgery, and hernia repair. SOCIAL HISTORY: Positive for smoking and continues to smoke. Negative for illicit drug use. ALLERGIES: HE HAS NO KNOWN DRUG ALLERGIES. MEDICATIONS: On admission include; 1. Daily aspirin. 2. Plavix 75 a day. 3. Renvela 600 t.i.d. 4. Atorvastatin 10 mg at bedtime. 5. Tamsulosin 0.4 mg daily. 6. Seroquel 50 mg at bedtime, 200 q.a.m. 7. BuSpar 15 mg t.i.d. REVIEW OF SYSTEMS: CONSTITUTIONAL: The patient is more mentally responsive this morning. Denies fever, aches, chills, or pain. HEENT: Denies drainage from eyes, ears, nose, or throat. NECK: Has not caused him any trouble. CHEST: Denies cough or shortness of breath. CARDIOVASCULAR: Denies pain or palpitations. GASTROINTESTINAL: Denies nausea, vomiting, or diarrhea. GENITOURINARY: Denies any blood in his catheter or in stool. MUSCULOSKELETAL: He has been generally weak, but has been getting better with physical therapy. SKIN: No new rashes or lesions. NEUROLOGIC: He became confused when gabapentin was reinstituted by mistake and since that has been discontinued and he got Seroquel last night. He is much more mentally intact this morning. PHYSICAL EXAMINATION: VITAL SIGNS: Blood pressure is 104/66, pulse 87, respirations 18, O2 saturation 98%, and temperature 97.9. His weight 205. GENERAL: Large 55-year-old male, who appears his stated age. Alert, responsive, and cooperative at the time of this evaluation. HEENT: Normocephalic, atraumatic. Pupils are equal, round, and reactive to light. Extraocular muscles are intact. TMs, nares, and pharynx clear. NECK: Supple. Trachea midline. CHEST: Clear to auscultation. HEART: Regular rate and rhythm without murmur. ABDOMEN: Soft, nontender without organomegaly. EXTREMITIES: Without clubbing, cyanosis, or edema. SKIN: No new rashes or lesions. NEUROLOGIC: Cranial nerves appear intact and sensory exam is intact. Mental status is slowed, but appropriate. He is unable to test gait and cerebral function at this time. We will get Physical Therapy to see him. LABORATORY DATA: Lab work thus far showed WBCs 20.3, hemoglobin 9.2, hematocrit 28.4 with platelets of 124. Sodium 139, potassium 3.9, chloride 106, CO2 of 20, BUN 31, and creatinine 7.0 with glucose of 94. CK-MB elevated at 8.7, but denies any chest pain. His Keppra level was 4.4. TSH 2.5. Liver functions are slightly elevated. ASSESSMENT: 1. Acute kidney injury in need of dialysis. 2. Altered mental status associated with medication. PLAN: Will be to discontinue the medicine contributing to his confusion. Dr. Willoughby has been consulted and we will arrange for outpatient dialysis. Currently, he will get inpatient dialysis. We are going to start him on a new seizure medicine since the Keppra can cause confusion and agitation and we will serially reassess him. We will get Physical Therapy go in and try to get him stronger. Face to face time 40 min. Job ID: [id number] MTDD
[2020-09-09] MEDS ORDERED: Heparin 10,000 UNITS/ 10 ML VIAL ONE (08:42)
[2020-09-09] MEDS ORDERED: DULoxetine 60 MG CAP PO SCH (09:00)
[2020-09-09] MEDS ORDERED: ALPRAZolam 0.5 MG TAB PO SCH (09:00)
[2020-09-09 09:10] LABS: HBSAg Index 0.16 S/CO (0-0.99); Hep B Core Total Ab Non-Reactive (NonReactive); Hep B Core Total Index 0.07 S/CO (0-0.79); Hep B Surf Ag Non-Reactive S/CO (NonReactive); Hep C IgG Ab Non-Reactive (NonReactive); Hep C Index 0.15 S/CO (0-0.79)
[2020-09-09 09:16] LABS: HBSAB Concentration 102.41 mIU/mL; Hep B Surf AB Reactive (NonReactive)
[2020-09-09] MEDS: traMADol HCl 50 MG TAB PO PRN ×2 (09:34→17:14)
[2020-09-09] MEDS: ALPRAZolam 0.5 MG TAB PO PRN ×2 (09:34→19:54)
[2020-09-09 09:37] LABS: SARS-CoV-2 MS2 Positive; SARS-CoV-2 N Gene Negative; SARS-CoV-2 S Gene Negative; SARS-CoV-2 by NAA Not Detected (NotDetected); SARS-CoV-2 orf1ab Negative
[2020-09-09] MEDS: busPIRone HCl 10 MG TAB PO SCH ×3 (09:48→19:53)
[2020-09-09 10:15] LABS: Band 1 % (5-11); Eosinophils 9 % (0-10); Lymphocytes 38 % (21-51); MDiff Complete? YES; Mean Corpuscular HGB CONC 31.7 g/dL (32.0-36.0); Mean Corpuscular Hemoglobin 32.5 pg (27.0-31.0); Metamyelocyte 1 % (0-0); Monocytes 2 % (0-10); Neutrophil 49 % (42-75); Platelet Count 111 thou/uL (130-400); Platelet Morphology Comment Appears Decreased; Polychromasia SLIGHT = 2-3 cells (100X) (0-2/hpf); Red Blood Cell (RBC) Count 2.45 mill/uL (4.70-6.10)
--- NOTE | 2020-09-09 13:34 | PDOC.NEPPN ---
- Subjective Encounter Date: 09/09/20 Subjective: Seen in follow up for ARF requiring hemodialysis. No new problem. Passed urine this morning but quantity is unknown. - Objective Vital Signs & Weight: Vital Signs (12 hours) Temp Pulse Resp BP Pulse Ox 09/09/20 08:00 98 09/09/20 07:16 98.2 F 86 16 94/59 L 98 09/09/20 04:41 97.9 F 87 18 104/66 98 Weight Weight 205 lb 0.478 oz I&O: 09/08/20 09/09/20 09/10/20 06:59 06:59 06:59 Intake Total 2412 Balance 2412 Result Diagrams: 09/09/20 05:24 09/09/20 05:24 Nephrology ROS - Medication Medications: Active Medications Generic Name Dose Route Start Last Admin Trade Name Freq PRN Reason Stop Dose Admin Alprazolam 0.5 mg 09/09/20 09:30 09/09/20 09:34 Alprazolam 0.5 Mg Tab PO 0.5 mg Q6H PRN Administration Anxiety Buspirone HCl 15 mg 09/08/20 21:00 09/09/20 09:48 Buspirone Hcl 10 Mg Tab PO Not Given TID WESLEY Sodium Chloride 1,000 mls @ 100 mls/hr 09/08/20 18:15 09/09/20 05:32 Normal Saline 0.9% IV 1,000 mls .Q10H WESLEY Administration Lacosamide 50 mg 09/08/20 21:00 09/08/20 21:14 Lacosamide 50 Mg Tablet PO 50 mg BID WESLEY Administration Levothyroxine Sodium 25 mcg 09/09/20 06:00 09/09/20 05:27 Levothyroxine Sodium 25 Mcg Tab PO 25 mcg 0600 WESLEY Administration Nicotine 7 mg 09/08/20 21:00 09/08/20 21:45 Nicotine 7 Mg Patch TD 7 mg Q24HR WESLEY Administration Quetiapine Fumarate 50 mg 09/08/20 21:00 09/08/20 21:12 Quetiapine Fumarate 25 Mg Tab PO 50 mg HS WESLEY Administration Rosuvastatin Calcium 40 mg 09/08/20 21:00 09/08/20 20:20 Rosuvastatin 20 Mg Tab PO 40 mg HS WESLEY Administration Sodium Chloride 10 ml 09/09/20 09:00 09/09/20 09:49 Flush - Normal Saline 10 Ml Syringe IVF Not Given Q12HR WESLEY Tramadol HCl 50 mg 09/09/20 09:30 09/09/20 09:34 Tramadol Hcl 50 Mg Tab PO 50 mg Q6H PRN Administration Pain - Exam General Appearance: awake alert Eye: anicteric sclera ENT: normocephalic atraumatic Neck: symmetric, no JVD Respiratory: CTAB Cardiovascular: RRR Gastrointestinal: soft, non-tender, non-distended, normal bowel sounds Extremities: no edema Neurological: CN's grossly intact, no focal deficits PSYCH: A&O x 3 Nephrology Results - Labs Result Diagrams: 09/09/20 05:24 09/09/20 05:24 Lab results: WBC 14.0 thou/uL (4.8-10.8) H 09/09/20 05:24 Hgb 8.0 g/dL (14.0-18.0) L 09/09/20 05:24 Hct 25.1 % (42.0-52.0) L 09/09/20 05:24 MCV 102.0 fL (78.0-98.0) H 09/09/20 05:24 Plt Count 111 thou/uL (130-400) L 09/09/20 05:24 Band Neuts % (Manual) 1 % (5-11) L 09/09/20 05:24 Sodium 139 mmol/L (136-145) 09/09/20 05:24 Potassium 3.9 mmol/L (3.5-5.1) 09/09/20 05:24 Chloride 106 mmol/L (98-107) 09/09/20 05:24 Carbon Dioxide 20 mmol/L (22-29) L 09/09/20 05:24 BUN 31 mg/dL (8.4-25.7) H 09/09/20 05:24 Creatinine 7.04 mg/dL (0.7-1.3) H 09/09/20 05:24 Glucose 94 mg/dL (70-105) 09/09/20 05:24 Calcium 7.7 mg/dL (7.8-10.44) L 09/09/20 05:24 Total Bilirubin 0.6 mg/dL (0.2-1.2) 09/08/20 14:31 AST 432 U/L (5-34) H 09/08/20 14:31 ALT 290 U/L (8-55) H 09/08/20 14:31 Alkaline Phosphatase 641 U/L (40-110) H 09/08/20 14:31 Creatine Kinase 169 U/L (30-200) 09/08/20 14:31 CK-MB (CK-2) 8.7 ng/mL (0-6.6) H* 09/08/20 14:31 Troponin I 0.085 ng/mL (< 0.028) H 09/08/20 14:31 B-Natriuretic Peptide 17.7 pg/mL (0-100) 09/08/20 14:31 Serum Total Protein 6.0 g/dL (6.0-8.3) 09/08/20 14:31 Albumin 2.8 g/dL (3.5-5.0) L 09/09/20 05:24 Sodium 139 mmol/L (136-145) 09/09/20 05:24 Potassium 3.9 mmol/L (3.5-5.1) 09/09/20 05:24 Chloride 106 mmol/L (98-107) 09/09/20 05:24 Carbon Dioxide 20 mmol/L (22-29) L 09/09/20 05:24 Anion Gap 17 mmol/L (10-20) 09/09/20 05:24 BUN 31 mg/dL (8.4-25.7) H 09/09/20 05:24 Creatinine 7.04 mg/dL (0.7-1.3) H 09/09/20 05:24 Glucose 94 mg/dL (70-105) 09/09/20 05:24 Calcium 7.7 mg/dL (7.8-10.44) L 09/09/20 05:24 Phosphorus 6.1 mg/dL (2.3-4.7) H 09/09/20 05:24 Albumin 2.8 g/dL (3.5-5.0) L 09/09/20 05:24 Nephrology AP PN - Plan ARF requiring HD.Last HD was on 09/03/2020. Hx of Hypertension. BP is soft currently. Volume depletion. Anemia in renal failure. Bipolar with possible psychosis Plan. Will dialyze patient today with No UF in view of volume contraction and soft BP. Hold antihypertensives. Start oral iron supplementation and AMNA. For discharge once outpatient dialysis is set up. Discussed with patient and case mgt.
[2020-09-09] MEDS: Lacosamide 50 mg Tablet PO SCH ×2 (15:07→19:54)
[2020-09-09] MEDS: Ferrous Sulfate 325 MG TAB PO SCH (16:28)
[2020-09-09] MEDS: Rosuvastatin 20 MG TAB PO SCH (19:54)
[2020-09-09] MEDS: Nicotine 7 MG PATCH TD SCH (21:11)
[2020-09-10] MEDS: Levothyroxine Sodium 25 MCG TAB PO SCH (04:58)
[2020-09-10 08:14] LABS: ALT (SGPT) 124 U/L (8-55); AST (SGOT) 66 U/L (5-34); Albumin 2.7 g/dL (3.5-5.0); Alkaline Phosphatase 405 U/L (40-110); Anion Gap 12 mmol/L (10-20); BUN (Urea Nitrogen) 13 mg/dL (8.4-25.7); Bilirubin, Total 0.4 mg/dL (0.2-1.2); Calc. Creatinine Clearance 29 mL/min (70-130); Calcium 7.8 mg/dL (7.8-10.44); Carbon Dioxide 27 mmol/L (22-29); Chloride 104 mmol/L (98-107); Estimated GFR-MDRD 17; Glucose 89 mg/dL (70-105); Potassium 3.8 mmol/L (3.5-5.1); Protein, Total 4.7 g/dL (6.0-8.3); Sodium 139 mmol/L (136-145)
[2020-09-10] MEDS: Ferrous Sulfate 325 MG TAB PO SCH ×2 (08:33→17:16)
[2020-09-10] MEDS: busPIRone HCl 10 MG TAB PO SCH ×3 (08:33→21:21)
[2020-09-10] MEDS: Lacosamide 50 mg Tablet PO SCH ×2 (08:34→21:32)
[2020-09-10] MEDS ORDERED: Epoetin (ESRD) 20,000 UNITS/ML SC SCH (09:00)
[2020-09-10] MEDS ORDERED: EPOETIN ALFA-EPBX (ESRD) 3,000 UNIT/ML VIAL SC SCH (09:00)
[2020-09-10] MEDS ORDERED: EPOETIN ALFA-EPBX (ESRD) 2,000 UNIT/ML VIAL SC SCH (09:00)
[2020-09-10] MEDS: ALPRAZolam 0.5 MG TAB PO PRN ×2 (13:00→19:59)
--- NOTE | 2020-09-10 15:01 | PDOC.NEPPN ---
- Subjective Encounter Date: 09/10/20 Subjective: Feeling better. Had HD yesterday. Oral intake is improving. No nausea or vomiting. - Objective Vital Signs & Weight: Vital Signs (12 hours) Temp Pulse Resp BP Pulse Ox 09/10/20 11:24 98.5 F 117 H 20 112/75 97 09/10/20 08:00 96 09/10/20 07:54 98.1 F 109 H 20 105/69 96 09/10/20 05:00 98.0 F 88 18 100/66 98 Weight Weight 205 lb 0.478 oz I&O: 09/09/20 09/10/20 09/11/20 06:59 06:59 06:59 Intake Total 2412 2360 Output Total 1100 Balance 2412 1260 Result Diagrams: 09/09/20 05:24 09/10/20 07:23 Nephrology ROS - Medication Medications: Active Medications Generic Name Dose Route Start Last Admin Trade Name Freq PRN Reason Stop Dose Admin Alprazolam 0.5 mg 09/09/20 09:30 09/10/20 13:00 Alprazolam 0.5 Mg Tab PO 0.5 mg Q6H PRN Administration Anxiety Buspirone HCl 15 mg 09/08/20 21:00 09/10/20 08:33 Buspirone Hcl 10 Mg Tab PO 15 mg TID WESLEY Administration Epoetin Tashi-epbx 2,000 unit 09/10/20 09:00 09/10/20 12:55 Epoetin Tashi-Epbx (Esrd) 2,000 Unit/Ml Vial SC 2,000 unit [id number] WESLEY Administration Epoetin Tashi-epbx 3,000 unit 09/10/20 09:00 09/10/20 12:54 Epoetin Tashi-Epbx (Esrd) 3,000 Unit/Ml Vial SC 3,000 unit [id number] WESLEY Administration Ferrous Sulfate 325 mg 09/09/20 17:00 09/10/20 08:33 Ferrous Sulfate 325 Mg Tab PO 325 mg BID-WM WESLEY Administration Lacosamide 50 mg 09/08/20 21:00 09/10/20 08:34 Lacosamide 50 Mg Tablet PO 50 mg BID WESLEY Administration Levothyroxine Sodium 25 mcg 09/09/20 06:00 11/20/20 04:58 Levothyroxine Sodium 25 Mcg Tab PO 25 mcg 0600 WESLEY Administration Nicotine 7 mg 09/08/20 21:00 09/09/20 21:11 Nicotine 7 Mg Patch TD 7 mg Q24HR WESLEY Administration Quetiapine Fumarate 50 mg 09/08/20 21:00 09/09/20 19:53 Quetiapine Fumarate 25 Mg Tab PO 50 mg HS WESLEY Administration Quetiapine Fumarate 100 mg 09/09/20 09:00 09/10/20 08:32 Quetiapine Fumarate 100 Mg Tab PO 100 mg QAM WESLEY Administration Rosuvastatin Calcium 40 mg 09/08/20 21:00 09/09/20 19:54 Rosuvastatin 20 Mg Tab PO 40 mg HS WESLEY Administration Sodium Chloride 10 ml 09/09/20 09:00 09/10/20 12:19 Flush - Normal Saline 10 Ml Syringe IVF Not Given Q12HR WESLEY Tramadol HCl 50 mg 09/09/20 09:30 09/09/20 17:14 Tramadol Hcl 50 Mg Tab PO 50 mg Q6H PRN Administration Pain - Exam General Appearance: awake alert Eye: anicteric sclera ENT: normocephalic atraumatic, moist mucosa Neck: supple, symmetric, no JVD Respiratory: CTAB Cardiovascular: RRR Gastrointestinal: soft, non-tender, non-distended, normal bowel sounds Extremities: no cyanosis, no edema Neurological: CN's grossly intact, no focal deficits Musculoskeletal: generalized weakness PSYCH: A&O x 3 Nephrology Results - Labs Result Diagrams: 09/09/20 05:24 09/10/20 07:23 Lab results: WBC 14.0 thou/uL (4.8-10.8) H 09/09/20 05:24 Hgb 8.0 g/dL (14.0-18.0) L 09/09/20 05:24 Hct 25.1 % (42.0-52.0) L 09/09/20 05:24 MCV 102.0 fL (78.0-98.0) H 09/09/20 05:24 Plt Count 111 thou/uL (130-400) L 09/09/20 05:24 Band Neuts % (Manual) 1 % (5-11) L 09/09/20 05:24 Sodium 139 mmol/L (136-145) 09/10/20 07:23 Potassium 3.8 mmol/L (3.5-5.1) 09/10/20 07:23 Chloride 104 mmol/L (98-107) 09/10/20 07:23 Carbon Dioxide 27 mmol/L (22-29) 09/10/20 07:23 BUN 13 mg/dL (8.4-25.7) 09/10/20 07:23 Creatinine 3.83 mg/dL (0.7-1.3) H 09/10/20 07:23 Glucose 89 mg/dL (70-105) 09/10/20 07:23 Calcium 7.8 mg/dL (7.8-10.44) 09/10/20 07:23 Total Bilirubin 0.4 mg/dL (0.2-1.2) 09/10/20 07:23 AST 66 U/L (5-34) H 09/10/20 07:23 ALT 124 U/L (8-55) H 09/10/20 07:23 Alkaline Phosphatase 405 U/L (40-110) H 09/10/20 07:23 Creatine Kinase 169 U/L (30-200) 09/08/20 14:31 CK-MB (CK-2) 8.7 ng/mL (0-6.6) H* 09/08/20 14:31 Troponin I 0.085 ng/mL (< 0.028) H 09/08/20 14:31 B-Natriuretic Peptide 17.7 pg/mL (0-100) 09/08/20 14:31 Serum Total Protein 4.7 g/dL (6.0-8.3) L 09/10/20 07:23 Albumin 2.7 g/dL (3.5-5.0) L 09/10/20 07:23 Sodium 139 mmol/L (136-145) 09/10/20 07:23 Potassium 3.8 mmol/L (3.5-5.1) 09/10/20 07:23 Chloride 104 mmol/L (98-107) 09/10/20 07:23 Carbon Dioxide 27 mmol/L (22-29) 09/10/20 07:23 Anion Gap 12 mmol/L (10-20) 09/10/20 07:23 BUN 13 mg/dL (8.4-25.7) 09/10/20 07:23 Creatinine 3.83 mg/dL (0.7-1.3) H 09/10/20 07:23 Glucose 89 mg/dL (70-105) 09/10/20 07:23 Calcium 7.8 mg/dL (7.8-10.44) 09/10/20 07:23 Phosphorus 6.1 mg/dL (2.3-4.7) H 09/09/20 05:24 Albumin 2.7 g/dL (3.5-5.0) L 09/10/20 07:23 Nephrology AP PN - Plan ARF requiring HD. Last HD was on 09/09/2020. Hx of Hypertension. BP is sitll soft Volume depletion. Improved with IVF Anemia in renal failure. Bipolar with possible psychosis Plan. DC IVF. [place] oral intake advised Continue to hold antihypertensives. Continue oral iron supplementation and AMNA. For discharge tomorrow after HD Discussed with patient and case mgt.
[2020-09-10] MEDS: traMADol HCl 50 MG TAB PO PRN (18:55)
[2020-09-10] MEDS: Rosuvastatin 20 MG TAB PO SCH (21:24)
[2020-09-10] MEDS: Nicotine 7 MG PATCH TD SCH (22:00)
[2020-09-10] MEDS ORDERED: Mag-Al 1200 mg/1200 mg/30 ML UDCUP PO SCH (23:45)
[2020-09-11] MEDS: Levothyroxine Sodium 25 MCG TAB PO SCH (05:51)
[2020-09-11] MEDS ORDERED: Mag-Al 1200 mg/1200 mg/30 ML UDCUP PO PRN (07:52)
[2020-09-11 08:01] LABS: ALT (SGPT) 89 U/L (8-55); AST (SGOT) 32 U/L (5-34); Albumin 2.9 g/dL (3.5-5.0); Alkaline Phosphatase 356 U/L (40-110); Anion Gap 16 mmol/L (10-20); BUN (Urea Nitrogen) 16 mg/dL (8.4-25.7); Bilirubin, Total 0.3 mg/dL (0.2-1.2); Calc. Creatinine Clearance 27 mL/min (70-130); Calcium 8.1 mg/dL (7.8-10.44); Carbon Dioxide 24 mmol/L (22-29); Chloride 106 mmol/L (98-107); Estimated GFR-MDRD 15; Globulin 2.2 g/dL (2.4-3.5); Glucose 89 mg/dL (70-105); Potassium 3.7 mmol/L (3.5-5.1); Protein, Total 5.1 g/dL (6.0-8.3); Sodium 142 mmol/L (136-145)
--- NOTE | 2020-09-11 08:24 | PDOC.NEPPN ---
- Subjective Encounter Date: 09/11/20 Subjective: Seen in follow up for management of ARF requiring hemodialysis. Urine output is increasing. Oral intake also is improving. Desires to go home today. - Objective Vital Signs & Weight: Vital Signs (12 hours) Temp Pulse Resp BP BP Pulse Ox 09/11/20 07:27 98.0 F 100 20 124/82 97 09/11/20 04:00 98.4 F 102 H 20 102/72 95 09/11/20 00:00 98.2 F 109 H 20 102/69 95 09/10/20 23:20 117 H 18 95 Weight Weight 205 lb 0.478 oz I&O: 09/10/20 09/11/20 09/12/20 06:59 06:59 06:59 Intake Total 2360 1432 Output Total 1100 1600 Balance 1260 -168 Result Diagrams: 09/09/20 05:24 09/11/20 07:10 Nephrology ROS - Medication Medications: Active Medications Generic Name Dose Route Start Last Admin Trade Name Freq PRN Reason Stop Dose Admin Alprazolam 0.5 mg 09/09/20 09:30 09/10/20 19:59 Alprazolam 0.5 Mg Tab PO 0.5 mg Q6H PRN Administration Anxiety Buspirone HCl 15 mg 09/08/20 21:00 09/10/20 21:21 Buspirone Hcl 10 Mg Tab PO 15 mg TID WESLEY Administration Epoetin Tashi-epbx 2,000 unit 09/10/20 09:00 09/10/20 12:55 Epoetin Tashi-Epbx (Esrd) 2,000 Unit/Ml Vial SC 2,000 unit [id number] WESLEY Administration Epoetin Tashi-epbx 3,000 unit 09/10/20 09:00 09/10/20 12:54 Epoetin Tashi-Epbx (Esrd) 3,000 Unit/Ml Vial SC 3,000 unit [email or web address] WESLEY Administration Ferrous Sulfate 325 mg 09/09/20 17:00 09/10/20 17:16 Ferrous Sulfate 325 Mg Tab PO 325 mg BID-WM WESLEY Administration Lacosamide 50 mg 09/08/20 21:00 09/10/20 21:32 Lacosamide 50 Mg Tablet PO 50 mg BID WESLEY Administration Levothyroxine Sodium 25 mcg 09/09/20 06:00 09/11/20 05:51 Levothyroxine Sodium 25 Mcg Tab PO 25 mcg 0600 WESLEY Administration Nicotine 7 mg 09/08/20 21:00 09/10/20 22:00 Nicotine 7 Mg Patch TD 7 mg Q24HR WESLEY Administration Quetiapine Fumarate 50 mg 09/08/20 21:00 09/10/20 21:23 Quetiapine Fumarate 25 Mg Tab PO 50 mg HS WESLEY Administration Quetiapine Fumarate 100 mg 09/09/20 09:00 09/10/20 08:32 Quetiapine Fumarate 100 Mg Tab PO 100 mg QAM WESLEY Administration Rosuvastatin Calcium 40 mg 09/08/20 21:00 09/10/20 21:24 Rosuvastatin 20 Mg Tab PO 40 mg HS WESLEY Administration Sodium Chloride 10 ml 09/09/20 09:00 09/10/20 21:24 Flush - Normal Saline 10 Ml Syringe IVF 10 ml Q12HR WESLEY Administration Tramadol HCl 50 mg 09/09/20 09:30 09/10/20 18:55 Tramadol Hcl 50 Mg Tab PO 50 mg Q6H PRN Administration Pain - Exam General Appearance: awake alert Eye: anicteric sclera ENT: normocephalic atraumatic Neck: supple, no JVD Respiratory: CTAB Cardiovascular: RRR Gastrointestinal: soft, non-tender, non-distended, normal bowel sounds Extremities: no edema Neurological: CN's grossly intact, no focal deficits Musculoskeletal: generalized weakness PSYCH: A&O x 3 Nephrology Results - Labs Result Diagrams: 09/09/20 05:24 09/11/20 07:10 Lab results: WBC 14.0 thou/uL (4.8-10.8) H 09/09/20 05:24 Hgb 8.0 g/dL (14.0-18.0) L 09/09/20 05:24 Hct 25.1 % (42.0-52.0) L 09/09/20 05:24 MCV 102.0 fL (78.0-98.0) H 09/09/20 05:24 Plt Count 111 thou/uL (130-400) L 09/09/20 05:24 Band Neuts % (Manual) 1 % (5-11) L 09/09/20 05:24 Sodium 142 mmol/L (136-145) 09/11/20 07:10 Potassium 3.7 mmol/L (3.5-5.1) 09/11/20 07:10 Chloride 106 mmol/L (98-107) 09/11/20 07:10 Carbon Dioxide 24 mmol/L (22-29) 09/11/20 07:10 BUN 16 mg/dL (8.4-25.7) 09/11/20 07:10 Creatinine 4.19 mg/dL (0.7-1.3) H 09/11/20 07:10 Glucose 89 mg/dL (70-105) 09/11/20 07:10 Calcium 8.1 mg/dL (7.8-10.44) 09/11/20 07:10 Total Bilirubin 0.3 mg/dL (0.2-1.2) 09/11/20 07:10 AST 32 U/L (5-34) 09/11/20 07:10 ALT 89 U/L (8-55) H 09/11/20 07:10 Alkaline Phosphatase 356 U/L (40-110) H 09/11/20 07:10 Creatine Kinase 169 U/L (30-200) 09/08/20 14:31 CK-MB (CK-2) 8.7 ng/mL (0-6.6) H* 09/08/20 14:31 Troponin I 0.085 ng/mL (< 0.028) H 09/08/20 14:31 B-Natriuretic Peptide 17.7 pg/mL (0-100) 09/08/20 14:31 Serum Total Protein 5.1 g/dL (6.0-8.3) L 09/11/20 07:10 Albumin 2.9 g/dL (3.5-5.0) L 09/11/20 07:10 Sodium 142 mmol/L (136-145) 09/11/20 07:10 Potassium 3.7 mmol/L (3.5-5.1) 09/11/20 07:10 Chloride 106 mmol/L (98-107) 09/11/20 07:10 Carbon Dioxide 24 mmol/L (22-29) 09/11/20 07:10 Anion Gap 16 mmol/L (10-20) 09/11/20 07:10 BUN 16 mg/dL (8.4-25.7) 09/11/20 07:10 Creatinine 4.19 mg/dL (0.7-1.3) H 09/11/20 07:10 Glucose 89 mg/dL (70-105) 09/11/20 07:10 Calcium 8.1 mg/dL (7.8-10.44) 09/11/20 07:10 Phosphorus 6.1 mg/dL (2.3-4.7) H 09/09/20 05:24 Albumin 2.9 g/dL (3.5-5.0) L 09/11/20 07:10 Nephrology AP PN - Plan ARF requiring HD. Last HD was on 09/09/2020. Hx of Hypertension. BP is better but still soft Volume depletion. Improved with IVF Anemia in renal failure. Bipolar with possible psychosis Plan. HD today for 4 hours [place] oral intake advised Continue to hold antihypertensives. Continue oral iron supplementation and AMNA. Can be discharge today after HD even if outpatient HD has not being sorted out completely. I will follow up on that and let patient know when to go for treatment Discussed with patient
[2020-09-11] MEDS: Ferrous Sulfate 325 MG TAB PO SCH (08:33)
[2020-09-11] MEDS: busPIRone HCl 10 MG TAB PO SCH ×2 (08:33→15:46)
[2020-09-11] MEDS: Lacosamide 50 mg Tablet PO SCH (08:34)
[2020-09-11] MEDS ORDERED: Heparin 10,000 UNITS/ 10 ML VIAL ONE (14:23)
[2020-09-11] MEDS: ALPRAZolam 0.5 MG TAB PO PRN (15:46)
[2020-09-11 15:55] VITALS: BP 122/83; TEMP 98.2
--- NOTE | 2020-09-11 17:13 | EKG ---
Test Reason : Blood Pressure : / mmHG Vent. Rate : 083 BPM Atrial Rate : 082 BPM P-R Int : 000 ms QRS Dur : 092 ms QT Int : 360 ms P-R-T Axes : 000 -08 002 degrees QTc Int : 423 ms Accelerated Junctional rhythm Nonspecific ST and T wave abnormality Abnormal ECG Confirmed by FADY PALAFOX DO ([id number]), loan expeditor SHINE KIRKPATRICK ([id number]) on 09/11/2020 5:12:28 PM Referred By: Confirmed By:FADY PALAFOX DO
--- NOTE | 2020-09-14 02:59 | PQF ---
Dear :Rashaun Reina Date 09/14/20 Please exercise your independent, professional judgment in responding to the clarification form. Clinical indicators are provided on the bottom of this form for your review Can you please further clarify the diagnosis of the patient? Please check appropriate box(es): [ ] Acute metabolic Encephalopathy: [ ] Acute Toxic Encephalopathy [ x ] Drug induced Encephalopathy [ x ] Other diagnosis please specify __Bipolar w/ psychotic features [ ] Unable to determine Physician Signature: Date/Time: For continuity of documentation, please document condition throughout progress notes and discharge summary. Thank You. o be completed by CDI/Coding staff for physician review: Present Clinical Indicators - Signs / Symptoms / Labs Results and Location in Medical Record [ x ] Generalized weakness, gait instability and feeling ill Consult pg.1 09/08 [ x ] Altered mental status associated with medication H and P pg.2 [ x ] Confusion H and P pg.3 [ x ] Mental status is slow but appropriate H and P pg.2 [ x ] Bipolar with possible psychosis PN pg.5 Present Risk Factors Results and Location in Medical Record [ x ] HTN Consult pg.1 09/08 [ x ] Bipolar disorder Consult pg.1 09/08 [ x ] 55 years old H and P pg.1 [ x ] Chronic insomnia H and P pg.1 [ x ] Hx: Metabolic encephalopathy H and P pg.1 [ x ] ESRD ED Notes 09/08 [ x ] DM ED Notes 09/08 [ x ] Former Smoker ED Notes 09/08 [ x ] Volume depletion PN 09/09 Present Treatments Results and Location in Medical Record [ x ] IV Fluids MAR [ x ] Discontinue medication contributing to his confusion H and P pg.3 [ x ] Electrolyte monitoring Laboratory CDS/Certified Professional Midwife Signature: Prieto Smalls Phone #: ext [phone] Date/Time: 09/14/2020 This is a permanent part of the Medical Record [facility]
--- NOTE | 2020-09-15 08:33 | EKG ---
Test Reason : Blood Pressure : / mmHG Vent. Rate : 104 BPM Atrial Rate : 104 BPM P-R Int : 168 ms QRS Dur : 094 ms QT Int : 352 ms P-R-T Axes : 040 038 044 degrees QTc Int : 462 ms Sinus tachycardia Low voltage QRS Nonspecific ST abnormality Abnormal ECG Confirmed by JESSIKA VALENTINE MD ([id number]) on 09/15/2020 8:33:22 AM Referred By: STACY Confirmed By:JESSIKA VALENTINE MD
== END 2020-09-11 16:39 | disposition home or self-care (01) | DRG 682 ==
LOC: ERS 12:45 → T4-B 17:21
PROVIDERS: ADMIT Specialist; ATTEND Specialist
PROC: 5A1D70Z Performance of Urinary Filtration, Intermittent, Less than 6 Hours Per Day (ICD-10-PCS; principal; 2020-09-08)
DX: N17.9 Acute kidney failure, unspecified (principal); G92 Toxic encephalopathy; I12.0 Hypertensive chronic kidney disease with stage 5 chronic kidney disease or end stage renal disease; F23 Brief psychotic disorder; Z20.828 Contact with and (suspected) exposure to other viral communicable diseases; N18.6 End stage renal disease; E11.22 Type 2 diabetes mellitus with diabetic chronic kidney disease; E78.5 Hyperlipidemia, unspecified; F41.9 Anxiety disorder, unspecified; F17.210 Nicotine dependence, cigarettes, uncomplicated; I25.10 Atherosclerotic heart disease of native coronary artery without angina pectoris; D72.829 Elevated white blood cell count, unspecified; D63.1 Anemia in chronic kidney disease; F31.9 Bipolar disorder, unspecified; E86.9 Volume depletion, unspecified; E86.0 Dehydration; T50.905A Adverse effect of unspecified drugs, medicaments and biological substances, initial encounter; Z88.0 Allergy status to penicillin; Z79.899 Other long term (current) drug therapy; Z90.49 Acquired absence of other specified parts of digestive tract; Z98.1 Arthrodesis status; Z79.01 Long term (current) use of anticoagulants
CPT/HCPCS: 36415; 71045; 80053; 80069; 80177; 82550; 82553; 83880; 84443; 84484; 85025; 86704; 86706; 86803; 87340; 87635; 90935; 93005; 93010; G0257; J1644; Q5105; U0003

== ENCOUNTER 2023-04-04 14:09 | Outpatient (CLI) | payer MEDICARE | END 2023-04-04 14:10 | disposition home or self-care (01) | LOC: BICRAD 14:09 | PROVIDERS: ATTEND Specialist | DX: S22.000A Wedge compression fracture of unspecified thoracic vertebra, initial encounter for closed fracture (principal) | CPT/HCPCS: 72072 ==

== ENCOUNTER 2023-04-23 09:28 | Inpatient (IN) | payer MEDICARE ==
[2023-04-23 10:04] LABS: Hemoglobin 17.5 g/dL (14.0-18.0); Mean Corpuscular HGB CONC 32.1 g/dL (32.0-36.0); Mean Corpuscular Hemoglobin 30.6 pg (27.0-31.0); Mean Corpuscular Volume 95.3 fl (78.0-98.0); Mean Platelet Volume 11.4 fL (7.4-10.4); Platelet Count 461 10x3/uL (130-400); RBC Distribution Width 14.8 % (11.5-14.5); Red Blood Cell (RBC) Count 5.72 mill/uL (4.70-6.10); White Blood Cell (WBC) Count 29.4 10x3/uL (4.8-10.8)
[2023-04-23 10:05] LABS: Delete Auto Diff?? YES; Manual Diff?? YES
[2023-04-23 10:18] LABS: INR-International Normal Ratio 1.1; PTT 25.2 sec (22.9-36.1); Prothrombin Time 14.1 sec (12.0-14.7)
[2023-04-23 10:19] LABS: D-Dimer Test 3.87 *mcg/mL (0.27-0.43)
[2023-04-23 10:25] LABS: Anisocytosis SLIGHT = 6-15 cells HPF (0-5); Band 6 % (5-11); CellaVision Operator ID LAB.CLH1; Eosinophils 6 % (0-10); Large Platelets 8.9 % (0-5); Lymphocytes 22 % (21-51); Metamyelocyte 1 % (0-0); Monocytes 4 % (0-10); Neutrophil 56 % (42-75); Platelet Adequacy Comment Platelets Increased; Polychromasia SLIGHT = 2-3 cells HPF (0-2); Reactive Lymphocytes 3 % (0-10); Total Cell Count 101
[2023-04-23] MEDS ORDERED: LevoFLOXacin 750 mg/D5W 150 ml Premix Bag ONE (10:29)
[2023-04-23 10:32] LABS: ALT (SGPT) 30 U/L (8-55); AST (SGOT) 27 U/L (5-34); Albumin 4.5 g/dL (3.5-5.0); Alkaline Phosphatase 218 U/L (40-110); Anion Gap 17 mmol/L (10-20); BUN (Urea Nitrogen) 32 mg/dL (8.4-25.7); Bilirubin, Total 0.9 mg/dL (0.2-1.2); Calc. Creatinine Clearance 0 mL/min (70-130); Calcium 9.9 mg/dL (7.8-10.44); Carbon Dioxide 24 mmol/L (22-29); Chloride 101 mmol/L (98-107); Estimated GFR 27; Globulin 3.5 g/dL (2.4-3.5); Glucose 303 mg/dL (70-105); Magnesium 2.2 mg/dL (1.6-2.6); Sodium 138 mmol/L (136-145)
[2023-04-23] MEDS ORDERED: metroNIDAZOLE 500 MG in Premix Bag 1 BAG IVPB SCH (10:45)
[2023-04-23] MEDS ORDERED: VANCOMYCIN 2 GRAM/500 ML BAG 2 GM in Premix Bag 1 BAG IVPB SCH (11:00)
[2023-04-23] MEDS ORDERED: Iopamidol-370 76% 500 ML MDV (1 ML CHARGE) ONE (11:26)
[2023-04-23] MEDS ORDERED: metroNIDAZOLE 500 MG/100 ML BAG ONE (12:23)
[2023-04-23] MEDS ORDERED: Morphine 4 MG/ML VIAL ONE (13:11)
[2023-04-23 13:23] LABS: Lactic Acid 2.9 mmol/L (0.5-2.2)
[2023-04-23] MEDS ORDERED: Vancomycin 1 GM/200 ML (FROZEN) BAG ONE (13:48)
[2023-04-23] MEDS ORDERED: Heparin 10,000 UNITS/ 10 ML VIAL ONE (14:49)
[2023-04-23] MEDS ORDERED: Heparin 25,000 units/D5W 500 ML ONE (14:49)
[2023-04-23 17:22] VITALS: BMI 31.1
[2023-04-23] MEDS ORDERED: Ondansetron ODT 4 MG TAB SL PRN (18:15)
[2023-04-23] MEDS ORDERED: Ondansetron PF 4 MG/2 ML Vial IVP PRN (18:15)
[2023-04-23 18:23] LABS: PTT 220.4 sec (22.9-36.1)
[2023-04-23] MEDS ORDERED: Dextrose 5% in Water 1,000 ML IV PRN (19:30)
[2023-04-23] MEDS ORDERED: Dextrose 50% Abboject 50 ML SYRINGE IVP PRN (19:30)
[2023-04-23] MEDS ORDERED: Glucagon 1 MG/ML KIT IM PRN (19:30)
[2023-04-23] MEDS ORDERED: Insulin Regular 300 UNITS/3 ML VIAL SC PRN (19:30)
[2023-04-23] MEDS: Acetaminophen 325 MG TAB PO PRN (19:55)
[2023-04-23] MEDS: Famotidine 20 MG TAB PO SCH (19:56)
[2023-04-23] MEDS: busPIRone HCl 10 MG TAB PO SCH (19:56)
[2023-04-23] MEDS: Sodium Bicarbonate Tab 325 MG TAB PO SCH (19:56)
[2023-04-23] MEDS: Sodium Chloride 0.9% 1,000 ML IV SCH (19:57)
[2023-04-23] MEDS: Apixaban 5 MG TAB PO SCH (19:57)
[2023-04-23] MEDS: metroNIDAZOLE 500 MG in Premix Bag 1 BAG IVPB SCH (20:43)
[2023-04-23] MEDS: Cefepime 0.5 GM, Admixture Fee 1 EACH in Sodium Chloride 0.9% 100 ML IVPB SCH (20:43)
[2023-04-23] MEDS: Acetaminophen/Codeine 30-300mg Tablet PO PRN (20:55)
[2023-04-23] MEDS ORDERED: Vancomycin 1 GM in Premix Bag 1 BAG IVPB SCH (21:00)
[2023-04-23] MEDS: Nicotine 7 MG PATCH TOP SCH (21:08)
[2023-04-23] MEDS: HYDROcodone/Acetaminophen 10/325 mg Tablet PO PRN (22:34)
[2023-04-23] MEDS: ALPRAZolam 1 MG TAB PO PRN (22:38)
[2023-04-24] MEDS: Levothyroxine Sodium 25 MCG TAB PO SCH (05:06)
[2023-04-24] MEDS: metroNIDAZOLE 500 MG in Premix Bag 1 BAG IVPB SCH ×3 (05:06→22:04)
[2023-04-24 05:13] LABS: #Basophils 0.3 thou/uL (0.0-0.2); #Eosinphils 0.6 thou/uL (0.0-0.7); #Monocytes 1.4 thou/uL (0.11-0.59); #Neutrophils 15.5 thou/uL (1.40-6.50); %Lymphocytes 39.6 % (21.0-51.0); %Monocytes 4.6 % (0.0-10.0); %Neutrophils 52.2 % (42.0-75.0); Hemoglobin 15.3 g/dL (14.0-18.0); Mean Corpuscular HGB CONC 30.6 g/dL (32.0-36.0); Mean Corpuscular Hemoglobin 29.9 pg (27.0-31.0); Mean Corpuscular Volume 97.7 fl (78.0-98.0); Mean Platelet Volume 10.9 fL (7.4-10.4); Platelet Count 314 10x3/uL (130-400); RBC Distribution Width 14.7 % (11.5-14.5); Red Blood Cell (RBC) Count 5.12 mill/uL (4.70-6.10); White Blood Cell (WBC) Count 29.7 10x3/uL (4.8-10.8)
[2023-04-24 05:25] LABS: Hemoglobin A1c 5.5 % (4.0-6.0)
[2023-04-24 05:34] LABS: Manual Diff?? YES
[2023-04-24 05:40] LABS: BUN (Urea Nitrogen) 31 mg/dL (8.4-25.7); Calc. Creatinine Clearance 54 mL/min (70-130); Calcium 8.7 mg/dL (7.8-10.44); Carbon Dioxide 14 mmol/L (22-29); Cardiac Risk 1.7 (Less than 4.5); Chloride 104 mmol/L (98-107); Cholesterol 81 mg/dl (< 200 Desired); Estimated GFR 34; Glucose 100 mg/dL (70-105); HDL Cholesterol 47 mg/dL (>60 Neg Risk); LDL Cholesterol, Calculated 15 mg/dL; Potassium 5.3 mmol/L (3.5-5.1); Sodium 131 mmol/L (136-145); Triglycerides 94 mg/dL (Less than 150)
[2023-04-24 06:36] LABS: Anion Gap 18 mmol/L (10-20)
[2023-04-24 07:04] LABS: Band 1 % (5-11); Burr Cells SLIGHT = 2-5 cells HPF (0-1); CellaVision Operator ID LAB.JMM; Eosinophils 3 % (0-10); Lymphocytes 18 % (21-51); Macrocytosis SLIGHT = 6-15 cells HPF (0-5); Metamyelocyte 1 % (0-0); Monocytes 3 % (0-10); Myelocyte 1 % (0-0); Neutrophil 73 % (42-75); Platelet Adequacy Comment Platelets Normal; Polychromasia SLIGHT = 2-3 cells HPF (0-2); Total Cell Count 100
[2023-04-24] MEDS: Sodium Chloride 0.9% 1,000 ML IV SCH (10:13)
[2023-04-24] MEDS: Empagliflozin 25 MG TAB PO SCH (10:14)
[2023-04-24] MEDS: busPIRone HCl 10 MG TAB PO SCH ×3 (10:14→20:20)
[2023-04-24] MEDS: Sodium Bicarbonate Tab 325 MG TAB PO SCH ×2 (10:14→20:20)
[2023-04-24] MEDS: Apixaban 5 MG TAB PO SCH ×2 (10:14→20:20)
[2023-04-24 10:27] LABS: #Basophils 0.2 thou/uL (0.0-0.2); #Eosinphils 0.6 thou/uL (0.0-0.7); #Monocytes 1.6 thou/uL (0.11-0.59); #Neutrophils 15.7 thou/uL (1.40-6.50); %Basophils 0.8 % (0.0-1.0); %Eosinophils 2.1 % (0.0-10.0); %Lymphocytes 38.3 % (21.0-51.0); %Monocytes 5.3 % (0.0-10.0); %Neutrophils 52.7 % (42.0-75.0); Hemoglobin 17.2 g/dL (14.0-18.0); Mean Corpuscular HGB CONC 31.4 g/dL (32.0-36.0); Mean Corpuscular Hemoglobin 30.3 pg (27.0-31.0); Mean Corpuscular Volume 96.5 fl (78.0-98.0); Mean Platelet Volume 11.8 fL (7.4-10.4); Platelet Count 314 10x3/uL (130-400); RBC Distribution Width 14.8 % (11.5-14.5); Red Blood Cell (RBC) Count 5.68 mill/uL (4.70-6.10); White Blood Cell (WBC) Count 29.9 10x3/uL (4.8-10.8)
[2023-04-24] MEDS: Acetaminophen 325 MG TAB PO PRN (10:31)
[2023-04-24] MEDS: Acetaminophen/Codeine 30-300mg Tablet PO PRN ×2 (13:55→22:03)
[2023-04-24] MEDS: VANCOMYCIN 1.25 GM/250 ML BAG 1.25 GM in Premix Bag 1 BAG IVPB SCH (15:24)
[2023-04-24] MEDS: Famotidine 20 MG TAB PO SCH (20:20)
[2023-04-24] MEDS: Nicotine 7 MG PATCH TOP SCH (20:20)
[2023-04-24] MEDS: Cefepime 0.5 GM, Admixture Fee 1 EACH in Sodium Chloride 0.9% 100 ML IVPB SCH (20:21)
[2023-04-24] MEDS: ALPRAZolam 1 MG TAB PO PRN (22:04)
[2023-04-25] MEDS: HYDROcodone/Acetaminophen 10/325 mg Tablet PO PRN ×2 (01:24→06:16)
[2023-04-25] MEDS: Sodium Chloride 0.9% 1,000 ML IV SCH ×2 (03:16→15:57)
[2023-04-25 04:37] LABS: Anion Gap 12 mmol/L (10-20); BUN (Urea Nitrogen) 27 mg/dL (8.4-25.7); Calc. Creatinine Clearance 63 mL/min (70-130); Calcium 8.6 mg/dL (7.8-10.44); Carbon Dioxide 22 mmol/L (22-29); Chloride 106 mmol/L (98-107); Estimated GFR 41; Glucose 99 mg/dL (70-105); Potassium 4.1 mmol/L (3.5-5.1); Sodium 136 mmol/L (136-145)
[2023-04-25] MEDS: Levothyroxine Sodium 25 MCG TAB PO SCH (05:34)
[2023-04-25] MEDS: metroNIDAZOLE 500 MG in Premix Bag 1 BAG IVPB SCH ×3 (05:34→22:24)
[2023-04-25 07:30] LABS: #Basophils 0.2 thou/uL (0.0-0.2); #Eosinphils 0.8 thou/uL (0.0-0.7); #Monocytes 1.2 thou/uL (0.11-0.59); #Neutrophils 11.8 thou/uL (1.40-6.50); %Basophils 0.7 % (0.0-1.0); %Eosinophils 3.2 % (0.0-10.0); %Lymphocytes 40.2 % (21.0-51.0); %Monocytes 5.3 % (0.0-10.0); %Neutrophils 50.2 % (42.0-75.0); Mean Corpuscular HGB CONC 32.3 g/dL (32.0-36.0); Mean Corpuscular Hemoglobin 30.4 pg (27.0-31.0); Mean Corpuscular Volume 93.9 fl (78.0-98.0); Mean Platelet Volume 10.8 fL (7.4-10.4); Platelet Count 282 10x3/uL (130-400); RBC Distribution Width 14.8 % (11.5-14.5); Red Blood Cell (RBC) Count 4.61 mill/uL (4.70-6.10); White Blood Cell (WBC) Count 23.5 10x3/uL (4.8-10.8)
[2023-04-25] MEDS: busPIRone HCl 10 MG TAB PO SCH ×3 (08:39→20:21)
[2023-04-25] MEDS: Empagliflozin 25 MG TAB PO SCH (10:53)
[2023-04-25] MEDS: Sodium Bicarbonate Tab 325 MG TAB PO SCH ×2 (10:54→20:20)
[2023-04-25] MEDS: Apixaban 5 MG TAB PO SCH ×2 (10:54→20:21)
[2023-04-25] MEDS: Acetaminophen/Codeine 30-300mg Tablet PO PRN ×2 (12:08→22:27)
[2023-04-25] MEDS ORDERED: VANC IVPB PRN (13:38)
[2023-04-25] MEDS: Cefepime 1 GM in Sodium Chloride 0.9% 100 ML IVPB SCH (14:05)
[2023-04-25 14:48] LABS: Vancomycin, Trough 9.2 ug/mL
[2023-04-25] MEDS: VANCOMYCIN 1.25 GM/250 ML BAG 1.25 GM in Premix Bag 1 BAG IVPB SCH ×2 (15:52)
[2023-04-25] MEDS ORDERED: Vancomycin 1.5 GRAM/300 ML BAG 1.5 GM in Premix Bag 1 BAG IVPB SCH (16:00)
[2023-04-25] MEDS: Nicotine 7 MG PATCH TOP SCH (20:20)
[2023-04-25] MEDS: Famotidine 20 MG TAB PO SCH (20:21)
[2023-04-25] MEDS: ALPRAZolam 1 MG TAB PO PRN (22:27)
[2023-04-26] MEDS: Cefepime 1 GM in Sodium Chloride 0.9% 100 ML IVPB SCH ×2 (01:57→13:53)
[2023-04-26] MEDS: HYDROcodone/Acetaminophen 10/325 mg Tablet PO PRN ×2 (04:36→18:42)
[2023-04-26] MEDS: metroNIDAZOLE 500 MG in Premix Bag 1 BAG IVPB SCH ×3 (05:55→21:10)
[2023-04-26] MEDS: Levothyroxine Sodium 25 MCG TAB PO SCH (05:55)
[2023-04-26] MEDS: Sodium Chloride 0.9% 1,000 ML IV SCH ×2 (05:57→18:41)
[2023-04-26 07:13] LABS: #Basophils 0.2 thou/uL (0.0-0.2); #Eosinphils 0.7 thou/uL (0.0-0.7); #Monocytes 1.2 thou/uL (0.11-0.59); #Neutrophils 10.5 thou/uL (1.40-6.50); %Basophils 0.8 % (0.0-1.0); %Eosinophils 3.6 % (0.0-10.0); %Lymphocytes 38.2 % (21.0-51.0); %Monocytes 5.7 % (0.0-10.0); %Neutrophils 51.3 % (42.0-75.0); Hemoglobin 13.3 g/dL (14.0-18.0); Mean Corpuscular HGB CONC 31.7 g/dL (32.0-36.0); Mean Corpuscular Hemoglobin 29.6 pg (27.0-31.0); Mean Corpuscular Volume 93.5 fl (78.0-98.0); Platelet Count 269 10x3/uL (130-400); RBC Distribution Width 14.9 % (11.5-14.5); Red Blood Cell (RBC) Count 4.49 mill/uL (4.70-6.10); White Blood Cell (WBC) Count 20.6 10x3/uL (4.8-10.8)
[2023-04-26 07:43] LABS: Anion Gap 12 mmol/L (10-20); BUN (Urea Nitrogen) 20 mg/dL (8.4-25.7); CRP (Inflammatory) 16.51 mg/dL (= or < 0.5); Calc. Creatinine Clearance 85 mL/min (70-130); Calcium 8.6 mg/dL (7.8-10.44); Carbon Dioxide 18 mmol/L (22-29); Chloride 111 mmol/L (98-107); Estimated GFR 57; Glucose 102 mg/dL (70-105); Potassium 4.2 mmol/L (3.5-5.1); Sodium 137 mmol/L (136-145)
[2023-04-26] MEDS: Empagliflozin 25 MG TAB PO SCH (08:36)
[2023-04-26] MEDS: busPIRone HCl 10 MG TAB PO SCH ×3 (08:36→20:22)
[2023-04-26] MEDS: Famotidine 20 MG TAB PO SCH ×2 (08:36→20:22)
[2023-04-26] MEDS: Sodium Bicarbonate Tab 325 MG TAB PO SCH ×2 (08:36→20:22)
[2023-04-26] MEDS: Apixaban 5 MG TAB PO SCH ×2 (08:37→20:21)
[2023-04-26] MEDS: Acetaminophen/Codeine 30-300mg Tablet PO PRN (08:41)
[2023-04-26] MEDS: Senokot S 8.6-50 MG TAB PO PRN ×2 (08:41→20:31)
[2023-04-26 10:21] LABS: #Basophils 0.2 thou/uL (0.0-0.2); #Eosinphils 0.7 thou/uL (0.0-0.7); #Neutrophils 9.3 thou/uL (1.40-6.50); %Basophils 0.9 % (0.0-1.0); %Eosinophils 3.6 % (0.0-10.0); %Lymphocytes 41.4 % (21.0-51.0); %Monocytes 5.3 % (0.0-10.0); %Neutrophils 48.3 % (42.0-75.0); Hemoglobin 13.2 g/dL (14.0-18.0); Mean Corpuscular HGB CONC 31.7 g/dL (32.0-36.0); Mean Corpuscular Hemoglobin 29.9 pg (27.0-31.0); Mean Corpuscular Volume 94.3 fl (78.0-98.0); Mean Platelet Volume 10.7 fL (7.4-10.4); Platelet Count 271 10x3/uL (130-400); RBC Distribution Width 14.9 % (11.5-14.5); Red Blood Cell (RBC) Count 4.41 mill/uL (4.70-6.10); White Blood Cell (WBC) Count 19.2 10x3/uL (4.8-10.8)
[2023-04-26] MEDS: VANCOMYCIN 1.25 GM/250 ML BAG 1.25 GM in Premix Bag 1 BAG IVPB SCH (17:06)
[2023-04-26] MEDS: Nicotine 7 MG PATCH TOP SCH (20:20)
[2023-04-26] MEDS: ALPRAZolam 1 MG TAB PO PRN (21:52)
[2023-04-27] MEDS: Cefepime 1 GM in Sodium Chloride 0.9% 100 ML IVPB SCH ×2 (02:15→14:46)
[2023-04-27] MEDS: Levothyroxine Sodium 25 MCG TAB PO SCH (05:04)
[2023-04-27] MEDS: metroNIDAZOLE 500 MG in Premix Bag 1 BAG IVPB SCH ×3 (05:04→21:06)
[2023-04-27] MEDS: Sodium Chloride 0.9% 1,000 ML IV SCH ×3 (05:04→21:08)
[2023-04-27 06:37] LABS: #Basophils 0.2 thou/uL (0.0-0.2); #Eosinphils 0.9 thou/uL (0.0-0.7); #Monocytes 1.1 thou/uL (0.11-0.59); #Neutrophils 7.5 thou/uL (1.40-6.50); %Basophils 1.3 % (0.0-1.0); %Eosinophils 5.2 % (0.0-10.0); %Lymphocytes 45.9 % (21.0-51.0); %Monocytes 6.1 % (0.0-10.0); %Neutrophils 41.1 % (42.0-75.0); Mean Corpuscular HGB CONC 31.6 g/dL (32.0-36.0); Mean Corpuscular Hemoglobin 30.2 pg (27.0-31.0); Mean Corpuscular Volume 95.8 fl (78.0-98.0); Platelet Count 280 10x3/uL (130-400); RBC Distribution Width 15.3 % (11.5-14.5); White Blood Cell (WBC) Count 18.2 10x3/uL (4.8-10.8)
[2023-04-27 07:05] LABS: Anion Gap 13 mmol/L (10-20); BUN (Urea Nitrogen) 18 mg/dL (8.4-25.7); Calc. Creatinine Clearance 88 mL/min (70-130); Calcium 8.7 mg/dL (7.8-10.44); Carbon Dioxide 19 mmol/L (22-29); Chloride 109 mmol/L (98-107); Estimated GFR 57; Glucose 91 mg/dL (70-105); Sodium 137 mmol/L (136-145)
[2023-04-27] MEDS: Empagliflozin 25 MG TAB PO SCH (09:56)
[2023-04-27] MEDS: busPIRone HCl 10 MG TAB PO SCH ×3 (09:56→21:07)
[2023-04-27] MEDS: Apixaban 5 MG TAB PO SCH (09:57)
[2023-04-27] MEDS: Famotidine 20 MG TAB PO SCH ×2 (09:57→21:07)
[2023-04-27] MEDS: Sodium Bicarbonate Tab 325 MG TAB PO SCH ×2 (09:58→21:07)
[2023-04-27] MEDS: Senokot S 8.6-50 MG TAB PO PRN ×2 (10:11→21:06)
[2023-04-27 10:52] LABS: INR-International Normal Ratio 1.4; Prothrombin Time 17.5 sec (12.0-14.7)
[2023-04-27] MEDS: HYDROcodone/Acetaminophen 10/325 mg Tablet PO PRN (14:45)
[2023-04-27 15:32] LABS: Vancomycin, Trough 11.7 ug/mL
[2023-04-27] MEDS: VANCOMYCIN 1.75 GM/500 ML BAG 1.75 GM in Premix Bag 1 BAG IVPB SCH (18:36)
[2023-04-27] MEDS: Nicotine 7 MG PATCH TOP SCH (21:06)
[2023-04-27] MEDS: Enoxaparin 120 MG/0.8 ML SYRINGE SC SCH (21:07)
[2023-04-27] MEDS: Acetaminophen/Codeine 30-300mg Tablet PO PRN (21:10)
[2023-04-28] MEDS: Cefepime 1 GM in Sodium Chloride 0.9% 100 ML IVPB SCH ×2 (01:04→14:31)
[2023-04-28] MEDS: Levothyroxine Sodium 25 MCG TAB PO SCH (05:11)
[2023-04-28] MEDS: metroNIDAZOLE 500 MG in Premix Bag 1 BAG IVPB SCH ×3 (05:11→20:26)
[2023-04-28 06:49] LABS: #Basophils 0.2 thou/uL (0.0-0.2); #Eosinphils 0.9 thou/uL (0.0-0.7); #Monocytes 1.3 thou/uL (0.11-0.59); #Neutrophils 6.8 thou/uL (1.40-6.50); %Eosinophils 5.3 % (0.0-10.0); %Lymphocytes 47.9 % (21.0-51.0); %Monocytes 7.3 % (0.0-10.0); Hemoglobin 12.5 g/dL (14.0-18.0); Mean Corpuscular HGB CONC 31.7 g/dL (32.0-36.0); Mean Corpuscular Hemoglobin 29.8 pg (27.0-31.0); Mean Platelet Volume 10.4 fL (7.4-10.4); Platelet Count 269 10x3/uL (130-400); RBC Distribution Width 15.3 % (11.5-14.5); Red Blood Cell (RBC) Count 4.19 mill/uL (4.70-6.10); White Blood Cell (WBC) Count 17.7 10x3/uL (4.8-10.8)
[2023-04-28 07:17] LABS: BUN (Urea Nitrogen) 16 mg/dL (8.4-25.7); Calc. Creatinine Clearance 84 mL/min (70-130); Calcium 8.6 mg/dL (7.8-10.44); Carbon Dioxide 19 mmol/L (22-29); Chloride 110 mmol/L (98-107); Estimated GFR 54; Glucose 112 mg/dL (70-105); Sodium 138 mmol/L (136-145)
[2023-04-28 07:24] LABS: Anion Gap 13 mmol/L (10-20)
[2023-04-28] MEDS: Empagliflozin 25 MG TAB PO SCH (08:34)
[2023-04-28] MEDS: busPIRone HCl 10 MG TAB PO SCH ×3 (08:34→20:17)
[2023-04-28] MEDS: Sodium Bicarbonate Tab 325 MG TAB PO SCH ×2 (08:34→20:17)
[2023-04-28] MEDS: Enoxaparin 120 MG/0.8 ML SYRINGE SC SCH ×2 (08:34→20:17)
[2023-04-28] MEDS: Famotidine 20 MG TAB PO SCH ×2 (08:34→20:17)
[2023-04-28] MEDS: Acetaminophen/Codeine 30-300mg Tablet PO PRN ×2 (08:37→20:23)
[2023-04-28] MEDS: Senokot S 8.6-50 MG TAB PO PRN (08:42)
[2023-04-28] MEDS: HYDROcodone/Acetaminophen 10/325 mg Tablet PO PRN (11:37)
[2023-04-28] MEDS: Sodium Chloride 0.9% 1,000 ML IV SCH (16:30)
[2023-04-28] MEDS: VANCOMYCIN 1.75 GM/500 ML BAG 1.75 GM in Premix Bag 1 BAG IVPB SCH (17:08)
[2023-04-28] MEDS: Metoprolol Tartrate 50 MG TAB PO SCH (20:17)
[2023-04-28] MEDS: Nicotine 7 MG PATCH TOP SCH (20:52)
[2023-04-29] MEDS: Cefepime 1 GM in Sodium Chloride 0.9% 100 ML IVPB SCH ×2 (02:03→13:09)
[2023-04-29] MEDS: Levothyroxine Sodium 25 MCG TAB PO SCH (05:06)
[2023-04-29] MEDS: metroNIDAZOLE 500 MG in Premix Bag 1 BAG IVPB SCH ×3 (05:06→20:48)
[2023-04-29 05:23] LABS: #Basophils 0.2 thou/uL (0.0-0.2); #Monocytes 1.5 thou/uL (0.11-0.59); #Neutrophils 7.4 thou/uL (1.40-6.50); %Eosinophils 5.1 % (0.0-10.0); %Monocytes 7.8 % (0.0-10.0); %Neutrophils 38.5 % (42.0-75.0); Hemoglobin 12.6 g/dL (14.0-18.0); Mean Corpuscular HGB CONC 32.7 g/dL (32.0-36.0); Mean Corpuscular Hemoglobin 30.1 pg (27.0-31.0); Mean Corpuscular Volume 91.9 fl (78.0-98.0); Mean Platelet Volume 10.4 fL (7.4-10.4); Platelet Count 275 10x3/uL (130-400); RBC Distribution Width 15.2 % (11.5-14.5); Red Blood Cell (RBC) Count 4.19 mill/uL (4.70-6.10); White Blood Cell (WBC) Count 19.2 10x3/uL (4.8-10.8)
[2023-04-29 05:46] LABS: ALT (SGPT) 72 U/L (8-55); AST (SGOT) 115 U/L (5-34); Albumin 3.1 g/dL (3.5-5.0); Alkaline Phosphatase 489 U/L (40-110); Anion Gap 13 mmol/L (10-20); BUN (Urea Nitrogen) 15 mg/dL (8.4-25.7); Bilirubin, Total 0.8 mg/dL (0.2-1.2); CRP (Inflammatory) 11.11 mg/dL (= or < 0.5); Calc. Creatinine Clearance 91 mL/min (70-130); Calcium 8.4 mg/dL (7.8-10.44); Carbon Dioxide 19 mmol/L (22-29); Chloride 110 mmol/L (98-107); Estimated GFR 58; Globulin 2.4 g/dL (2.4-3.5); Glucose 91 mg/dL (70-105); Potassium 4.3 mmol/L (3.5-5.1); Protein, Total 5.5 g/dL (6.0-8.3); Sodium 138 mmol/L (136-145)
[2023-04-29] MEDS: busPIRone HCl 10 MG TAB PO SCH ×3 (08:56→20:18)
[2023-04-29] MEDS: Empagliflozin 25 MG TAB PO SCH (08:57)
[2023-04-29] MEDS: Senokot S 8.6-50 MG TAB PO PRN (08:57)
[2023-04-29] MEDS: Metoprolol Tartrate 50 MG TAB PO SCH ×2 (08:57→20:18)
[2023-04-29] MEDS: Sodium Chloride 0.9% 1,000 ML IV SCH ×2 (08:57→20:22)
[2023-04-29] MEDS: Sodium Bicarbonate Tab 325 MG TAB PO SCH ×2 (08:57→20:18)
[2023-04-29] MEDS: Famotidine 20 MG TAB PO SCH ×2 (08:57→20:50)
[2023-04-29] MEDS: Enoxaparin 120 MG/0.8 ML SYRINGE SC SCH ×2 (08:58→20:21)
[2023-04-29] MEDS ORDERED: Milk Of Magnesia 30 ML UDCUP PO PRN (09:05)
[2023-04-29] MEDS ORDERED: Iopamidol-370 76% 500 ML MDV (1 ML CHARGE) ONE (09:13)
[2023-04-29] MEDS: Ipratropium/Albuterol 3 ML NEB NEB SCH ×2 (12:01→18:29)
[2023-04-29] MEDS: ALPRAZolam 1 MG TAB PO PRN (14:10)
[2023-04-29 15:31] LABS: Vancomycin, Trough 17.3 ug/mL
[2023-04-29] MEDS: VANCOMYCIN 1.75 GM/500 ML BAG 1.75 GM in Premix Bag 1 BAG IVPB SCH (17:09)
[2023-04-29] MEDS: Nicotine 7 MG PATCH TOP SCH (20:48)
[2023-04-30] MEDS: Ipratropium/Albuterol 3 ML NEB NEB SCH ×4 (00:29→18:38)
[2023-04-30] MEDS: Cefepime 2 GM in Sodium Chloride 0.9% 100 ML IVPB SCH ×2 (01:53→12:51)
[2023-04-30] MEDS: Levothyroxine Sodium 25 MCG TAB PO SCH (05:14)
[2023-04-30] MEDS: metroNIDAZOLE 500 MG in Premix Bag 1 BAG IVPB SCH ×3 (05:15→20:58)
[2023-04-30] MEDS ORDERED: Heparin 10,000 UNITS/ 10 ML VIAL ONE (06:59)
[2023-04-30] MEDS ORDERED: Midazolam HCl 2 mg/2 ml Vial ONE (07:13)
[2023-04-30] MEDS ORDERED: fentaNYL 50 mcg/mL 1 mL Vial ONE (07:14)
[2023-04-30] MEDS: Senokot S 8.6-50 MG TAB PO PRN (08:41)
[2023-04-30] MEDS: Sodium Bicarbonate Tab 325 MG TAB PO SCH ×2 (08:41→20:57)
[2023-04-30] MEDS: Metoprolol Tartrate 50 MG TAB PO SCH ×2 (08:41→20:57)
[2023-04-30] MEDS: busPIRone HCl 10 MG TAB PO SCH ×3 (08:41→20:57)
[2023-04-30] MEDS: Famotidine 20 MG TAB PO SCH ×2 (08:41→20:57)
[2023-04-30] MEDS: Sodium Chloride 0.9% 1,000 ML IV SCH (08:42)
[2023-04-30] MEDS: Enoxaparin 120 MG/0.8 ML SYRINGE SC SCH (08:42)
[2023-04-30] MEDS: Empagliflozin 25 MG TAB PO SCH (08:42)
[2023-04-30] MEDS ORDERED: Iopamidol 370 76% 100 ML VIAL ONE (09:00)
[2023-04-30] MEDS ORDERED: Heparin 10,000 UNITS/ 10 ML VIAL SLOW IVP SCH (09:15)
[2023-04-30] MEDS ORDERED: Heparin 25,000 units/D5W 500 ML IVPB SCH (09:15)
[2023-04-30 09:54] LABS: Mean Corpuscular HGB CONC 31.7 g/dL (32.0-36.0); Mean Corpuscular Volume 94.8 fl (78.0-98.0); Mean Platelet Volume 10.1 fL (7.4-10.4); Platelet Count 286 10x3/uL (130-400); RBC Distribution Width 15.4 % (11.5-14.5); Red Blood Cell (RBC) Count 4.66 mill/uL (4.70-6.10); White Blood Cell (WBC) Count 20.3 10x3/uL (4.8-10.8)
[2023-04-30 09:58] LABS: Delete Auto Diff?? YES; Manual Diff?? YES
[2023-04-30 10:18] LABS: Anion Gap 14 mmol/L (10-20); BUN (Urea Nitrogen) 12 mg/dL (8.4-25.7); Calc. Creatinine Clearance 94 mL/min (70-130); Carbon Dioxide 20 mmol/L (22-29); Chloride 107 mmol/L (98-107); Estimated GFR 62; Glucose 80 mg/dL (70-105); Potassium 4.1 mmol/L (3.5-5.1); Sodium 137 mmol/L (136-145)
[2023-04-30 10:33] LABS: Band 5 % (5-11); Burr Cells SLIGHT = 2-5 cells HPF (0-1); CellaVision Operator ID LAB.GE; Eosinophils 5 % (0-10); Large Platelets 1.5 % (0-5); Lymphocytes 19 % (21-51); Monocytes 6 % (0-10); Neutrophil 63 % (42-75); Platelet Adequacy Comment Platelets Normal; Polychromasia SLIGHT = 2-3 cells HPF (0-2); Reactive Lymphocytes 3 % (0-10); Total Cell Count 199
[2023-04-30 10:58] LABS: ALT (SGPT) 50 U/L (8-55); AST (SGOT) 37 U/L (5-34); Albumin 3.5 g/dL (3.5-5.0); Alkaline Phosphatase 414 U/L (40-110); Bilirubin, Direct 0.4 mg/dL (0.1-0.3); Bilirubin, Total 0.6 mg/dL (0.2-1.2); Protein, Total 6.4 g/dL (6.0-8.3)
[2023-04-30] MEDS: HYDROcodone/Acetaminophen 10/325 mg Tablet PO PRN ×2 (12:51→22:39)
[2023-04-30] MEDS: VANCOMYCIN 1.75 GM/500 ML BAG 1.75 GM in Premix Bag 1 BAG IVPB SCH (16:52)
[2023-04-30] MEDS: Heparin 25,000 units/D5W 500 ML IVPB SCH (20:12)
[2023-04-30] MEDS: Nicotine 7 MG PATCH TOP SCH (20:57)
[2023-05-01] MEDS: Ipratropium/Albuterol 3 ML NEB NEB SCH ×7 (00:10→23:19)
[2023-05-01] MEDS ORDERED: Heparin 10,000 UNITS/ 10 ML VIAL SLOW IVP SCH (02:00)
[2023-05-01] MEDS: Sodium Chloride 0.9% 1,000 ML IV SCH ×2 (02:14→13:30)
[2023-05-01] MEDS: Cefepime 2 GM in Sodium Chloride 0.9% 100 ML IVPB SCH ×2 (02:32→13:30)
[2023-05-01] MEDS: Levothyroxine Sodium 25 MCG TAB PO SCH (05:39)
[2023-05-01] MEDS: metroNIDAZOLE 500 MG in Premix Bag 1 BAG IVPB SCH ×3 (05:39→20:57)
[2023-05-01 06:47] LABS: Hemoglobin 14.8 g/dL (14.0-18.0); Mean Corpuscular HGB CONC 31.8 g/dL (32.0-36.0); Mean Corpuscular Volume 94.3 fl (78.0-98.0); Mean Platelet Volume 10.2 fL (7.4-10.4); Platelet Count 305 10x3/uL (130-400); RBC Distribution Width 15.3 % (11.5-14.5); Red Blood Cell (RBC) Count 4.94 mill/uL (4.70-6.10); White Blood Cell (WBC) Count 27.6 10x3/uL (4.8-10.8)
[2023-05-01 07:18] LABS: Delete Auto Diff?? YES; Manual Diff?? YES
[2023-05-01 07:20] LABS: ALT (SGPT) 40 U/L (8-55); AST (SGOT) 25 U/L (5-34); Albumin 3.5 g/dL (3.5-5.0); Alkaline Phosphatase 358 U/L (40-110); Anion Gap 15 mmol/L (10-20); BUN (Urea Nitrogen) 12 mg/dL (8.4-25.7); Bilirubin, Total 0.6 mg/dL (0.2-1.2); Calc. Creatinine Clearance 95 mL/min (70-130); Calcium 8.6 mg/dL (7.8-10.44); Carbon Dioxide 20 mmol/L (22-29); Chloride 108 mmol/L (98-107); Estimated GFR 62; Globulin 2.7 g/dL (2.4-3.5); Glucose 90 mg/dL (70-105); Protein, Total 6.2 g/dL (6.0-8.3); Sodium 139 mmol/L (136-145)
[2023-05-01 08:10] LABS: Band 3 % (5-11); CellaVision Operator ID LAB.GE; Eosinophils 4 % (0-10); Lymphocytes 36 % (21-51); Monocytes 1 % (0-10); Neutrophil 55 % (42-75); Platelet Adequacy Comment Platelets Normal; Polychromasia SLIGHT = 2-3 cells HPF (0-2); Reactive Lymphocytes 1 % (0-10); Smudge Cells 13.3 %; Total Cell Count 98
[2023-05-01] MEDS: Famotidine 20 MG TAB PO SCH ×2 (09:26→20:58)
[2023-05-01] MEDS: busPIRone HCl 10 MG TAB PO SCH ×3 (09:26→20:57)
[2023-05-01] MEDS: Sodium Bicarbonate Tab 325 MG TAB PO SCH ×2 (09:26→20:57)
[2023-05-01] MEDS: Empagliflozin 25 MG TAB PO SCH (09:26)
[2023-05-01] MEDS: Metoprolol Tartrate 50 MG TAB PO SCH ×2 (09:26→20:57)
[2023-05-01] MEDS: Heparin 25,000 units/D5W 500 ML IVPB SCH ×2 (09:30→22:28)
[2023-05-01] MEDS: ALPRAZolam 1 MG TAB PO PRN ×2 (13:31→20:57)
[2023-05-01] MEDS: VANCOMYCIN 1.75 GM/500 ML BAG 1.75 GM in Premix Bag 1 BAG IVPB SCH (17:00)
[2023-05-01] MEDS: HYDROcodone/Acetaminophen 10/325 mg Tablet PO PRN (20:58)
[2023-05-01] MEDS: Nicotine 7 MG PATCH TOP SCH (20:58)
[2023-05-02] MEDS: Cefepime 2 GM in Sodium Chloride 0.9% 100 ML IVPB SCH (02:47)
[2023-05-02] MEDS: Sodium Chloride 0.9% 1,000 ML IV SCH (02:50)
[2023-05-02] MEDS: metroNIDAZOLE 500 MG in Premix Bag 1 BAG IVPB SCH (05:21)
[2023-05-02] MEDS: Levothyroxine Sodium 25 MCG TAB PO SCH (05:22)
[2023-05-02 07:36] LABS: Hemoglobin 12.8 g/dL (14.0-18.0); Mean Corpuscular HGB CONC 31.5 g/dL (32.0-36.0); Mean Corpuscular Hemoglobin 29.6 pg (27.0-31.0); Mean Corpuscular Volume 93.8 fl (78.0-98.0); Mean Platelet Volume 10.1 fL (7.4-10.4); Platelet Count 261 10x3/uL (130-400); RBC Distribution Width 15.2 % (11.5-14.5); Red Blood Cell (RBC) Count 4.33 mill/uL (4.70-6.10); White Blood Cell (WBC) Count 21.3 10x3/uL (4.8-10.8)
[2023-05-02 07:53] LABS: Delete Auto Diff?? YES; Manual Diff?? YES
[2023-05-02 07:56] LABS: PTT 146.6 sec (22.9-36.1)
[2023-05-02 07:57] LABS: Anion Gap 13 mmol/L (10-20); BUN (Urea Nitrogen) 9 mg/dL (8.4-25.7); Calc. Creatinine Clearance 91 mL/min (70-130); Calcium 8.4 mg/dL (7.8-10.44); Carbon Dioxide 23 mmol/L (22-29); Chloride 106 mmol/L (98-107); Estimated GFR 59; Glucose 133 mg/dL (70-105); Potassium 3.4 mmol/L (3.5-5.1); Sodium 139 mmol/L (136-145)
[2023-05-02] MEDS: Famotidine 20 MG TAB PO SCH (08:28)
[2023-05-02] MEDS: Sodium Bicarbonate Tab 325 MG TAB PO SCH (08:28)
[2023-05-02] MEDS: busPIRone HCl 10 MG TAB PO SCH (08:28)
[2023-05-02] MEDS: Empagliflozin 25 MG TAB PO SCH (08:28)
[2023-05-02] MEDS: Metoprolol Tartrate 50 MG TAB PO SCH (08:28)
[2023-05-02 08:32] LABS: Band 4 % (5-11); CellaVision Operator ID LAB.GE; Eosinophils 4 % (0-10); Large Platelets 1.7 % (0-5); Lymphocytes 14 % (21-51); Monocytes 5 % (0-10); Neutrophil 69 % (42-75); Platelet Adequacy Comment Platelets Normal; Polychromasia SLIGHT = 2-3 cells HPF (0-2); Reactive Lymphocytes 4 % (0-10); Total Cell Count 115
[2023-05-02] MEDS: Ipratropium/Albuterol 3 ML NEB NEB SCH (08:35)
[2023-05-02 10:32] VITALS: BP 145/86; TEMP 98.7
== END 2023-05-02 09:05 | disposition short-term general hospital (02) | DRG 871 ==
LOC: ERS 09:28 → IMCU/EMU 14:35 → T4-A 04-26 07:34 → IMCU/EMU 04-26 07:35 → T4-A 04-26 08:00
PROVIDERS: ADMIT Specialist; ATTEND Specialist
DX: A41.9 Sepsis, unspecified organism (principal); I26.99 Other pulmonary embolism without acute cor pulmonale; N18.6 End stage renal disease; M72.6 Necrotizing fasciitis; I12.0 Hypertensive chronic kidney disease with stage 5 chronic kidney disease or end stage renal disease; I87.1 Compression of vein; I82.412 Acute embolism and thrombosis of left femoral vein; E11.22 Type 2 diabetes mellitus with diabetic chronic kidney disease; E86.0 Dehydration; E78.5 Hyperlipidemia, unspecified; E03.9 Hypothyroidism, unspecified; F51.04 Psychophysiologic insomnia; E66.9 Obesity, unspecified; G89.29 Other chronic pain; M54.9 Dorsalgia, unspecified; F17.210 Nicotine dependence, cigarettes, uncomplicated; F41.1 Generalized anxiety disorder; K59.00 Constipation, unspecified; Z86.73 Personal history of transient ischemic attack (TIA), and cerebral infarction without residual deficits; Z98.890 Other specified postprocedural states; Z79.899 Other long term (current) drug therapy; Z98.1 Arthrodesis status; Z90.49 Acquired absence of other specified parts of digestive tract; Z82.49 Family history of ischemic heart disease and other diseases of the circulatory system; Z88.0 Allergy status to penicillin; Z68.33 Body mass index [BMI] 33.0-33.9, adult; Z99.2 Dependence on renal dialysis; Z79.890 Hormone replacement therapy
CPT/HCPCS: 36415; 36416; 70450; 71045; 71046; 72193; 75635; 75820; 76705; 80048; 80053; 80061; 80076; 80202; 81241; 83036; 83605; 83735; 83880; 84443; 84484; 85025; 85303; 85305; 85379; 85384; 85610; 85652; 85730; 86140; 87040; 93923; 94640; 94760; 96365; 96366; 96367; 96375; 99152; C1769; J0692; J1644; J1650; J1956; J2250; J2270; J3010; J3370; J3370-JW; J3490; J7050; J7620; Q9967

== ENCOUNTER 2023-06-08 01:33 | Emergency (ER) | payer MEDICARE ==
[2023-06-08] MEDS ORDERED: Dexamethasone 10 MG/ML VIAL ONE (02:14)
[2023-06-08] MEDS ORDERED: Clindamycin 150 MG CAP PO SCH (02:30)
== END 2023-06-08 04:13 | disposition home or self-care (01) ==
LOC: ERS 01:33
DX: K13.0 Diseases of lips (principal); K04.7 Periapical abscess without sinus; I12.0 Hypertensive chronic kidney disease with stage 5 chronic kidney disease or end stage renal disease; N18.6 End stage renal disease; E11.22 Type 2 diabetes mellitus with diabetic chronic kidney disease; E78.5 Hyperlipidemia, unspecified; F17.210 Nicotine dependence, cigarettes, uncomplicated
CPT/HCPCS: 96374; 96375; J1100

== ENCOUNTER 2023-06-22 23:05 | Emergency (ER) | payer MEDICARE ==
[2023-06-23 00:03] LABS: #Basophils 0.2 thou/uL (0.0-0.2); #Eosinphils 0.2 thou/uL (0.0-0.7); #Monocytes 1.5 thou/uL (0.11-0.59); %Basophils 0.6 % (0.0-1.0); %Eosinophils 0.7 % (0.0-10.0); %Lymphocytes 54.4 % (21.0-51.0); %Monocytes 4.5 % (0.0-10.0); %Neutrophils 39.1 % (42.0-75.0); Hemoglobin 16.8 g/dL (14.0-18.0); Mean Corpuscular HGB CONC 31.1 g/dL (32.0-36.0); Mean Corpuscular Hemoglobin 28.6 pg (27.0-31.0); Mean Corpuscular Volume 91.8 fl (78.0-98.0); Platelet Count 299 10x3/uL (130-400); RBC Distribution Width 15.7 % (11.5-14.5); Red Blood Cell (RBC) Count 5.88 mill/uL (4.70-6.10); White Blood Cell (WBC) Count 33.3 10x3/uL (4.8-10.8)
[2023-06-23 00:36] LABS: INR-International Normal Ratio 0.9; Prothrombin Time 12.7 sec (12.0-14.7)
[2023-06-23 00:37] LABS: D-Dimer Test 2.1 *mcg/mL (0.27-0.43)
== END 2023-06-23 01:48 | disposition home or self-care (01) ==
LOC: ERS 23:05
DX: I82.402 Acute embolism and thrombosis of unspecified deep veins of left lower extremity (principal); E78.5 Hyperlipidemia, unspecified; E11.22 Type 2 diabetes mellitus with diabetic chronic kidney disease; N18.6 End stage renal disease; I12.0 Hypertensive chronic kidney disease with stage 5 chronic kidney disease or end stage renal disease; F17.210 Nicotine dependence, cigarettes, uncomplicated
CPT/HCPCS: 36415; 85025; 85379; 85610; 85652; 85730; 86140; 87040

== ENCOUNTER 2024-03-14 13:27 | Outpatient (CLI) | payer MEDICARE | END 2024-03-14 13:28 | disposition home or self-care (01) | LOC: BICRAD 13:27 | PROVIDERS: ATTEND Specialist | DX: J44.9 Chronic obstructive pulmonary disease, unspecified (principal); R06.00 Dyspnea, unspecified | CPT/HCPCS: 71046 ==

== ENCOUNTER 2024-04-21 09:34 | Outpatient (CLI) | payer MEDICARE | END 2024-04-21 09:35 | disposition home or self-care (01) | LOC: BICCT 09:34 | PROVIDERS: ATTEND Internal Medicine Hematology & Oncology | DX: Z12.2 Encounter for screening for malignant neoplasm of respiratory organs (principal); F17.210 Nicotine dependence, cigarettes, uncomplicated | CPT/HCPCS: 71271 ==